=== PATIENT | female | born 1950 | race Caucasian/White ===

== ENCOUNTER → 2022-06-20 | Outpatient (CLI) | payer MEDICARE ==
--- NOTE | 2022-06-20 11:24 | USB ---
Risk Values: Siomara 5 year model risk: 1.2%. NCI Lifetime model risk: 2.9%. Findings: The upper section of the breast of both breasts, the lateral section of the breast of both breasts, the lower section of the breast of both breasts, the medial section of the breast of both breasts and the axilla of both breasts were scanned. No solid or cystic masses are identified. Bilateral chest marquis examined. This includes the axilla bilaterally. Overall Assessment: Negative, BI-RAD 1 Management: Clinical Management of both breasts. A clinical breast exam by your physician is recommended on an annual basis and results should be correlated with mammographic findings. This exam should not preclude additional follow-up of suspicious palpable abnormalities. Results were given to the patient verbally at the time of exam. Electronically signed and approved by: Juan Alford D.O. Radiologis
== END | disposition home or self-care (01) ==
LOC: RADUSWWP 08:53
PROVIDERS: ATTEND Family Medicine
DX: Z90.13 Acquired absence of bilateral breasts and nipples (principal)

== ENCOUNTER → 2022-08-08 | Outpatient (CLI) | payer MEDICARE ==
--- NOTE | 2022-08-08 13:37 | US ---
EXAMINATION TYPE: US pelvis complete transvag DATE OF EXAM: 08/08/2022 COMPARISON: NONE CLINICAL INDICATION:Female, 72 years old with history of N93.9 ABNORMAL UTERINE AND VAGINAL BLEEDING, UNSPE; . Intermittent vaginal bleeding for 1.5 years, right pelvic pain TECHNIQUE: Transvaginal (TV) and Transabdominal (TA) . Transabdominal sonographic images of the pel vis were acquired. Transvaginal sonographic images were medically necessary to better assess the fol lowing anatomy: uterus and ovaries Date of LMP: unknown EXAM MEASUREMENTS: Uterus: 7.9 x 4.4 x 4.5 cm Endometrial Stripe: 2.1 cm Right Ovary: unable to visualize Left Ovary: unable to visualize 1. Uterus: Anteverted heterogeneous 2. Endometrium: thickened, heterogeneous measuring up to 2.1 cm internal vascularity is present. 3. Right Ovary: Obscured by overlying bowel gas 4. Left Ovary: Obscured by overlying bowel gas 5. Bilateral Adnexa: appears wnl 6. Posterior cul-de-sac: wnl IMPRESSION: Abnormally thickened endometrium for a postmenopausal patient measuring up to 2.1 cm with focus of va scularity concerning for endometrial carcinoma until proven otherwise. Further evaluation with direct visualization recommended.
== END | disposition home or self-care (01) ==
LOC: RADUSWWP 12:41
PROVIDERS: ATTEND Family Medicine
DX: N93.9 Abnormal uterine and vaginal bleeding, unspecified (principal); R93.89 Abnormal findings on diagnostic imaging of other specified body structures
CPT/HCPCS: 76830; 76856

== ENCOUNTER → 2023-07-13 | Outpatient (CLI) | payer MEDICARE ==
--- NOTE | 2023-07-13 09:45 | XR ---
EXAMINATION TYPE: XR chest 2V DATE OF EXAM: 07/13/2023 COMPARISON: 06/30/2023 TECHNIQUE: PA and lateral views submitted. HISTORY: Postmenopausal bleeding FINDINGS: The lungs are clear and there is no pneumothorax, pleural effusion, or focal pneumonia. Heart size normal and no overt failure. Osseous structures demonstrate hypertrophic and degenerative changes of the spine. Arthropathy of the shoulders. IMPRESSION: 1. No acute process.
[2023-07-13 09:56] LABS: African American GFR (CKD) >90 (>60 ml/min/1.73 sqM); Blood Urea Nitrogen 8 mg/dL (7-17); Non-African American GFR(CKD) >90 (>60 ml/min/1.73 sqM)
--- NOTE | 2023-07-13 11:48 | CT ---
EXAMINATION TYPE: CT abdomen pelvis w con CT DLP: 1465 mGycm, Automated exposure control for dose reduction was used. DATE OF EXAM: 07/13/2023 11:29 AM COMPARISON: Pelvic ultrasound 08/08/2022 CLINICAL INDICATION:Female, 73 years old with history of N96.0 postmenopausal bleeding; post deyiv ble eding TECHNIQUE: Standard CT of the abdomen and pelvis following the administration of 100 cc of Isovue 3 00 IV contrast material and oral contrast. Coronal and sagittal reformats were performed. FINDINGS: LOWER CHEST: Visualized lung bases are clear. Moderate coronary artery calcifications. Aortic valvula r calcifications. ABDOMEN LIVER: Unremarkable GALLBLADDER AND BILE DUCTS: Cholelithiasis. No biliary ductal dilatation. PANCREAS: Unremarkable. SPLEEN: Unremarkable. ADRENAL GLANDS: Unremarkable. KIDNEYS AND URETERS: No evidence of hydronephrosis. The kidneys enhance symmetrically. Right superior pole 1.8 cm cyst. Bilateral nonobstructive calculi with largest within the left kidney measures up t o 9 mm. Largest within the right kidney measures up to 6 mm. PELVIS BLADDER: Incompletely distended but grossly unremarkable. REPRODUCTIVE: Abnormal thickened heterogenous enhancing appearance of the uterine endometrium measuri ng 6.8 x 4.1 cm. ABDOMEN & PELVIS STOMACH AND BOWEL: Stomach and duodenum are unremarkable. No focal bowel wall thickening or surroundi ng inflammatory changes. Enteric contrast reaches the colon. The appendix is within normal limits. No evidence of bowel obstruction. PERITONEUM: No evidence of pneumoperitoneum or free fluid. VASCULATURE: Mild atherosclerotic calcifications are present throughout the abdominal aorta and its b ranches. No evidence of aortic aneurysm. Few pelvic phleboliths. MUSCULOSKELETAL: No acute osseous abnormalities. Mild disc degeneration changes are present throughou t the thoracolumbar spine. No aggressive osseous lesion. LYMPH NODES: No pathologically enlarged lymph nodes greater than 1 cm short axis. SOFT TISSUE/ABDOMINAL WALL: Unremarkable IMPRESSION: 1. Abnormal thickened heterogenous enhancing appearance of the uterine endometrium measuring 6.8 x 4 .1 cm. This is concerning for endometrial carcinoma until proven otherwise. Direct visualization is r ecommended. 2. No pathologically enlarged lymph nodes identified. 3. Cholelithiasis. 4. Nonobstructive bilateral renal calculi.
== END | disposition home or self-care (01) ==
LOC: RADCTMAIN 09:04
PROVIDERS: ATTEND Obstetrics & Gynecology
DX: K80.20 Calculus of gallbladder without cholecystitis without obstruction (principal); N20.0 Calculus of kidney; N83.8 Other noninflammatory disorders of ovary, fallopian tube and broad ligament; N95.0 Postmenopausal bleeding
CPT/HCPCS: 82565; 84520; 71046; 74177; 36415; Q9967

== ENCOUNTER 2023-09-25 11:59 | Emergency (ER) | payer MEDICARE ==
[2023-09-25] MEDS ORDERED: ONDANSETRON ODT 4 MG TAB PO STA (12:19)
--- NOTE | 2023-09-25 12:21 | ED ---
Female Urogenital HPI - General Source: patient, family, RN notes reviewed <Diamond Carrillo - Last Filed: 09/25/23 12:19> - General Source: patient, family, RN notes reviewed Limitations: no limitations <Zoltan Flaherty - Last Filed: 09/25/23 16:33> - General Stated complaint: Hematuria-CA patient Time Seen by Provider: 09/25/23 12:20 - History of Present Illness Initial comments: Patient is 73-year-old female presented ER with chief complaint of hematuria. Patient states she started to have increased hematuria the past couple days. Patient recently had a hysterectomy due to endometrial cancer and has not started chemo or radiation yet. Patient follows up with Dr. Batista. Patient denies any pain does state she has some nausea. Is also reporting she feels lightheaded and dizzy. (Diamond Carrillo) Patient is a pleasant 73-year-old female presenting to the emergency department with concerns for hematuria. Onset of symptoms was 4 days ago. Patient did have dysuria however that has mostly resolved. Patient is approximately 3 weeks post hysterectomy. Patient had this secondary to concern for uterine cancer and there was a positive lymph node as well. No chest pain or dyspnea. No abdominal pain. No fevers. No vomiting. (Zoltan Flaherty) - Related Data Previous Rx's Medication Instructions Recorded Cephalexin [Keflex] 500 mg PO QID #36 cap 09/25/23 Allergies Allergy/AdvReac Type Severity Reaction Status Date / Time codeine Allergy Nausea & Verified 09/25/23 12:46 Vomiting Review of Systems ROS Other: All systems not noted in ROS Statement are negative. <Diamond Carrillo - Last Filed: 09/25/23 12:19> ROS Other: All systems not noted in ROS Statement are negative. Constitutional: Denies: fever, chills Eyes: Denies: eye pain ENT: Denies: ear pain Respiratory: Denies: cough Cardiovascular: Denies: chest pain Gastrointestinal: Denies: abdominal pain Genitourinary: Reports: as per HPI, hematuria <Zoltan Flaherty - Last Filed: 09/25/23 16:33> ROS Statement: Those systems with pertinent positive or pertinent negative responses have been documented in the HPI. General Exam <Diamond Carrillo - Last Filed: 09/25/23 12:19> Limitations: no limitations General appearance: alert, in no apparent distress Head exam: Present: normocephalic Eye exam: Present: normal appearance Neck exam: Present: normal inspection Respiratory exam: Present: normal lung sounds bilaterally Cardiovascular Exam: Present: regular rate, normal rhythm GI/Abdominal exam: Present: soft. Absent: tenderness Extremities exam: Present: normal inspection Neurological exam: Present: alert Psychiatric exam: Present: normal affect, normal mood Skin exam: Present: normal color <Zoltan Flaherty - Last Filed: 09/25/23 16:33> - General Exam Comments Initial Comments: Visual Physical Exam Vital signs reviewed General: Well-appearing, nontoxic, no acute distress. Head: Normocephalic, atraumatic Eyes: PERRLA, EOMI ENT: Airway patent Chest: Nonlabored breathing Skin: No visual rash, normal skin tone Neuro: Alert and oriented 3 Musculoskeletal: No gross abnormalities (Diamond Carrillo) Course Vital Signs 09/25/23 12:41 Temperature 98.0 F Pulse Rate 75 Respiratory 20 Rate Blood Pressure 105/66 O2 Sat by Pulse 99 Oximetry Medical Decision Making <Diamond Carrillo - Last Filed: 09/25/23 12:19> - Lab Data Result diagrams: 09/25/23 13:03 09/25/23 13:03 <Zoltan Flaherty - Last Filed: 09/25/23 16:33> - Medical Decision Making I performed the quick note portion of the exam. Electronically signed by Diamond Carrillo PA-C (Diamond Carrillo) EKG interpreted by myself shows sinus rhythm with a rate of 80. IN 141. QRS 90. QT 3 mL 7. QTC 4:30. Normal axis. Q waves V1 and V2. No acute ST change. Was pt. sent in by a medical professional or institution ([facility], FOUNDRY METALLURGIST, urgent care, hospital, or retirement...) When possible be specific @ -No Did you speak to anyone other than the patient for history (EMS, parent, family, police, friend...)? What history was obtained from this source @ -Family is present and helps right history including when instructed was. Did you review nursing and triage notes (agree or disagree)? Why? @ -I reviewed and agree with nursing and triage notes Were old charts reviewed (outside hosp., previous admission, EMS record, old EKG, old radiological studies, urgent care reports/EKG's, retirement records)? Report findings @ -No old charts were reviewed Differential Diagnosis (chest pain, altered mental status, abdominal pain women, abdominal pain men, vaginal bleeding, weakness, fever, dyspnea, syncope, headache, dizziness, GI bleed, back pain, seizure, CVA, palpatations, mental health, musculoskeletal)? @ -Differential Abdominal Pain Women: Appendicitis, Cholecystitis, diverticulosis, ischemic bowel, pancreatitis, hepatitis, UTI, gastroenteritis, AAA, incarcerated hernia, bowel obstruction, constipation, inflammatory bowel, hepatitis, peptic ulcer disease, splenic inf arction, perforated viscus, vulvitis, ovarian torsion, PID, kidney stone, placenta abruption, this is not meant to be an all-inclusive list EKG interpreted by me (3pts min.). @ -As above X-rays interpreted by me (1pt min.). @ -None done CT interpreted by me (1pt min.). @ -Computed tomography scan abdomen pelvis does show kidney stones. Also lung nodules. U/S interpreted by me (1pt. min.). @ -None done What testing was considered but not performed or refused? (CT, X-rays, U/S, labs)? Why? @ -None What meds were considered but not given or refused? Why? @ -None Did you discuss the management of the patient with other professionals (professionals i.e. , PA, FOUNDRY METALLURGIST, lab, RT, psych nurse, 7th grade social studies teacher, controller coal or ore, teacher, chief digital media officer, registered nurse hh case manager)? Give summary @ -No Was smoking cessation discussed for >3mins.? @ -No Was critical care preformed (if so, how long)? @ -No Were there social determinants of health that impacted care today? How? (Homelessness, low income, unemployed, alcoholism, drug addiction, transportation, low edu. Level, literacy, decrease access to med. care, prison, rehab)? @ -No Was there de-escalation of care discussed even if they declined (Discuss DNR or withdrawal of care, Hospice)? DNR status @ -No What co-morbidities impacted this encounter? (DM, HTN, Smoking, COPD, CAD, Cancer, CVA, ARF, Chemo, Hep., AIDS, mental health diagnosis, sleep apnea, morbid obesity)? @ -None Was patient admitted / discharged? Hospital course, mention meds given and route, prescriptions, significant lab abnormalities, going to OR and other pertinent info. @ -Patient and family are updated on results and plan. The are aware they do need to follow-up with oncology and discussed lung nodules as seen on CAT scan. Undiagnosed new problem with uncertain prognosis? @ -No Drug Therapy requiring intensive monitoring for toxicity (Heparin, Nitro, Insulin, Cardizem)? @ -No Were any procedures done? @ -No Diagnosis/symptom? @ -Hematuria Acute, or Chronic, or Acute on Chronic? @ -Acute Uncomplicated (without systemic symptoms) or Complicated (systemic symptoms)? @ -default Side effects of treatment? @ -No Exacerbation, Progression, or Severe Exacerbation? @ -No Poses a threat to life or bodily function? How? (Chest pain, [place], [place], pneumonia, PE, COPD, DKA, ARF, appy, cholecystitis, CVA, Diverticulitis, Homicidal, Suicidal, threat to staff... and all critical care pts) @ -No (Zoltan Flaherty) - Lab Data Lab Results 09/25/23 09/25/23 09/25/23 Range/Units 13:03 13:03 13:03 WBC 7.6 (3.8-10.6) k/uL RBC 4.02 (3.80-5.40) m/uL Hgb 12.0 (11.4-16.0) gm/dL Hct 35.6 (34.0-46.0) % MCV 88.6 (80.0-100.0) fL MCH 29.8 (25.0-35.0) pg MCHC 33.7 (31.0-37.0) g/dL RDW 13.2 (11.5-15.5) % Plt Count 427 (150-450) k/uL MPV 7.6 Sodium 134 L (137-145) mmol/L Potassium 5.0 (3.5-5.1) mmol/L Chloride 95 L (98-107) mmol/L Carbon Dioxide 25 (22-30) mmol/L Anion Gap 14 mmol/L BUN 13 (7-17) mg/dL Creatinine 0.64 (0.52-1.04) mg/dL Est GFR (CKD-EPI)AfAm >90 (>60 ml/min/1.73 sqM) Est GFR (CKD-EPI)NonAf 88 (>60 ml/min/1.73 sqM) Glucose 160 H (74-99) mg/dL Calcium 10.0 (8.4-10.2) mg/dL Total Bilirubin 0.7 (0.2-1.3) mg/dL AST 25 (14-36) U/L ALT 16 (4-34) U/L Alkaline Phosphatase 170 H (38-126) U/L Total Protein 7.2 (6.3-8.2) g/dL Albumin 4.2 (3.5-5.0) g/dL Urine Color Dark Red Urine Appearance Turbid H (Clear) Urine RBC >182 H (0-5) /hpf Urine WBC 61 H (0-5) /hpf Ur Squamous Epith Cells 3 (0-4) /hpf Disposition <Diamond Carrillo - Last Filed: 09/25/23 12:19> Is patient prescribed a controlled substance at d/c from ED?: No Time of Disposition: 16:33 <Zoltan Flaherty - Last Filed: 09/25/23 16:33> Clinical Impression: Hematuria Disposition: HOME SELF-CARE Condition: Stable Instructions (If sedation given, give patient instructions): Hematuria (ED) Additional Instructions: Please do follow-up with her care physician and oncologist within the next week. Return for fevers, vomiting, abdominal pain, increased bleeding, worsening symptoms or any other concerns. Prescription has been sent to pharmacy. Prescriptions: Cephalexin [Keflex] 500 mg PO QID #36 cap Referrals: Domingo Anna MD [Primary Care Provider] - 1-2 days Bg Batista [STAFF PHYSICIAN] - 1-2 days
[2023-09-25 13:05] VITALS: PULSE 75; TEMP 98
[2023-09-25 13:21] LABS: HCT 35.6 % (34.0-46.0); MCH 29.8 pg (25.0-35.0); MCHC 33.7 g/dL (31.0-37.0); MCV 88.6 fL (80.0-100.0); Mean Platelet Volume 7.6; Platelet Count 427 k/uL (150-450); RBC 4.02 m/uL (3.80-5.40); RDW 13.2 % (11.5-15.5); WBC 7.6 k/uL (3.8-10.6)
[2023-09-25 13:33] LABS: ALT 16 U/L (4-34); AST 25 U/L (14-36); African American GFR (CKD) >90 (>60 ml/min/1.73 sqM); Albumin 4.2 g/dL (3.5-5.0); Alkaline Phosphatase 170 U/L (38-126); Anion Gap 14 mmol/L; Blood Urea Nitrogen 13 mg/dL (7-17); Carbon Dioxide 25 mmol/L (22-30); Chloride 95 mmol/L (98-107); Glucose 160 mg/dL (74-99); Non-African American GFR(CKD) 88 (>60 ml/min/1.73 sqM); Sodium 134 mmol/L (137-145); Total Bilirubin 0.7 mg/dL (0.2-1.3); Total Protein 7.2 g/dL (6.3-8.2)
[2023-09-25 13:46] LABS: Appearance,Urine Turbid (Clear); RBC,Urine >182 /hpf (0-5); Squamous Epithelial Cell,Urine 3 /hpf (0-4); WBC,Urine 61 /hpf (0-5)
[2023-09-25 13:47] LABS: Color,Urine Dark Red
--- NOTE | 2023-09-25 14:54 | CT ---
EXAMINATION TYPE: CT abdomen pelvis w con DATE OF EXAM: 09/25/2023 COMPARISON: 07/13/2023 HISTORY: hematuria CT DLP: 1080.1 mGycm Automated exposure control for dose reduction was used. TECHNIQUE: Helical acquisition of images was performed from the lung bases through the pelvis. CONTRAST: Performed without Oral Contrast and with IV Contrast, patient injected with 100ml mL of Isovue 300. FINDINGS: There is been interval development of multiple innumerable pulmonary nodules in the lung bases, right much greater than left. The largest nodules or proximally 7 mm. Findings are suspicious for metastat ic disease. CT of the chest is recommended for further evaluation. There is a large gallstone but no gallbladder distention, wall thickening or pericholecystic fluid. T here is no biliary ductal dilatation. There is no focal mass or organomegaly involving the liver, pancreas, spleen or adrenal glands. The p ancreas is atrophic. There are 2 tiny nonobstructing right renal calcifications. The 6 mm calcification seen within the ri ght kidney on the prior study has resolved in the interval. There is a 8mm stable nonobstructing left renal calcification. There are no solid renal masses or hyd ronephrosis. Caliber the abdominal aorta is normal is no retroperitoneal adenopathy or hemorrhage. The bowel loops are normal in caliber and there is no dilatation or obstruction. No inflammatory mathias ges identified in the bowel wall or mesentery. There is no pelvic mass, free fluid, abscess or adenopathy. There are surgical absence of the uterus. No focal osseous lesions are seen. IMPRESSION: 1. Bilateral renal calculi as described above. There is no solid renal mass or hydronephrosis. The 6 mm right renal calculus seen on the prior study is no longer present. 2. Stable large gallstone. 3. Development of multiple innumerable pulmonary nodules in the visualized lung bases, the largest o f which is 7 mm. Findings are suspicious for metastatic disease and further workup is warranted. CT o f the chest is recommended on a nonemergent basis. 4. No focal osseous lesion.
[2023-09-25] MEDS ORDERED: CEPHALEXIN 500MG STARTER PACK 4 CAP BTL PO STA (16:28)
[2023-09-25 17:01] VITALS: BP 146/85; RESP 18
== END 2023-09-25 16:48 | disposition home or self-care (01) ==
LOC: EC 11:59
DX: K80.20 Calculus of gallbladder without cholecystitis without obstruction (principal); N20.0 Calculus of kidney; Z88.5 Allergy status to narcotic agent
CPT/HCPCS: 36415 ×2; 80053; 85027; 81001; 87086; 74177; 99284; Q9967

== ENCOUNTER → 2023-10-14 | Outpatient (CLI) | payer MEDICARE ==
[2023-10-14 11:05] LABS: African American GFR (CKD) >90 (>60 ml/min/1.73 sqM); Blood Urea Nitrogen 15 mg/dL (7-17); Non-African American GFR(CKD) >90 (>60 ml/min/1.73 sqM)
--- NOTE | 2023-10-14 11:48 | CT ---
EXAMINATION TYPE: CT chest w con CT DLP: 326 mGycm, Automated exposure control for dose reduction was used. DATE OF EXAM: 10/14/2023 11:29 AM COMPARISON: CT abdomen and pelvis 09/25/2023, 07/13/2023 CLINICAL INDICATION:Female, 73 years old with history of C54.8 UTERINE CA R91.1 PULMONARY NODULES; P HH, TECHNIQUE: Multiple axial images were obtained through the chest following the administration of 100 cc of Isovue 300. . Coronal and sagittal reformats reviewed. FINDINGS: LUNGS/ PLEURA: No pleural effusion or pneumothorax. No focal sedation. Innumerable pulmonary nodules demonstrated about the lungs. Examples include a right lower lobe 6 mm nodule which is not present o n CT 07/13/2023 (series 4, image 45). Additional examples include right lower lobe 6.7 mm pulmonary n odule (series 4, image 23), left lower lobe 4.7 mm pulmonary nodule (series 4, image 26), left upper lobe 4.6 mm pulmonary nodule (series 4, image 17), and right upper lobe 5.9 mm pulmonary nodule (seri es 4, image 14). AIRWAY: Patent and unremarkable.. HEART: Size within normal limits. Trace anterior pericardial effusion.. MEDIASTINUM: No evidence of adenopathy. VASCULATURE: No aortic aneurysm. MUSCULOSKELETAL: No acute osseous abnormalities. No aggressive osseous lesion. Multilevel degenerativ e changes of the visualized spine. SOFT TISSUES/LYMPH NODES: No axillary adenopathy identified. Bilateral mastectomy. Irregular peripher al enhancing 2.1 x 2.2 cm region within the right breast (series 3, image 31). LOWER NECK: Left thyroid lobe 1.2 cm hypodense nodule. Atrophy of the right thyroid lobe compared to the left.. UPPER ABDOMEN: Cholelithiasis with a dominant gallstone measuring up to 2.1 cm. Right renal cyst reji uring up to 2.2 cm. Nonobstructive left renal calculus measuring up to 1 cm. IMPRESSION: 1. Innumerable pulmonary nodules throughout the lungs most consistent with metastasis in the setting of known uterine cancer. 2. Irregular peripheral enhancing 2.1 x 2.2 cm region within the right breast. Raises possibility of malignancy/metastasis versus postsurgical. Comparison with prior breast imaging is recommended. Furth er workup is recommended with dedicated mammography and ultrasound. 3. Nonobstructive left renal calculus. 4. Cholelithiasis.
== END | disposition home or self-care (01) ==
LOC: RADCTMAIN 09:50
PROVIDERS: ATTEND Internal Medicine Hematology & Oncology
DX: K80.20 Calculus of gallbladder without cholecystitis without obstruction (principal); N20.0 Calculus of kidney; Z85.42 Personal history of malignant neoplasm of other parts of uterus
CPT/HCPCS: 82565; 84520; 71260; 36415; Q9967

== ENCOUNTER → 2023-10-15 | Outpatient (CLI) | payer MEDICARE ==
--- NOTE | 2023-10-15 10:22 | USB ---
Reason for Exam: Additional evaluation requested from prior study. Risk Values: Siomara 5 year model risk: 1.2%. NCI Lifetime model risk: 2.7%. Technique: Method: Whole Breast Handheld. Findings: The whole breast of the right breast and the axilla of the right breast were scanned. Patient status post right mastectomy. All 4 quadrants including the subareolar region and axilla were scanned. At the 9:00 position, 5 cm from the nipple, likely corresponding to the CT findings, there is an elongated heterogeneous hypoechoic area measuring 3.8 x 3.9 x 1.1 cm. This seems to extend to an overlying scar. Unclear if this represents abnormal tissue or underlying scar. Given the appearance on CT, further tissue sampling is recommended. Overall Assessment: Suspicious, BI-RAD 4 Management: Ultrasound Core Biopsy of the right breast. Electronically signed and approved by: Lea Delacruz M.D. Radiologist
== END | disposition home or self-care (01) ==
LOC: RADUSWWP 09:39
PROVIDERS: ATTEND Internal Medicine Hematology & Oncology
DX: N63.10 Unspecified lump in the right breast, unspecified quadrant (principal); Z85.3 Personal history of malignant neoplasm of breast

== ENCOUNTER → 2023-10-23 | Outpatient (CLI) | payer MEDICARE ==
[2023-10-23 10:20] LABS: Prothrombin Time 10.9 sec (10.0-12.5)
[2023-10-23 10:21] LABS: Partial Thromboplastin Time 19.7 sec (22.0-30.0)
[2023-10-23 15:12] LABS: Blood Urea Nitrogen 10.9 mg/dL (9.0-27.0)
== END | disposition home or self-care (01) ==
LOC: LABPAT 09:02
PROVIDERS: ATTEND Thoracic Surgery (Cardiothoracic Vascular Surgery)
DX: Z01.812 Encounter for preprocedural laboratory examination (principal); R91.8 Other nonspecific abnormal finding of lung field; R58 Hemorrhage, not elsewhere classified; Z79.899 Other long term (current) drug therapy
CPT/HCPCS: 36415; 82565; 84520; 85025; 85610; 85730; 86850; 86900; 86901

== ENCOUNTER 2023-10-26 11:18 | Day surgery (SDC) | payer MEDICARE ==
[2023-10-23 14:37] VITALS: BMI 31.8
[~2023-10-26 11:18] MED LIST: LIDOCAINE 1% (10MG/ML) FOR IV START INTRADERMA PRN; fentaNYL (PF) 50 MCG/ML 2 ML AMP IV PRN
[2023-10-26] MEDS: LACTATED RINGERS 1,000 ML IV SCH (12:11)
[2023-10-26 12:22] LABS: Glucose,Whole Blood 166 mg/dL (70-110)
--- NOTE | 2023-10-26 12:43 | P.ANPRN ---
Procedure Note - Anesthesia - Invasive Line Left Arterial Line Time Out Performed: Yes Date of Procedure: 10/26/23 Time of Procedure: 12:40 Location of Patient: PreOp Arterial Line Location: Radial Ultrasound Used: No Needle Guage: 22 G Narrative: Central line placement per sterile protocol utilized.
[2023-10-26] MEDS: fentaNYL (PF) 50 MCG/ML 2 ML AMP IVP ONE (12:45)
[2023-10-26] MEDS: MIDAZOLAM 2 MG/2 ML VIAL IVP ONE (12:45)
[2023-10-26] MEDS: ONDANSETRON 4 MG/2 ML VIAL IVP ONE (12:58)
[2023-10-26] MEDS: DEXAMETHASONE SOD PHOSPHATE 4 MG/ML 1 ML VIAL IVP ONE (13:09)
[2023-10-26] MEDS ORDERED: GLYCOPYRROLATE 0.2 MG/ML 2 ML VIAL ONE (13:48)
[2023-10-26] MEDS ORDERED: SUCCINYLCHOLINE CHLORIDE 200 MG/10 ML VIAL IV ONE (13:48)
[2023-10-26] MEDS ORDERED: fentaNYL (PF) 50 MCG/ML 2 ML AMP ONE (13:48)
[2023-10-26] MEDS ORDERED: PHENYLEPHRINE-0.9% NACL SYG 1,000 MCG/10 ML SYRINGE ONE (13:48)
[2023-10-26] MEDS ORDERED: NEOSTIGMINE 1 MG/ML 10 ML VIAL ONE (13:48)
[2023-10-26] MEDS ORDERED: LIDOCAINE 1% INJ 10MG/ML (20 ML MDV) ONE (13:48)
[2023-10-26] MEDS ORDERED: HYDROmorphone (PF) 1 MG/ML ONE (13:48)
[2023-10-26] MEDS ORDERED: PROPOFOL 10 MG/ML 20 ML VIAL IV ONE (13:48)
[2023-10-26] MEDS ORDERED: ROCURONIUM 10 MG/ML (5 ML VIAL) IV ONE (13:48)
[2023-10-26] MEDS: BUPIVACAINE (PF) 0.5% 30 ML VIAL SQ ONE ×2 (14:23→14:31)
--- NOTE | 2023-10-26 15:02 | P.OP ---
Date of Procedure: 10/26/23 Preoperative Diagnosis: Advanced uterine cancer, multiple bilateral miliary pulmonary masses Postoperative Diagnosis: Same Procedure(s) Performed: Right thoracoscopic biopsy right middle lobe lung Anesthesia: CHIDIA Surgeon: Jose Miguel Cisneros IV fluids (ml): 500 Pathology: other (Biopsy right middle) Condition: stable Disposition: PACU Indications for Procedure: 73-year-old female history of breast cancer in distant past recently underwent radical hysterectomy for stage IIIB uterine cancer in August 2023. She was scheduled to start adjuvant chemotherapy but was found to have innumerable new pulmonary masses which were not present on preoperative abdominal CT scan. This was felt most likely to represent metastatic disease however concern was could possibly represent some type of infection and therefore lung biopsy for diagnosis was requested before initiation of systemic chemotherapy. Patient was seen in the office late last week and surgery was scheduled for today October 26. Operative Findings: Pleural space was free of adhesions or fluid. Lung compliance was normal. The lungs were pink. There were multiple nodules visible both on the surface of the lung and in the fissures. Single biopsy of the middle lobe was obtained which had multiple nodules present within it. Description of Procedure: Patient was brought to the operating room placed supine on the operating table. General anesthesia intubation the patient was intubated with a double-lumen endotracheal tube. Tube position was confirmed with fiberoptic bronchoscopy and the tube was secured. Patient was turned in the left lateral decubitus position and the tube again checked. The right chest was sterilely prepped and draped. Single lung ventilation was initiated. Incision was made in the sixth interspace in the anterior axillary line and thoracoscope introduced into the pleural space. After confirming presence in the pleural space to further incisions were made anterior and posterior to the initial incision. The chest w as explored with findings as noted above. A single wedge resection of the posterior portion of the right middle lobe was performed. Specimen was removed and examined on the back table. Multiple nodules were present. 28-Khmer chest tube was placed through separate stab incision and positioned posteriorly. Lung was reinflated under thoracoscopic visualization. Incisions were closed with layers of Vicryl suture. Improve and I sterile dressings were applied. Chest tube was secured with 0 Ethibond suture and connected to a Pleur-evac. Chest tube dressing was applied. The patient was turned supine and extubated and transferred to recovery in stable condition.
[2023-10-26] MEDS: HYDROmorphone 0.5 MG/0.5 ML SYRINGE IVP ONE ×3 (15:15→15:50)
[2023-10-26] MEDS ORDERED: bisacodyL 10 MG SUPP RECTAL PRN (15:25)
[2023-10-26] MEDS ORDERED: IPRATROPIUM-ALBUTEROL 3 ML NEB IH PRN (15:25)
[2023-10-26] MEDS ORDERED: ONDANSETRON 4 MG/2 ML VIAL IVP PRN (15:25)
--- NOTE | 2023-10-26 15:38 | XR ---
EXAMINATION TYPE: XR chest 1V portable DATE OF EXAM: 10/26/2023 3:24 PM CLINICAL INDICATION:Female, 73 years old with history of post op lung biopsy; COMPARISON: Chest radiographs from TECHNIQUE: XR chest 1V portable Frontal view of the chest. FINDINGS: Lungs/Pleura: There is no evidence of pleural effusion, focal consolidation, or pneumothorax. Pulmonary vascularity: Unremarkable. Heart/mediastinum: Cardiac size is normal. Musculoskeletal: No acute osseous pathology. Other findings: None Lines/Tubes: Right thoracotomy tube is present without evidence of pneumothorax. IMPRESSION: Right thoracotomy tube in place without evidence for pneumothorax.
[2023-10-26 15:41] LABS: Glucose,Whole Blood 140 mg/dL (70-110)
[2023-10-26] MEDS: SODIUM CHLORIDE 0.45% 1,000 ML IV SCH (18:11)
[2023-10-26 20:37] LABS: Glucose,Whole Blood 161 mg/dL (70-110)
[2023-10-26] MEDS: traZODone HCL 100 MG TAB PO SCH (20:49)
[2023-10-26] MEDS: ACETAMINOPHEN IV (For NPO) 1,000 MG in EMPTY BAG 1 BAG IVPB SCH (20:49)
[2023-10-26] MEDS: metFORMIN 500 MG TAB PO SCH (20:49)
[2023-10-26] MEDS: IPRATROPIUM-ALBUTEROL 3 ML NEB IH SCH (21:13)
[2023-10-26] MEDS: FORMOTEROL FUMARATE 20 MCG/2 ML NEBU INHALATION SCH (21:14)
[2023-10-26] MEDS: HEPARIN SODIUM,PORCINE 5,000 UNIT/ML 1 ML VIAL SQ SCH (23:42)
[2023-10-26] MEDS: KETOROLAC 15 MG/ML 1 ML VIAL IVP SCH (23:42)
[2023-10-27 00:19] VITALS: RESP 18
[2023-10-27 05:47] LABS: Glucose,Whole Blood 157 mg/dL (70-110)
[2023-10-27 06:54] LABS: Basophils % (A) 0 %; Eosinophils % (A) 0 %; HCT 32.1 % (34.0-46.0); HGB 10.7 gm/dL (11.4-16.0); Lymphocytes # (A) 0.6 k/uL (1.0-4.8); Lymphocytes % (A) 8 %; MCH 29.6 pg (25.0-35.0); MCHC 33.3 g/dL (31.0-37.0); Mean Platelet Volume 8.3; Monocytes # (A) 0.6 k/uL (0-1.0); Monocytes % (A) 7 %; Neutrophils % (A) 84 %; Platelet Count 285 k/uL (150-450); RBC 3.61 m/uL (3.80-5.40); RDW 13.5 % (11.5-15.5); WBC 8.4 k/uL (3.8-10.6)
[2023-10-27 07:03] LABS: African American GFR (CKD) >90 (>60 ml/min/1.73 sqM); Anion Gap 7 mmol/L; Blood Urea Nitrogen 16 mg/dL (7-17); Calcium 8.7 mg/dL (8.4-10.2); Carbon Dioxide 25 mmol/L (22-30); Chloride 100 mmol/L (98-107); Glucose 144 mg/dL (74-99); Non-African American GFR(CKD) >90 (>60 ml/min/1.73 sqM); Potassium 4.4 mmol/L (3.5-5.1); Sodium 132 mmol/L (137-145)
[2023-10-27] MEDS: ATORVASTATIN 40 MG TAB PO SCH (08:13)
[2023-10-27] MEDS: VORTIOXETINE HYDROBROMIDE 20 MG TABLET PO SCH (08:13)
[2023-10-27] MEDS: ACETAMINOPHEN TAB 500 MG TAB PO PRN (08:13)
--- NOTE | 2023-10-27 09:12 | XR ---
EXAMINATION TYPE: XR chest 1V DATE OF EXAM: 10/27/2023 7:33 AM CLINICAL INDICATION:Female, 73 years old with history of post op lung biopsy; [facility] COMPARISON: Chest radiograph from one day prior. TECHNIQUE: XR chest 1V Frontal view of the chest. FINDINGS: Lungs/Pleura: There is no evidence of pleural effusion, focal consolidation, or pneumothorax. Pulmonary vascularity: Unremarkable. Heart/mediastinum: Cardiac size is normal. Musculoskeletal: No acute osseous pathology. Other findings: None Lines/Tubes: Right thoracotomy tube is present without evidence of pneumothorax. IMPRESSION: Right thoracotomy tube in place without evidence for pneumothorax.
[2023-10-27 11:57] LABS: Glucose,Whole Blood 139 mg/dL (70-110)
[2023-10-27 12:05] VITALS: BP 96/61; PULSE 100; TEMP 97.9
--- NOTE | 2023-10-27 12:41 | P.PN ---
Subjective Progress Note Date: 10/27/23 Principal diagnosis: Advanced uterine cancer, multiple bilateral miliary pulmonary masses. 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 POD #1 right thoracoscopic biopsy right middle lobe lung. The patient was seen and examined in follow-up today October 27, 2023 at her bedside on the third floor cardiac stepdown unit. She is currently sitting up to the bedside chair, is awake, alert, oriented x 3 and is in no acute apparent distress. Denies any complaints of shortness of breath at this time, although is complaining of some surgical type pain to her chest tube insertion site, currently rating her pain 4-5 out of 10 on the pain scale. Oxygen saturations are 98% on room air and she is achieving 1000 mL on her incentive spirometry with encouragement. Right pleural chest tube remains in place to waterseal. No air leak is present. Draining thin serosanguineous drainage with 20 mL output in the last 8 hours and 70 mL output in last 24 hours. Remote telemetry is showing normal sinus rhythm heart rate 86 bpm. She reports she has been up ambulating in her room with assistance from nursing staff and tolerating well. Chest x-ray and laboratory results reviewed. Objective - Vital Signs Vital signs: Vital Signs Temp 97.6 F 10/27/23 04:00 Pulse 68 10/27/23 08:05 Resp 18 10/27/23 04:00 BP 126/74 10/27/23 04:00 Pulse Ox 91 L 10/27/23 07:46 FiO2 Intake & Output 10/26/23 10/27/23 10/27/23 18:59 06:59 18:59 Intake Total 1650 118 Output Total 10 53 5 Balance 1640 -53 113 Weight 86.636 kg 87.3 kg Intake: IV 1650 Oral 118 Output: Chest Tube Drainage 53 5 Chest Tube Right 53 5 Estimated Blood Loss 10 Other: Voiding Method Toilet # Voids 1 - Exam CONSTITUTIONAL: Appears comfortable, cooperative, no acute distress RESPIRATORY: Lungs sounds diminished bilaterally. Respirations symmetrical and nonlabored. Currently on room air with oxygen saturation 98%. Able to achieve 1000 mL on her incentive spirometry. Strong cough. CARDIOVASCULAR: S1, S2 present. Regular rate and rhythm, sinus rhythm on telemetry. Palpable peripheral pulses bilaterally. No edema present. No calf pain or tenderness noted. SCDs present. GASTROINTESTINAL: Abdomen soft, nontender, nondistended. Active bowel sounds present 4 quadrants. Tolerating diet. Positive bowel movement. GENITOURINARY: Continues to void clear, yellow urine INTEGUMENTARY: Skin is warm and dry with evidence of good perfusion. Right chest thoracic incisions well approximated and covered with dry intact dressing. NEUROLOGIC: Cranial nerves II through XII intact. No focal deficits. MUSKULOSKELETAL: Able to move all extremities, strength equal bilaterally, gait normal. PSYCHIATRIC: Alert and oriented to person place and time, appropriate affect, intact judgment and insight. INVASIVE LINES AND TUBES: Right pleural chest tube present and is to waterseal, no air leaks present. Right pleural chest tube with 20 mL serosanguineous drainage overnight, 70 mL in the last 24 hours. - Allied health notes Allied health notes reviewed: nursing - Labs CBC & Chem 7: 10/27/23 06:30 10/27/23 06:30 Labs: Abnormal Lab Results - Last 24 Hours (Table) 10/26/23 10/26/23 10/26/23 Range/Units 12:18 15:30 20:35 RBC (3.80-5.40) m/uL Hgb (11.4-16.0) gm/dL Hct (34.0-46.0) % Lymphocytes # (1.0-4.8) k/uL Sodium (137-145) mmol/L Glucose (74-99) mg/dL POC Glucose (mg/dL) 166 H 140 H 161 H (70-110) mg/dL 10/27/23 10/27/23 10/27/23 Range/Units 05:46 06:30 06:30 RBC 3.61 L (3.80-5.40) m/uL Hgb 10.7 L (11.4-16.0) gm/dL Hct 32.1 L (34.0-46.0) % Lymphocytes # 0.6 L (1.0-4.8) k/uL Sodium 132 L (137-145) mmol/L Glucose 144 H (74-99) mg/dL POC Glucose (mg/dL) 157 H (70-110) mg/dL - Imaging and Cardiology Chest x-ray: report reviewed, image reviewed Assessment and Plan Assessment: Multiple bilateral miliary pulmonary masses, status post right thoracoscopic biopsy right middle lobe lung Advanced uterine cancer, status post hysterectomy in August 2023 History of breast cancer status post bilateral mastectomies 20 years ago Diabetes mellitus type 2 History of hypertension Hyperlipidemia Obesity with a BMI of 32.0 kg/m History of depression Plan: We will remove her right pleural chest tube today. Increase activity as tolerated. Pain control per current as needed orders. Continue to follow pathology results. She will follow-up with Dr. Cisneros as an outpatient for pathology result review. Encourage use of incentive spirometry 10 times every hour while awake. Medical management and other comorbidities per oncology service. Anticipate discharge home within the next 24 hours. More recommendations to follow based on patient's clinical course. Time with Patient: Greater than 30
--- NOTE | 2023-10-27 12:50 | P.DS ---
Providers Expected date of discharge: 10/27/23 Attending physician: Jose Miguel Cisneros Consults: 10/26/23 15:25 Consult Physician Routine Consulting Provider: Bg Batista Consult Reason/Comments: Medical management Do you want consulting provider notified?: Yes Primary care physician: Vic Hernandes Plan - Discharge Summary Discharge Rx Participant: No New Discharge Prescriptions: New Acetaminophen Tab [Tylenol] 1,000 mg PO Q6HR PRN tab PRN Reason: Fever And/ Or Pain Continue Vortioxetine Hydrobromide [Trintellix] 20 mg PO QAM Pioglitazone [Actos] 30 mg PO PC-LUNCH metFORMIN HCL [Glucophage] 1,000 mg PO BID lisinopriL [Zestril] 2.5 mg PO PC-LUNCH traZODone HCL [Desyrel] 100 mg PO HS Atorvastatin [Lipitor] 40 mg PO QAM atenoloL [Tenormin] 25 mg PO PC-LUNCH Discharge Medication List Atorvastatin [Lipitor] 40 mg PO QAM 10/15/23 [History] Pioglitazone [Actos] 30 mg PO PC-LUNCH 10/15/23 [History] Vortioxetine Hydrobromide [Trintellix] 20 mg PO QAM 10/15/23 [History] atenoloL [Tenormin] 25 mg PO PC-LUNCH 10/15/23 [History] lisinopriL [Zestril] 2.5 mg PO PC-LUNCH 10/15/23 [History] metFORMIN HCL [Glucophage] 1,000 mg PO BID 10/15/23 [History] traZODone HCL [Desyrel] 100 mg PO HS 10/15/23 [History] Acetaminophen Tab [Tylenol] 1,000 mg PO Q6HR PRN tab 10/27/23 [Rx] Follow up Appointment(s)/Referral(s): Jose Miguel Cisneros MD [STAFF PHYSICIAN] - 11/05/23 1:15 pm Bg Batista [STAFF PHYSICIAN] - As Needed (Dr Batista's office will call with a follow up appointment ) Ambulatory/Diagnostic Orders: XR chest 2V [RAD.AMB] Location: None Selected Activity/Diet/Wound Care/Special Instructions: DISCHARGE INSTRUCTIONS: 1. No driving for 2 weeks, or until physician gives their ok. 2. No lifting, pushing, or pulling more than 10 pounds for 2 weeks. The physician will advise of any restriction changes. 3. Continue pain control per as needed orders 4. Continue with incentive spirometry and splinting until otherwise directed by the physician. 5. Leave chest tube dressing for 48 hours. After that, remove all dressings and shower daily. 6. Routine incision care. No powders, lotions, ointments on incisions. 7. Please call surgeon/[employer] APPRENTICE for temp greater than 101 F or purulent drainage from incisions. OBTAIN CHEST X-RAY AT THE HOSPITAL PRIOR TO APPOINTMENT WITH DR. CISNEROS Discharge Disposition: HOME SELF-CARE Pending Studies Pending Results: FINAL DIAGNOSIS: Multiple bilateral miliary pulmonary masses, status post right thoracoscopic biopsy right middle lobe lung Advanced uterine cancer, status post hysterectomy in August 2023 History of breast cancer status post bilateral mastectomies 20 years ago Diabetes mellitus type 2 History of hypertension Hyperlipidemia Obesity with a BMI of 32.0 kg/m History of depression PRINCIPAL PROCEDURE: 1. Right thoracoscopic biopsy right middle lobe lung HISTORY OF PRESENT ILLNESS: This is a 73-year-old female patient who follows on an outpatient basis with Dr. Vic Hernandes and with Dr. Batista for her oncology care. The patient has a past medical history significant for breast cancer 20 years ago and underwent a radical hysterectomy for stage IIIb uterine cancer in August 2023. Due to the history of uterine cancer she was scheduled to start adjuvant chemotherapy, but underwent a CT scan of the chest on October 14, 2023 which demonstrated innumerable pulmonary nodules throughout the lungs most consistent with metastasis in the setting of known uterine cancer. Subsequently, due to the findings of the pulmonary nodules she was referred to Dr. Jose Miguel Cisneros from cardiothoracic surgery for further evaluation and treatment recommendations. The patient was seen by Dr. Cisneros in the office, treatment options discussed including a thoracoscopic lung biopsy. Risks and benefits of surgery was discussed with the patient by Dr. Cisneros and knowing and understanding the risks the patient wished to proceed with the surgical option. HOSPITAL COURSE: The patient was brought to the hospital on 10/26/23, taken to the preoperative area, prepared in the usual fashion, and subsequently taken to the operating room where Dr. Cisneros performed a right thoracoscopic biopsy right middle lobe lung. Upon completion of surgery the patient was extubated and taken to the recovery room for hemodynamic monitoring. She was eventually admitted to 3 S. cardiac stepdown unit. She had no airleak in her chest tube and it was placed to waterseal that afternoon of surgery. The following morning there was no airleak present, chest x-ray was stable and her right pleural chest tube was discontinued without incident. She remained on room air with excellent oxygen saturation, was tolerating an oral diet, her pain was controlled, and she was ready to be discharged to home on postoperative day #1. She received written and verbal instruction regarding her medications, activity restrictions, signs and symptoms requiring physician notification, and follow- up appointments.
[2023-10-27] MEDS: atenoloL 25 MG TAB PO SCH (13:06)
[2023-10-27] MEDS: PIOGLITAZONE 30 MG TAB PO SCH (13:06)
--- NOTE | 2023-10-27 14:14 | P.CONS ---
History of Present Illness - Reason for Consult Consult date: 10/27/23 medical management Requesting physician: Darren Low - Chief Complaint Wedge biopsy of the lung - History of Present Illness Ms Hylton is a pleasant female pt of Dr. Batista with multiple medical issues and a complicated PMH. The patient had presented to her PCP with complains of persistent and progressive vaginal bleeding for more than a year. He was referred to [facility] Oncology, Dr. Hernandes, and had Pap smear and D&C on 07/23/23. 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 Patient's pelvic ultrasound in 08/05 had shown abnormally thickened endometrium measuring 2.1 cm, with focus of vascularity concerning for endometrial carcinoma. CT AP 07/13/23 showed abnormally thickened endometrium, measuring 6.8 x 4.1 cm. Chest x-ray was negative. She underwent surgery with MI/BSO, as well as sentinel lymph node dissection on 09/03/23. 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 She was staged as pT3a, N1a, stage IIIc. She was referred to Dr. Batista for adjuvant systemic therapy. She had CT AP 09/25/23 for hematuria- impression bilaterl renal calculi, no hydronephrosis or mass, 6mm calculus in the right previously seen was no longer present (likely passed ston e?). Unfortunately, there was development of multiple innumerable pulm nodules visualized in lung bases. CT chest ordered, able to be done same day 4-6mm plum nodules seen, as well as 2.1x2.2cm enhancing right breast mass. She is admitted for the wedge biopsy of lung. Breast biopsy is on 11/04. Planning for chemo soon after breast biopsy. Pt has no c/o when seen today. She is breathing fine, denies any significant discomfort. She has PMH diabetes, bilateral breast cancer, initially in 1978 on the left, treated with lumpectomy and radiation. Breast cancer on the right side in 2003, had a bilateral mastectomy, and lymph node dissection on the right. Received radiation and chemotherapy for 6 months, no hormonal treatment, indicating that this was likely hormone receptor negative cancer. She has not had any genetic testing done for hereditary cancer mutations. Review of Systems 10 point ROS is neg except as stated in HPI Past Medical History Past Medical History: Cancer, Diabetes Mellitus, Hearing Disorder / Deafness, Hyperlipidemia, Hypertension, Osteoarthritis (OA), Pneumonia Additional Past Medical History / Comment(s): Uterine cancer awaiting chemo, hx right breast cancer with later recurrence 20 yrs ago. Hx pneumonia and bronchitis X4 many years ago. Some trouble hearing. History of Any Multi-Drug Resistant Organisms: None Reported Past Surgical History: Breast Surgery, Hysterectomy Additional Past Surgical History / Comment(s): Partial mastectomy, bilateral mastectomy, deviated septum surgery. Past Anesthesia/Blood Transfusion Reactions: No Reported Reaction Past Psychological History: Depression Additional Psychological History / Comment(s): Trintellix Smoking Status: Never smoker Past Alcohol Use History: None Reported Past Drug Use History: None Reported - Past Family History Mother Family Medical History: No Reported History Medications and Allergies Home Medications Medication Instructions Recorded Confirmed Type Atorvastatin [Lipitor] 40 mg PO QAM 10/15/23 10/26/23 History Pioglitazone [Actos] 30 mg PO PC-LUNCH 10/15/23 10/26/23 History Vortioxetine Hydrobromide 20 mg PO QAM 10/15/23 10/26/23 History [Trintellix] atenoloL [Tenormin] 25 mg PO PC-LUNCH 10/15/23 10/26/23 History lisinopriL [Zestril] 2.5 mg PO PC-LUNCH 10/15/23 10/26/23 History metFORMIN HCL [Glucophage] 1,000 mg PO BID 10/15/23 10/26/23 History traZODone HCL [Desyrel] 100 mg PO HS 10/15/23 10/26/23 History Acetaminophen Tab [Tylenol] 1,000 mg PO Q6HR PRN tab 10/27/23 Rx Allergies Allergy/AdvReac Type Severity Reaction Status Date / Time codeine Allergy Nausea & Verified 10/26/23 12:43 Vomiting Physical Exam Vitals: Vital Signs Temp Pulse Pulse Pulse Resp BP BP 10/27/23 08:05 68 10/27/23 08:00 97.5 F L 99 18 103/69 10/27/23 07:56 68 10/27/23 07:46 65 10/27/23 04:00 97.6 F 84 18 126/74 10/26/23 23:46 98.1 F 103 H 18 148/75 10/26/23 21:40 88 10/26/23 21:26 90 10/26/23 21:25 90 10/26/23 21:16 88 10/26/23 20:22 97.3 F L 87 16 151/74 10/26/23 18:00 79 16 10/26/23 17:30 63 14 10/26/23 17:00 65 14 10/26/23 16:45 63 16 10/26/23 16:30 64 16 10/26/23 16:15 76 12 164/54 10/26/23 16:00 64 12 155/53 10/26/23 15:45 65 16 165/58 10/26/23 15:30 67 16 170/67 10/26/23 15:15 71 16 180/67 10/26/23 15:00 66 16 178/60 10/26/23 14:54 97.9 F 96 15 10/26/23 12:44 97.3 F L 83 16 BP Pulse Ox 10/27/23 08:05 10/27/23 08:00 99 10/27/23 07:56 10/27/23 07:46 91 L 10/27/23 04:00 98 10/26/23 23:46 98 10/26/23 21:40 10/26/23 21:26 10/26/23 21:25 10/26/23 21:16 10/26/23 20:22 99 10/26/23 18:00 145/66 97 10/26/23 17:30 129/58 94 L 10/26/23 17:00 151/65 96 10/26/23 16:45 131/60 96 10/26/23 16:30 150/65 99 10/26/23 16:15 149/68 99 10/26/23 16:00 161/72 100 10/26/23 15:45 174/74 100 10/26/23 15:30 174/76 100 10/26/23 15:15 174/76 100 10/26/23 15:00 183/81 100 10/26/23 14:54 192/86 100 10/26/23 12:44 143/69 100 Intake and Output 10/26/23 10/27/23 10/27/23 22:59 06:59 14:59 Intake Total 118 Output Total 34 19 5 Balance -34 -19 113 Intake: Oral 118 Output: Chest Tube Drainage 34 19 5 Chest Tube Right 34 19 5 Other: Voiding Method Toilet Toilet # Voids 1 Weight 86.636 kg 87.3 kg - Constitutional General appearance: average body habitus, cooperative, no acute distress - EENT Eyes: anicteric sclerae, EOMI ENT: hearing grossly normal, normal oropharynx - Neck Neck: no lymphadenopathy - Respiratory rt chest tube insertion Respiratory: bilateral: CTA - Cardiovascular Rhythm: regular Heart sounds: normal: S1, S2 Abnormal Heart Sounds: no systolic murmur, no diastolic murmur, no rub, no S3 Gallop, no S4 Gallop, no click, no other leg Peripheral Edema: bilateral: Trace - Gastrointestinal General gastrointestinal: no absent bowel sounds, no decreased bowel sounds, no distended, no hepatomegaly, no hyperactive bowel sounds, normal bowel sounds, no organomegaly, no rigid, no scaphoid, soft, no splenomegaly, no tenderness, no umbilical hernia, no ventral hernia - Neurologic Neurologic: CNII-XII intact - Musculoskeletal Musculoskeletal: strength equal bilaterally - Psychiatric Psychiatric: A&O x's 3, appropriate affect, intact judgment & insight right breast mass, 10oclock position Results CBC & Chem 7: 10/27/23 06:30 10/27/23 06:30 Labs: Abnormal Lab Results - Last 24 Hours (Table) 10/26/23 10/26/23 10/26/23 Range/Units 12:18 15:30 20:35 RBC (3.80-5.40) m/uL Hgb (11.4-16.0) gm/dL Hct (34.0-46.0) % Lymphocytes # (1.0-4.8) k/uL Sodium (137-145) mmol/L Glucose (74-99) mg/dL POC Glucose (mg/dL) 166 H 140 H 161 H (70-110) mg/dL 10/27/23 10/27/23 10/27/23 Range/Units 05:46 06:30 06:30 RBC 3.61 L (3.80-5.40) m/uL Hgb 10.7 L (11.4-16.0) gm/dL Hct 32.1 L (34.0-46.0) % Lymphocytes # 0.6 L (1.0-4.8) k/uL Sodium 132 L (137-145) mmol/L Glucose 144 H (74-99) mg/dL POC Glucose (mg/dL) 157 H (70-110) mg/dL Chest x-ray: report reviewed Assessment and Plan (1) Lung nodule, multiple Current Visit: Yes Status: Acute Code(s): R91.8 - OTHER NONSPECIFIC ABNORMAL FINDING OF LUNG FIELD SNOMED Code(s): 576072654 (2) Breast mass in female Current Visit: Yes Status: Acute Code(s): N63.0 - UNSPECIFIED LUMP IN UNSPECIFIED BREAST SNOMED Code(s): 05531924 (3) History of breast cancer Current Visit: Yes Status: Acute Code(s): Z85.3 - PERSONAL HISTORY OF MALIGNANT NEOPLASM OF BREAST SNOMED Code(s): 906889641 (4) Endometrial carcinoma Current Visit: Yes Status: Acute Code(s): C54.1 - MALIGNANT NEOPLASM OF ENDOMETRIUM SNOMED Code(s): 365717834 Plan: Endometrial carcinoma -Recent diagnosis -Pending start of chemo Lung nodules and breast mass -Both of these sites are concerning for either mets or new primaries. Pending completion of biopsies to begin chemo. -S/P wedge resection. Path pending Doctor attests: I performed a history and physical examination of this patient, developed impression and plan of care. Discussed with dictator. I agree with dictators note, documented as a scribe.
== END 2023-10-27 14:30 | disposition home or self-care (01) ==
LOC: OR 11:18 → EDSTATUS 13:15 → 3SCARD 14:36 → OR 10-27 14:30
PROVIDERS: ATTEND Thoracic Surgery (Cardiothoracic Vascular Surgery)
DX: C34.2 Malignant neoplasm of middle lobe, bronchus or lung (principal); E11.9 Type 2 diabetes mellitus without complications; E66.9 Obesity, unspecified; E78.5 Hyperlipidemia, unspecified; F32.A Depression, unspecified; I10 Essential (primary) hypertension; Z68.32 Body mass index [BMI] 32.0-32.9, adult; Z85.3 Personal history of malignant neoplasm of breast; Z79.84 Long term (current) use of oral hypoglycemic drugs; Z85.42 Personal history of malignant neoplasm of other parts of uterus; Z79.899 Other long term (current) drug therapy
CPT/HCPCS: 31622; 94640 ×4; 94760; 80048; 85025; 88307; 71045 ×2; C1729; J2250; J0330; J1644 ×2; J1100; J2710; J0690 ×2; J2405; J2001; J3010; J1170 ×2; J0131 ×2; J1885 ×2; J2704; J2371; J0665; 88341; 88342

== ENCOUNTER → 2023-11-04 | Outpatient (CLI) | payer MEDICARE ==
--- NOTE | 2023-11-04 09:39 | XR ---
EXAMINATION TYPE: XR chest 2V DATE OF EXAM: 11/04/2023 COMPARISON: 10/27/2023 TECHNIQUE: PA and lateral views submitted. HISTORY: Post lung biopsy FINDINGS: There is a area of subsegmental consolidation right upper lobe. Left lung is clear. Hypertrophic dege nerative changes spine. Bilateral shoulder arthropathy. No overt failure. No pleural effusion. No pne umothorax. IMPRESSION: 1. No pneumothorax. 2. Nonspecific nodular or subsegmental area of consolidation right upper lobe laterally.
== END | disposition home or self-care (01) ==
LOC: RADXRMAIN 09:14
PROVIDERS: ATTEND Thoracic Surgery (Cardiothoracic Vascular Surgery)
DX: Z48.813 Encounter for surgical aftercare following surgery on the respiratory system (principal); R91.1 Solitary pulmonary nodule
CPT/HCPCS: 71046

== ENCOUNTER → 2023-11-04 | Day surgery (SDC) | payer MEDICARE ==
--- NOTE | 2023-11-09 08:04 | USB ---
Risk Values: Siomara 5 year model risk: 1.2%. NCI Lifetime model risk: 2.7%. Pathology Description: Location: 9 o'clock. Marker Left Behind. Needle Type: Mammotome Cores: 6 Gauge: 13 The procedure of ultrasound guided core biopsy was explained to the patient. Benefits, alternatives, and risks were discussed. An informed consent was then obtained. Ultrasound was utilized to identify the masslike 3.9 cm area of the 9:00 mastectomy site corresponding to the area identified on patient's CT. The patient was placed in supine positioning for imaging and for the procedure. The overlying skin was prepped and draped in usual sterile fashion. Lidocaine was used as anesthetic into the skin and subcutaneous tissue up to area of concern in the 9:00 right breast. Under ultrasound guidance, a 13-gauge vacuum-assisted mammotome biopsy gun was used to obtain 6 core samples. Following this, a butterfly clip was left in lesion. The patient tolerated the procedure well without any immediate complication. The patient was kept in the radiology department for short stay after the procedure and then discharged home in stable condition. Postprocedure mammogram not performed given patient's mastectomy. Hydromark clip was utilized for easy identification by ultrasound at a later date if needed. Impression: Successful, uncomplicated ultrasound guided core biopsy of masslike area 9:00 right mastectomy site. Incidentally seen on CT. Masslike scar tissue as possible. Full pathology results to follow. Pathology Results: Result: Benign, Scar tissue. RIGHT BREAST, NINE O'CLOCK, ULTRASOUND GUIDED NEEDLE CORE BIOPSY: Hypocellular and sclerotic scar tissue. Negative for malignancy. Overall Assessment: Benign Management: Diagnostic Breast Ultrasound of the right breast in 6 months. Electronically signed and approved by: Lea Delacruz M.D. Radiologist
== END ==
LOC: RADUSWWP 07:32
PROVIDERS: ATTEND Internal Medicine Hematology & Oncology
DX: N63.0 Unspecified lump in unspecified breast (principal); Z85.3 Personal history of malignant neoplasm of breast
CPT/HCPCS: 88305; 19083; A4648

== ENCOUNTER → 2023-12-28 | Outpatient (CLI) | payer MEDICARE ==
--- NOTE | 2023-12-28 11:28 | CT ---
EXAMINATION TYPE: CT brain wo con DATE OF EXAM: 12/28/2023 COMPARISON: None HISTORY: 73-year-old female C79.82, secondary malignant neoplasm genitals, c/o dizziness TECHNIQUE: Examination was done in axial plane without intravenous contrast. Coronal and sagittal r econstructions performed. CT DLP: 1225 mGycm Automated exposure control for dose reduction was used. FINDINGS: There is no evidence of acute intracranial hemorrhage, acute ischemic changes, mass, mass-effect, or extra-axial fluid collection. There is no effacement of cerebral sulci or basal subarachnoid cister ns. There is no hydrocephalus. There is no midline shift. Jay-white matter distinction is preserv ed. Moderate patchy white matter hypodensities in both cerebral hemispheres. Extensive benign hyperostosis frontalis interna. Paranasal sinuses and mastoid air cells are well pneumatized. Orbits and globes are intact. IMPRESSION: 1. Moderate patchy white matter hypodensities probably relating to changes of chronic small vessel is chemic disease. Given the patient's oncologic history, contrast-enhanced MRI if clinically indicated. 2. Otherwise, no acute intracranial abnormality seen.
== END | disposition home or self-care (01) ==
LOC: RADCTMAIN 10:42
PROVIDERS: ATTEND Family Medicine
DX: G93.89 Other specified disorders of brain (principal); C79.82 Secondary malignant neoplasm of genital organs; R42 Dizziness and giddiness
CPT/HCPCS: 70450

== ENCOUNTER 2024-01-07 17:55 | Emergency (ER) | payer MEDICARE ==
[2024-01-07 19:26] VITALS: BP 125/76; PULSE 89; RESP 18; TEMP 98.5
--- NOTE | 2024-01-07 20:24 | ED ---
Fall HPI - General Chief Complaint: Fall Stated Complaint: Fall-dizziness, L leg issue Time Seen by Provider: 01/07/24 18:12 Source: patient, RN notes reviewed, old records reviewed Mode of arrival: ambulatory Limitations: no limitations - History of Present Illness Initial Comments: This is a 73-year-old female to the ER for evaluation today. Patient presents today for evaluation regards to fall fall with injury fall with leg injury and leg pain patient again fell backwards and hit on her but landed on her buttocks. 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 Witnessed: no Place Fall Occurred: home Loss of Consciousness: none Symptoms Prior to Fall: none Location: back, pelvis, buttocks Severity: moderate Severity scale (1-10): 8 Quality: stabbing Context: tripped/slipped Associated Symptoms: denies - Related Data Home Medications Medication Instructions Recorded Confirmed Atorvastatin [Lipitor] 40 mg PO QAM 10/15/23 10/26/23 Pioglitazone [Actos] 30 mg PO PC-LUNCH 10/15/23 10/26/23 Vortioxetine Hydrobromide 20 mg PO QAM 10/15/23 10/26/23 [Trintellix] atenoloL [Tenormin] 25 mg PO PC-LUNCH 10/15/23 10/26/23 lisinopriL [Zestril] 2.5 mg PO PC-LUNCH 10/15/23 10/26/23 metFORMIN HCL [Glucophage] 1,000 mg PO BID 10/15/23 10/26/23 traZODone HCL [Desyrel] 100 mg PO HS 10/15/23 10/26/23 Previous Rx's Medication Instructions Recorded Acetaminophen Tab [Tylenol] 1,000 mg PO Q6HR PRN tab 10/27/23 Allergies Allergy/AdvReac Type Severity Reaction Status Date / Time codeine Allergy Nausea & Verified 01/07/24 18:13 Vomiting Review of Systems ROS Statement: Those systems with pertinent positive or pertinent negative responses have been documented in the HPI. ROS Other: All systems not noted in ROS Statement are negative. Past Medical History Past Medical History: Cancer, Hyperlipidemia, Hypertension, Thyroid Disorder Additional Past Medical History / Comment(s): uterine CA, Breast cancer right mets to lungs History of Any Multi-Drug Resistant Organisms: None Reported Past Surgical History: Breast Surgery, Hysterectomy Additional Past Surgical History / Comment(s): complete hyst 09/03/2023. Bilat mastectomy. Nose surgery Past Anesthesia/Blood Transfusion Reactions: No Reported Reaction Past Psychological History: Depression Smoking Status: Never smoker Past Alcohol Use History: None Reported Past Drug Use History: None Reported - Past Family History Mother Family Medical History: No Reported History General Exam Limitations: no limitations General appearance: alert, in no apparent distress Head exam: Present: atraumatic, normocephalic, normal inspection Eye exam: Present: normal appearance, PERRL, EOMI. Absent: scleral icterus, conjunctival injection, periorbital swelling ENT exam: Present: normal exam, mucous membranes moist Neck exam: Present: normal inspection. Absent: tenderness, meningismus, lymphadenopathy Respiratory exam: Present: normal lung sounds bilaterally. Absent: respiratory distress, wheezes, rales, rhonchi, stridor Cardiovascular Exam: Present: regular rate, normal rhythm, normal heart sounds. Absent: systolic murmur, diastolic murmur, rubs, gallop, clicks GI/Abdominal exam: Present: soft, normal bowel sounds. Absent: distended, tenderness, guarding, rebound, rigid Extremities exam: Present: normal inspection, full ROM, normal capillary refill. Absent: tenderness, pedal edema, joint swelling, calf tenderness Back exam: Present: normal inspection Neurological exam: Present: alert, oriented X3, CN II-XII intact Psychiatric exam: Present: normal affect, normal mood Skin exam: Present: warm, dry, intact, normal color. Absent: rash Course Vital Signs 01/07/24 18:03 Temperature 98.5 F Pulse Rate 89 Respiratory 18 Rate Blood Pressure 125/76 O2 Sat by Pulse 97 Oximetry - Reevaluation(s) Reevaluation #1: 01/07/24 20:22 Medical record is reviewed Reevaluation #2: 01/07/24 20:22 Patient symptoms improved Reevaluation #3: 01/07/24 20:23 Patient informed of results and questions answered Reevaluation #4: Was pt. sent in by a medical professional or institution (, PA, PHYSICAL SCIENCES PROFESSOR, urgent care, hospital, or alf...) When possible be specific @ -no Did you speak to anyone other than the patient for history (EMS, parent, family, police, friend...)? What history was obtained from this source @ -no Did you review nursing and triage notes (agree or disagree)? Why? @ -agree Are old charts reviewed (outside hosp., previous admission, EMS record, old EKG, old radiological studies, urgent care reports/EKG's, alf records)? Report findings @ -yes Differential Diagnosis (chest pain, altered mental status, abdominal pain women, abdominal pain men, vaginal bleeding, weakness, fever, dyspnea, syncope, headache, dizziness, GI bleed, back pain, seizure, CVA, palpatations, mental health, musculoskeletal)? @ -prior EKG interpreted by me (3pts min.). @ -yes X-rays interpreted by me (1pt min.). @ -yes negative for acute disease CT interpreted by me (1pt min.). @ -no U/S interpreted by me (1pt. min.). @ -no What testing was considered but not performed or refused? (CT, X-rays, U/S, labs)? Why? @ -none What meds were considered but not given or refused? Why? @ -none Did you discuss the management of the patient with other professionals (professionals i.e. , PA, PHYSICAL SCIENCES PROFESSOR, lab, RT, psych nurse, director social, occup therapist, teacher, engineering officer, case technician)? Give summary @ -no Was smoking cessation discussed for >3mins.? @ -no Was critical care preformed (if so, how long)? @ -no Were there social determinants of health that impacted care today? How? (Homelessness, low income, unemployed, alcoholism, drug addiction, transportation, low edu. Level, literacy, decrease access to med. care, residential, rehab)? @ -none Was there de-escalation of care discussed even if they declined (Discuss DNR or withdrawal of care, Hospice)? DNR status @ -no What co-morbidities impacted this encounter? (DM, HTN, Smoking, COPD, CAD, Cancer, CVA, ARF, Chemo, Hep., AIDS, mental health diagnosis, sleep apnea, morbid obesity)? @ -none Was patient admitted / discharged? Hospital course, mention meds given and route, prescriptions, significant lab abnormalities, going to OR and other pertinent info. @ - 73 female to ER after a fall fall with leg injury back pain buttocks injury no fracture noted. Patient can be discharged home\ Discharge Undiagnosed new problem with uncertain prognosis? @ -no Drug Therapy requiring intensive monitoring for toxicity (Heparin, Nitro, Insulin, Cardizem)? @ -no Were any procedures done? @ -no Diagnosis/symptom? @ -Fall with back contusion Acute, or Chronic, or Acute on Chronic? @ -Acute Uncomplicated (without systemic symptoms) or Complicated (systemic symptoms)? @ -Complicated Side effects of treatment? @ -no Exacerbation, Progression, or Severe Exacerbation? @ -exacerbation Poses a threat to life or bodily function? How? (Chest pain, [place], [place], pneumonia, PE, COPD, DKA, ARF, appy, cholecystitis, CVA, Diverticulitis, Homicidal, Suicidal, threat to staff... and all critical care pts) @ -yes with extremes of age Medical Decision Making - Medical Decision Making 73 female to ER after a fall fall with leg injury back pain buttocks injury no fracture noted. Patient can be discharged home - Radiology Data Radiology results: report reviewed (X-ray pelvis back leg negative for traumatic injury x-ray tib-fib and pelvis negative for acute traumatic injury), image reviewed Disposition Clinical Impression: Fall, Leg pain, Back pain Disposition: HOME SELF-CARE Condition: Good Instructions (If sedation given, give patient instructions): Fall Prevention for Older Adults (ED), Contusion in Adults (ED) Is patient prescribed a controlled substance at d/c from ED?: No Referrals: Domingo Anna MD [Primary Care Provider] - 1-2 days Time of Disposition: 20:20
--- NOTE | 2024-01-07 21:05 | XR ---
EXAMINATION TYPE: XR lumbar spine 2 or 3V DATE OF EXAM: 01/07/2024 7:22 PM CLINICAL INDICATION:Female, 73 years old with history of fall; [facility] COMPARISON: None TECHNIQUE AND FINDINGS: Pelvis: Single frontal view of the pelvis was obtained demonstrating no acute fracture or dislocation. Modera te air changes in the lower lumbar spine and SI joints. Mild air change of the pubic symphysis. Moder ate bilateral hip arthropathy. There is chronic spurring seen along the iliac wings and to a lesser d egree greater trochanters. No soft tissue anomaly is seen. Lumbar spine: Frontal, lateral views of the lumbar spine and coned down lateral lumbosacral junction view. There ar e 5 lumbar type vertebral bodies. There is moderate multilevel degenerative disk disease with disc sp yo narrowing and anterior more than posterior disc marginal osteophytes. [id number] facet dise ase throughout, greatest in the mid to lower lumbar region. Vertebral body heights appear preserved a nd there is no significant listhesis seen. Very minimal apex right scoliotic curve suggestive. Partia lly seen degenerative changes of the SI joints. Soft tissues are grossly unremarkable for acute proce ss. Small rounded densities in the bilateral upper abdomen are nonspecific but could relate to renal calculi. There is mild to moderate calcification of the abdominal aorta without suggestion of aneurys m. Sacrum/coccyx: Frontal and lateral views of the sacrum/coccyx, 3 views total. Moderate degenerative change of the SI joints. Some limitation by overlying stool contents but no acu te fracture of the sacrum is seen on frontal view. Lateral view shows suggestion of a minimal angulat ion in the region of the coccyx, correlate clinically for possibility of acute nondisplaced coccygeal fracture. Soft tissues are grossly unremarkable. Tibia/fibula: 4 views of the left tibia/fibula (please note one view is included with the same day pelvis x-ray) de monstrate a total knee arthroplasty, appears intact, normally aligned and cemented. No evidence of pe rihardware lucency or fracture. Posterior resurfacing changes of the patella. Moderate superior arce lar pole enthesophyte spurring. A fabella is present. Tibia and fibula appear intact throughout. At t he ankle, there are moderate degenerative changes of the ankle joint with periarticular osteophytes o f the distal fibula/lateral malleolus and medial malleolus. No acute fracture lucency or dislocation is seen. The ankle mortise is preserved. Talar dome appears to be intact, with mild degenerative mathias ges/flattening along the dome. Moderate size dorsal and plantar calcaneal spurs, and moderate degener ative change of the forefoot and midfoot partially seen. There may be mild soft tissue swelling about the ankle. No sizable ankle joint effusion is suggested. No radiopaque foreign body. IMPRESSION: Pelvis, lumbar spine, sacrum/coccyx, left tibia/fibula: * No definite acute fracture or significant malalignment demonstrated. * Correlate clinically for possible nondisplaced slightly angulated coccygeal fracture. * Chronic/degenerative changes as described above.
== END 2024-01-07 20:47 | disposition home or self-care (01) ==
LOC: EC 17:55
DX: S30.0XXA Contusion of lower back and pelvis, initial encounter (principal); M79.605 Pain in left leg; Z88.5 Allergy status to narcotic agent; W01.0XXA Fall on same level from slipping, tripping and stumbling without subsequent striking against object, initial encounter
CPT/HCPCS: 72100; 72170; 72220; 93005; 99284

== ENCOUNTER → 2024-01-19 | Outpatient (CLI) | payer MEDICARE ==
--- NOTE | 2024-01-19 12:17 | MR ---
EXAMINATION TYPE: MR brain wo/w con DATE OF EXAM: 01/19/2024 COMPARISON: CT brain 12/28/2023 HISTORY: Dizziness, episodes of blacking out, kareem hearing loss. TECHNIQUE: Multiplanar, multisequence images of the brain and brainstem is performed without and with IV contras t, utilizing 7.5 mL intravenous Gadavist . FINDINGS: Diffusion weighted images demonstrate no evidence of a recent infarct or other diffusion ab normality. There are numerous areas of abnormal signal scattered throughout the white matter bilaterally which a re nonspecific. Most likely etiology is remote microvascular ischemic change. Tiny areas of abnormal signal involving the sylvia and basal ganglia also likely represent remote ischemic tiny lacunar infarc ts. No midline shift or mass effect. Midline structures demonstrate normal morphology. The craniocervica l junction appears within normal limits. Post contrast images demonstrate no abnormal enhancement. F aint enhancement along the right frontal parietal inner table likely is vascular but is too small to characterize. Follow-up subsequently. The dural venous sinuses appear patent. Mild chronic sinusitis and the globes are intact. Hyperostosis of the calvarium. IMPRESSION: 1. Degenerative and nonspecific white matter changes most typical of remote microvascular ischemia
== END | disposition home or self-care (01) ==
LOC: RADMRIMAIN 09:34
PROVIDERS: ATTEND Internal Medicine Hematology & Oncology
DX: C54.8 Malignant neoplasm of overlapping sites of corpus uteri (principal); E11.9 Type 2 diabetes mellitus without complications; E78.5 Hyperlipidemia, unspecified; I67.82 Cerebral ischemia; Z85.3 Personal history of malignant neoplasm of breast
CPT/HCPCS: 70553; A9585

== ENCOUNTER 2024-01-23 20:07 | Inpatient (IN) | payer MEDICARE ==
--- NOTE | 2024-01-23 20:27 | ED ---
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 Patient and family states that she was at home where she fell around 1700 unintended and crawled due to weakness and inability to get herself up after the fall to her nearby phone. Patient is endorsing a headache since time of fall. Additionally, patient is being worked up outpatient with complaints of dizziness and hearing loss. Patient is currently on IV chemotherapy every 3 weeks and has recently started immunologic therapy. Family is concerned due to patient expressing increasing weakness and signs of confusion. (Caty Orta) - Related Data Home Medications Medication Instructions Recorded Confirmed Atorvastatin [Lipitor] 40 mg PO DAILY 10/15/23 01/24/24 Vortioxetine Hydrobromide 20 mg PO DAILY 10/15/23 01/24/24 [Trintellix] atenoloL [Tenormin] 25 mg PO PC-LUNCH 10/15/23 01/24/24 lisinopriL [Zestril] 2.5 mg PO PC-LUNCH 10/15/23 01/24/24 metFORMIN HCL [Glucophage] 1,000 mg PO BID 10/15/23 01/24/24 traZODone HCL [Desyrel] 100 mg PO HS 10/15/23 01/24/24 Multivit-Min/Iron/Folic/Lutein 1 tab PO DAILY 01/24/24 01/24/24 [Centrum Silver Women Tablet] Ondansetron [Zofran] 4 - 8 mg PO Q4H PRN 01/24/24 01/24/24 glyBURIDE [Diabeta] 5 mg PO AC-BID 01/24/24 01/24/24 Allergies Allergy/AdvReac Type Severity Reaction Status Date / Time codeine Allergy Nausea & Verified 01/07/24 18:13 Vomiting Review of Systems ROS Other: All systems not noted in ROS Statement are negative. <Alex Daniel - Last Filed: 01/24/24 00:15> ROS Other: All systems not noted in ROS Statement are negative. <Caty Orta - Last Filed: 01/24/24 13:28> ROS Statement: Those systems with pertinent positive or pertinent negative responses have been documented in the HPI. Past Medical History Past Medical History: Cancer, Hyperlipidemia, Hypertension, Thyroid Disorder Additional Past Medical History / Comment(s): uterine CA, Breast cancer right mets to lungs History of Any Multi-Drug Resistant Organisms: None Reported Past Surgical History: Breast Surgery, Hysterectomy Additional Past Surgical History / Comment(s): complete hyst 09/03/2023. Bilat mastectomy. Nose surgery Past Anesthesia/Blood Transfusion Reactions: No Reported Reaction Past Psychological History: Depression Smoking Status: Never smoker Past Alcohol Use History: None Reported Past Drug Use History: None Reported - Past Family History Mother Family Medical History: No Reported History <Caty Orta - Last Filed: 01/24/24 13:28> General Exam Limitations: no limitations General appearance: alert, in no apparent distress Head exam: Present: atraumatic, normocephalic, normal inspection Eye exam: Present: normal appearance, PERRL, EOMI. Absent: scleral icterus, conjunctival injection, periorbital swelling ENT exam: Present: normal exam, mucous membranes moist Neck exam: Present: normal inspection. Absent: tenderness, meningismus, lymphadenopathy Respiratory exam: Present: normal lung sounds bilaterally. Absent: respiratory distress, wheezes, rales, rhonchi, stridor Cardiovascular Exam: Present: regular rate, normal rhythm, tachycardia, normal heart sounds. Absent: systolic murmur, diastolic murmur, rubs, gallop, clicks GI/Abdominal exam: Present: soft, normal bowel sounds. Absent: distended, tenderness, guarding, rebound, rigid Extremities exam: Present: normal inspection, full ROM, normal capillary refill. Absent: tenderness, pedal edema, joint swelling, calf tenderness Back exam: Present: normal inspection Neurological exam: Present: alert, oriented X3, CN II-XII intact Expanded Cranial nerves: EOM's Intact: Normal, Tongue Deviation: Normal, Facial Sensation: Normal Cerebellar function: Finger to Nose: Abnormal Right, Normal (delayed finger to nose on right), Heel to Mcintosh: Normal, Romberg: Normal Motor strength exam: RUE: 3 (mild decrease in home care and home health aides teacher sensation of the RUE), LUE: 4, RLE: 4, LLE: 4 Psychiatric exam: Present: normal affect, normal mood Skin exam: Present: warm, dry, intact, normal color. Absent: rash <Caty Orta - Last Filed: 01/24/24 13:28> Course Vital Signs 01/23/24 01/23/24 01/23/24 20:10 20:44 21:43 Temperature 98.1 F Pulse Rate 109 H 93 87 Respiratory 16 18 18 Rate Blood Pressure 144/82 172/108 212/106 O2 Sat by Pulse 99 95 Oximetry 01/23/24 01/23/24 01/23/24 22:11 22:30 23:00 Temperature Pulse Rate 93 77 Respiratory 12 14 14 Rate Blood Pressure 223/115 174/96 O2 Sat by Pulse 100 96 100 Oximetry 01/24/24 01/24/24 01/24/24 04:00 06:00 08:37 Temperature 97.9 F Pulse Rate 84 75 78 Respiratory 16 16 18 Rate Blood Pressure 151/71 152/81 161/74 O2 Sat by Pulse 100 Oximetry 01/24/24 01/24/24 10:02 12:51 Temperature Pulse Rate 81 84 Respiratory 18 18 Rate Blood Pressure 171/79 150/79 O2 Sat by Pulse 100 100 Oximetry Medical Decision Making - Lab Data Result diagrams: 01/23/24 21:21 01/23/24 21:21 <Alex Daniel - Last Filed: 01/24/24 00:15> - Lab Data Result diagrams: 01/23/24 21:21 01/23/24 21:21 <Caty Orta - Last Filed: 01/24/24 13:28> - Medical Decision Making Patient admitted with fall, weakness, neutropenia. Case discussed with Dr. Gipson who will admit. Oncology placed on consult. (Alex Daniel) Was pt. sent in by a medical professional or institution (, PA, [employer]TER, urgent care, hospital, or [facility]...) When possible be specific @ -[No] Did you speak to anyone other than the patient for history (EMS, parent, family, police, friend...)? What history was obtained from this source @ -[No] Did you review nursing and triage notes (agree or disagree)? Why? @ -[I reviewed and agree with nursing and triage notes] Were old charts reviewed (outside hosp., previous admission, EMS record, old EKG, old radiological studies, urgent care reports/EKG's, [facility] records)? Report findings @ -MRI of the brain completed on 01/18 reveals degenerative and nonspecific white matter changes most typical of remote microvascular ischemia. due to episodes of dizziness, episodes of blacking out and bilateral hearing loss. Differential Diagnosis (chest pain, altered mental status, abdominal pain women, abdominal pain men, vaginal bleeding, weakness, fever, dyspnea, syncope, headache, dizziness, GI bleed, back pain, seizure, CVA, palpatations, mental health, musculoskeletal)? @Differential Weakness: Hypoglycemia, shock, sepsis, hyponatremia, anemia, infection, UT, ETOH, adverse medicine reaction, overdose, stroke, this is not meant to be an all-inclusive list. EKG interpreted by me (3pts min.). @ -completed at 2048 reading sinus rhythm, ventricular rate 90, DC interval 165, QTc 408. No acute signs of ischemia. X-rays interpreted by me (1pt min.). @ -[None done] CT interpreted by me (1pt min.). @ -[None done] U/S interpreted by me (1pt. min.). @ -[None done] What testing was considered but not performed or refused? (CT, X-rays, U/S, labs)? Why? @ -[None] What meds were considered but not given or refused? Why? @ -[None] Did you discuss the management of the patient with other professionals (professionals i.e. , PA, [employer], lab, RT, psych nurse, social media analyst, nurses supervisor, teacher, electrical engineering drafting officer, bilingual patient support caseworker)? Give summary @ -[No] Was smoking cessation discussed for >3mins.? @ -[No] Was critical care preformed (if so, how long)? @ -[No] Were there social determinants of health that impacted care today? How? (Homelessness, low income, unemployed, alcoholism, drug addiction, transpo rtation, low edu. Level, literacy, decrease access to med. care, assisted, rehab)? @ -[No] Was there de-escalation of care discussed even if they declined (Discuss DNR or withdrawal of care, Hospice)? DNR status @ -[No] What co-morbidities impacted this encounter? (DM, HTN, Smoking, COPD, CAD, Cancer, CVA, ARF, Chemo, Hep., AIDS, mental health diagnosis, sleep apnea, morbid obesity)? @ -[None] Was patient admitted / discharged? Hospital course, mention meds given and route, prescriptions, significant lab abnormalities, going to OR and other pertinent info. @ -73-year-old female chief complaint of fall and weakness. Plain examination of the patient there is minor motor deficits on the patient's right side including decreased tactile strength and executive cerebellar function. Family at bedside states that patient has been having ongoing right-sided weakness after examination completed a few months ago. broad laboratory workup obtained due to weakness. Patient's laboratory results reveal a decreased white blood cell count of 1.5, anemia of 10.5 and hematocrit 32.2. Electrolyte abnormalities revealed low phosphorus and magnesium of 2.2 and 1.4. Troponin and CK nonelevated. This patient was signed out to my attenting, Dr. Daniel at 2300 for further care. Undiagnosed new problem with uncertain prognosis? @ -[No] Drug Therapy requiring intensive monitoring for toxicity (Heparin, Nitro, Insulin, Cardizem)? @ -[No] Were any procedures done? @ -[No] Diagnosis/symptom? @ -[default] Acute, or Chronic, or Acute on Chronic? @ -[default] Uncomplicated (without systemic symptoms) or Complicated (systemic symptoms)? @ -[default] Side effects of treatment? @ -[No] Exacerbation, Progression, or Severe Exacerbation? @ -[No] Poses a threat to life or bodily function? How? (Chest pain, USA, UT, pneumonia, PE, COPD, DKA, ARF, appy, cholecystitis, CVA, Diverticulitis, Homicidal, Suicidal, threat to staff... and all critical care pts) @ -[No] (Caty Orta) - Lab Data Lab Results 01/23/24 01/23/24 01/23/24 Range/Units 21:21 21:21 21:21 WBC 1.5 L (3.8-10.6) k/uL RBC 3.70 L (3.80-5.40) m/uL Hgb 10.5 L (11.4-16.0) gm/dL Hct 32.2 L (34.0-46.0) % MCV 87.0 (80.0-100.0) fL MCH 28.5 (25.0-35.0) pg MCHC 32.8 (31.0-37.0) g/dL RDW 16.7 H (11.5-15.5) % Plt Count 252 (150-450) k/uL MPV 8.4 Neutrophils % (Manual) 29 % Lymphocytes % (Manual) 62 % Monocytes % (Manual) 8 % Eosinophils % (Manual) 1 % Neutrophils # (Manual) 0.44 L* (1.3-7.7) k/uL Lymphocytes # (Manual) 0.93 L (1.0-4.8) k/uL Monocytes # (Manual) 0.12 (0-1.0) k/uL Eosinophils # (Manual) 0.02 (0-0.7) k/uL Nucleated RBCs 0 (0-0) /100 WBC Manual Slide Review Performed Poikilocytosis (manual Present Anisocytosis Slight PT 10.6 (10.0-12.5) sec INR 1.0 (<1.2) APTT 22.6 (22.0-30.0) sec Sodium 136 L (137-145) mmol/L Potassium 3.9 (3.5-5.1) mmol/L Chloride 103 (98-107) mmol/L Carbon Dioxide 23 (22-30) mmol/L Anion Gap 10 mmol/L BUN 18 H (7-17) mg/dL Creatinine 0.63 (0.52-1.04) mg/dL Est GFR (CKD-EPI)AfAm >90 (>60 ml/min/1.73 sqM) Est GFR (CKD-EPI)NonAf 89 (>60 ml/min/1.73 sqM) Glucose 171 H (74-99) mg/dL Plasma Lactic Acid Ganesh (0.7-2.0) mmol/L Calcium 9.2 (8.4-10.2) mg/dL Phosphorus 2.2 L (2.5-4.5) mg/dL Magnesium 1.4 L (1.6-2.3) mg/dL Total Bilirubin 0.7 (0.2-1.3) mg/dL AST 36 (14-36) U/L ALT 20 (4-34) U/L Alkaline Phosphatase 123 (38-126) U/L Creatine Kinase 45 (30-135) U/L Troponin I (0.000-0.034) ng/mL Total Protein 7.0 (6.3-8.2) g/dL Albumin 3.9 (3.5-5.0) g/dL 01/23/24 01/23/24 Range/Units 21:21 21:21 WBC (3.8-10.6) k/uL RBC (3.80-5.40) m/uL Hgb (11.4-16.0) gm/dL Hct (34.0-46.0) % MCV (80.0-100.0) fL MCH (25.0-35.0) pg MCHC (31.0-37.0) g/dL RDW (11.5-15.5) % Plt Count (150-450) k/uL MPV Neutrophils % (Manual) % Lymphocytes % (Manual) % Monocytes % (Manual) % Eosinophils % (Manual) % Neutrophils # (Manual) (1.3-7.7) k/uL Lymphocytes # (Manual) (1.0-4.8) k/uL Monocytes # (Manual) (0-1.0) k/uL Eosinophils # (Manual) (0-0.7) k/uL Nucleated RBCs (0-0) /100 WBC Manual Slide Review Poikilocytosis (manual Anisocytosis PT (10.0-12.5) sec INR (<1.2) APTT (22.0-30.0) sec Sodium (137-145) mmol/L Potassium (3.5-5.1) mmol/L Chloride (98-107) mmol/L Carbon Dioxide (22-30) mmol/L Anion Gap mmol/L BUN (7-17) mg/dL Creatinine (0.52-1.04) mg/dL Est GFR (CKD-EPI)AfAm (>60 ml/min/1.73 sqM) Est GFR (CKD-EPI)NonAf (>60 ml/min/1.73 sqM) Glucose (74-99) mg/dL Plasma Lactic Acid Ganesh 1.4 (0.7-2.0) mmol/L Calcium (8.4-10.2) mg/dL Phosphorus (2.5-4.5) mg/dL Magnesium (1.6-2.3) mg/dL Total Bilirubin (0.2-1.3) mg/dL AST (14-36) U/L ALT (4-34) U/L Alkaline Phosphatase (38-126) U/L Creatine Kinase (30-135) U/L Troponin I 0.014 (0.000-0.034) ng/mL Total Protein (6.3-8.2) g/dL Albumin (3.5-5.0) g/dL Disposition Is patient prescribed a controlled substance at d/c from ED?: No Time of Disposition: 00:16 <Alex Daniel - Last Filed: 01/24/24 00:15> <Caty Orta - Last Filed: 01/24/24 13:28> Clinical Impression: Fall, Dehydration, Weakness, Neutropenia Disposition: ADMITTED IP TO THIS HOSP Condition: Stable
[2024-01-23] MEDS: MORPHINE SULFATE 2 MG/ML SYRINGE IVP ONE (21:52)
[2024-01-23] MEDS: HYDROmorphone 1 MG/ML 1 ML SYRINGE IVP STA (21:53)
[2024-01-23 22:01] LABS: Anisocytosis Slight; HCT 32.2 % (34.0-46.0); HGB 10.5 gm/dL (11.4-16.0); MCH 28.5 pg (25.0-35.0); MCHC 32.8 g/dL (31.0-37.0); Mean Platelet Volume 8.4; Platelet Count 252 k/uL (150-450); RDW 16.7 % (11.5-15.5); WBC 1.5 k/uL (3.8-10.6)
[2024-01-23 22:03] LABS: Sodium 136 mmol/L (137-145)
[2024-01-23 22:05] LABS: ALT 20 U/L (4-34); AST 36 U/L (14-36); African American GFR (CKD) >90 (>60 ml/min/1.73 sqM); Albumin 3.9 g/dL (3.5-5.0); Alkaline Phosphatase 123 U/L (38-126); Anion Gap 10 mmol/L; Blood Urea Nitrogen 18 mg/dL (7-17); Calcium 9.2 mg/dL (8.4-10.2); Carbon Dioxide 23 mmol/L (22-30); Chloride 103 mmol/L (98-107); Creatine Kinase 45 U/L (30-135); Glucose 171 mg/dL (74-99); Magnesium 1.4 mg/dL (1.6-2.3); Non-African American GFR(CKD) 89 (>60 ml/min/1.73 sqM); Phosphorus 2.2 mg/dL (2.5-4.5); Potassium 3.9 mmol/L (3.5-5.1); Total Bilirubin 0.7 mg/dL (0.2-1.3)
[2024-01-23 22:14] LABS: Partial Thromboplastin Time 22.6 sec (22.0-30.0); Prothrombin Time 10.6 sec (10.0-12.5)
[2024-01-23] MEDS: ONDANSETRON 4 MG/2 ML VIAL IVP STA (22:35)
[2024-01-23] MEDS: NALOXONE 0.4 MG/ML 1 ML VIAL IVP STA (23:12)
[2024-01-23 23:17] LABS: Neutrophils % (M) 29 %
[2024-01-23 23:21] LABS: Eosinophils # (M) 0.02 k/uL (0-0.7); Lymphocytes # (M) 0.93 k/uL (1.0-4.8); Monocytes # (M) 0.12 k/uL (0-1.0); Neutrophils # (M) 0.44 k/uL (1.3-7.7); Nucleated Red Blood Cells 0 /100 WBC (0-0); Total Cells Counted 100
--- NOTE | 2024-01-23 23:33 | CT ---
EXAM: CT Head Without Intravenous Contrast CLINICAL HISTORY: ITS.REASON CT Reason: fall, BOATENG TECHNIQUE: Axial computed tomography images of the head/brain without intravenous contrast. CTDI is 49.2 mGy and DLP is 1138.4 mGy-cm. This CT exam was performed using one or more of the following dose reduction techniques: automated exposure control, adjustment of the mA and/or kV according to patient size, and/or use of iterative reconstruction technique. COMPARISON: Brain MRI January 19, 2024. FINDINGS: No acute intracranial hemorrhage. No midline shift or mass effect. The territorial finch-white matter differentiation is maintained throughout. Age-related cerebral volume loss. Periventricular and subcortical white matter hypoattenuation, consistent with chronic microangiopathy. The visualized orbits appear grossly unremarkable. Hyperostosis frontalis. The visualized paranasal sinuses and mastoid air cells are grossly clear. IMPRESSION: No acute intracranial hemorrhage, midline shift, or mass effect.
[2024-01-23 23:57] LABS: Poikilocytosis (M) Present
[2024-01-24] MEDS ORDERED: NALOXONE 0.4 MG/ML 1 ML VIAL IV PRN (00:14)
[2024-01-24] MEDS ORDERED: ACETAMINOPHEN TAB 325 MG TAB PO PRN (00:14)
[2024-01-24] MEDS: MAGNESIUM SULFATE-D5W PMX 1 GM in DEXTROSE/WATER 1 100ML.BAG IVPB ONE (00:32)
[2024-01-24] MEDS: SODIUM CHLORIDE 0.9% 1,000 ML IV SCH (00:32)
--- NOTE | 2024-01-24 00:50 | XR ---
EXAMINATION TYPE: XR chest 2V DATE OF EXAM: 01/23/2024 9:36 PM CLINICAL INDICATION:Female, 73 years old with history of Weakness; [facility] COMPARISON: 11/04/2023 TECHNIQUE: XR chest 2V. Frontal and lateral views of the chest.. FINDINGS: Lines/Tubes/Devices: EKG leads overlie the chest. No indwelling lines are seen. Heart/mediastinum: Stable cardiomediastinal silhouette. Mildly tortuous aorta. Heart size upper paula l. Similar mildly prominent appearance of the olinda, likely vascular shadows. Pulmonary vascularity: Not increased, Lungs/Pleura: There is no evidence of pleural effusion, focal consolidation, or pneumothorax. Grossly stable appearance of a small area of amorphous consolidation in the right midlung zone latera lly. Musculoskeletal: No acute osseous abnormality demonstrated in the limits of the exam. Degenerative c hanges of the shoulder joints and spine. Other findings: None. IMPRESSION: 1. No acute cardiopulmonary abnormality. 2. Similar small focal density on the right, could be further evaluated with outpatient CT chest.
[2024-01-24] MEDS ORDERED: DEXTROSE 50% SYRINGE 50 ML IVP PRN ×2 (01:01)
--- NOTE | 2024-01-24 01:12 | P.HPIM ---
History of Present Illness H&P Date: 01/24/24 Chief Complaint: Fall 73-year-old female with metastatic uterine cancer to the lungs, diabetes mellitus, hypertension Patient coming in after sustaining a fall at home she reports that it was sudden she was around the house when suddenly fell down on her bottom denies any head injury denies any passing out denies any nausea vomiting however she could not get up she started crawling to a phone and called for help. Patient denies any frequent falling however she has been reporting some exertional dyspnea with very mild exertion and feeling tachycardic. Denies any associated chest pain dizziness or lightheadedness. Family was concerned due to the fall and increased forgetfulness and confusion over the past couple days. Patient denies any urinary symptoms denies any fevers chills denies any coughing denies any sore throat denies any nausea vomiting denies any changes in bowel or urinary habits denies any GI bleeding Initial workup in the ED showed neutropenia, urine analysis still pending. Otherwise overall workup is unremarkable CT of the brain showed no acute intracranial pathology Patient denies any tobacco smoking illicit drugs or heavy alcohol Patient also has history of breast cancer status postsurgical removal, followed by diagnosis of uterine cancer after abnormal vaginal bleeding. Currently she is undergoing chemotherapy fourth or fifth cycle every 3 weeks. Last session was January 12 review of systems Pertinent positives as noted in HPI. All other systems were reviewed and are negative on exam Constitutional: No acute distress, conversant Eyes: Anicteric sclerae, moist conjunctiva, Pupils equal round reactive to light ENMT: NC/AT Oropharynx clear, no erythema, or exudates Neck: Supple, no masses, or JVD No carotid bruits No thyromegaly Lungs: Clear to auscultation Clear to percussion Normal respiratory effort, no accessory muscle use Cardiovascular: Heart regular in rate and rhythm, No murmurs, gallops, or rubs No peripheral edema Abdominal: Soft Nontender, no guarding, rebound or rigidity Abdomen moving with respiration Normoactive bowel sounds Extremities: No digital cyanosis No clubbing Pedal pulses intact and symmetrical Radial pulses intact and symmetrical No calf tenderness Psychiatric: Alert and oriented to person, place and time Appropriate affect fair judgement Neuro Muscles Strength 4 out of 5 in right lower extremity and left upper extremity. 2 out of 5 in the right arm 3 out of 5 in the right forearm. Left lower extremity 3 out of 5 Sensation to light touch grossly present throughout Cranial nerves II-XII grossly intact Past Medical History Past Medical History: Cancer, Hyperlipidemia, Hypertension, Thyroid Disorder Additional Past Medical History / Comment(s): uterine CA, Breast cancer right mets to lungs History of Any Multi-Drug Resistant Organisms: None Reported Past Surgical History: Breast Surgery, Hysterectomy Additional Past Surgical History / Comment(s): complete hyst 09/03/2023. Bilat mastectomy. Nose surgery Past Anesthesia/Blood Transfusion Reactions: No Reported Reaction Past Psychological History: Depression Smoking Status: Never smoker Past Alcohol Use History: None Reported Past Drug Use History: None Reported - Past Family History Mother Family Medical History: No Reported History Medications and Allergies Home Medications Medication Instructions Recorded Confirmed Type Atorvastatin [Lipitor] 40 mg PO QAM 10/15/23 10/26/23 History Pioglitazone [Actos] 30 mg PO PC-LUNCH 10/15/23 10/26/23 History Vortioxetine Hydrobromide 20 mg PO QAM 10/15/23 10/26/23 History [Trintellix] atenoloL [Tenormin] 25 mg PO PC-LUNCH 10/15/23 10/26/23 History lisinopriL [Zestril] 2.5 mg PO PC-LUNCH 10/15/23 10/26/23 History metFORMIN HCL [Glucophage] 1,000 mg PO BID 10/15/23 10/26/23 History traZODone HCL [Desyrel] 100 mg PO HS 10/15/23 10/26/23 History Acetaminophen Tab [Tylenol] 1,000 mg PO Q6HR PRN tab 10/27/23 11/04/23 Rx Allergies Allergy/AdvReac Type Severity Reaction Status Date / Time codeine Allergy Nausea & Verified 01/07/24 18:13 Vomiting Physical Exam Vitals: Vital Signs Temp Pulse Resp BP Pulse Ox 01/23/24 23:00 77 14 174/96 100 01/23/24 22:30 93 14 223/115 96 01/23/24 22:11 12 100 01/23/24 21:43 87 18 212/106 95 01/23/24 20:44 93 18 172/108 01/23/24 20:10 98.1 F 109 H 16 144/82 99 Intake and Output 01/23/24 01/23/24 01/24/24 14:59 22:59 06:59 Other: Weight 80.286 kg Results CBC & Chem 7: 01/23/24 21:21 01/23/24 21:21 Labs: Abnormal Lab Results - Last 24 Hours (Table) 01/23/24 01/23/24 Range/Units 21:21 21:21 WBC 1.5 L (3.8-10.6) k/uL RBC 3.70 L (3.80-5.40) m/uL Hgb 10.5 L (11.4-16.0) gm/dL Hct 32.2 L (34.0-46.0) % RDW 16.7 H (11.5-15.5) % Neutrophils # (Manual) 0.44 L* (1.3-7.7) k/uL Lymphocytes # (Manual) 0.93 L (1.0-4.8) k/uL Sodium 136 L (137-145) mmol/L BUN 18 H (7-17) mg/dL Glucose 171 H (74-99) mg/dL Phosphorus 2.2 L (2.5-4.5) mg/dL Magnesium 1.4 L (1.6-2.3) mg/dL Assessment and Plan Assessment: 73-year-old female with metastatic uterine cancer to the lungs on chemotherapy she received for 5 cycles so far last session was January 12 she receives session every 3 weeks. Coming in today due to increased confusion and a fall at home I discussed case with ED doctor and accepted the admission for neutropenia to rule out any underlying infectious process with anticipated length of stay less than 2 midnights Severe neutropenia rule out underlying infectious process White count 1.5 neutrophils 0.4 Follow-up blood cultures Follow-up urine analysis Chest x-ray no acute cardiopulmonary process Patient empirically started on cefepime 2 g IV piggyback every 8 hours in the ED continue with that Follow-up cultures Tylenol 1 g every 6 hours as needed for fever Gentle IV fluid hydration normal saline 75 cc/h Fall at home Fall precautions PT/OT evaluation CT of the brain no acute intracranial pathology Hypertension uncontrolled Resume home blood pressure medications lisinopril and atenolol Clonidine 0.2 mg 3 times a day as needed for elevated systolic blood pressure more than 180 Diabetes mellitus Hold oral hypoglycemic agents Insulin sliding scale Hypomagnesemia Replace IV piggyback and follow-up level in the morning Magnesium initial 1.4 Full code DVT prophylaxis Lovenox 40 mg subcu daily GI prophylaxis Protonix 40 mg p.o. daily
[2024-01-24] MEDS: CEFEPIME 2 GM in SODIUM CHLORIDE 0.9% 100 ML IVPB SCH (01:27)
[2024-01-24 02:32] LABS: Glucose,Whole Blood 188 mg/dL (70-110)
[2024-01-24] MEDS: ENOXAPARIN 40 MG/0.4 ML SYRINGE SQ SCH (08:47)
[2024-01-24] MEDS: POTAS-SOD-PHOS 278-164-250 MG 1 EACH PACKET PO SCH (08:47)
[2024-01-24] MEDS: ATORVASTATIN 40 MG TAB PO SCH (08:47)
[2024-01-24] MEDS: INSULIN ASPART (NovoLOG) 100 UNIT/ML VIAL SQ SCH (08:54)
[2024-01-24 08:55] LABS: Glucose,Whole Blood 144 mg/dL (70-110)
[2024-01-24] MEDS: MAGNESIUM SULFATE-D5W PMX 1 GM in DEXTROSE/WATER 1 100ML.BAG IVPB SCH (11:38)
[2024-01-24 12:54] LABS: Glucose,Whole Blood 136 mg/dL (70-110)
[2024-01-24] MEDS: atenoloL 25 MG TAB PO SCH (12:56)
--- NOTE | 2024-01-24 14:40 | P.PN ---
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 She presented to the emergency department overnight on 01/23/2024 secondary to generalized weakness and fall at home. Upon arrival to our facility, patient underwent evaluation in the emergency department. Vital signs upon arrival show blood pressure 144/82, heart rate 109, respiratory rate 16, temp 90.1 F, and SpO2 of 99% on room air. Labs completed and reviewed. CBC showing bicytopenia and neutropenia with WBC count of 1.5, hemoglobin of 10.5, and neutrophils of 0.44. Coags normal findings. BMP showing prerenal azotemia with BUN of 18. Lactic acid 1.4. Magnesium was low at 1.4. Liver profile unremarkable. Troponin negative at 0.014. Chest x-ray completed negative for acute cardiopulmonary process reporting a similar small focal density in the right when compared to previous x-ray completed 11/04/2023. CT head without contrast negative for acute intracranial process. EKG showing normal sinus rhythm at 90 bpm with no significant T wave or ST abnormalities showing no signs of acute ischemia. Physical exam: Vital signs reviewed and stable. General: Nontoxic, no distress and appears stated age. Derm: Skin warm and dry, normal coloration for ethnicity. Head: Atraumatic, normocephalic and symmetric. Eyes: EOMs intact, no lid lag, and anicteric sclera Mouth: no lip lesions, mucus membranes moist Cardiovascular: regular rate and rhythm with normal S1S2, no murmur, positive posterior tibial pulses bilaterally, and cap refill < 2 seconds. Lungs: Respirations even, regular, and unlabored on room air. Lungs CTA bilaterally, no rhonchi, no rales, no wheezing, and no accessory muscle usage. Abdominal: soft, nontender to palpation, no guarding, no appreciable organomegaly Ext: ROM intact. No gross muscle atrophy, no edema, no contractures Neuro: Speech clear, face symmetrical and CN II-XII grossly intact with no noted focal neuro deficits Psych: Alert and oriented to person, place, time, and situation. Appropriate and pleasant affect. Assessment and Plan of Care: Severe neutropenia Bicytopenia, likely chemotherapy-induced Metastatic uterine cancer undergoing chemotherapy Generalized weakness and falls at home -Neutropenic precautions in place -Urinalysis to be obtained. -Follow-up on blood cultures and urine culture results. -Consult placed to oncology -Patient was empirically started on cefepime 2 g every 8 hours secondary to severe neutropenia and pending further results. 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 Anxiety with depression Continue daily medication regimen with Trintellix 20 mg daily and trazodone 100 mg nightly. Hypertension Continue daily medication regimen with atenolol 25 mg daily and lisinopril 2.5 mg daily. Hyperlipidemia Continue daily medication regimen with atorvastatin 40 mg daily. Data and imaging reviewed: Vital signs reviewed. Blood pressure 161/74, heart rate 78, respiratory rate 18, temp 97.9 F, and SpO2 of 100%. .Morning labs reviewed. Magnesium 1.5 orders placed for magnesium sulfate 2 g IVPB. CODE STATUS: Full code DVT prophylaxis: Lovenox Anticipated discharge date: Pending clinical course Anticipated discharge place: Home, possibly with home and palliative care. Patient was seen independently by Nurse Pracitioner. This document was prepared using [employer] dictation software. Please allow for errors in sand operator, while rare they do occur. I reviewed the documentation as provided by the JUAN FRANCISCO above, who is the original a uthor of this note. I agree with the documented assessment and plan, with the following changes: none Objective - Vital Signs Vital signs: Vital Signs Temp 97.9 F 01/24/24 08:37 Pulse 78 01/24/24 08:37 Resp 18 01/24/24 08:37 BP 161/74 01/24/24 08:37 Pulse Ox 100 01/24/24 08:37 FiO2 Intake & Output 01/23/24 01/24/24 01/24/24 18:59 06:59 18:59 Weight 80.286 kg - Labs CBC & Chem 7: 01/26/24 07:38 01/26/24 07:38 Labs: Abnormal Lab Results - Last 24 Hours (Table) 01/23/24 01/23/24 01/24/24 Range/Units 21:21 21:21 02:30 WBC 1.5 L (3.8-10.6) k/uL RBC 3.70 L (3.80-5.40) m/uL Hgb 10.5 L (11.4-16.0) gm/dL Hct 32.2 L (34.0-46.0) % RDW 16.7 H (11.5-15.5) % Neutrophils # (Manual) 0.44 L* (1.3-7.7) k/uL Lymphocytes # (Manual) 0.93 L (1.0-4.8) k/uL Sodium 136 L (137-145) mmol/L BUN 18 H (7-17) mg/dL Glucose 171 H (74-99) mg/dL POC Glucose (mg/dL) 188 H (70-110) mg/dL Phosphorus 2.2 L (2.5-4.5) mg/dL Magnesium 1.4 L (1.6-2.3) mg/dL 01/24/24 Range/Units 06:37 WBC (3.8-10.6) k/uL RBC (3.80-5.40) m/uL Hgb (11.4-16.0) gm/dL Hct (34.0-46.0) % RDW (11.5-15.5) % Neutrophils # (Manual) (1.3-7.7) k/uL Lymphocytes # (Manual) (1.0-4.8) k/uL Sodium (137-145) mmol/L BUN (7-17) mg/dL Glucose (74-99) mg/dL POC Glucose (mg/dL) (70-110) mg/dL Phosphorus (2.5-4.5) mg/dL Magnesium 1.5 L (1.6-2.3) mg/dL
[2024-01-24] MEDS: VORTIOXETINE HYDROBROMIDE 20 MG TABLET PO SCH (15:37)
[2024-01-24 17:29] LABS: Glucose,Whole Blood 166 mg/dL (70-110)
[2024-01-24 18:55] LABS: T4, Free (Free Thyroxine) 1.91 ng/dL (0.78-2.19)
[2024-01-24 20:38] LABS: Glucose,Whole Blood 120 mg/dL (70-110)
[2024-01-24] MEDS: traZODone HCL 100 MG TAB PO SCH (20:43)
--- NOTE | 2024-01-24 20:48 | P.CONS ---
History of Present Illness - Reason for Consult Consult date: 01/24/24 enodmetrial cancer, neutropenia Requesting physician: Alex Daniel - Chief Complaint weakness, fall - History of Present Illness Ms Hylton is a pleasant white female, with multiple medical issues and a complicated past medical history. The patient had presented to her PCP with complains of intermittent right bleeding for more than a year. She had sought attention, as symptoms were persistent and had become more prominent. He was referred to [facility], Dr. Hernandes, and had a Pap smear and D&C on 07/23/23. 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 Patient's pelvic ultrasound in 08/05 had shown abnormally thickened endometrium measuring 2.1 cm, with focus of vascularity concerning for endometrial carcinoma. CT abdomen and pelvis on 07/13/23 again showed abnormally thickened endometrium, measuring 6.8 x 4.1 cm. Chest x-ray was negative. The patient underwent surgery with MI/BSO, as well as sentinel lymph node dissection on 09/03/23. 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 She was staged as T T3a, N1 a, stage IIIc. She was thus referred for adjuvant systemic therapy. Has history of bilateral breast cancer, initially in 1978 on the left, treated with lumpectomy and radiation. She does not recall any systemic therapy. She then had another breast cancer on the right side in 2003, and had a bilateral mastectomy, and lymph node dissection on the right. She states that she received radiation and chemotherapy for 6 months but no hormonal treatment, indicating that this was likely hormone receptor negative cancer. She has not had any genetic testing done for hereditary cancer mutations. The patient was supposed to start adjuvant chemotherapy with carboplatin and Taxol, and had chemotherapy teaching for the same. This prior to that, she had an ER visit with chest x-ray showed multiple small lung nodules. She therefore had a CT chest on 10/14/23, which confirmed multiple bilateral lung nodules concerning for metastasis. There was also a mass noted in the right breast area. The patient's chemotherapy was therefore held, and she proceeded to wedge biopsy for the lung mass, as well as ultrasound-guided biopsy for the breast lesion. The latter was negative for malignancy, with the findings felt to represent scar ti ssue. The lung biopsy confirmed poorly differentiated non-small cell carcinoma, with IHC not definitive for a specific primary site. 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 She started on chemotherapy with carboplatin and Taxol, with palliative intent, on 11/11/23. Jemperli was added with cycle 3. She completed cycle 4 on 01/13/24. Patient presented to the emergency room for generalized weakness and fall. Patient reports she stood up and upon standing became dizzy and fell. She denies loss of consciousness and head injury. On admission CT head revealed no acute intracranial hemorrhage, midline shift or mass effect. Chest x-ray showed no acute cardiopulmonary processes. Similar small focal density on the right. Patient has had ongoing dizziness for approximately 1 year but states symptoms have been worsening. She also reports increasing shortness of breath on exertion, palpitations and a mild infrequent cough. Patient states she feels like her symptoms coincided with the start of immunotherapy. However, HPI somewhat limited as patient is a poor historian in regards to symptoms and onset. Of note, pt had similar complaints at follow up last month. MRI brain was subsequently obtained on 01/19/24, showing degenerative nonspecific white matter changes most typical of remote microvascular ischemia. No evidence of midline shift or mass effect and no evidence of a recent infarct or other diffusion abnormality. We recommended f/u with her PCP for further workup with possible echo and carotid doppler. She reports she has not had f/u with her PCP since last clinic appt. She is also reporting ongoing right upper extremity weakness and describes it as a heaviness. She is unsure how long this has been going on for but thinks maybe for a couple months. Family at bedside states patient has also been showing increased confusion and mumbled speech over the last approx 3 weeks. CBC reviewed, WBC 1.5, ANC 440, hemoglobin 10.5, platelets 252,000. Creatinine 0.63, GFR greater than 90. Calcium 9.2, potassium 3.9, sodium 136, magnesium 1.4. Bilirubins and LFTs WNL. Troponin negative. Empiric antibiotics started. Patient is afebrile. UA and blood cultures pending. Review of Systems 10 point ROS is negative except as stated in the HPI Past Medical History Past Medical History: Cancer, Hyperlipidemia, Hypertension, Thyroid Disorder Additional Past Medical History / Comment(s): uterine CA, Breast cancer right mets to lungs History of Any Multi-Drug Resistant Organisms: None Reported Past Surgical History: Breast Surgery, Hysterectomy Additional Past Surgical History / Comment(s): complete hyst 09/03/2023. Bilat mastectomy. Nose surgery Past Anesthesia/Blood Transfusion Reactions: No Reported Reaction Past Psychological History: Depression Smoking Status: Never smoker Past Alcohol Use History: None Reported Past Drug Use History: None Reported - Past Family History Mother Family Medical History: No Reported History Medications and Allergies Home Medications Medication Instructions Recorded Confirmed Type Atorvastatin [Lipitor] 40 mg PO DAILY 10/15/23 01/24/24 History Vortioxetine Hydrobromide 20 mg PO DAILY 10/15/23 01/24/24 History [Trintellix] atenoloL [Tenormin] 25 mg PO PC-LUNCH 10/15/23 01/24/24 History lisinopriL [Zestril] 2.5 mg PO PC-LUNCH 10/15/23 01/24/24 History metFORMIN HCL [Glucophage] 1,000 mg PO BID 10/15/23 01/24/24 History traZODone HCL [Desyrel] 100 mg PO HS 10/15/23 01/24/24 History Multivit-Min/Iron/Folic/Lutein 1 tab PO DAILY 01/24/24 01/24/24 History [Centrum Silver Women Tablet] Ondansetron [Zofran] 4 - 8 mg PO Q4H PRN 01/24/24 01/24/24 History glyBURIDE [Diabeta] 5 mg PO AC-BID 01/24/24 01/24/24 History Allergies Allergy/AdvReac Type Severity Reaction Status Date / Time codeine Allergy Nausea & Verified 01/07/24 18:13 Vomiting Physical Exam Vitals: Vital Signs Temp Pulse Resp BP Pulse Ox 01/24/24 10:02 81 18 171/79 100 01/24/24 08:37 97.9 F 78 18 161/74 100 01/24/24 06:00 75 16 152/81 01/24/24 04:00 84 16 151/71 01/23/24 23:00 77 14 174/96 100 01/23/24 22:30 93 14 223/115 96 01/23/24 22:11 12 100 01/23/24 21:43 87 18 212/106 95 01/23/24 20:44 93 18 172/108 01/23/24 20:10 98.1 F 109 H 16 144/82 99 Intake and Output 01/23/24 01/24/24 01/24/24 22:59 06:59 14:59 Other: Weight 80.286 kg - Constitutional General appearance: average body habitus, no acute distress - EENT Eyes: anicteric sclerae, EOMI ENT: hearing grossly normal - Respiratory Respiratory: bilateral: CTA - Cardiovascular Rhythm: regular Heart sounds: normal: S1, S2 - Gastrointestinal General gastrointestinal: soft, no tenderness - Integumentary Integumentary: no cyanotic, no jaundiced - Neurologic RUE weakness, strength 2/5. Intermittent dysarthria noted during conversation - Musculoskeletal RUE weakness - Psychiatric Psychiatric: A&O x's 3 Results CBC & Chem 7: 01/23/24 21:21 01/23/24 21:21 Labs: Abnormal Lab Results - Last 24 Hours (Table) 01/23/24 01/23/24 01/24/24 Range/Units 21:21 21:21 02:30 WBC 1.5 L (3.8-10.6) k/uL RBC 3.70 L (3.80-5.40) m/uL Hgb 10.5 L (11.4-16.0) gm/dL Hct 32.2 L (34.0-46.0) % RDW 16.7 H (11.5-15.5) % Neutrophils # (Manual) 0.44 L* (1.3-7.7) k/uL Lymphocytes # (Manual) 0.93 L (1.0-4.8) k/uL Sodium 136 L (137-145) mmol/L BUN 18 H (7-17) mg/dL Glucose 171 H (74-99) mg/dL POC Glucose (mg/dL) 188 H (70-110) mg/dL Phosphorus 2.2 L (2.5-4.5) mg/dL Magnesium 1.4 L (1.6-2.3) mg/dL 01/24/24 01/24/24 Range/Units 06:37 08:54 WBC (3.8-10.6) k/uL RBC (3.80-5.40) m/uL Hgb (11.4-16.0) gm/dL Hct (34.0-46.0) % RDW (11.5-15.5) % Neutrophils # (Manual) (1.3-7.7) k/uL Lymphocytes # (Manual) (1.0-4.8) k/uL Sodium (137-145) mmol/L BUN (7-17) mg/dL Glucose (74-99) mg/dL POC Glucose (mg/dL) 144 H (70-110) mg/dL Phosphorus (2.5-4.5) mg/dL Magnesium 1.5 L (1.6-2.3) mg/dL Chest x-ray: report reviewed CT scan - chest: report reviewed MRI - head: report reviewed Assessment and Plan (1) Dizziness Current Visit: Yes Status: Acute Priority: High Code(s): R42 - DIZZINESS AND GIDDINESS SNOMED Code(s): 378886967 (2) Fall Current Visit: Yes Status: Acute Priority: Medium Code(s): W19.XXXA - UNSPECIFIED FALL, INITIAL ENCOUNTER SNOMED Code(s): 6522656 (3) Neutropenia Current Visit: Yes Status: Acute Priority: Medium Code(s): D70.9 - NEUTROPENIA, UNSPECIFIED SNOMED Code(s): 475344654 (4) Endometrial carcinoma Current Visit: No Status: Acute Priority: Medium Code(s): C54.1 - MALIGNANT NEOPLASM OF ENDOMETRIUM SNOMED Code(s): 718908010 Plan: Generalized weakness, dizziness, SOB: Presented c/o generalized weakness and fall. Patient reports she stood up and upon standing became dizzy and fell. She denies loss of consciousness and head injury. Patient has had ongoing dizziness for approximately 1 year but states symptoms have been worsening. She also reports increasing shortness of breath on exertion, palpitations and a mild infrequent cough. Family at bedside states patient has also been showing increased confusion and mumbled speech over the last approx 3 weeks. Patient states she feels like her symptoms coincided with the start of immunotherapy. However, HPI somewhat limited as patient is a poor historian in regards to symptoms and onset. Of note, pt had similar complaints at follow up last month. MRI brain was subsequently obtained on 01/19/24, showing degenerative nonspecific white matter changes most typical of remote microvascular ischemia. No evidence of midline shift or mass effect and no evidence of a recent infarct or other diffusion abnormality. At last visit we recommended f/u with her PCP for further workup with possible echo and carotid doppler to r/o cardiac etiologies, but states she has not had f/u with her PCP yet -On admission CT head revealed no acute intracranial hemorrhage, midline shift or mass effect. Chest x-ray showed no acute cardiopulmonary processes. -WBC 1.5, ANC 440, hemoglobin 10.5, platelets 252,000. Creatinine 0.63, GFR > 90. Calcium 9.2, potassium 3.9, sodium 136, magnesium 1.4. Bilirubins and LFTs WNL. Troponin negative -Empiric antibiotics started. Patient afebrile. UA and blood cultures pending -Due to complaints of worsening SOB and palpitations, and mild cough will obtain CTA chest to r/o PE vs IO induced pneumonitis -IM has ordered echocardiogram. May benefit from cardiology consult and carotid dopplers. Defer management to admitting team -Thyroid studies and cortisol drawn in clinic on 12/22/23 were normal. Will repeat thyroid panel RUE weakness, confusion, dysarthria: Reporting ongoing right upper extremity weakness and describes it as a heaviness. RUE deficits noted on exam. She is unsure how long this has been going on for but thinks maybe for a couple months. Family at bedside states patient has also been showing increased confusion and mumbled speech over the last approx 3 weeks -MRI brain with contrast obtained on 01/19/24 showed no acute processes. CT brain w/o on admission showed no acute intracranial processes -Immunotherapy induced encephalitis is very rare, but due to reported and noted symptoms, would benefit from neurology evaluation. Neuro consult placed Metastatic endometrial cancer: -Full oncological history in HPI -Started on chemotherapy with carboplatin and Taxol, with palliative intent, on 11/11/23. Jemperli was added with cycle 3. She completed cycle 4 on 01/13/24 -Overall has been tolerating treatment relatively well -Will schedule hospital f/u upon discharge
--- NOTE | 2024-01-25 05:39 | CT ---
EXAMINATION TYPE: CT angio chest DATE OF EXAM: 01/25/2024 COMPARISON: Prior chest CT October 14, 2023 HISTORY: SOB, hx endometrial cancer. R/o PE vs pneumonitis CT DLP: 312 mGycm. Automated Exposure Control for Dose Reduction was Utilized. CONTRAST: CTA scan of the thorax is performed with IV Contrast, patient injected with 100 mL of Isovue 370, pul monary embolism protocol. MIP Images are created on CT scanner and reviewed. FINDINGS: Exam slightly suboptimal due to some respiratory motion artifact compromise. LUNGS: Interval improvement in scattered small bilateral pulmonary nodules which are less well apprec iated on current study suggesting positive treatment response. Focal consolidation/atelectasis in the periphery of the right middle lobe near axial image 79. Left lung is clear. No pleural effusion or p neumothorax seen bilaterally. MEDIASTINUM: There is satisfactory enhancement of the pulmonary artery and its branches, there is no CT evidence for pulmonary embolism. Some enhancement of the aorta without aneurysm or dissection. Th ere are no new greater than 1 cm hilar or mediastinal lymph nodes. No cardiomegaly. Stable small to tiny pericardial effusion is seen anterior inferior aspect. Coronary artery calcification is redemon strated. OTHER: There is intraluminal 1.9 cm rim calcified gallstone again seen. There is 1.8 cm simple appear ing thin-walled cyst in the right kidney axial image 153. Multilevel spurring in the thoracic spine r edemonstrated. Right breast remains surgically absent. There is new clip at site of prior irregular m ass axial image 73 now noted. Stable 8 mm nonobstructing left renal calculus on axial image 140. IMPRESSION: 1. No CT evidence for acute pulmonary embolism. 2. Small focal consolidation/atelectasis peripheral right middle lobe otherwise lungs are clear. 3. Complete positive treatment response. No measurable pulmonary nodules on current study.
[2024-01-25 07:23] LABS: Glucose,Whole Blood 142 mg/dL (70-110)
[2024-01-25] MEDS: MULTIVITAMINS, THERA 1 EACH TAB PO SCH (08:50)
[2024-01-25 09:39] LABS: Appearance,Urine Clear (Clear); Bilirubin,Urine Negative (Negative); Blood,Urine Negative (Negative); Color,Urine Colorless; Glucose,Urine (UA) Negative (Negative); Ketones,Urine Trace (Negative); Leukocyte Esterase,Urine Negative (Negative); Nitrite,Urine Negative (Negative); PH, Urine 5.5 (5.0-8.0); Protein,Urine Negative (Negative); Specific Gravity,Urine 1.027 (1.001-1.035); Urobilinogen,Urine <2.0 mg/dL (<2.0)
[2024-01-25 11:56] LABS: Glucose,Whole Blood 167 mg/dL (70-110)
[2024-01-25 11:58] LABS: HCT 27.8 % (37.2-46.3); HGB 9.1 g/dL (12.0-15.0); MCH 28.7 pg (27.0-32.0); MCHC 32.7 g/dL (32.0-37.0); MCV 87.7 FL (80.0-97.0); Mean Platelet Volume 10.8 FL (9.5-12.2); NRBC Per 100 WBC 0 X 10*3/uL (0.00-0.01); Platelet Count 260 X 10*3/uL (140-440); RBC 3.17 X 10*6/uL (4.10-5.20); RDW 17.2 % (11.5-14.5); WBC 1.36 X 10*3/uL (4.50-10.00)
[2024-01-25 12:10] LABS: ALT 16 U/L (8-44); AST 20 U/L (13-35); Albumin 3.6 g/dL (3.8-4.9); Albumin/Globulin Ratio 1.71 Ratio (1.60-3.17); Alkaline Phosphatase 104 U/L (41-126); Blood Urea Nitrogen 12.6 mg/dL (9.0-27.0); Calcium 8.6 mg/dL (8.7-10.3); Carbon Dioxide 24.9 mmol/L (21.6-31.8); Chloride 105 mmol/L (96-109); Globulin 2.1 g/dL (1.6-3.3); Glucose 129 mg/dL (70-110); Magnesium 1.7 mg/dL (1.5-2.4); Potassium 3.9 mmol/L (3.5-5.5); Sodium 141 mmol/L (135-145); Total Bilirubin 0.3 mg/dL (0.3-1.2); Total Protein 5.7 g/dL (6.2-8.2)
[2024-01-25 17:15] VITALS: BMI 29.4
[2024-01-25 17:28] LABS: Glucose,Whole Blood 118 mg/dL (70-110)
--- NOTE | 2024-01-25 17:55 | P.PN ---
Subjective Progress Note Date: 01/25/24 Hospital course: Patient is a 73-year-old female with a past medical history of hypertension, hyperlipidemia, hypothyroidism, previous CVAs with residual weakness and proximal right upper extremity and left lower extremity, anemia of chronic disease, type II [id number] diabetes mellitus, breast cancer status post bilateral mastectomy, uterine cancer with metastasis to lungs currently undergoing chemotherapy with last session January 12. She presented to the emergency department overnight on 01/23/2024 secondary to generalized weakness and fall at home. Upon arrival to our facility, patient underwent evaluation in the emergency department. Vital signs upon arrival show blood pressure 144/82, heart rate 109, respiratory rate 16, temp 90.1 F, and SpO2 of 99% on room air. Labs completed and reviewed. CBC showing bicytopenia and neutropenia with WBC count of 1.5, hemoglobin of 10.5, and neutrophils of 0.44. Coags normal findings. BMP showing prerenal azotemia with BUN of 18. Lactic acid 1.4. Magnesium was low at 1.4. Liver profile unremarkable. Troponin negative at 0.014. Chest x-ray completed negative for acute cardiopulmonary process reporting a similar small focal density in the right when compared to previous x-ray completed 11/04/2023. CT head without contrast negative for acute intracranial process. EKG showing normal sinus rhythm at 90 bpm with no significant T wave or ST abnormalities showing no signs of acute ischemia. Patient was admitted under our services with consultation to hematology/oncology. Patient was empirically started on IV antibiotics with cefepime 2 g every 8 hours. Preliminary blood cultures resulting positive for gram negative bacilli, no need for change in antibiotics at this time pending critical access hospital culture and sensitivity report. Infectious disease consulted. Physical exam: Patient seen and fully evaluated at bedside this morning. Patient continues to report generalized weakness otherwise denies having any complaints at this time. Vital signs reviewed and stable. General: Nontoxic, no distress and appears stated age. Derm: Skin warm and dry, normal coloration for ethnicity. Head: Atraumatic, normocephalic and symmetric. Eyes: EOMs intact, no lid lag, and anicteric sclera Mouth: no lip lesions, mucus membranes moist Cardiovascular: regular rate and rhythm with normal S1S2, no murmur, positive posterior tibial pulses bilaterally, and cap refill < 2 seconds. Lungs: Respirations even, regular, and unlabored on room air. Lungs CTA bilaterally, no rhonchi, no rales, no wheezing, and no accessory muscle usage. Abdominal: soft, nontender to palpation, no guarding, no appreciable organomegaly Ext: ROM intact. No gross muscle atrophy, no edema, no contractures Neuro: Speech clear, face symmetrical and CN II-XII grossly intact with no noted focal neuro deficits Psych: Alert and oriented to person, place, time, and situation. Appropriate and pleasant affect. Assessment and Plan of Care: Severe neutropenia Bacteremia Bicytopenia, likely chemotherapy-induced Metastatic uterine cancer undergoing chemotherapy Generalized weakness and falls at home -Neutropenic precautions in place -Preliminary blood cultures resulting positive for gram-negative bacilli. -Consult placed to infectious disease secondary to patient's severe neutropenia and findings of gram-negative bacteremia -Urinalysis negative for infection. -Follow-up on final culture and sensitivity report of blood cultures. -Oncology following, reviewed documentation in chart. -Patient was empirically started on cefepime 2 g every 8 hours secondary to severe neutropenia and pending further results. 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 Anxiety with depression Continue daily medication regimen with Trintellix 20 mg daily and trazodone 100 mg nightly. Hypertension Continue daily medication regimen with atenolol 25 mg daily and lisinopril 2.5 mg daily. Hyperlipidemia Continue daily medication regimen with atorvastatin 40 mg daily. Data and imaging reviewed: Vital signs reviewed. Blood pressure 155/78, heart rate 89, respiratory rate 17, temp 98.3 F, and SpO2 of 98% on room air. Morning labs reviewed. Preliminary blood cultures positive for gram-negative bacilli. CBC showing critical WBC count of 1.36 and hemoglobin of 9.1. BMP unremarkable. Blood glucose 129. Hemoglobin A1c was 7%. Magnesium slightly low at 1.7. Liver profile normal findings. Urinalysis negative for infection. CODE STATUS: Full code DVT prophylaxis: Lovenox Anticipated discharge date: Pending clinical course Anticipated discharge place: Home, possibly with home and palliative care. Patient was seen independently by Nurse Pracitioner. This document was prepared using Ref[employer] It dictation software. Please allow for errors in product transfer pumper, while rare they do occur. Ranulfo Mka NP rendered care for this patient independently, reviewed the findings and plan as documented in the note above. I did not physically speak with or examine the patient on this date. Objective - Vital Signs Vital signs: Vital Signs Temp 98.3 F 01/25/24 07:21 Pulse 89 01/25/24 07:21 Resp 17 01/25/24 07:21 BP 155/78 01/25/24 07:21 Pulse Ox 98 01/25/24 07:21 FiO2 Intake & Output 01/24/24 01/25/24 01/25/24 18:59 06:59 18:59 Output Total 0 Balance 0 Weight 80.286 kg Output: Post Void Residual 0 Other: Voiding Method Toilet Toilet # Voids 1 3 - Labs CBC & Chem 7: 01/25/24 06:57 01/25/24 06:57 Labs: Abnormal Lab Results - Last 24 Hours (Table) 01/24/24 01/24/24 01/24/24 Range/Units 08:54 12:53 17:27 POC Glucose (mg/dL) 144 H 136 H 166 H (70-110) mg/dL 01/24/24 01/25/24 Range/Units 20:36 07:21 POC Glucose (mg/dL) 120 H 142 H (70-110) mg/dL Microbiology - Last 24 Hours (Table) 01/24/24 00:30 Blood Culture Gram Stain - Preliminary Blood Blood Culture - Preliminary
[2024-01-25 20:43] LABS: Glucose,Whole Blood 149 mg/dL (70-110)
--- NOTE | 2024-01-25 21:47 | P.CONS ---
History of Present Illness - Reason for Consult Consult date: 01/25/24 Neutropenic with a positive blood culture Requesting physician: Ranulfo Mak - Chief Complaint Weakness and fall at home x few days - History of Present Illness Patient is a 73-year-old female with a past medical history significant for hypertension hyperlipidemia metastatic uterine cancer with mets to the lungs patient was brought to the hospital 2 days ago for evaluation of weakness and apparently the patient did have a fall at home patient called due to weakness and able to get herself up no history of any injury to the head or headache patient on presentation to the hospital was afebrile and no fever have been recorded subsequently patient was tachycardic on admission subsequent resolved not hypotensive mildly hypoxic currently on 2 L nasal cannula oxygen or nonspecifically but denies having any headache or URI symptoms no denies any difficulty swallowing no chest pain shortness of breath or cough no abdominal pain patient did mention she did have some diarrhea before the patient was brought to the hospital that has subsequently resolved and no urinary symptoms on presentation the hospital patient white count 1.5 neutrophil count was 0.44 patient did have a creatinine 0.6 liver enzymes are normal urine has been negative patient did have a chest x-ray no acute cardiopulmonary abnormality small focal density on the right patient did have a CT angiogram of the chest no PE small focal consolidation peripheral right mid lobe and positive treatment response as far as mets to the lung with concern patient blood cultures came back positive with gram-negative bacilli that has prompted this infectious disease consultation Review of Systems Positive point and negatives has been mentioned in the HPI, complete review of systems was performed and all other systems are negative Past Medical History Past Medical History: Cancer, Hyperlipidemia, Hypertension, Thyroid Disorder Additional Past Medical History / Comment(s): uterine CA, Breast cancer right mets to lungs History of Any Multi-Drug Resistant Organisms: None Reported Past Surgical History: Breast Surgery, Hysterectomy Additional Past Surgical History / Comment(s): complete hyst 09/03/2023. Bilat mastectomy. Nose surgery Past Anesthesia/Blood Transfusion Reactions: No Reported Reaction Past Psychological History: Depression Smoking Status: Never smoker Past Alcohol Use History: None Reported Past Drug Use History: None Reported - Past Family History Mother Family Medical History: No Reported History Medications and Allergies Home Medications Medication Instructions Recorded Confirmed Type Atorvastatin [Lipitor] 40 mg PO DAILY 10/15/23 01/24/24 History Vortioxetine Hydrobromide 20 mg PO DAILY 10/15/23 01/24/24 History [Trintellix] atenoloL [Tenormin] 25 mg PO PC-LUNCH 10/15/23 01/24/24 History lisinopriL [Zestril] 2.5 mg PO PC-LUNCH 10/15/23 01/24/24 History metFORMIN HCL [Glucophage] 1,000 mg PO BID 10/15/23 01/24/24 History traZODone HCL [Desyrel] 100 mg PO HS 10/15/23 01/24/24 History Multivit-Min/Iron/Folic/Lutein 1 tab PO DAILY 01/24/24 01/24/24 History [Centrum Silver Women Tablet] Ondansetron [Zofran] 4 - 8 mg PO Q4H PRN 01/24/24 01/24/24 History glyBURIDE [Diabeta] 5 mg PO AC-BID 01/24/24 01/24/24 History Acetaminophen Tab [Tylenol] 1,000 mg PO Q8HR PRN tab 02/02/24 Rx Colchicine [Colcrys] 0.6 mg PO BID each 02/02/24 Rx Cyanocobalamin [Vitamin B-12] 1,000 mcg PO DAILY tab 02/02/24 Rx Indomethacin [Indocin] 25 mg PO BID #14 capsule 02/02/24 Rx Magnesium Oxide [Mag-Ox] 400 mg PO DAILY tab 02/02/24 Rx Pyridoxine [Vitamin B-6] 50 mg PO DAILY tab 02/02/24 Rx Allergies Allergy/AdvReac Type Severity Reaction Status Date / Time codeine Allergy Nausea & Verified 01/07/24 18:13 Vomiting Physical Exam Vitals: Vital Signs Temp Pulse Pulse Resp BP BP Pulse Ox 01/25/24 07:21 98.3 F 89 17 155/78 98 01/25/24 01:28 98.3 F 75 16 115/67 98 01/24/24 20:00 98.0 F 83 18 126/66 97 01/24/24 14:00 98.3 F 79 17 165/75 100 01/24/24 12:51 84 18 150/79 100 Intake and Output 01/24/24 01/25/24 01/25/24 22:59 06:59 14:59 Other: Voiding Method Toilet # Voids 1 3 1 Weight 80.286 kg GENERAL DESCRIPTION: Elderly female lying in bed, no distress. No tachypnea or accessory muscle of respiration use. HEENT: Shows Pallor , no scleral icterus. Oral mucous membrane is dry. No pharyngeal erythema or thrush NECK: Trachea central, no thyromegaly. LUNGS: Unlabored breathing. Clear to auscultation anteriorly. No wheeze or supervisor [employer] c[employer]. HEART: S1, S2, regular rate and rhythm. No loud murmur ABDOMEN: Soft, no tenderness , guarding or rigidity, no organomegaly EXTREMITIES: No edema of feet. SKIN: No rash, no masses palpable. NEUROLOGICAL: The patient is awake, alert,mood and affect normal. Results CBC & Chem 7: 02/02/24 07:07 02/02/24 07:07 Labs: Abnormal Lab Results - Last 24 Hours (Table) 01/24/24 01/24/24 01/24/24 Range/Units 12:53 17:27 20:36 POC Glucose (mg/dL) 136 H 166 H 120 H (70-110) mg/dL Urine Ketones (Negative) 01/25/24 01/25/24 Range/Units 07:21 09:13 POC Glucose (mg/dL) 142 H (70-110) mg/dL Urine Ketones Trace H (Negative) Microbiology - Last 24 Hours (Table) 01/24/24 00:30 Blood Culture Gram Stain - Preliminary Blood Blood Culture - Preliminary Assessment and Plan (1) Bacteremia Status: Acute Priority: High Code(s): R78.81 - BACTEREMIA SNOMED Code(s): 0279081 (2) Bicytopenia Status: Acute Priority: High Code(s): D75.89 - OTHER SPECIFIED DISEASES OF BLOOD AND BLOOD-FORMING ORGANS SNOMED Code(s): 80792711 Plan: 1patient with gram-negative bacteremia in this patient who did have a history of metastatic uterine cancer currently on chemotherapy brought into the hospital for weakness fall and some confusion patient did have a CT angiogram of the chest concerning for possible consolidation right middle lobe patient abdominal soft on clinical examination urine has been negative evidence of any joint swelling or cellulitis and the patient do not have any Mediport or PICC line for the likely source of this bacteremia being the pneumonia 2-try to obtain a sputum for Gram stain culture check inflammatory markers 3-blood culture repeated document clearance of bacteremia 4-cefepime 2 g every 8 hours waiting for the culture to finalize We will follow on clinical condition and cultures to further adjust medication if needed Thank you for this consultation we will follow the patient along with you Dictation was produced using [employer] dictation software. please excuse any grammatical, word or spelling errors. Time with Patient: Greater than 30
--- NOTE | 2024-01-25 22:38 | P.PN ---
Subjective Progress Note Date: 01/25/24 Principal diagnosis: weakness, neutropenia, endometrial carcinoma on treatment In f/u today pt denies any new c/o, doesn't feel worse but not much better. She cont to have difficulty expressing herself, she knows what she wants to say but she repeats phrases. She has no facial expression deficits, she is not having any trouble swallowing. Objective - Vital Signs Vital signs: Vital Signs Temp 98.2 F 01/25/24 12:00 Pulse 80 01/25/24 12:00 Resp 17 01/25/24 12:00 BP 168/82 01/25/24 12:00 Pulse Ox 99 01/25/24 12:00 FiO2 Intake & Output 01/24/24 01/25/24 01/25/24 18:59 06:59 18:59 Output Total 0 Balance 0 Weight 80.286 kg Output: Post Void Residual 0 Other: Voiding Method Toilet Toilet # Voids 1 3 1 - Constitutional General appearance: Present: average body habitus, cooperative, no acute distress - EENT Eyes: Present: anicteric sclerae ENT: Present: hearing grossly normal - Respiratory Details: Respirations even and unlabored at rest - Cardiovascular Details: Skin is warm and dry to the touch but she is pale - Peripheral edema leg Peripheral Edema: bilateral: Trace (Patient has a left lateral lower calf hematoma) - Gastrointestinal General gastrointestinal: Present: soft - Integumentary Integumentary: Present: pale - Neurologic Neurologic Comment(s): Bilateral lower extremity strength is weak, right greater than left but not severely. Upper extremity strength significantly weaker on the right, patient is not able to raise her arm against gravity. Proprioception is not intact in the right hand or in the toes of both feet - Musculoskeletal Musculoskeletal: Present: right sided weakness - Psychiatric Psychiatric: Present: A&O x's 3, appropriate affect - Labs CBC & Chem 7: 01/25/24 06:57 01/25/24 06:57 Labs: Abnormal Lab Results - Last 24 Hours (Table) 01/24/24 01/24/24 01/25/24 Range/Units 17:27 20:36 06:57 WBC (4.50-10.00) X 10*3/uL RBC (4.10-5.20) X 10*6/uL Hgb (12.0-15.0) g/dL Hct (37.2-46.3) % RDW (11.5-14.5) % BUN/Creatinine Ratio (12.00-20.00) Ratio Glucose (70-110) mg/dL POC Glucose (mg/dL) 166 H 120 H (70-110) mg/dL Hemoglobin A1c 7.0 H (<=6.0) % Calcium (8.7-10.3) mg/dL Total Protein (6.2-8.2) g/dL Albumin (3.8-4.9) g/dL Urine Ketones (Negative) 01/25/24 01/25/24 01/25/24 Range/Units 06:57 06:57 07:21 WBC 1.36 A* (4.50-10.00) X 10*3/uL RBC 3.17 L (4.10-5.20) X 10*6/uL Hgb 9.1 L (12.0-15.0) g/dL Hct 27.8 L (37.2-46.3) % RDW 17.2 H (11.5-14.5) % BUN/Creatinine Ratio 21.00 H (12.00-20.00) Ratio Glucose 129 H (70-110) mg/dL POC Glucose (mg/dL) 142 H (70-110) mg/dL Hemoglobin A1c (<=6.0) % Calcium 8.6 L (8.7-10.3) mg/dL Total Protein 5.7 L (6.2-8.2) g/dL Albumin 3.6 L (3.8-4.9) g/dL Urine Ketones (Negative) 01/25/24 01/25/24 Range/Units 09:13 11:55 WBC (4.50-10.00) X 10*3/uL RBC (4.10-5.20) X 10*6/uL Hgb (12.0-15.0) g/dL Hct (37.2-46.3) % RDW (11.5-14.5) % BUN/Creatinine Ratio (12.00-20.00) Ratio Glucose (70-110) mg/dL POC Glucose (mg/dL) 167 H (70-110) mg/dL Hemoglobin A1c (<=6.0) % Calcium (8.7-10.3) mg/dL Total Protein (6.2-8.2) g/dL Albumin (3.8-4.9) g/dL Urine Ketones Trace H (Negative) Microbiology - Last 24 Hours (Table) 01/24/24 00:15 Blood Culture - Preliminary Blood 01/24/24 00:30 Blood Culture Gram Stain - Preliminary Blood Blood Culture - Preliminary - Imaging and Cardiology CT scan - chest: report reviewed Assessment and Plan (1) Neurological deficit present Current Visit: Yes Status: Acute Priority: High Code(s): R29.818 - OTHER SYMPTOMS AND SIGNS INVOLVING THE NERVOUS SYSTEM SNOMED Code(s): 326610853 (2) Bicytopenia Current Visit: Yes Status: Acute Code(s): D75.89 - OTHER SPECIFIED DISEASES OF BLOOD AND BLOOD-FORMING ORGANS SNOMED Code(s): 56548791 (3) Endometrial carcinoma Current Visit: Yes Status: Chronic Priority: Medium Code(s): C54.1 - MALIGNANT NEOPLASM OF ENDOMETRIUM SNOMED Code(s): 690968873 Plan: Neurological deficit -Dizziness, weakness and fall on admission-persistent, recently progressive symptoms. Associated with some increased confusion, and jumbled speech. Proprioception is not intact when examined on patient today -Possibly coinciding with initiation of immunotherapy? MRI 01/19/[address] of the brain on admission no acute findings. -Concerns for possible immunotherapy induced encephalitis. Neurology has been consulted. Pending their assessment and recommendations Chemotherapy-induced bicytopenia -Hemoglobin 9.1. No reports of any bleeding. Continue to monitor. Transfuse for hemoglobin less than 7 or if patient is symptomatic -Leukopenia/neutropenia. Continue to monitor. No G-CSF at this time. Endometrial carcinoma -Metastatic disease in lungs. -Patient recently started on carboplatin and Taxol with palliative intent. Joshua [place] was added to cycle 3. She completed 4 cycles 01/13/2024. -Patient has overall done fairly well with treatment thus far -CTA of the chest was ordered for worsening shortness of breath and palpitations with a cough. No PE, pneumonitis or other acute pulmonary process reported. It was however noted that metastatic disease seen on prior CT dated 01/03/2024 was significantly improved! These results were reviewed with the patient. -IM has ordered echocardiogram. May benefit from cardiology consult and carotid dopplers. Defer management to admitting team -Thyroid studies and cortisol drawn in clinic on 12/22/23 were normal. Repeat thyroid panel was normal, cortisol pending
[2024-01-26] MEDS: cloNIDine HCL 0.2 MG TAB PO PRN (02:31)
[2024-01-26 07:07] LABS: Glucose,Whole Blood 129 mg/dL (70-110)
[2024-01-26 09:19] LABS: ALT 14 U/L (4-34); AST 25 U/L (14-36); African American GFR (CKD) >90 (>60 ml/min/1.73 sqM); Albumin/Globulin Ratio 1.2; Alkaline Phosphatase 93 U/L (38-126); Anion Gap 5 mmol/L; Blood Urea Nitrogen 10 mg/dL (7-17); Calcium 8.3 mg/dL (8.4-10.2); Carbon Dioxide 24 mmol/L (22-30); Chloride 109 mmol/L (98-107); Globulin 2.6 g/dL; Glucose 116 mg/dL (74-99); Magnesium 1.3 mg/dL (1.6-2.3); Non-African American GFR(CKD) >90 (>60 ml/min/1.73 sqM); Potassium 3.4 mmol/L (3.5-5.1); Sodium 138 mmol/L (137-145); Total Bilirubin 0.7 mg/dL (0.2-1.3); Total Protein 5.6 g/dL (6.3-8.2)
[2024-01-26 09:37] LABS: HCT 29.6 % (34.0-46.0); HGB 9.3 gm/dL (11.4-16.0); MCH 28.7 pg (25.0-35.0); MCHC 31.5 g/dL (31.0-37.0); MCV 91.4 fL (80.0-100.0); RBC 3.24 m/uL (3.80-5.40)
[2024-01-26 09:38] LABS: Anisocytosis Slight; Hypochromasia Slight; Mean Platelet Volume 8.7; Platelet Count 275 k/uL (150-450); RDW 17.4 % (11.5-15.5)
[2024-01-26 09:42] LABS: WBC 1.3 k/uL (3.8-10.6)
--- NOTE | 2024-01-26 11:16 | CA ---
Transthoracic Echo Report Name: Pushpa Hylton Age: 73 Gender: F : 1950 Exam Date: 01/25/2024 12:05 Exam Location: [facility] Ht (in): 65 Wt (lb): 177 Ordering Physician: Kerrie Gipson MD Attending/Referring Phys: [id number], Brandan Cut Out Machine Operator Olive Foote RDCS Procedure CPT: Indications: exertional dyspnea Cardiac Hx: Technical Quality: Technically difficult study Contrast 1: Definity Total Dose (mL): 3 Contrast 2: Total Dose (mL): MEASUREMENTS (Male / Female) Normal Values 2D ECHO LV Diastolic Diameter PLAX 4.7 cm 4.2 - 5.9 / 3.9 - 5.3 cm LV Systolic Diameter PLAX 2.7 cm IVS Diastolic Thickness 1.3 cm 0.6 - 1.0 / 0.6 - 0.9 cm LVPW Diastolic Thickness 1.1 cm 0.6 - 1.0 / 0.6 - 0.9 cm LV Relative Wall Thickness 0.5 LA Volume 53.4 cm??? 18 - 58 / 22 - 52 cm??? LA Volume Index 27.5 cm???/m??? 16 - 28 cm???/m??? M-MODE Aortic Root Diameter MM 2.8 cm LA Systolic Diameter MM 3.7 cm LA Ao Ratio MM 1.3 AV Cusp Separation MM 0.9 cm DOPPLER AV Peak Velocity 126.5 cm/s AV Peak Gradient 6.4 mmHg AV Mean Velocity 83.9 cm/s AV Mean Gradient 3.3 mmHg AV Velocity Time Integral 25.5 cm LVOT Peak Velocity 79.6 cm/s LVOT Peak Gradient 2.5 mmHg LVOT Velocity Time Integral 20.6 cm MV Area PHT 3.0 cm??? Mitral E Point Velocity 68.2 cm/s Mitral A Point Velocity 107.5 cm/s Mitral E to A Ratio 0.6 MV Deceleration Time 256.8 ms MV E' Velocity 4.3 cm/s Mitral E to MV E' Ratio 15.9 TR Peak Velocity 157.3 cm/s TR Peak Gradient 9.9 mmHg Right Ventricular Systolic Press 14.9 mmHg FINDINGS Left Ventricle Mildly increased left ventricular wall thickness. Left ventricular cavity size normal. Normal left ventricular systolic function with no obvious regional wall motion abnormalities. Left ventricular ejection fraction is estimated at 55-60 %. Grade 1 diastolic dysfunction. Right Ventricle Normal right ventricular size and function. Right ventricular systolic pressure within normal limits. Right Atrium Right atrium not well visualized. Left Atrium Mildly increased left atrial volume. Mitral Valve Structurally normal mitral valve. Mitral valve thickened. Mild mitral annular calcification. Mild mitral regurgitation. Aortic Valve No aortic valve stenosis or regurgitation.aortic valve not well visualized. Tricuspid Valve Structurally normal tricuspid valve. Mild tricuspid regurgitation. Pulmonic Valve Structurally normal pulmonic valve.pulmonic valve not well visualized. Pericardium No pericardial effusion. Aorta Normal size aortic root and proximal ascending aorta. CONCLUSIONS Technically difficult study. Definity ECHO contrast used for improved visualization of the endocardial borders (inadequate visualization of two or more contiguous segments). Normal ventricle size and systolic function Limited Doppler study with mild mitral and tricuspid regurgitation Previewed by: Dr. Jean Claude Miller MD (Electronically Signed) Final Date: 26 Jan 2024 11:16
[2024-01-26 11:58] LABS: Glucose,Whole Blood 165 mg/dL (70-110)
[2024-01-26] MEDS: AMPICILLIN-SULBACTAM 3 GM in SODIUM CHLORIDE 0.9% 100 ML IVPB SCH (12:06)
[2024-01-26] MEDS: IOPAMIDOL CONTRAST (ORAL USE) VIAL PO PRN (12:06)
[2024-01-26 14:07] LABS: Neutrophils % (M) 15 %
[2024-01-26 14:11] LABS: Band Neutrophils % 1 %; Lymphocytes # (M) 0.72 k/uL (1.0-4.8); Monocytes # (M) 0.27 k/uL (0-1.0)
[2024-01-26 14:13] LABS: Nucleated Red Blood Cells 0 /100 WBC (0-0); Total Cells Counted 100
--- NOTE | 2024-01-26 14:14 | CT ---
EXAMINATION TYPE: CT abdomen pelvis w con DATE OF EXAM: 01/26/2024 COMPARISON: 09/25/2023 HISTORY: C-DIFF CT DLP: 1325 mGycm CONTRAST: CT scan of the abdomen and pelvis is performed with Oral Contrast and with IV Contrast, patient injec mohini with 100 mL of Isovue 300. FINDINGS: LUNG BASES-: No visible nodule. No infiltrate. LIVER/GB: Uncomplicated cholelithiasis. No space occupying hepatic lesion. Biliary tree is of normal caliber. PANCREAS: No inflammation. No distinct mass. SPLEEN: No splenic enlargement. No lesion seen. ADRENALS: No nodule. No thickening. KIDNEYS/BLADDER: 11 mm nonobstructing calculus upper pole left kidney. No additional calculi seen. Si mple cyst upper pole right kidney measuring 2.3 cm. The dome of the urinary bladder extends to the L4 -5 level and appears 17.4 cm craniocaudal dimension. BOWEL: Nonvisualization of the appendix. Normal bowel caliber. No inflammation. GENITAL ORGANS: No gross abnormality. LYMPH NODES: No greater than 1cm abdominal or pelvic lymph nodes are appreciated. AORTA: No significant abnormality. OSSEOUS STRUCTURES: No significant abnormality is seen. OTHER: No significant additional abnormality is seen. IMPRESSION: 1. Neurogenic bladder versus bladder obstruction. 2. Uncomplicated cholelithiasis. 3. Nonobstructing left renal calculus.
--- NOTE | 2024-01-26 14:22 | P.CNNES ---
History of Present Illness Consult date: 01/26/24 Requesting physician: Mick Hylton Reason for Consult: dysarthia, confusion, RUE weakness History of Present Illness: Patient is a 73-year-old left handed female came to the hospital 01/23/2024 at 8:07 PM for weakness Patient was diagnosed with endometrial carcinoma on 09/03/2023. Patient has been receiving chemotherapy and has been feeling very weak with no energy. Patient has longstanding history of right arm weakness going on for almost 1 year. It started out with some dull pain in the right elbow forearm region, and then developed weakness of the right arm and hand region. She also has numbness of the middle 3 fingers of the right hand. Patient states that her right arm is losing strength and seems weak. Patient denies any neck pain, any low back pain or thoracic pain. Patient does have a walker, but does not use it all the time. Vital signs on arrival blood pressure 140/82, pulse rate 109, temperature 98.1. Patient has been afebrile. Blood test shows WBC 1.5 hemoglobin 10.5, normal platelets 252. PT PTT normal. Sodium 136 potassium 3.9, normal renal functi ons, normal hepatic panel, troponin, CK. TSH and free T4 are normal. UA is negative. Her most recent CBC with WBC count 1.3. EKG shows sinus rhythm. CT head showed no acute intracranial hemorrhage midline shift or mass effect. I personally reviewed CT head agree with the findings. Chest x-ray showed no acute cardiopulmonary abnormality. Similar small focal density on the right, could be further evaluated with outpatient CT chest. CT of the chest showed no CT evidence for acute pulmonary embolism. Small focal consolidation/atelectasis peripheral right middle lobe otherwise lungs are clear. Complete positive treatment response. No measurable pulmonary nodules on current study. 2D echo revealed technically difficult study. Normal ventricular size and systolic function. EF is 55 to 60%. Mildly increased left atrial volume. Patient had an MRI of the brain with and without contrast performed recently on 01/19/2024, which revealed degenerative and nonspecific white matter changes, most typical of remote microvascular ischemia. She lives alone, has no children. She has some siblings around. Patient is a never smoker, does not drink. She has history of diabetes for 42 years. Review of Systems Constitutional: Reports weight loss, Denies chills, Denies fever Eyes: denies blurred vision, denies diplopia, denies pain, denies loss of vision Ears, nose, mouth and throat: Denies headache, Denies sore throat Cardiovascular: Denies chest pain, Denies shortness of breath Respiratory: Denies cough Gastrointestinal: Denies abdominal pain, Denies diarrhea, Denies nausea, Denies vomiting Neurological: Reports as per HPI Psychiatric: Reports depression, Denies anxiety Endocrine: Reports fatigue, Reports weight change Past Medical History Past Medical History: Cancer, Hyperlipidemia, Hypertension, Thyroid Disorder Additional Past Medical History / Comment(s): uterine CA, Breast cancer right mets to lungs History of Any Multi-Drug Resistant Organisms: None Reported Past Surgical History: Breast Surgery, Hysterectomy Additional Past Surgical History / Comment(s): complete hyst 09/03/2023. Bilat mastectomy. Nose surgery Past Anesthesia/Blood Transfusion Reactions: No Reported Reaction Past Psychological History: Depression Smoking Status: Never smoker Past Alcohol Use History: None Reported Past Drug Use History: None Reported - Past Family History Mother Family Medical History: No Reported History Medications and Allergies Home Medications Medication Instructions Recorded Confirmed Type Atorvastatin [Lipitor] 40 mg PO DAILY 10/15/23 01/24/24 History Vortioxetine Hydrobromide 20 mg PO DAILY 10/15/23 01/24/24 History [Trintellix] atenoloL [Tenormin] 25 mg PO PC-LUNCH 10/15/23 01/24/24 History lisinopriL [Zestril] 2.5 mg PO PC-LUNCH 10/15/23 01/24/24 History metFORMIN HCL [Glucophage] 1,000 mg PO BID 10/15/23 01/24/24 History traZODone HCL [Desyrel] 100 mg PO HS 10/15/23 01/24/24 History Multivit-Min/Iron/Folic/Lutein 1 tab PO DAILY 01/24/24 01/24/24 History [Centrum Silver Women Tablet] Ondansetron [Zofran] 4 - 8 mg PO Q4H PRN 01/24/24 01/24/24 History glyBURIDE [Diabeta] 5 mg PO AC-BID 01/24/24 01/24/24 History Allergies Allergy/AdvReac Type Severity Reaction Status Date / Time codeine Allergy Nausea & Verified 01/07/24 18:13 Vomiting Physical Examination - Vital Signs Vital Signs: Vital Signs Temp Pulse Resp BP Pulse Ox 01/26/24 07:07 97.8 F 68 16 154/72 99 01/26/24 04:13 75 105/67 01/26/24 02:00 97.4 F L 77 18 184/78 97 01/25/24 20:00 16 01/25/24 19:21 98.9 F 78 16 166/76 97 01/25/24 12:00 98.2 F 80 17 168/82 99 Intake and Output 01/25/24 01/26/24 01/26/24 22:59 06:59 14:59 Other: Voiding Method Toilet # Voids 2 Weight 80.286 kg Patient is an elderly female, very pleasant, in no acute distress. Patient is alert awake oriented to time place and person. Patient knows it is January and the year is 2023 and that she is in [place] imported on [employer] and name of the current president Mr. Andrew. Speech and language functions are normal. Patient can name and repeat very well. No aphasia or dysarthria. Sometimes patient has jumbled up speech. Attention, concentration and fund of knowledge is adequate. Patient appears slightly confused, delirious, as she talks sometimes out of context. On cranial nerve examination, pupils are equal, round and reacting to light, visual [place] are full on confrontation, with no neglect on double simultaneous stimulation. Extraocular muscles are intact with no nystagmus. Face is symmetric, tongue protrudes to the midline. Palatal elevation and sensation normal, hearing and shoulder shrug normal, facial sensation normal. On muscle strength testing, the strength is (right/left) deltoid 2/3+, biceps 4/5, triceps 3/5, home school coordinator 2+3-/3+4-, hip flexion 4+/4-, ankle dorsiflexion 5/5, toe extension 4/4. Deep tendon reflexes are absent in the arms and legs. Plantars are flat. Sensory to touch is equal with no neglect on double simultaneous stimulation. Cerebellar function showed ataxia for [id number] testing bilaterally, right more than left. No dysdiadochokinesia. No ataxia for [id number] testing on either side. Tone and bulk of muscles normal. Gait deferred.. On general examination, there is no carotid bruit or murmur, S1-S2 audible. Chest is clear on consultation. Abdomen is soft nontender. No organomegaly, bowel sounds present. Peripheral pulses are present. No peripheral edema. Results - Laboratory Findings CBC and BMP: 01/26/24 07:38 01/26/24 07:38 Abnormal Lab Findings: Abnormal Labs 01/23/24 01/23/24 01/24/24 21:21 21:21 02:30 WBC 1.5 L RBC 3.70 L Hgb 10.5 L Hct 32.2 L RDW 16.7 H Neutrophils # (Manual) 0.44 L* Lymphocytes # (Manual) 0.93 L Sodium 136 L Potassium Chloride BUN 18 H Creatinine BUN/Creatinine Ratio Glucose 171 H POC Glucose (mg/dL) 188 H Hemoglobin A1c Calcium Phosphorus 2.2 L Magnesium 1.4 L Total Protein Albumin Urine Ketones 01/24/24 01/24/24 01/24/24 06:37 08:54 12:53 WBC RBC Hgb Hct RDW Neutrophils # (Manual) Lymphocytes # (Manual) Sodium Potassium Chloride BUN Creatinine BUN/Creatinine Ratio Glucose POC Glucose (mg/dL) 144 H 136 H Hemoglobin A1c Calcium Phosphorus Magnesium 1.5 L Total Protein Albumin Urine Ketones 01/24/24 01/24/24 01/25/24 17:27 20:36 06:57 WBC RBC Hgb Hct RDW Neutrophils # (Manual) Lymphocytes # (Manual) Sodium Potassium Chloride BUN Creatinine BUN/Creatinine Ratio Glucose POC Glucose (mg/dL) 166 H 120 H Hemoglobin A1c 7.0 H Calcium Phosphorus Magnesium Total Protein Albumin Urine Ketones 01/25/24 01/25/24 01/25/24 06:57 06:57 07:21 WBC 1.36 A* RBC 3.17 L Hgb 9.1 L Hct 27.8 L RDW 17.2 H Neutrophils # (Manual) Lymphocytes # (Manual) Sodium Potassium Chloride BUN Creatinine BUN/Creatinine Ratio 21.00 H Glucose 129 H POC Glucose (mg/dL) 142 H Hemoglobin A1c Calcium 8.6 L Phosphorus Magnesium Total Protein 5.7 L Albumin 3.6 L Urine Ketones 01/25/24 01/25/24 01/25/24 09:13 11:55 17:27 WBC RBC Hgb Hct RDW Neutrophils # (Manual) Lymphocytes # (Manual) Sodium Potassium Chloride BUN Creatinine BUN/Creatinine Ratio Glucose POC Glucose (mg/dL) 167 H 118 H Hemoglobin A1c Calcium Phosphorus Magnesium Total Protein Albumin Urine Ketones Trace H 01/25/24 01/26/24 01/26/24 20:40 07:05 07:38 WBC 1.3 L* RBC 3.24 L Hgb 9.3 L Hct 29.6 L RDW 17.4 H Neutrophils # (Manual) Lymphocytes # (Manual) Sodium Potassium Chloride BUN Creatinine BUN/Creatinine Ratio Glucose POC Glucose (mg/dL) 149 H 129 H Hemoglobin A1c Calcium Phosphorus Magnesium Total Protein Albumin Urine Ketones 01/26/24 07:38 WBC RBC Hgb Hct RDW Neutrophils # (Manual) Lymphocytes # (Manual) Sodium Potassium 3.4 L Chloride 109 H BUN Creatinine 0.43 L BUN/Creatinine Ratio Glucose 116 H POC Glucose (mg/dL) Hemoglobin A1c Calcium 8.3 L Phosphorus Magnesium 1.3 L Total Protein 5.6 L Albumin 3.0 L Urine Ketones Assessment and Plan Assessment: * Right upper extremity weakness, involving proximal as well as distal muscles, of 1 year duration, likely brachial plexopathy. Patient also has generalized weakness, likely from polyneuropathy. Overall weakness progressing likely due to ongoing chemotherapy. Paraneoplastic syndrome manifesting with sensorimotor polyneuropathy also a possibility. * Altered mental status, likely due to metabolic encephalopathy. * Neutropenia, likely due to chemotherapy * Anemia * Positive blood cultures * Endometrial carcinoma, undergoing chemotherapy * Hypertension * Hyperlipidemia Plan: * Patient's right upper extremity weakness is chronic, almost for 1 year. Distribution of weakness suggest brachial plexopathy, which could be related to diabetes. This is slightly getting worse, likely due to ongoing chemotherapy. Patient also has some degree of polyneuropathy. * Check B12, folate, MMA, B6. * CK is normal 45, TSH 1.060. Hemoglobin A1c 7.0, and diabetes is fairly well- controlled * Recommend EMG nerve conduction of upper and lower extremity outpatient to evaluate for plexopathy, rule out radiculopathy or peripheral neuropathy. * PT OT, evaluate gait. * May consider MRI of the cervical spine if not done in the past. * Thank you for the consult.
--- NOTE | 2024-01-26 15:06 | P.PN ---
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 She presented to the emergency department overnight on 01/23/2024 secondary to generalized weakness and fall at home. Upon arrival to our facility, patient underwent evaluation in the emergency department. Vital signs upon arrival show blood pressure 144/82, heart rate 109, respiratory rate 16, temp 90.1 F, and SpO2 of 99% on room air. Labs completed and reviewed. CBC showing bicytopenia and neutropenia with WBC count of 1.5, hemoglobin of 10.5, and neutrophils of 0.44. Coags normal f indings. BMP showing prerenal azotemia with BUN of 18. Lactic acid 1.4. Magnesium was low at 1.4. Liver profile unremarkable. Troponin negative at 0.014. Chest x-ray completed negative for acute cardiopulmonary process reporting a similar small focal density in the right when compared to previous x-ray completed 11/04/2023. CT head without contrast negative for acute intracranial process. EKG showing normal sinus rhythm at 90 bpm with no significant T wave or ST abnormalities showing no signs of acute ischemia. Patient was admitted under our services with consultation to hematology/onc ology. Patient was empirically started on IV antibiotics with cefepime 2 g every 8 hours. Preliminary blood cultures resulting positive in 1 of 2 sets for gram negative bacilli, no need for change in antibiotics at this time pending final culture and sensitivity report. Infectious disease consulted. Blood cultures showing positive for Clostridium Paraputrificum. Infectious disease following and discussed plan of care with infectious disease physician and IV antibiotics changed from cefepime to Unasyn and order placed for CT abdomen and pelvis. Physical exam: Patient seen and fully evaluated at bedside this morning. She continues to have generalized weakness otherwise denies having any complaints at this time. Denies having headache, lightheadedness, dizziness, chest pain, palpitations, shortness of breath, cough or congestion, abdominal pain or discomfort, nausea, vomiting, or experiencing any changes and or difficulties with her urinary or bowel function. Vital signs reviewed and stable. General: Nontoxic, no distress and appears stated age. Derm: Skin warm and dry, pallor present. Head: Atraumatic, normocephalic and symmetric. Eyes: EOMs intact, no lid lag, and anicteric sclera Mouth: no lip lesions, mucus membranes moist Cardiovascular: regular rate and rhythm with normal S1S2, no murmur, positive posterior tibial pulses bilaterally, and cap refill < 2 seconds. Lungs: Respirations even, regular, and unlabored on room air. Lungs CTA bilaterally, no rhonchi, no rales, no wheezing, and no accessory muscle usage. Abdominal: soft, nontender to palpation, no guarding, no appreciable organomegaly Ext: ROM intact. No gross muscle atrophy, no edema, no contractures Neuro: Speech clear, face symmetrical and CN II-XII grossly intact with no noted focal neuro deficits Psych: Alert and oriented to person, place, time, and situation. Appropriate and pleasant affect. Assessment and Plan of Care: Severe neutropenia Clostridium Paraputrificum Bacteremia Bicytopenia, likely chemotherapy-induced Metastatic uterine cancer undergoing chemotherapy Generalized weakness and falls at home, secondary to bacteremic infection and infectious disease -Neutropenic precautions in place -Blood cultures showing positive for Clostridium Paraputrificum. -Infectious disease following and discussed plan of care with infectious disease physician and IV antibiotics changed from cefepime to Unasyn and order placed for CT abdomen and pelvis. -Consult placed to infectious disease secondary to patient's severe neutropenia and findings of gram-negative bacteremia -Urinalysis negative for infection. -Follow-up on final culture and sensitivity report of blood cultures. -Oncology following, reviewed documentation in chart. -Patient was empirically started on cefepime 2 g every 8 hours secondary to severe neutropenia and pending further results. -PT/OT evaluated, recommending rehab. Type 2 insulin-dependent diabetes mellitus with hyperglycemia Hold glyburide and metformin and place patient on glycemic protocol with NovoLog sliding scale. Anxiety with depression Continue daily medication regimen with Trintellix 20 mg daily and trazodone 100 mg nightly. Hypertension Continue daily medication regimen with atenolol 25 mg daily and lisinopril 2.5 mg daily. Hyperlipidemia Continue daily medication regimen with atorvastatin 40 mg daily. History of CVAs with right upper extremity and left lower extremity deficits -Safe and supportive care. Fall precautions, PT/OT following, and patient to be provided with assistance as needed. Data and imaging reviewed: Vital signs reviewed. Blood pressure 154/72, heart rate 68, respiratory rate 16, temp 97.8 F, and SpO2 of 99% on room air. Morning labs reviewed. CBC showing worsening leukopenia WBC count of 1.3 and neutropenia with neutrophils of 0.20. CBC also showing stable normocytic anemia with hemoglobin of 9.3 BMP showing hypokalemia with potassium of 3.4, hyperchloremia with chloride of 109 otherwise normal findings. Magnesium low at 1.3. Blood cultures showing positive for Clostridium Paraputrificum. CODE STATUS: Full code DVT prophylaxis: Lovenox Anticipated discharge date: Pending clinical course Anticipated discharge place: Home, possibly with home and palliative care. Patient was seen independently by Nurse Pracitioner. This document was prepared using [employer] dictation software. Please allow for errors in sourcing internship, while rare they do occur. Ranulfo Mak NP rendered care for this patient independently, reviewed the findings and plan as documented in the note above. I did not physically speak with or examine the patient on this date. Ranulfo Mak NP rendered care for this patient independently, reviewed the findings and plan as documented in the note above. I did not physically speak with or examine the patient on this date. Objective - Vital Signs Vital signs: Vital Signs Temp 97.8 F 01/26/24 07:07 Pulse 68 01/26/24 07:07 Resp 16 01/26/24 07:07 BP 154/72 01/26/24 07:07 Pulse Ox 99 01/26/24 07:07 FiO2 Intake & Output 01/25/24 01/26/24 01/26/24 18:59 06:59 18:59 Weight 80.286 kg Other: Voiding Method Toilet # Voids 1 2 - Labs CBC & Chem 7: 01/26/24 07:38 01/26/24 07:38 Labs: Abnormal Lab Results - Last 24 Hours (Table) 01/25/24 01/25/24 01/25/24 Range/Units 06:57 06:57 06:57 WBC 1.36 A* (4.50-10.00) X 10*3/uL RBC 3.17 L (4.10-5.20) X 10*6/uL Hgb 9.1 L (12.0-15.0) g/dL Hct 27.8 L (37.2-46.3) % RDW 17.2 H (11.5-14.5) % BUN/Creatinine Ratio 21.00 H (12.00-20.00) Ratio Glucose 129 H (70-110) mg/dL POC Glucose (mg/dL) (70-110) mg/dL Hemoglobin A1c 7.0 H (<=6.0) % Calcium 8.6 L (8.7-10.3) mg/dL Total Protein 5.7 L (6.2-8.2) g/dL Albumin 3.6 L (3.8-4.9) g/dL Urine Ketones (Negative) 01/25/24 01/25/24 01/25/24 Range/Units 09:13 11:55 17:27 WBC (4.50-10.00) X 10*3/uL RBC (4.10-5.20) X 10*6/uL Hgb (12.0-15.0) g/dL Hct (37.2-46.3) % RDW (11.5-14.5) % BUN/Creatinine Ratio (12.00-20.00) Ratio Glucose (70-110) mg/dL POC Glucose (mg/dL) 167 H 118 H (70-110) mg/dL Hemoglobin A1c (<=6.0) % Calcium (8.7-10.3) mg/dL Total Protein (6.2-8.2) g/dL Albumin (3.8-4.9) g/dL Urine Ketones Trace H (Negative) 01/25/24 01/26/24 Range/Units 20:40 07:05 WBC (4.50-10.00) X 10*3/uL RBC (4.10-5.20) X 10*6/uL Hgb (12.0-15.0) g/dL Hct (37.2-46.3) % RDW (11.5-14.5) % BUN/Creatinine Ratio (12.00-20.00) Ratio Glucose (70-110) mg/dL POC Glucose (mg/dL) 149 H 129 H (70-110) mg/dL Hemoglobin A1c (<=6.0) % Calcium (8.7-10.3) mg/dL Total Protein (6.2-8.2) g/dL Albumin (3.8-4.9) g/dL Urine Ketones (Negative) Microbiology - Last 24 Hours (Table) 01/24/24 00:15 Blood Culture - Preliminary Blood
[2024-01-26] MEDS: MAGNESIUM SULFATE-D5W PMX 1 GM in DEXTROSE/WATER 1 100ML.BAG IVPB SCH (15:35)
[2024-01-26] MEDS: POTASSIUM CHLORIDE ER 20 MEQ TAB.ER PO STA (15:35)
[2024-01-26 16:58] LABS: Glucose,Whole Blood 139 mg/dL (70-110)
--- NOTE | 2024-01-26 17:02 | P.PN ---
Subjective Progress Note Date: 01/26/24 Principal diagnosis: Reason for follow-up is bacteremia Patient is a 73-year-old female with a past medical history significant for hypertension hyperlipidemia metastatic uterine cancer with mets to the lungs patient was brought to the hospital for evaluation of weakness and apparently the patient did have a fall at home, patient blood culture initially reported as gram-negative bacilli however has been switched to Clostridium paraputrificum morning of 01/26/2024. However today's evaluation that is 01/26/2024,the patient denies any fever or any chills, patient is breathing comfortably on room air, the patient denies chest pain shortness of breath and no significant cough, patient denies abdominal pain, no nausea vomiting or diarrhea. Patient white count is 1.3, creatinine 0.43 Objective - Vital Signs Vital signs: Vital Signs Temp 97.8 F 01/26/24 07:07 Pulse 72 01/26/24 08:00 Resp 16 01/26/24 08:00 BP 154/72 01/26/24 07:07 Pulse Ox 99 01/26/24 07:07 FiO2 Intake & Output 01/25/24 01/26/24 01/26/24 18:59 06:59 18:59 Weight 80.286 kg Other: Voiding Method Toilet # Voids 1 2 - Exam GENERAL DESCRIPTION: An elderly female lying in bed in no distress RESPIRATORY SYSTEM: Unlabored breathing , decreased breath sounds at bases HEART: S1 S2 regular rate and rhythm , ABDOMEN: Soft , no tenderness EXTREMITIES: No edema feet - Labs CBC & Chem 7: 01/26/24 07:38 01/26/24 07:38 Labs: Abnormal Lab Results - Last 24 Hours (Table) 01/25/24 01/25/24 01/25/24 Range/Units 06:57 06:57 06:57 WBC 1.36 A* (4.50-10.00) X 10*3/uL RBC 3.17 L (4.10-5.20) X 10*6/uL Hgb 9.1 L (12.0-15.0) g/dL Hct 27.8 L (37.2-46.3) % RDW 17.2 H (11.5-14.5) % Potassium (3.5-5.1) mmol/L Chloride (98-107) mmol/L Creatinine (0.52-1.04) mg/dL BUN/Creatinine Ratio 21.00 H (12.00-20.00) Ratio Glucose 129 H (70-110) mg/dL POC Glucose (mg/dL) (70-110) mg/dL Hemoglobin A1c 7.0 H (<=6.0) % Calcium 8.6 L (8.7-10.3) mg/dL Magnesium (1.6-2.3) mg/dL Total Protein 5.7 L (6.2-8.2) g/dL Albumin 3.6 L (3.8-4.9) g/dL 01/25/24 01/25/24 01/25/24 Range/Units 11:55 17:27 20:40 WBC (4.50-10.00) X 10*3/uL RBC (4.10-5.20) X 10*6/uL Hgb (12.0-15.0) g/dL Hct (37.2-46.3) % RDW (11.5-14.5) % Potassium (3.5-5.1) mmol/L Chloride (98-107) mmol/L Creatinine (0.52-1.04) mg/dL BUN/Creatinine Ratio (12.00-20.00) Ratio Glucose (70-110) mg/dL POC Glucose (mg/dL) 167 H 118 H 149 H (70-110) mg/dL Hemoglobin A1c (<=6.0) % Calcium (8.7-10.3) mg/dL Magnesium (1.6-2.3) mg/dL Total Protein (6.2-8.2) g/dL Albumin (3.8-4.9) g/dL 01/26/24 01/26/24 01/26/24 Range/Units 07:05 07:38 07:38 WBC 1.3 L* (4.50-10.00) X 10*3/uL RBC 3.24 L (4.10-5.20) X 10*6/uL Hgb 9.3 L (12.0-15.0) g/dL Hct 29.6 L (37.2-46.3) % RDW 17.4 H (11.5-14.5) % Potassium 3.4 L (3.5-5.1) mmol/L Chloride 109 H (98-107) mmol/L Creatinine 0.43 L (0.52-1.04) mg/dL BUN/Creatinine Ratio (12.00-20.00) Ratio Glucose 116 H (70-110) mg/dL POC Glucose (mg/dL) 129 H (70-110) mg/dL Hemoglobin A1c (<=6.0) % Calcium 8.3 L (8.7-10.3) mg/dL Magnesium 1.3 L (1.6-2.3) mg/dL Total Protein 5.6 L (6.2-8.2) g/dL Albumin 3.0 L (3.8-4.9) g/dL Microbiology - Last 24 Hours (Table) 01/24/24 00:15 Blood Culture - Preliminary Blood 01/24/24 00:30 Blood Culture Gram Stain - Final Blood Blood Culture - Preliminary Assessment and Plan (1) Bacteremia Current Visit: Yes Status: Acute Code(s): R78.81 - BACTEREMIA SNOMED Code(s): 8943090 Plan: 1patient with gram-negative bacteremia in this patient who did have a history of metastatic uterine cancer currently on chemotherapy brought into the hospital for weakness fall and some confusion patient did have a CT angiogram of the chest concerning for possible consolidation right middle lobe, blood culture now has been switched over to Clostridium which is usually upper GI origin, I will go ahead open CT of abdominal pelvis and surgery by therapy to Unasyn discussed with the admitting team Dictation was produced using [employer] dictation software. please excuse any grammatical, word or spelling errors. Time with Patient: Less than 30
[2024-01-26 20:32] LABS: Glucose,Whole Blood 182 mg/dL (70-110)
[2024-01-27 07:17] LABS: Glucose,Whole Blood 132 mg/dL (70-110)
[2024-01-27 11:06] LABS: ALT 13 U/L (8-44); AST 22 U/L (13-35); Albumin 3.4 g/dL (3.8-4.9); Albumin/Globulin Ratio 1.55 Ratio (1.60-3.17); Alkaline Phosphatase 100 U/L (41-126); Blood Urea Nitrogen 9.6 mg/dL (9.0-27.0); Calcium 8.2 mg/dL (8.7-10.3); Carbon Dioxide 23.2 mmol/L (21.6-31.8); Chloride 106 mmol/L (96-109); Globulin 2.2 g/dL (1.6-3.3); Glucose 146 mg/dL (70-110); Magnesium 1.5 mg/dL (1.5-2.4); Potassium 3.6 mmol/L (3.5-5.5); Sodium 142 mmol/L (135-145); Total Bilirubin 0.5 mg/dL (0.3-1.2); Total Protein 5.6 g/dL (6.2-8.2)
[2024-01-27 11:12] LABS: Basophils # (A) 0.01 X 10*3/uL (0.00-0.10); Basophils % (A) 0.8 %; Eosinophils # (A) 0.07 X 10*3/uL (0.04-0.35); Eosinophils % (A) 5.7 %; HCT 27.2 % (37.2-46.3); HGB 8.8 g/dL (12.0-15.0); Immature Grans, Automated 0 %; Lymphocytes # (A) 0.56 X 10*3/uL (0.90-5.00); Lymphocytes % (A) 45.9 %; MCH 28.7 pg (27.0-32.0); MCHC 32.4 g/dL (32.0-37.0); MCV 88.6 FL (80.0-97.0); Mean Platelet Volume 10.5 FL (9.5-12.2); Monocytes # (A) 0.41 X 10*3/uL (0.20-1.00); Monocytes % (A) 33.6 %; NRBC Per 100 WBC 0 X 10*3/uL (0.00-0.01); Neutrophils # (A) 0.17 X 10*3/uL (1.80-7.70); Platelet Count 298 X 10*3/uL (140-440); RBC 3.07 X 10*6/uL (4.10-5.20); RDW 17.6 % (11.5-14.5); WBC 1.22 X 10*3/uL (4.50-10.00)
[2024-01-27 11:13] LABS: Elliptocytes 2+
[2024-01-27 12:01] LABS: Glucose,Whole Blood 223 mg/dL (70-110)
--- NOTE | 2024-01-27 15:07 | P.PN ---
Subjective Progress Note Date: 01/27/24 Hospital course: Patient is a 73-year-old female with a past medical history of hypertension, hyperlipidemia, hypothyroidism, previous CVAs with residual weakness and proximal right upper extremity and left lower extremity, anemia of chronic disease, type II [id number] diabetes mellitus, breast cancer status post bilateral mastectomy, uterine cancer with metastasis to lungs currently undergoing chemotherapy with last session January 12. She presented to the emergency department overnight on 01/23/2024 secondary to generalized weakness and fall at home. Upon arrival to our facility, patient underwent evaluation in the emergency department. Vital signs upon arrival show blood pressure 144/82, heart rate 109, respiratory rate 16, temp 90.1 F, and SpO2 of 99% on room air. Labs completed and reviewed. CBC showing bicytopenia and neutropenia with WBC count of 1.5, hemoglobin of 10.5, and neutrophils of 0.44. Coags normal f indings. BMP showing prerenal azotemia with BUN of 18. Lactic acid 1.4. Magnesium was low at 1.4. Liver profile unremarkable. Troponin negative at 0.014. Chest x-ray completed negative for acute cardiopulmonary process reporting a similar small focal density in the right when compared to previous x-ray completed 11/04/2023. CT head without contrast negative for acute intracranial process. EKG showing normal sinus rhythm at 90 bpm with no significant T wave or ST abnormalities showing no signs of acute ischemia. Patient was admitted under our services with consultation to hematology/onc ology. Patient was empirically started on IV antibiotics with cefepime 2 g every 8 hours. Preliminary blood cultures resulting positive in 1 of 2 sets for gram negative bacilli, no need for change in antibiotics at this time pending final culture and sensitivity report. Infectious disease consulted. Blood cultures showing positive for Clostridium Paraputrificum. Infectious disease following and discussed plan of care with infectious disease physician and IV antibiotics changed from cefepime to Unasyn and order placed for CT abdomen and pelvis. CT abdomen and pelvis with IV contrast revealing neurogenic bladder versus bladder obstruction and uncomplicated cholelithiasis with nonobstructing left renal calculi. Physical exam: Patient seen and fully evaluated at bedside this morning. Patient reports overall she feels slightly better, but continues to have moderate weakness. Denies having any headache, lightheadedness, dizziness, chest pain, p alpitations, shortness of breath, or any other complaints at this time. Vital signs reviewed and stable. General: Nontoxic, no distress and appears stated age. Derm: Skin warm and dry, pallor present. Head: Atraumatic, normocephalic and symmetric. Eyes: EOMs intact, no lid lag, and anicteric sclera Mouth: no lip lesions, mucus membranes moist Cardiovascular: regular rate and rhythm with normal S1S2, no murmur, positive posterior tibial pulses bilaterally, and cap refill < 2 seconds. Lungs: Respirations even, regular, and unlabored on room air. Lungs CTA bilaterally, no rhonchi, no rales, no wheezing, and no accessory muscle usage. Abdominal: soft, nontender to palpation, no guarding, no appreciable organomegaly Ext: ROM intact. No gross muscle atrophy, no edema, no contractures Neuro: Speech clear, face symmetrical and CN II-XII grossly intact with no noted focal neuro deficits Psych: Alert and oriented to person, place, time, and situation. Appropriate and pleasant affect. Assessment and Plan of Care: Severe neutropenia Clostridium Paraputrificum Bacteremia Bicytopenia, likely chemotherapy-induced Metastatic uterine cancer undergoing chemotherapy Generalized weakness and falls at home, secondary to bacteremic infection and infectious disease -Neutropenic precautions in place -Continue IV antibiotics with Unasyn 3 g every 6 hours. -Blood cultures showing positive for Clostridium Paraputrificum. -Infectious disease following and discussed plan of care with infectious disease physician and IV antibiotics changed from cefepime to Unasyn 3 g every 6 hours[address] -CT abdomen and pelvis with IV contrast revealing neurogenic bladder versus bladder obstruction and uncomplicated cholelithiasis with nonobstructing left renal calculi. -Urinalysis negative for infection. 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 Type 2 insulin-dependent diabetes mellitus with hyperglycemia Hold glyburide and metformin and place patient on glycemic protocol with NovoLog sliding scale. Anxiety with depression Continue daily medication regimen with Trintellix 20 mg daily and trazodone 100 mg nightly. Hypertension Continue daily medication regimen with atenolol 25 mg daily and lisinopril 2.5 mg daily. Hyperlipidemia Continue daily medication regimen with atorvastatin 40 mg daily. History of CVAs with right upper extremity and left lower extremity deficits -Safe and supportive care. Fall precautions, PT/OT following, and patient to be provided with assistance as needed. Data and imaging reviewed: Vital signs reviewed. Blood pressure 153/72, heart rate 78, respiratory rate 17, temp 98.4 F, and SpO2 100% on room air. Morning labs reviewed. CBC showing WBC count of 1.22, hemoglobin 8.8, and neutrophils of 0.17 with 2+ elliptocytes. BMP showing elevated anion gap of 12.80 otherwise normal findings. Blood glucose 146. Magnesium still low at 1.5 and is being replaced. Blood cultures showing positive for Clostridium Paraputrificum. CT abdomen and pelvis with IV contrast revealing neurogenic bladder versus bladder obstruction and uncomplicated cholelithiasis with nonobstructing left renal calculi. CODE STATUS: Full code DVT prophylaxis: Lovenox Anticipated discharge date: Pending clinical course Anticipated discharge place: Longterm [facility] Patient was seen independently by Nurse Pracitioner. This document was prepared using [employer] dictation software. Please allow for errors in advertising project manager, while rare they do occur. Ranulfo Mak NP rendered care for this patient independently, reviewed the findings and plan as documented in the note above. I did not physically speak with or examine the patient on this date. Objective - Vital Signs Vital signs: Vital Signs Temp 98.4 F 01/27/24 07:11 Pulse 78 01/27/24 07:11 Resp 17 01/27/24 07:11 BP 153/72 01/27/24 07:11 Pulse Ox 100 01/27/24 07:11 FiO2 Intake & Output 01/26/24 01/27/24 01/27/24 18:59 06:59 18:59 Output Total 200 Balance -200 Output: Urine 200 Other: Voiding Method Toilet # Voids 2 1 - Labs CBC & Chem 7: 01/27/24 06:45 01/27/24 06:45 Labs: Abnormal Lab Results - Last 24 Hours (Table) 01/26/24 01/26/24 01/26/24 Range/Units 07:38 07:38 11:57 WBC 1.3 L* (3.8-10.6) k/uL RBC 3.24 L (3.80-5.40) m/uL Hgb 9.3 L (11.4-16.0) gm/dL Hct 29.6 L (34.0-46.0) % RDW 17.4 H (11.5-15.5) % Neutrophils # (Manual) 0.20 L* (1.3-7.7) k/uL Lymphocytes # (Manual) 0.72 L (1.0-4.8) k/uL Potassium 3.4 L (3.5-5.1) mmol/L Chloride 109 H (98-107) mmol/L Creatinine 0.43 L (0.52-1.04) mg/dL Glucose 116 H (74-99) mg/dL POC Glucose (mg/dL) 165 H (70-110) mg/dL Calcium 8.3 L (8.4-10.2) mg/dL Magnesium 1.3 L (1.6-2.3) mg/dL Total Protein 5.6 L (6.3-8.2) g/dL Albumin 3.0 L (3.5-5.0) g/dL 01/26/24 01/26/24 01/27/24 Range/Units 16:57 20:31 07:15 WBC (3.8-10.6) k/uL RBC (3.80-5.40) m/uL Hgb (11.4-16.0) gm/dL Hct (34.0-46.0) % RDW (11.5-15.5) % Neutrophils # (Manual) (1.3-7.7) k/uL Lymphocytes # (Manual) (1.0-4.8) k/uL Potassium (3.5-5.1) mmol/L Chloride (98-107) mmol/L Creatinine (0.52-1.04) mg/dL Glucose (74-99) mg/dL POC Glucose (mg/dL) 139 H 182 H 132 H (70-110) mg/dL Calcium (8.4-10.2) mg/dL Magnesium (1.6-2.3) mg/dL Total Protein (6.3-8.2) g/dL Albumin (3.5-5.0) g/dL Microbiology - Last 24 Hours (Table) 01/25/24 09:24 Blood Culture - Preliminary Blood 01/24/24 00:15 Blood Culture Gram Stain - Preliminary Blood Blood Culture - Preliminary 01/24/24 00:30 Blood Culture Gram Stain - Final Blood Blood Culture - Preliminary
[2024-01-27] MEDS: MAGNESIUM SULFATE-D5W PMX 1 GM in DEXTROSE/WATER 1 100ML.BAG IVPB SCH (15:42)
[2024-01-27 17:17] LABS: Glucose,Whole Blood 192 mg/dL (70-110)
[2024-01-27] MEDS: FILGRASTIM-SNDZ 480 MCG/0.8 ML SYRINGE SQ SCH (18:20)
--- NOTE | 2024-01-27 19:18 | P.PN ---
Subjective Progress Note Date: 01/27/24 Principal diagnosis: weakness, neutropenia, endometrial carcinoma on treatment In f/u today pt sitting up at the bedside, reports feeling good. She carries on normal conversation, she can now lift her right arm to shoulder level without much difficulty. She can recall events leading up to her hospitalization, most of the events of her hospital stay to now and she knows that she was not making sense when she spoke previously. Denies fever, cough, N,V, pain Objective - Vital Signs Vital signs: Vital Signs Temp 98.4 F 01/27/24 07:11 Pulse 78 01/27/24 07:11 Resp 17 01/27/24 07:11 BP 153/72 01/27/24 07:11 Pulse Ox 100 01/27/24 07:11 FiO2 Intake & Output 01/26/24 01/27/24 01/27/24 18:59 06:59 18:59 Output Total 200 Balance -200 Output: Urine 200 Other: Voiding Method Toilet # Voids 2 1 - Constitutional General appearance: Present: cooperative, no acute distress, obese - EENT Eyes: Present: anicteric sclerae, EOMI ENT: Present: hearing grossly normal - Respiratory Details: resp even and unlabored - Cardiovascular Details: skin warm and dry - Peripheral edema leg Peripheral Edema: bilateral: Trace - Integumentary Integumentary: Present: pale - Neurologic Neurologic: Present: CNII-XII intact (grossly) - Musculoskeletal Musculoskeletal Comment(s): RUE pt unable to raise arm above shoulder level-yesterday she had to move the right arm with her left arm - Psychiatric Psychiatric: Present: A&O x's 3, appropriate affect, intact judgment & insight - Labs CBC & Chem 7: 01/27/24 06:45 01/27/24 06:45 Labs: Abnormal Lab Results - Last 24 Hours (Table) 01/26/24 01/26/24 01/26/24 Range/Units 07:38 11:57 16:57 WBC 1.3 L* (3.8-10.6) k/uL RBC 3.24 L (3.80-5.40) m/uL Hgb 9.3 L (11.4-16.0) gm/dL Hct 29.6 L (34.0-46.0) % RDW 17.4 H (11.5-15.5) % Neutrophils # (Manual) 0.20 L* (1.3-7.7) k/uL Lymphocytes # (Manual) 0.72 L (1.0-4.8) k/uL POC Glucose (mg/dL) 165 H 139 H (70-110) mg/dL 01/26/24 01/27/24 Range/Units 20:31 07:15 WBC (3.8-10.6) k/uL RBC (3.80-5.40) m/uL Hgb (11.4-16.0) gm/dL Hct (34.0-46.0) % RDW (11.5-15.5) % Neutrophils # (Manual) (1.3-7.7) k/uL Lymphocytes # (Manual) (1.0-4.8) k/uL POC Glucose (mg/dL) 182 H 132 H (70-110) mg/dL Microbiology - Last 24 Hours (Table) 01/25/24 09:24 Blood Culture - Preliminary Blood 01/24/24 00:15 Blood Culture Gram Stain - Preliminary Blood Blood Culture - Preliminary 01/24/24 00:30 Blood Culture Gram Stain - Final Blood Blood Culture - Preliminary - Imaging and Cardiology CT scan - abdomen: report reviewed CT scan - pelvis: report reviewed Assessment and Plan (1) Neurological deficit present Current Visit: Yes Status: Acute Priority: High Code(s): R29.818 - OTHER SYMPTOMS AND SIGNS INVOLVING THE NERVOUS SYSTEM SNOMED Code(s): 428695905 (2) Bicytopenia Current Visit: Yes Status: Acute Code(s): D75.89 - OTHER SPECIFIED DISEASES OF BLOOD AND BLOOD-FORMING ORGANS SNOMED Code(s): 07008193 (3) Endometrial carcinoma Current Visit: Yes Status: Chronic Priority: Medium Code(s): C54.1 - MALIGNANT NEOPLASM OF ENDOMETRIUM SNOMED Code(s): 608630891 Plan: Neurological deficit -Dizziness, weakness and fall on admission-persistent, recently progressive symptoms. Associated with some increased confusion, and jumbled speech. Resolved almost completely today. -MRI 01/19/[address] of the brain on admission no acute findings. -Neurology did see pt, appreciate evaluatiomn -Likely 2/2 infection Positive blood cultures -ID following, abx ordered Chemotherapy-induced bicytopenia -Hemoglobin 8.8, stable. No reports of any bleeding. Continue to monitor. Transfuse for hemoglobin less than 7 or if patient is symptomatic -Leukopenia/neutropenia. ANC 170, BC +. GCSF started Endometrial carcinoma -Metastatic disease in lungs. -Patient recently started on carboplatin and Taxol with palliative intent. Jemperli was added to cycle 3. She completed 4 cycles 01/13/2024. -Patient has overall done fairly well with treatment thus far -CTA of the chest was ordered for worsening shortness of breath and palpitations with a cough. No PE, pneumonitis or other acute pulmonary process reported. It was however noted that metastatic disease seen on prior CT dated 01/03/2024 was significantly improved! These results were reviewed with the patient. -IM has ordered echocardiogram. Reported LVEF 55 to 60%, grade 1 diastolic dysfunction. -Thyroid studies and cortisol drawn in clinic on 12/22/23 were normal. Repeat thyroid panel was normal, cortisol normal attests: I have seen and examined pt, performed H&P, developed impression and plan of care. Discussed with dictator. Agree with documentation, dictated as a scribe.
[2024-01-27 19:55] LABS: Glucose,Whole Blood 215 mg/dL (70-110)
[2024-01-28 07:57] LABS: Glucose,Whole Blood 149 mg/dL (70-110)
--- NOTE | 2024-01-28 08:55 | P.PN ---
Subjective Progress Note Date: 01/27/24 Patient was seen for a follow-up. Patient states that she feels "little better". She denies any headache. Her mentation is very clear. Objective - Vital Signs Vital signs: Vital Signs Temp 98.4 F 01/27/24 20:00 Pulse 84 01/27/24 20:00 Resp 16 01/27/24 20:00 BP 184/95 01/27/24 20:00 Pulse Ox 99 01/27/24 20:00 FiO2 Intake & Output 01/27/24 01/27/24 01/28/24 06:59 18:59 06:59 Other: Voiding Method Toilet Toilet # Voids 1 3 # Bowel Movements 1 - Exam Patient's mental status, speech and language functions are normal. Patient knows it is January 2024 and that she is in [facility] imported on [place] and name of the current president. Patient apparently had broken blood vessel over the left rabago from the fall. Cranial nerves are normal. On muscle strength testing (right/left Deltoid 3+/+, biceps 4+/5, triceps 4-5, educational technologist 3+/5, hip flexion 5/4, ankle dorsiflexion 5/5. - Labs CBC & Chem 7: 01/27/24 06:45 01/27/24 06:45 Labs: Abnormal Lab Results - Last 24 Hours (Table) 01/27/24 01/27/24 01/27/24 Range/Units 06:45 06:45 07:15 WBC 1.22 A* (4.50-10.00) X 10*3/uL RBC 3.07 L (4.10-5.20) X 10*6/uL Hgb 8.8 L (12.0-15.0) g/dL Hct 27.2 L (37.2-46.3) % RDW 17.6 H (11.5-14.5) % Neutrophils # 0.17 A* (1.80-7.70) X 10*3/uL Lymphocytes # 0.56 L (0.90-5.00) X 10*3/uL Elliptocytes 2+ A Anion Gap 12.80 H (4.00-12.00) mmol/L Glucose 146 H (70-110) mg/dL POC Glucose (mg/dL) 132 H (70-110) mg/dL Calcium 8.2 L (8.7-10.3) mg/dL Total Protein 5.6 L (6.2-8.2) g/dL Albumin 3.4 L (3.8-4.9) g/dL Albumin/Globulin Ratio 1.55 L (1.60-3.17) Ratio 01/27/24 01/27/24 01/27/24 Range/Units 12:00 17:15 19:54 WBC (4.50-10.00) X 10*3/uL RBC (4.10-5.20) X 10*6/uL Hgb (12.0-15.0) g/dL Hct (37.2-46.3) % RDW (11.5-14.5) % Neutrophils # (1.80-7.70) X 10*3/uL Lymphocytes # (0.90-5.00) X 10*3/uL Elliptocytes Anion Gap (4.00-12.00) mmol/L Glucose (70-110) mg/dL POC Glucose (mg/dL) 223 H 192 H 215 H (70-110) mg/dL Calcium (8.7-10.3) mg/dL Total Protein (6.2-8.2) g/dL Albumin (3.8-4.9) g/dL Albumin/Globulin Ratio (1.60-3.17) Ratio Microbiology - Last 24 Hours (Table) 01/25/24 09:24 Blood Culture - Preliminary Blood 01/24/24 00:15 Blood Culture Gram Stain - Final Blood Blood Culture - Final Corynebacterium species Assessment and Plan Assessment: * Right upper extremity weakness, involving proximal as well as distal muscles, of 1 year duration, likely brachial plexopathy. Patient also has generalized weakness, likely from polyneuropathy. Overall weakness progressing likely due to ongoing chemotherapy. Paraneoplastic syndrome manifesting with sensorimotor polyneuropathy also a possibility. * Altered mental status, likely due to metabolic encephalopathy, improved. * Neutropenia, likely due to chemotherapy * Anemia * Positive blood cultures with gram-positive bacilli, with Corynebacterium species, ID following, on Unasyn. * Metastatic endometrial carcinoma, undergoing chemotherapy * Hypertension * Hyperlipidemia Plan: * Patient's right upper extremity weakness is chronic, almost for 1 year. Distribution of weakness suggest brachial plexopathy, which could be related to diabetes. This is slightly getting worse, likely due to ongoing chemotherapy. Patient also has some degree of polyneuropathy. * Check MRI of the cervical spine with and without contrast rule out any metastasis or stenosis. * B12 301, folate 28.7, MMA, B6 pending start B12 replacement. * CK is normal 45, TSH 1.060. Hemoglobin A1c 7.0, and diabetes is fairly well- controlled * Recommend EMG nerve conduction of upper and lower extremity outpatient to evaluate for plexopathy, rule out radiculopathy or peripheral neuropathy. * CT abdomen pelvis revealing neurogenic bladder versus bladder obstruction. Uncomplicated cholelithiasis. Nonobstructing left renal calculus. * PT OT, evaluate gait.
[2024-01-28] MEDS: CYANOCOBALAMIN 500 MCG TAB PO SCH (09:57)
[2024-01-28 11:11] LABS: Basophils # (A) 0.03 X 10*3/uL (0.00-0.10); Basophils % (A) 0.8 %; Eosinophils # (A) 0.05 X 10*3/uL (0.04-0.35); Eosinophils % (A) 1.4 %; HCT 27.1 % (37.2-46.3); HGB 8.6 g/dL (12.0-15.0); Immature Grans, Automated 0 %; Lymphocytes # (A) 0.56 X 10*3/uL (0.90-5.00); Lymphocytes % (A) 15.3 %; MCHC 31.7 g/dL (32.0-37.0); MCV 91.2 FL (80.0-97.0); Mean Platelet Volume 10.2 FL (9.5-12.2); Monocytes # (A) 0.86 X 10*3/uL (0.20-1.00); Monocytes % (A) 23.6 %; NRBC Per 100 WBC 0 X 10*3/uL (0.00-0.01); Neutrophils # (A) 2.15 X 10*3/uL (1.80-7.70); Neutrophils % (A) 58.9 %; Platelet Count 292 X 10*3/uL (140-440); RBC 2.97 X 10*6/uL (4.10-5.20); RDW 17.6 % (11.5-14.5); WBC 3.65 X 10*3/uL (4.50-10.00)
--- NOTE | 2024-01-28 11:16 | MR ---
EXAMINATION TYPE: MR cervical spine wo/w con DATE OF EXAM: 01/28/2024 11:06 AM CLINICAL INDICATION:Female, 73 years old with history of Bilateral arm weakness, R>>L, Bilateral arm weakness, R>>L. COMPARISON: None. TECHNIQUE: Multi planar, multi sequence imaging was performed utilizing: T1-weighted, T2-weighted, an d turbo inversion recovery imaging of the cervical spine. IV Contrast: 8 cc Gadavist (none if empty) FINDINGS: Alignment: The cervical vertebral bodies have preserved heights. Alignment is within normal limits gi ángel patient positioning. Bones: Multilevel disc space narrowing and osteophyte formation with facet and uncovertebral joint ar thropathy. No abnormal postcontrast enhancement. Cord: The spinal cord is unremarkable with regards to their signal intensity and morphology. No abnor mal postcontrast enhancement. Discs: Intervertebral disc signal is maintained. C2-C3: No significant disc pathology. The spinal canal is patent. No neural foraminal stenosis. C3-C4: A disc osteophyte complex is present which minimally narrows the ventral subarachnoid space. Bilateral facet and uncovertebral joint arthropathy are present with mild right neural foraminal isaiah nosis. The left neural foramen is patent. C4-C5: A disc osteophyte complex is present which minimally narrows the ventral subarachnoid space. No neural foraminal stenosis. C5-C6: A disc osteophyte complex is present which minimally narrows the ventral subarachnoid space. No neural foraminal stenosis. C6-C7: Disc osteophyte complex that impresses upon the spinal cord centrally. Spinal cord signal is m aintained. No neural foraminal stenosis. C7-T1: A disc osteophyte complex is present which minimally narrows the ventral subarachnoid space. No neural foraminal stenosis. Other: None. IMPRESSION: 1. Motion limited exam, C 67 dissatisfied complex which impresses and in upon the anterior spinal cor d and displaces it. No evidence for significant spinal canal stenosis. No abnormal postcontrast enhan cement. 2. Mild disc degeneration with associated osteoarthritic changes.
[2024-01-28 11:40] LABS: ALT 12 U/L (8-44); AST 25 U/L (13-35); Alkaline Phosphatase 96 U/L (41-126); Blood Urea Nitrogen 4.9 mg/dL (9.0-27.0); Carbon Dioxide 20.8 mmol/L (21.6-31.8); Chloride 108 mmol/L (96-109); Glucose 142 mg/dL (70-110); Magnesium 1.3 mg/dL (1.5-2.4); Potassium 3.1 mmol/L (3.5-5.5); Sodium 142 mmol/L (135-145); Total Bilirubin 0.4 mg/dL (0.3-1.2)
[2024-01-28 12:35] LABS: Glucose,Whole Blood 196 mg/dL (70-110)
--- NOTE | 2024-01-28 13:03 | P.PN ---
Subjective Progress Note Date: 01/27/24 Principal diagnosis: Reason for follow-up is bacteremia Patient is a 73-year-old female with a past medical history significant for hypertension hyperlipidemia metastatic uterine cancer with mets to the lungs patient was brought to the hospital for evaluation of weakness and apparently the patient did have a fall at home, patient blood culture initially reported as gram-negative bacilli however has been switched to Clostridium paraputrificum morning of 01/26/2024. However today's evaluation that is 01/27/2024,the patient remains to be afebrile, patient is on room air not requiring supplemental oxygen and denies any shortness of breath no chest pain or cough.Patient denies having any nausea or vomiting, no abdominal pain and no diarrhea has been reported. Patient white count is 1.22 creatinine 0.[address] have a [address] abdominal pelvis completed neurogenic bladder versus obstruction uncompleted cholelithiasis and nonobstructing left renal calculus no mention of any colitis or abscess blood culture has not been switched to corynebacterium from a previous report of Clostridium Objective - Vital Signs Vital signs: Vital Signs Temp 98.0 F 01/27/24 12:01 Pulse 97 01/27/24 12:01 Resp 18 01/27/24 12:01 BP 164/74 01/27/24 12:01 Pulse Ox 98 01/27/24 12:01 FiO2 Intake & Output 01/26/24 01/27/24 01/27/24 18:59 06:59 18:59 Output Total 200 Balance -200 Output: Urine 200 Other: Voiding Method Toilet Toilet # Voids 2 1 1 # Bowel Movements 1 - Exam GENERAL DESCRIPTION: An elderly female lying in bed in no distress RESPIRATORY SYSTEM: Unlabored breathing , decreased breath sounds at bases HEART: S1 S2 regular rate and rhythm , ABDOMEN: Soft , no tenderness EXTREMITIES: No edema feet - Labs CBC & Chem 7: 01/28/24 07:44 01/28/24 07:44 Labs: Abnormal Lab Results - Last 24 Hours (Table) 01/26/24 01/27/24 01/27/24 Range/Units 20:31 06:45 06:45 WBC 1.22 A* (4.50-10.00) X 10*3/uL RBC 3.07 L (4.10-5.20) X 10*6/uL Hgb 8.8 L (12.0-15.0) g/dL Hct 27.2 L (37.2-46.3) % RDW 17.6 H (11.5-14.5) % Neutrophils # 0.17 A* (1.80-7.70) X 10*3/uL Lymphocytes # 0.56 L (0.90-5.00) X 10*3/uL Elliptocytes 2+ A Anion Gap 12.80 H (4.00-12.00) mmol/L Glucose 146 H (70-110) mg/dL POC Glucose (mg/dL) 182 H (70-110) mg/dL Calcium 8.2 L (8.7-10.3) mg/dL Total Protein 5.6 L (6.2-8.2) g/dL Albumin 3.4 L (3.8-4.9) g/dL Albumin/Globulin Ratio 1.55 L (1.60-3.17) Ratio 01/27/24 01/27/24 Range/Units 07:15 12:00 WBC (4.50-10.00) X 10*3/uL RBC (4.10-5.20) X 10*6/uL Hgb (12.0-15.0) g/dL Hct (37.2-46.3) % RDW (11.5-14.5) % Neutrophils # (1.80-7.70) X 10*3/uL Lymphocytes # (0.90-5.00) X 10*3/uL Elliptocytes Anion Gap (4.00-12.00) mmol/L Glucose (70-110) mg/dL POC Glucose (mg/dL) 132 H 223 H (70-110) mg/dL Calcium (8.7-10.3) mg/dL Total Protein (6.2-8.2) g/dL Albumin (3.8-4.9) g/dL Albumin/Globulin Ratio (1.60-3.17) Ratio Microbiology - Last 24 Hours (Table) 01/25/24 09:24 Blood Culture - Preliminary Blood 01/24/24 00:15 Blood Culture Gram Stain - Final Blood Blood Culture - Final Corynebacterium species Assessment and Plan (1) Bacteremia Current Visit: Yes Status: Acute Code(s): R78.81 - BACTEREMIA SNOMED Code(s): 5846423 Plan: 1patient with gram-negative bacteremia in this patient who did have a history of metastatic uterine cancer currently on chemotherapy brought into the hospital for weakness fall and some confusion patient did have a CT angiogram of the chest concerning for possible consolidation right middle lobe, blood culture was switched over to Clostridium and now has been finalized and as corynebacterium more likely skin contamination patient did have CT abdominal pelvis completed neurogenic bladder versus obstruction uncompleted cholelithiasis and nonobstructing left renal calculus no mention of any colitis or abscess on Unasyn Dictation was produced using [employer] dictation software. please excuse any grammatical, word or spelling errors. Time with Patient: Less than 30
--- NOTE | 2024-01-28 13:04 | P.PN ---
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 However today's evaluation that is 01/28/2024, the patient continues to be afebrile, the patient is on room air and breathing comfortably, the Pt denies having any chest pain or cough, the patient denies having any abdominal pain no vomiting or any diarrhea has been reported by the nursing staff. Patient mention feeling better no new symptoms. Patient white count is up to 3.65 creatinine 0.5 Objective - Vital Signs Vital signs: Vital Signs Temp 98.1 F 01/28/24 07:56 Pulse 68 01/28/24 07:56 Resp 16 01/28/24 07:56 BP 123/60 01/28/24 07:56 Pulse Ox 96 01/28/24 07:56 FiO2 Intake & Output 01/27/24 01/28/24 01/28/24 18:59 06:59 18:59 Intake Total 590 Balance 590 Intake: Oral 590 Other: Voiding Method Toilet Toilet # Voids 3 2 # Bowel Movements 1 - Exam GENERAL DESCRIPTION: An elderly female lying in bed in no distress RESPIRATORY SYSTEM: Unlabored breathing , decreased breath sounds at bases HEART: S1 S2 regular rate and rhythm , ABDOMEN: Soft , no tenderness EXTREMITIES: No edema feet - Labs CBC & Chem 7: 01/28/24 07:44 01/28/24 07:44 Labs: Abnormal Lab Results - Last 24 Hours (Table) 01/27/24 01/27/24 01/28/24 Range/Units 17:15 19:54 07:44 WBC 3.65 L (4.50-10.00) X 10*3/uL RBC 2.97 L (4.10-5.20) X 10*6/uL Hgb 8.6 L (12.0-15.0) g/dL Hct 27.1 L (37.2-46.3) % MCHC 31.7 L (32.0-37.0) g/dL RDW 17.6 H (11.5-14.5) % Lymphocytes # 0.56 L (0.90-5.00) X 10*3/uL Potassium (3.5-5.5) mmol/L Carbon Dioxide (21.6-31.8) mmol/L Anion Gap (4.00-12.00) mmol/L BUN (9.0-27.0) mg/dL Creatinine (0.6-1.5) mg/dL BUN/Creatinine Ratio (12.00-20.00) Ratio Glucose (70-110) mg/dL POC Glucose (mg/dL) 192 H 215 H (70-110) mg/dL Calcium (8.7-10.3) mg/dL Magnesium (1.5-2.4) mg/dL Total Protein (6.2-8.2) g/dL Albumin (3.8-4.9) g/dL Albumin/Globulin Ratio (1.60-3.17) Ratio 01/28/24 01/28/24 01/28/24 Range/Units 07:44 07:55 12:34 WBC (4.50-10.00) X 10*3/uL RBC (4.10-5.20) X 10*6/uL Hgb (12.0-15.0) g/dL Hct (37.2-46.3) % MCHC (32.0-37.0) g/dL RDW (11.5-14.5) % Lymphocytes # (0.90-5.00) X 10*3/uL Potassium 3.1 L (3.5-5.5) mmol/L Carbon Dioxide 20.8 L (21.6-31.8) mmol/L Anion Gap 13.20 H (4.00-12.00) mmol/L BUN 4.9 L (9.0-27.0) mg/dL Creatinine 0.5 L (0.6-1.5) mg/dL BUN/Creatinine Ratio 9.80 L (12.00-20.00) Ratio Glucose 142 H (70-110) mg/dL POC Glucose (mg/dL) 149 H 196 H (70-110) mg/dL Calcium 8.0 L (8.7-10.3) mg/dL Magnesium 1.3 L (1.5-2.4) mg/dL Total Protein 5.0 L (6.2-8.2) g/dL Albumin 3.0 L (3.8-4.9) g/dL Albumin/Globulin Ratio 1.50 L (1.60-3.17) Ratio Microbiology - Last 24 Hours (Table) 01/25/24 09:24 Blood Culture - Preliminary Blood 01/24/24 00:15 Blood Culture Gram Stain - Final Blood Blood Culture - Final Corynebacterium species Assessment and Plan (1) Bacteremia Current Visit: Yes Status: Acute Code(s): R78.81 - BACTEREMIA SNOMED Code(s): 0978061 Plan: 1patient with gram-negative bacteremia in this patient who did have a history of metastatic uterine cancer currently on chemotherapy brought into the hospital for weakness fall and some confusion patient did have a CT angiogram of the chest concerning for possible consolidation right middle lobe, blood culture was switched over to Clostridium and now has been finalized and as corynebacterium more likely skin contamination patient did have CT abdominal pelvis completed neurogenic bladder versus obstruction uncompleted cholelithiasis and nonobstructing left renal calculus no mention of any colitis or abscess 2-blood cultures more likely representing contamination Unasyn can be safely discontinued Dictation was produced using [employer] dictation software. please excuse any grammatical, word or spelling errors. Time with Patient: Less than 30
[2024-01-28] MEDS: POTASSIUM CHLORIDE ER 20 MEQ TAB.ER PO STA (14:07)
[2024-01-28] MEDS: MAGNESIUM OXIDE 400 MG TAB PO SCH (14:08)
[2024-01-28] MEDS: MAGNESIUM SULFATE-D5W PMX 1 GM in DEXTROSE/WATER 1 100ML.BAG IVPB SCH (14:32)
[2024-01-28 17:12] LABS: Glucose,Whole Blood 190 mg/dL (70-110)
--- NOTE | 2024-01-28 17:14 | P.PN ---
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 She presented to the emergency department overnight on 01/23/2024 secondary to generalized weakness and fall at home. Upon arrival to our facility, patient underwent evaluation in the emergency department. Vital signs upon arrival show blood pressure 144/82, heart rate 109, respiratory rate 16, temp 90.1 F, and SpO2 of 99% on room air. Labs completed and reviewed. CBC showing bicytopenia and neutropenia with WBC count of 1.5, hemoglobin of 10.5, and neutrophils of 0.44. Coags normal f indings. BMP showing prerenal azotemia with BUN of 18. Lactic acid 1.4. Magnesium was low at 1.4. Liver profile unremarkable. Troponin negative at 0.014. Chest x-ray completed negative for acute cardiopulmonary process reporting a similar small focal density in the right when compared to previous x-ray completed 11/04/2023. CT head without contrast negative for acute intracranial process. EKG showing normal sinus rhythm at 90 bpm with no significant T wave or ST abnormalities showing no signs of acute ischemia. Patient was admitted under our services with consultation to hematology/onc ology. Patient was empirically started on IV antibiotics with cefepime 2 g every 8 hours. Preliminary blood cultures resulting positive in 1 of 2 sets for gram negative bacilli, no need for change in antibiotics at this time pending final culture and sensitivity report. Infectious disease consulted. Blood cultures showing positive for Clostridium Paraputrificum. Infectious disease following and discussed plan of care with infectious disease physician and IV antibiotics changed from cefepime to Unasyn and order placed for CT abdomen and pelvis. CT abdomen and pelvis with IV contrast revealing neurogenic bladder versus bladder obstruction and uncomplicated cholelithiasis with nonobstructing left renal calculi. Physical exam: Patient seen and fully evaluated at bedside this morning. Patient reports overall she feels good this morning. Reports 1 episode of diarrhea, but denies any other complaints including headache, lightheadedness, dizziness, chest pain, palpitations, shortness of breath, or vomiting. Vital signs reviewed and stable. General: Nontoxic, no distress and appears stated age. Derm: Skin warm and dry, pallor present. Head: Atraumatic, normocephalic and symmetric. Eyes: EOMs intact, no lid lag, and anicteric sclera Mouth: no lip lesions, mucus membranes moist Cardiovascular: regular rate and rhythm with normal S1S2, no murmur, positive posterior tibial pulses bilaterally, and cap refill < 2 seconds. Lungs: Respirations even, regular, and unlabored on room air. Lungs CTA bilaterally, no rhonchi, no rales, no wheezing, and no accessory muscle usage. Abdominal: soft, nontender to palpation, no guarding, no appreciable organomegaly Ext: ROM intact. No gross muscle atrophy, no edema, no contractures Neuro: Speech clear, face symmetrical and CN II-XII grossly intact with no noted focal neuro deficits Psych: Alert and oriented to person, place, time, and situation. Appropriate and pleasant affect. Assessment and Plan of Care: Severe neutropenia Clostridium Paraputrificum Bacteremia, corrected to Corynebacterium and likely contaminant Bicytopenia, likely chemotherapy-induced Metastatic uterine cancer undergoing chemotherapy Generalized weakness and falls at home, secondary to bacteremic infection and infectious disease -Neutropenic precautions in place -Continue IV antibiotics with Unasyn 3 g every 6 hours. -Blood cultures showing positive for Clostridium Paraputrificum. -Infectious disease following and placed patient on IV antibiotics with Unasyn 3 g every 6 hours. -CT abdomen and pelvis with IV contrast revealing neurogenic bladder versus bladder obstruction and uncomplicated cholelithiasis with nonobstructing left renal calculi. -Urinalysis negative for infection. -Oncology following, discussed plan of care with oncology RECRUITER MANAGER -Continue Neupogen 480 mcg subcu daily -PT/OT evaluated, recommending rehab. Type 2 insulin-dependent diabetes mellitus with hyperglycemia Hold glyburide and metformin and place patient on glycemic protocol with NovoLog sliding scale. Anxiety with depression Continue daily medication regimen with Trintellix 20 mg daily and trazodone 100 mg nightly. Hypertension Continue daily medication regimen with atenolol 25 mg daily and lisinopril 2.5 mg daily. Hyperlipidemia Continue daily medication regimen with atorvastatin 40 mg daily. History of CVAs with right upper extremity and left lower extremity deficits -Safe and supportive care. Fall precautions, PT/OT following, and patient to be provided with assistance as needed. Data and imaging reviewed: Vital signs reviewed. Blood pressure 123/60, heart rate 68, respiratory rate 16, temp 98.1 F, and SpO2 of 96% on room air. Morning labs reviewed. CBC showing improvement of WBC count to 3.65 with neutr ophils of 2.15 and stable hemoglobin of 8.6. BMP showing hypokalemia with potassium of 3.1. Magnesium 1.3. CT abdomen and pelvis with IV contrast revealing neurogenic bladder versus bladder obstruction and uncomplicated cholelithiasis with nonobstructing left renal calculi. CODE STATUS: Full code DVT prophylaxis: Lovenox Anticipated discharge date: Pending clinical course Anticipated discharge place: [facility] Patient was seen independently by Nurse Pracitioner. This document was prepared using [employer] dictation software. Please allow for errors in paramedical aide, while rare they do occur. Ranulfo Mak RECRUITER MANAGER rendered care for this patient independently, reviewed the findings and plan as documented in the note above. I did not physically speak with or examine the patient on this date. Objective - Vital Signs Vital signs: Vital Signs Temp 98.1 F 01/28/24 02:00 Pulse 94 01/28/24 02:00 Resp 16 01/28/24 02:00 BP 183/84 01/28/24 02:00 Pulse Ox 95 01/28/24 02:00 FiO2 Intake & Output 01/27/24 01/28/24 01/28/24 18:59 06:59 18:59 Intake Total 590 Balance 590 Intake: Oral 590 Other: Voiding Method Toilet # Voids 3 2 # Bowel Movements 1 - Labs CBC & Chem 7: 01/28/24 07:44 01/28/24 07:44 Labs: Abnormal Lab Results - Last 24 Hours (Table) 01/27/24 01/27/24 01/27/24 Range/Units 06:45 06:45 12:00 WBC 1.22 A* (4.50-10.00) X 10*3/uL RBC 3.07 L (4.10-5.20) X 10*6/uL Hgb 8.8 L (12.0-15.0) g/dL Hct 27.2 L (37.2-46.3) % RDW 17.6 H (11.5-14.5) % Neutrophils # 0.17 A* (1.80-7.70) X 10*3/uL Lymphocytes # 0.56 L (0.90-5.00) X 10*3/uL Elliptocytes 2+ A Anion Gap 12.80 H (4.00-12.00) mmol/L Glucose 146 H (70-110) mg/dL POC Glucose (mg/dL) 223 H (70-110) mg/dL Calcium 8.2 L (8.7-10.3) mg/dL Total Protein 5.6 L (6.2-8.2) g/dL Albumin 3.4 L (3.8-4.9) g/dL Albumin/Globulin Ratio 1.55 L (1.60-3.17) Ratio 01/27/24 01/27/24 01/28/24 Range/Units 17:15 19:54 07:55 WBC (4.50-10.00) X 10*3/uL RBC (4.10-5.20) X 10*6/uL Hgb (12.0-15.0) g/dL Hct (37.2-46.3) % RDW (11.5-14.5) % Neutrophils # (1.80-7.70) X 10*3/uL Lymphocytes # (0.90-5.00) X 10*3/uL Elliptocytes Anion Gap (4.00-12.00) mmol/L Glucose (70-110) mg/dL POC Glucose (mg/dL) 192 H 215 H 149 H (70-110) mg/dL Calcium (8.7-10.3) mg/dL Total Protein (6.2-8.2) g/dL Albumin (3.8-4.9) g/dL Albumin/Globulin Ratio (1.60-3.17) Ratio Microbiology - Last 24 Hours (Table) 01/25/24 09:24 Blood Culture - Preliminary Blood 01/24/24 00:15 Blood Culture Gram Stain - Final Blood Blood Culture - Final Corynebacterium species
[2024-01-28 20:05] LABS: Glucose,Whole Blood 170 mg/dL (70-110)
--- NOTE | 2024-01-28 22:06 | P.PN ---
Subjective Progress Note Date: 01/28/24 Principal diagnosis: weakness, neutropenia, endometrial carcinoma on treatment In f/u today pt cont to do well, no further difficulty speaking, she is tolerating oral intake, her RUE is stable, she just had MRI of c-spine to evaluate inability to raise arm above shoulder. Denies Fever, nausea or pain. Objective - Vital Signs Vital signs: Vital Signs Temp 98.1 F 01/28/24 07:56 Pulse 68 01/28/24 07:56 Resp 16 01/28/24 07:56 BP 123/60 01/28/24 07:56 Pulse Ox 96 01/28/24 07:56 FiO2 Intake & Output 01/27/24 01/28/24 01/28/24 18:59 06:59 18:59 Intake Total 590 Balance 590 Intake: Oral 590 Other: Voiding Method Toilet # Voids 3 2 # Bowel Movements 1 - Constitutional General appearance: Present: average body habitus, cooperative, no acute distress - EENT Eyes: Present: anicteric sclerae, EOMI ENT: Present: hearing grossly normal - Respiratory Respiratory: bilateral: CTA - Cardiovascular Rhythm: regular Heart sounds: normal: S1, S2 Abnormal Heart Sounds: Absent: systolic murmur, diastolic murmur, rub, S3 Gallop, S4 Gallop, click, other - Peripheral edema leg Peripheral Edema: bilateral: None - Gastrointestinal General gastrointestinal: Present: soft - Integumentary Integumentary: Present: pale - Neurologic Neurologic: Present: CNII-XII intact (grossly) - Musculoskeletal Musculoskeletal: Present: generalized weakness - Psychiatric Psychiatric: Present: A&O x's 3, appropriate affect, intact judgment & insight - Labs CBC & Chem 7: 01/28/24 07:44 01/28/24 07:44 Labs: Abnormal Lab Results - Last 24 Hours (Table) 01/27/24 01/27/24 01/27/24 Range/Units 12:00 17:15 19:54 WBC (4.50-10.00) X 10*3/uL RBC (4.10-5.20) X 10*6/uL Hgb (12.0-15.0) g/dL Hct (37.2-46.3) % MCHC (32.0-37.0) g/dL RDW (11.5-14.5) % Lymphocytes # (0.90-5.00) X 10*3/uL Potassium (3.5-5.5) mmol/L Carbon Dioxide (21.6-31.8) mmol/L Anion Gap (4.00-12.00) mmol/L BUN (9.0-27.0) mg/dL Creatinine (0.6-1.5) mg/dL BUN/Creatinine Ratio (12.00-20.00) Ratio Glucose (70-110) mg/dL POC Glucose (mg/dL) 223 H 192 H 215 H (70-110) mg/dL Calcium (8.7-10.3) mg/dL Magnesium (1.5-2.4) mg/dL Total Protein (6.2-8.2) g/dL Albumin (3.8-4.9) g/dL Albumin/Globulin Ratio (1.60-3.17) Ratio 01/28/24 01/28/24 01/28/24 Range/Units 07:44 07:44 07:55 WBC 3.65 L (4.50-10.00) X 10*3/uL RBC 2.97 L (4.10-5.20) X 10*6/uL Hgb 8.6 L (12.0-15.0) g/dL Hct 27.1 L (37.2-46.3) % MCHC 31.7 L (32.0-37.0) g/dL RDW 17.6 H (11.5-14.5) % Lymphocytes # 0.56 L (0.90-5.00) X 10*3/uL Potassium 3.1 L (3.5-5.5) mmol/L Carbon Dioxide 20.8 L (21.6-31.8) mmol/L Anion Gap 13.20 H (4.00-12.00) mmol/L BUN 4.9 L (9.0-27.0) mg/dL Creatinine 0.5 L (0.6-1.5) mg/dL BUN/Creatinine Ratio 9.80 L (12.00-20.00) Ratio Glucose 142 H (70-110) mg/dL POC Glucose (mg/dL) 149 H (70-110) mg/dL Calcium 8.0 L (8.7-10.3) mg/dL Magnesium 1.3 L (1.5-2.4) mg/dL Total Protein 5.0 L (6.2-8.2) g/dL Albumin 3.0 L (3.8-4.9) g/dL Albumin/Globulin Ratio 1.50 L (1.60-3.17) Ratio Microbiology - Last 24 Hours (Table) 01/25/24 09:24 Blood Culture - Preliminary Blood 01/24/24 00:15 Blood Culture Gram Stain - Final Blood Blood Culture - Final Corynebacterium species Assessment and Plan (1) Neurological deficit present Current Visit: Yes Status: Resolved Priority: High Code(s): R29.818 - OTHER SYMPTOMS AND SIGNS INVOLVING THE NERVOUS SYSTEM SNOMED Code(s): 804426101 (2) Bicytopenia Current Visit: Yes Status: Acute Code(s): D75.89 - OTHER SPECIFIED DISEASES OF BLOOD AND BLOOD-FORMING ORGANS SNOMED Code(s): 48981095 (3) Endometrial carcinoma Current Visit: Yes Status: Chronic Priority: Medium Code(s): C54.1 - MALIGNANT NEOPLASM OF ENDOMETRIUM SNOMED Code(s): 357246779 Plan: Neurological deficit -Dizziness, weakness and fall on admission-persistent, recently progressive symptoms. Associated with some increased confusion, and jumbled speech. Resolved today. Only residual is RUE unable to raise above shouler. Having MRI C spine today -MRI brain 01/19/[address] of the brain on admission no acute findings. -Neurology did see pt, appreciate evaluation -Likely 2/2 infection as pt improved with abx. Positive blood cultures -ID following, abx ordered Chemotherapy-induced bicytopenia -Hemoglobin 8.6, stable. No reports of any bleeding. Continue to monitor. Transfuse for hemoglobin less than 7 or if patient is symptomatic -Leukopenia/neutropenia. ANC 2150, BC +. GCSF discontinued after today dose Endometrial carcinoma -Metastatic disease in lungs. -Patient recently started on carboplatin and Taxol with palliative intent. Jemperli was added to cycle 3. She completed 4 cycles 01/13/2024. -Patient has overall done fairly well with treatment thus far -CTA of the chest was ordered for worsening shortness of breath and palpitations with a cough. No PE, pneumonitis or other acute pulmonary process reported. It was however noted that metastatic disease seen on prior CT dated 01/03/2024 was significantly improved! These results were reviewed with the patient. -IM has ordered echocardiogram. Reported LVEF 55 to 60%, grade 1 diastolic dysfunction. -Thyroid studies and cortisol drawn in clinic on 12/22/23 were normal. Repeat thyroid panel was normal, cortisol normal Contacted pt sister and brother in law and summarized hospital course. Symptoms pt presented with felt to be 2/2 infection and not immunotherapy, as symptoms improved with abx, blood cultures are positive. Pt was at higher risk for infection and more susceptible to infection because of chemo. Plan is for rehab so pt can maintain her independence. A slight delay in treatment is acceptable. She had 4 of 6 planned cycles of chemo, with plans to cont on maintenance immunotherapy. Pt adn family need to meet with primary Oncologist to see if ok to stop chemo after 4 cycles and cont on IO or reduce dose and cont chemo for 2 more cycles. Will get that appt for them. All pt and her families questions were answered to their satisfaction. attests: I have seen and examined pt, performed H&P, developed impression and plan of care. Discussed with dictator. Agree with documentation, dictated as a scribe. Time with Patient: Greater than 30
[2024-01-29 05:48] LABS: Anisocytosis Slight; Basophils % (A) 0 %; Eosinophils # (A) 0.1 k/uL (0-0.7); Eosinophils % (A) 1 %; HCT 27.4 % (34.0-46.0); HGB 8.7 gm/dL (11.4-16.0); Hypochromasia Slight; Lymphocytes # (A) 0.8 k/uL (1.0-4.8); Lymphocytes % (A) 7 %; MCH 28.3 pg (25.0-35.0); MCHC 31.6 g/dL (31.0-37.0); MCV 89.6 fL (80.0-100.0); Mean Platelet Volume 7.9; Monocytes # (A) 0.7 k/uL (0-1.0); Monocytes % (A) 6 %; Neutrophils # (A) 10.1 k/uL (1.3-7.7); Neutrophils % (A) 85 %; Platelet Count 338 k/uL (150-450); RBC 3.06 m/uL (3.80-5.40); RDW 17.7 % (11.5-15.5)
[2024-01-29 08:01] LABS: Glucose,Whole Blood 135 mg/dL (70-110)
[2024-01-29] MEDS: ACETAMINOPHEN TAB 500 MG TAB PO PRN (08:20)
--- NOTE | 2024-01-29 11:11 | P.PN ---
Subjective Progress Note Date: 01/28/24 Patient was seen for a follow-up. Patient states that she feels "little better". She denies any headache. Her mentation is very clear. Patient continues to be weak. Objective - Vital Signs Vital signs: Vital Signs Temp 98.4 F 01/28/24 12:31 Pulse 72 01/28/24 12:31 Resp 16 01/28/24 12:31 BP 165/77 01/28/24 12:31 Pulse Ox 98 01/28/24 12:31 FiO2 Intake & Output 01/27/24 01/28/24 01/28/24 18:59 06:59 18:59 Intake Total 590 Balance 590 Weight 80.286 kg Intake: Oral 590 Other: Voiding Method Toilet Toilet # Voids 3 2 1 # Bowel Movements 1 - Exam Patient's mental status, speech and language functions are normal. Patient knows it is January 2024 and that she is in [facility] imported on [place] and name of the current president. Patient apparently had broken blood vessel over the left rabago from the fall. Cranial nerves are normal. On muscle strength testing (right/left) deltoid 3/4, biceps 4+/5, triceps 4-/5, hip flexion 4/4, ankle dorsiflexion 5/5. Patient is completely areflexic. Patient has ataxia for [id number]-[id number] as well as for [id number] testing. - Labs CBC & Chem 7: 01/29/24 05:27 01/28/24 07:44 Labs: Abnormal Lab Results - Last 24 Hours (Table) 01/27/24 01/28/24 01/28/24 Range/Units 19:54 07:44 07:44 WBC 3.65 L (4.50-10.00) X 10*3/uL RBC 2.97 L (4.10-5.20) X 10*6/uL Hgb 8.6 L (12.0-15.0) g/dL Hct 27.1 L (37.2-46.3) % MCHC 31.7 L (32.0-37.0) g/dL RDW 17.6 H (11.5-14.5) % Lymphocytes # 0.56 L (0.90-5.00) X 10*3/uL Potassium 3.1 L (3.5-5.5) mmol/L Carbon Dioxide 20.8 L (21.6-31.8) mmol/L Anion Gap 13.20 H (4.00-12.00) mmol/L BUN 4.9 L (9.0-27.0) mg/dL Creatinine 0.5 L (0.6-1.5) mg/dL BUN/Creatinine Ratio 9.80 L (12.00-20.00) Ratio Glucose 142 H (70-110) mg/dL POC Glucose (mg/dL) 215 H (70-110) mg/dL Calcium 8.0 L (8.7-10.3) mg/dL Magnesium 1.3 L (1.5-2.4) mg/dL Total Protein 5.0 L (6.2-8.2) g/dL Albumin 3.0 L (3.8-4.9) g/dL Albumin/Globulin Ratio 1.50 L (1.60-3.17) Ratio 01/28/24 01/28/24 01/28/24 Range/Units 07:55 12:34 17:11 WBC (4.50-10.00) X 10*3/uL RBC (4.10-5.20) X 10*6/uL Hgb (12.0-15.0) g/dL Hct (37.2-46.3) % MCHC (32.0-37.0) g/dL RDW (11.5-14.5) % Lymphocytes # (0.90-5.00) X 10*3/uL Potassium (3.5-5.5) mmol/L Carbon Dioxide (21.6-31.8) mmol/L Anion Gap (4.00-12.00) mmol/L BUN (9.0-27.0) mg/dL Creatinine (0.6-1.5) mg/dL BUN/Creatinine Ratio (12.00-20.00) Ratio Glucose (70-110) mg/dL POC Glucose (mg/dL) 149 H 196 H 190 H (70-110) mg/dL Calcium (8.7-10.3) mg/dL Magnesium (1.5-2.4) mg/dL Total Protein (6.2-8.2) g/dL Albumin (3.8-4.9) g/dL Albumin/Globulin Ratio (1.60-3.17) Ratio Microbiology - Last 24 Hours (Table) 01/25/24 09:24 Blood Culture - Preliminary Blood Assessment and Plan Assessment: * Right upper extremity weakness, involving proximal as well as distal muscles, of 1 year duration, likely brachial plexopathy. Patient also has generalized weakness, likely from polyneuropathy. Overall weakness progressing likely due to ongoing chemotherapy. Paraneoplastic syndrome manifesting with sensorimot or polyneuropathy also a possibility. * Polyneuropathy, unclear cause. Perhaps related to chemotherapy. Patient has received carboplatin and Taxol, which perhaps may be contributing to polyneuropathy. Rule out inflammatory cause. * Altered mental status, likely due to metabolic encephalopathy, improved. * Neutropenia, likely due to chemotherapy * Anemia * Positive blood cultures with gram-positive bacilli, with Corynebacterium species, ID following, on Unasyn. * Metastatic endometrial carcinoma, undergoing chemotherapy * Vitamin B6 deficiency * B12 level borderline * Hypertension * Hyperlipidemia Plan: * Patient's right upper extremity weakness is chronic, almost for 1 year. Distribution of weakness suggest brachial plexopathy, which could be related to diabetes. This is slightly getting worse, likely due to ongoing chemotherapy. Patient also has some degree of polyneuropathy. * MRI of the cervical spine with and without contrast revealed motion limited exam. Disc osteophyte complex that impresses upon the spinal cord centrally. Spinal cord signal is maintained. No neural foraminal stenosis. No abnormal postcontrast enhancement. Mild disc degeneration with associated osteoarthritic change. I personally reviewed MRI, agree with the findings. No significant spinal stenosis. * B12 301, folate 28.7, MMA, B6 5, MMA 0.16.. Patient on B12 replacement. We will also start B6 replacement. * CK is normal 45, TSH 1.060. Hemoglobin A1c 7.0, and diabetes is fairly well- controlled * Patient's polyneuropathy is of unclear cause. Perhaps related to use of chemotherapy including Taxol and carboplatin. Inflammatory polyneuropathy also in the differential. Discussed with patient about lumbar puncture to evaluate for CSF proteins, but she completely declined. * Recommend EMG and nerve conduction of upper and lower extremity as outpatient, to evaluate for plexopathy, evaluate for axonal versus demyelinating polyneuropathy. 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 * CT abdomen pelvis revealing neurogenic bladder versus bladder obstruction. Uncomplicated cholelithiasis. Nonobstructing left renal calculus. * PT OT, evaluate gait. * Neurologically clear, recommend follow-up with neurologist.
[2024-01-29 12:15] LABS: Glucose,Whole Blood 188 mg/dL (70-110)
[2024-01-29] MEDS: PYRIDOXINE 50 MG TAB PO SCH (12:24)
--- NOTE | 2024-01-29 16:00 | P.PN ---
Subjective Progress Note Date: 01/29/24 At f/u today patient reporting feeling improved. Speech now normal. Still having RUE weakness, but it has slightly improved. Plan for rehab upon discharge Objective - Vital Signs Vital signs: Vital Signs Temp 98.1 F 01/29/24 12:15 Pulse 89 01/29/24 12:15 Resp 17 01/29/24 12:15 BP 103/64 01/29/24 12:15 Pulse Ox 97 01/29/24 12:15 FiO2 Intake & Output 01/28/24 01/29/24 01/29/24 18:59 06:59 18:59 Intake Total 590 Balance 590 Weight 80.286 kg Intake: Oral 590 Other: Voiding Method Toilet Toilet Toilet # Voids 1 1 1 - Constitutional General appearance: Present: no acute distress - EENT Eyes: Present: anicteric sclerae, EOMI ENT: Present: hearing grossly normal - Respiratory Details: breathing is even and unlabored - Cardiovascular Details: skin warm and dry - Gastrointestinal General gastrointestinal: Present: soft. Absent: tenderness - Integumentary Integumentary: Absent: cyanotic - Neurologic Neurologic Comment(s): RUE weakness - Musculoskeletal Musculoskeletal Comment(s): RUE weakness - Psychiatric Psychiatric: Present: A&O x's 3 - Labs CBC & Chem 7: 01/29/24 05:27 01/28/24 07:44 Labs: Abnormal Lab Results - Last 24 Hours (Table) 01/28/24 01/28/24 01/29/24 Range/Units 17:11 20:03 05:27 WBC 12.0 H (3.8-10.6) k/uL RBC 3.06 L (3.80-5.40) m/uL Hgb 8.7 L (11.4-16.0) gm/dL Hct 27.4 L (34.0-46.0) % RDW 17.7 H (11.5-15.5) % Neutrophils # 10.1 H (1.3-7.7) k/uL Lymphocytes # 0.8 L (1.0-4.8) k/uL POC Glucose (mg/dL) 190 H 170 H (70-110) mg/dL 01/29/24 01/29/24 Range/Units 08:00 12:14 WBC (3.8-10.6) k/uL RBC (3.80-5.40) m/uL Hgb (11.4-16.0) gm/dL Hct (34.0-46.0) % RDW (11.5-15.5) % Neutrophils # (1.3-7.7) k/uL Lymphocytes # (1.0-4.8) k/uL POC Glucose (mg/dL) 135 H 188 H (70-110) mg/dL Microbiology - Last 24 Hours (Table) 01/27/24 14:49 Blood Culture - Preliminary Blood 01/25/24 09:24 Blood Culture - Preliminary Blood Assessment and Plan (1) Dizziness Current Visit: Yes Status: Acute Priority: High Code(s): R42 - DIZZINESS AND GIDDINESS SNOMED Code(s): 618548524 (2) Fall Current Visit: Yes Status: Acute Priority: Medium Code(s): W19.XXXA - UNSPECIFIED FALL, INITIAL ENCOUNTER SNOMED Code(s): 7290643 (3) Neutropenia Current Visit: Yes Status: Acute Priority: Medium Code(s): D70.9 - NEUTROPENIA, UNSPECIFIED SNOMED Code(s): 952615335 (4) Endometrial carcinoma Current Visit: Yes Status: Chronic Priority: Medium Code(s): C54.1 - MALIGNANT NEOPLASM OF ENDOMETRIUM SNOMED Code(s): 458856173 (5) Bacteremia Current Visit: Yes Status: Acute Priority: High Code(s): R78.81 - B ACTEREMIA SNOMED Code(s): 2563124 (6) Bicytopenia Current Visit: Yes Status: Acute Priority: High Code(s): D75.89 - OTHER SPECIFIED DISEASES OF BLOOD AND BLOOD-FORMING ORGANS SNOMED Code(s): 42335191 Plan: Neurological deficit -Dizziness, weakness and fall on admission-persistent, recently progressive symptoms. Associated with some increased confusion, and jumbled speech. Resol brie today. Only residual is RUE unable to raise above shoulder. -MRI brain 01/19/[address] of the brain on admission no acute findings. -Neurology did see pt, appreciate evaluation -MRI C-spine obtained. C6-C7 disc osteophyte complex that impresses upon the anterior spinal cord, and displaces it. No evidence for significant spinal canal stenosis. No abnormal postcontrast enhancement. Mild disc degeneration with associated osteoarthritic changes. -Still unsure of etiology. Neuro recommending lumbar puncture, but pt has declined. Recommend outpt EMG and neuro f/u Positive blood cultures -ID following, abx ordered -Repeat blood cultures negative thus far Chemotherapy-induced bicytopenia -Hemoglobin 8.7, stable. No reports of any bleeding. Continue to monitor. Transfuse for hemoglobin less than 7 or if patient is symptomatic -Leukopenia/neutropenia. ANC 2150, BC +. S/p 2 doses GCSF. Today, WBC 12.0, ANC 10.1 Endometrial carcinoma -Metastatic disease in lungs. -Patient recently started on carboplatin and Taxol with palliative intent. Jemperli was added to cycle 3. She completed 4 cycles 01/13/2024. -Patient has overall done fairly well with treatment thus far -CTA of the chest was ordered for worsening shortness of breath and palpitations with a cough. No PE, pneumonitis or other acute pulmonary process reported. It was however noted that metastatic disease seen on prior CT dated 01/03/2024 was significantly improved! These results were reviewed with the patient. -IM has ordered echocardiogram. Reported LVEF 55 to 60%, grade 1 diastolic dysfunction. -Thyroid studies and cortisol drawn in clinic on 12/22/23 were normal. Repeat thyroid panel was normal, cortisol normal Contacted pt sister and brother in law and summarized hospital course. Symptoms pt presented with felt to be 2/2 infection and not immunotherapy, as symptoms im proved with abx, blood cultures are positive. Pt was at higher risk for infection and more susceptible to infection because of chemo. Plan is for rehab so pt can maintain her independence. A slight delay in treatment is acceptable. She had 4 of 6 planned cycles of chemo, with plans to cont on maintenance immunotherapy. Pt and family need to meet with primary Oncologist to see if ok to stop chemo after 4 cycles and cont on IO or reduce dose and cont chemo for 2 more cycles. Will schedule clinic f/u once discharged from rehab. All pt and her families questions were answered to their satisfaction.
--- NOTE | 2024-01-29 16:37 | P.PN ---
Subjective Progress Note Date: 01/29/24 Principal diagnosis: Reason for follow-up is bacteremia Patient is a 73-year-old female with a past medical history significant for hypertension hyperlipidemia metastatic uterine cancer with mets to the lungs patient was brought to the hospital for evaluation of weakness and apparently the patient did have a fall at home, patient blood culture initially reported as gram-negative bacilli however has been switched to Clostridium paraputrificum morning of 01/26/2024. However today's evaluation that is 01/29/2024, Patient is afebrile patient is currently on room air and denies having any shortness of breath, the patient denies any chest pain or cough, the patient denies any nausea vomiting did not have any abdominal pain and no diarrhea, feeling better no new symptoms Patient white count is 12.0 blood culture negative Objective - Vital Signs Vital signs: Vital Signs Temp 98.3 F 01/29/24 07:57 Pulse 82 01/29/24 07:57 Resp 17 01/29/24 07:57 BP 175/71 01/29/24 07:57 Pulse Ox 99 01/29/24 07:57 FiO2 Intake & Output 01/28/24 01/29/24 01/29/24 18:59 06:59 18:59 Intake Total 590 Balance 590 Weight 80.286 kg Intake: Oral 590 Other: Voiding Method Toilet Toilet # Voids 1 1 - Exam GENERAL DESCRIPTION: An elderly female lying in bed in no distress RESPIRATORY SYSTEM: Unlabored breathing , decreased breath sounds at bases HEART: S1 S2 regular rate and rhythm , ABDOMEN: Soft , no tenderness EXTREMITIES: No edema feet - Labs CBC & Chem 7: 01/29/24 05:27 01/28/24 07:44 Labs: Abnormal Lab Results - Last 24 Hours (Table) 01/28/24 01/28/24 01/28/24 Range/Units 07:44 12:34 17:11 WBC (3.8-10.6) k/uL RBC (3.80-5.40) m/uL Hgb (11.4-16.0) gm/dL Hct (34.0-46.0) % RDW (11.5-15.5) % Neutrophils # (1.3-7.7) k/uL Lymphocytes # (1.0-4.8) k/uL Potassium 3.1 L (3.5-5.5) mmol/L Carbon Dioxide 20.8 L (21.6-31.8) mmol/L Anion Gap 13.20 H (4.00-12.00) mmol/L BUN 4.9 L (9.0-27.0) mg/dL Creatinine 0.5 L (0.6-1.5) mg/dL BUN/Creatinine Ratio 9.80 L (12.00-20.00) Ratio Glucose 142 H (70-110) mg/dL POC Glucose (mg/dL) 196 H 190 H (70-110) mg/dL Calcium 8.0 L (8.7-10.3) mg/dL Magnesium 1.3 L (1.5-2.4) mg/dL Total Protein 5.0 L (6.2-8.2) g/dL Albumin 3.0 L (3.8-4.9) g/dL Albumin/Globulin Ratio 1.50 L (1.60-3.17) Ratio 01/28/24 01/29/24 01/29/24 Range/Units 20:03 05:27 08:00 WBC 12.0 H (3.8-10.6) k/uL RBC 3.06 L (3.80-5.40) m/uL Hgb 8.7 L (11.4-16.0) gm/dL Hct 27.4 L (34.0-46.0) % RDW 17.7 H (11.5-15.5) % Neutrophils # 10.1 H (1.3-7.7) k/uL Lymphocytes # 0.8 L (1.0-4.8) k/uL Potassium (3.5-5.5) mmol/L Carbon Dioxide (21.6-31.8) mmol/L Anion Gap (4.00-12.00) mmol/L BUN (9.0-27.0) mg/dL Creatinine (0.6-1.5) mg/dL BUN/Creatinine Ratio (12.00-20.00) Ratio Glucose (70-110) mg/dL POC Glucose (mg/dL) 170 H 135 H (70-110) mg/dL Calcium (8.7-10.3) mg/dL Magnesium (1.5-2.4) mg/dL Total Protein (6.2-8.2) g/dL Albumin (3.8-4.9) g/dL Albumin/Globulin Ratio (1.60-3.17) Ratio Microbiology - Last 24 Hours (Table) 01/27/24 14:49 Blood Culture - Preliminary Blood 01/25/24 09:24 Blood Culture - Preliminary Blood Assessment and Plan (1) Bacteremia Current Visit: Yes Status: Acute Priority: High Code(s): R78.81 - BACTEREMIA SNOMED Code(s): 9580133 Plan: 1patient with gram-negative bacteremia in this patient who did have a history of metastatic uterine cancer currently on chemotherapy brought into the hospital for weakness fall and some confusion patient did have a CT angiogram of the ches t concerning for possible consolidation right middle lobe, blood culture was switched over to Clostridium and now has been finalized and as corynebacterium more likely skin contamination patient did have CT abdominal pelvis completed neurogenic bladder versus obstruction uncompleted cholelithiasis and nonobstructing left renal calculus no mention of any colitis or abscess 2-blood cultures more likely representing contamination, repeat blood cultures have been negative patient is on Unasyn which can be safely discontinued Dictation was produced using [employer] dictation software. please excuse any grammatical, word or spelling errors. Time with Patient: Less than 30
--- NOTE | 2024-01-29 16:47 | P.PN ---
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 She presented to the emergency department overnight on 01/23/2024 secondary to generalized weakness and fall at home. Upon arrival to our facility, patient underwent evaluation in the emergency department. Vital signs upon arrival show blood pressure 144/82, heart rate 109, respiratory rate 16, temp 90.1 F, and SpO2 of 99% on room air. Labs completed and reviewed. CBC showing bicytopenia and neutropenia with WBC count of 1.5, hemoglobin of 10.5, and neutrophils of 0.44. Coags normal f indings. BMP showing prerenal azotemia with BUN of 18. Lactic acid 1.4. Magnesium was low at 1.4. Liver profile unremarkable. Troponin negative at 0.014. Chest x-ray completed negative for acute cardiopulmonary process reporting a similar small focal density in the right when compared to previous x-ray completed 11/04/2023. CT head without contrast negative for acute intracranial process. EKG showing normal sinus rhythm at 90 bpm with no significant T wave or ST abnormalities showing no signs of acute ischemia. Patient was admitted under our services with consultation to hematology/onc ology. Patient was empirically started on IV antibiotics with cefepime 2 g every 8 hours. Preliminary blood cultures resulting positive in 1 of 2 sets for gram negative bacilli, no need for change in antibiotics at this time pending final culture and sensitivity report. Infectious disease consulted. Blood cultures showing positive for Clostridium Paraputrificum. Infectious disease following and discussed plan of care with infectious disease physician and IV antibiotics changed from cefepime to Unasyn and order placed for CT abdomen and pelvis. CT abdomen and pelvis with IV contrast revealing neurogenic bladder versus bladder obstruction and uncomplicated cholelithiasis with nonobstructing left renal calculi. As stated above, blood cultures initially reporting positive for Clostridium Paraputrificum and have been corrected to Corynebacterium believed to be contaminant. Physical exam: Patient seen and fully evaluated at bedside this morning. Patient reports overall she feels good this morning. Denies any further episodes of diarrhea or any other complaints including headache, lightheadedness, dizziness, chest pain, palpitations, shortness of breath, or vomiting. Patient does report having acute on chronic pain in her right hand. Vital signs reviewed and stable. General: Nontoxic, no distress and appears stated age. Derm: Skin warm and dry, pallor present. Head: Atraumatic, normocephalic and symmetric. Eyes: EOMs intact, no lid lag, and anicteric sclera Mouth: no lip lesions, mucus membranes moist Cardiovascular: regular rate and rhythm with normal S1S2, no murmur, positive posterior tibial pulses bilaterally, and cap refill < 2 seconds. Lungs: Respirations even, regular, and unlabored on room air. Lungs CTA bila terally, no rhonchi, no rales, no wheezing, and no accessory muscle usage. Abdominal: soft, nontender to palpation, no guarding, no appreciable organomegaly Ext: ROM intact. No gross muscle atrophy, no edema, no contractures Neuro: Speech clear, face symmetrical and CN II-XII grossly intact with no noted focal neuro deficits Psych: Alert and oriented to person, place, time, and situation. Appropriate and pleasant affect. Assessment and Plan of Care: Severe neutropenia resolved after administration of Neupogen Clostridium Paraputrificum Bacteremia, corrected to Corynebacterium and likely contaminant Bicytopenia, likely chemotherapy-induced Metastatic uterine cancer undergoing chemotherapy Generalized weakness and falls at home, secondary to bacteremic infection and infectious disease -Neutropenic precautions in place -Continue IV antibiotics with Unasyn 3 g every 6 hours, managed by infectious disease. -Blood cultures initially reporting positive for Clostridium Paraputrificum and have been corrected to Corynebacterium believed to be contaminant. -Infectious disease following, reviewed documentation in chart. -CT abdomen and pelvis with IV contrast revealing neurogenic bladder versus bladder obstruction and uncomplicated cholelithiasis with nonobstructing left renal calculi. -Urinalysis negative for infection. -Oncology following, discussed plan of care with oncology FLOAT TENDER -Patient received Neupogen 480 mcg subcu daily for 2 days -PT/OT evaluated, recommending rehab. Type 2 insulin-dependent diabetes mellitus with hyperglycemia Hold glyburide and metformin and place patient on glycemic protocol with NovoLog sliding scale. Anxiety with depression Continue daily medication regimen with Trintellix 20 mg daily and trazodone 100 mg nightly. Hypertension Continue daily medication regimen with atenolol 25 mg daily and lisinopril 2.5 mg daily. Hyperlipidemia Continue daily medication regimen with atorvastatin 40 mg daily. History of CVAs with right upper extremity and left lower extremity deficits -Safe and supportive care. Fall precautions, PT/OT following, and patient to be provided with assistance as needed. Data and imaging reviewed: Vital signs reviewed. Blood pressure 123/60, heart rate 68, respiratory rate 16, temp 98.1 F, and SpO2 of 96% on room air. Morning labs reviewed. CBC showing leukocytosis with WBC count of 12.0 after 2 doses of Neupogen, hemoglobin stable at 8.7. Neutrophils 10.1. CODE STATUS: Full code DVT prophylaxis: Lovenox Anticipated discharge date: Pending clinical course Anticipated discharge place: [facility] facility for [facility] Patient was seen independently by Nurse Pracitioner. This document was prepared using [employer] dictation software. Please allow for errors in biofuels production manager, while rare they do occur. Objective - Vital Signs Vital signs: Vital Signs Temp 98.1 F 01/29/24 02:00 Pulse 82 01/29/24 02:00 Resp 16 01/29/24 02:00 BP 137/74 01/29/24 02:00 Pulse Ox 98 01/29/24 02:00 FiO2 Intake & Output 01/28/24 01/29/24 01/29/24 18:59 06:59 18:59 Intake Total 590 Balance 590 Weight 80.286 kg Intake: Oral 590 Other: Voiding Method Toilet Toilet # Voids 1 1 - Labs CBC & Chem 7: 01/29/24 05:27 01/28/24 07:44 Labs: Abnormal Lab Results - Last 24 Hours (Table) 01/28/24 01/28/24 01/28/24 Range/Units 07:44 07:44 12:34 WBC 3.65 L (4.50-10.00) X 10*3/uL RBC 2.97 L (4.10-5.20) X 10*6/uL Hgb 8.6 L (12.0-15.0) g/dL Hct 27.1 L (37.2-46.3) % MCHC 31.7 L (32.0-37.0) g/dL RDW 17.6 H (11.5-14.5) % Neutrophils # (1.3-7.7) k/uL Lymphocytes # 0.56 L (0.90-5.00) X 10*3/uL Potassium 3.1 L (3.5-5.5) mmol/L Carbon Dioxide 20.8 L (21.6-31.8) mmol/L Anion Gap 13.20 H (4.00-12.00) mmol/L BUN 4.9 L (9.0-27.0) mg/dL Creatinine 0.5 L (0.6-1.5) mg/dL BUN/Creatinine Ratio 9.80 L (12.00-20.00) Ratio Glucose 142 H (70-110) mg/dL POC Glucose (mg/dL) 196 H (70-110) mg/dL Calcium 8.0 L (8.7-10.3) mg/dL Magnesium 1.3 L (1.5-2.4) mg/dL Total Protein 5.0 L (6.2-8.2) g/dL Albumin 3.0 L (3.8-4.9) g/dL Albumin/Globulin Ratio 1.50 L (1.60-3.17) Ratio 01/28/24 01/28/24 01/29/24 Range/Units 17:11 20:03 05:27 WBC 12.0 H (4.50-10.00) X 10*3/uL RBC 3.06 L (4.10-5.20) X 10*6/uL Hgb 8.7 L (12.0-15.0) g/dL Hct 27.4 L (37.2-46.3) % MCHC (32.0-37.0) g/dL RDW 17.7 H (11.5-14.5) % Neutrophils # 10.1 H (1.3-7.7) k/uL Lymphocytes # 0.8 L (0.90-5.00) X 10*3/uL Potassium (3.5-5.5) mmol/L Carbon Dioxide (21.6-31.8) mmol/L Anion Gap (4.00-12.00) mmol/L BUN (9.0-27.0) mg/dL Creatinine (0.6-1.5) mg/dL BUN/Creatinine Ratio (12.00-20.00) Ratio Glucose (70-110) mg/dL POC Glucose (mg/dL) 190 H 170 H (70-110) mg/dL Calcium (8.7-10.3) mg/dL Magnesium (1.5-2.4) mg/dL Total Protein (6.2-8.2) g/dL Albumin (3.8-4.9) g/dL Albumin/Globulin Ratio (1.60-3.17) Ratio 01/29/24 Range/Units 08:00 WBC (4.50-10.00) X 10*3/uL RBC (4.10-5.20) X 10*6/uL Hgb (12.0-15.0) g/dL Hct (37.2-46.3) % MCHC (32.0-37.0) g/dL RDW (11.5-14.5) % Neutrophils # (1.3-7.7) k/uL Lymphocytes # (0.90-5.00) X 10*3/uL Potassium (3.5-5.5) mmol/L Carbon Dioxide (21.6-31.8) mmol/L Anion Gap (4.00-12.00) mmol/L BUN (9.0-27.0) mg/dL Creatinine (0.6-1.5) mg/dL BUN/Creatinine Ratio (12.00-20.00) Ratio Glucose (70-110) mg/dL POC Glucose (mg/dL) 135 H (70-110) mg/dL Calcium (8.7-10.3) mg/dL Magnesium (1.5-2.4) mg/dL Total Protein (6.2-8.2) g/dL Albumin (3.8-4.9) g/dL Albumin/Globulin Ratio (1.60-3.17) Ratio Microbiology - Last 24 Hours (Table) 01/27/24 14:49 Blood Culture - Preliminary Blood 01/25/24 09:24 Blood Culture - Preliminary Blood
[2024-01-29 17:10] LABS: Glucose,Whole Blood 163 mg/dL (70-110)
[2024-01-29] MEDS: KETOROLAC 15 MG/ML 1 ML VIAL IVP STA (17:35)
[2024-01-29 20:39] LABS: Glucose,Whole Blood 205 mg/dL (70-110)
[2024-01-30 08:14] LABS: Glucose,Whole Blood 138 mg/dL (70-110)
[2024-01-30] MEDS: HYDROcodone/APAP 5-325MG 1 EACH TAB PO PRN (09:32)
[2024-01-30 09:42] LABS: HCT 28.3 % (37.2-46.3); HGB 8.9 g/dL (12.0-15.0); MCH 28.4 pg (27.0-32.0); MCHC 31.4 g/dL (32.0-37.0); MCV 90.4 FL (80.0-97.0); Mean Platelet Volume 10.7 FL (9.5-12.2); NRBC Per 100 WBC 0.02 X 10*3/uL (0.00-0.01); Platelet Count 366 X 10*3/uL (140-440); RBC 3.13 X 10*6/uL (4.10-5.20); RDW 18.5 % (11.5-14.5); WBC 18.85 X 10*3/uL (4.50-10.00)
[2024-01-30 10:00] LABS: Magnesium 1.4 mg/dL (1.5-2.4)
[2024-01-30 10:17] LABS: ALT 15 U/L (8-44); AST 27 U/L (13-35); Albumin 3.1 g/dL (3.8-4.9); Albumin/Globulin Ratio 1.41 Ratio (1.60-3.17); Alkaline Phosphatase 130 U/L (41-126); BUN/Creat Ratio 11.17 Ratio (12.00-20.00); Blood Urea Nitrogen 6.7 mg/dL (9.0-27.0); Calcium 8.8 mg/dL (8.7-10.3); Carbon Dioxide 24.6 mmol/L (21.6-31.8); Chloride 107 mmol/L (96-109); Globulin 2.2 g/dL (1.6-3.3); Glucose 114 mg/dL (70-110); Potassium 4.2 mmol/L (3.5-5.5); Sodium 142 mmol/L (135-145); Total Bilirubin 0.3 mg/dL (0.3-1.2); Total Protein 5.3 g/dL (6.2-8.2)
[2024-01-30 12:39] LABS: Glucose,Whole Blood 219 mg/dL (70-110)
--- NOTE | 2024-01-30 14:31 | P.PN ---
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 She presented to the emergency department overnight on 01/23/2024 secondary to generalized weakness and fall at home. Upon arrival to our facility, patient underwent evaluation in the emergency department. Vital signs upon arrival show blood pressure 144/82, heart rate 109, respiratory rate 16, temp 90.1 F, and SpO2 of 99% on room air. Labs c ompleted and reviewed. CBC showing bicytopenia and neutropenia with WBC count of 1.5, hemoglobin of 10.5, and neutrophils of 0.44. Coags normal findings. BMP showing prerenal azotemia with BUN of 18. Lactic acid 1.4. Magnesium was low at 1.4. Liver profile unremarkable. Troponin negative at 0.014. Chest x- ray completed negative for acute cardiopulmonary process reporting a similar small focal density in the right when compared to previous x-ray completed 11/04/2023. CT head without contrast negative for acute intracranial process. EKG showing normal sinus rhythm at 90 bpm with no significant T wave or ST abnormalities showing no signs of acute ischemia. Patient was admitted under o ur services with consultation to hematology/oncology. Patient was empirically started on IV antibiotics with cefepime 2 g every 8 hours. Preliminary blood cultures resulting positive in 1 of 2 sets for gram negative bacilli, no need for change in antibiotics at this time pending final culture and sensitivity report. Infectious disease consulted. Blood cultures showing positive for Clostridium Paraputrificum. Infectious disease following and discussed plan of care with infectious disease physician and IV antibiotics changed from cefepime to Unasyn and order placed for CT abdomen and pelvis. CT abdomen and pelvis with IV contrast revealing neurogenic bladder versus bladder obstruction and un complicated cholelithiasis with nonobstructing left renal calculi. As stated above, blood cultures initially reporting positive for Clostridium Paraputrificum and have been corrected to Corynebacterium believed to be contaminant. Subjective: Patient seen and examined at bedside. No acute events overnight. Complaining of swelling in her right index finger as well as left leg Pertinent positives and negatives as discussed above, a complete review of systems was performed and all other systems are negative. Vitals Signs Reviewed. General: Nontoxic, no distress, appears at stated age Derm: Warm, dry, left anterior lower leg fluctuant lesion Head: Atraumatic, normocephalic, symmetric Eyes: EOMI, no lid lag, anicteric sclera Mouth: No lip lesion, mucus membranes moist Cardiovascular: S1S2 reg, no murmur Lungs: CTA bilateral, no rhonchi, no rales, no accessory muscle use Abdominal: Soft, nontender to palpation, no guarding, no appreciable organomegaly Ext: No gross muscle atrophy, no edema, no contractures, right index PIP edema Neuro: CN II-XI grossly intact, no focal neuro deficits Psych: Alert, oriented, appropriate affect Data Reviewed Today: Pertinent Labs: WBC 18.85, hemoglobin 8.9, platelet 366, creatinine 0.6, magnesium 1.4, glucose range between 1 14-2 19 Imaging: Right hand and left lower extremity x-ray pending, will be reviewed when available Assessment and Plan: Severe neutropenia resolved after administration of Neupogen Clostridium Paraputrificum Bacteremia, corrected to Corynebacterium and likely contaminant Bicytopenia, likely chemotherapy-induced, improving Metastatic uterine cancer undergoing chemotherapy Generalized weakness and falls at home -Neutropenic precautions in Place -Antibiotics discontinued -ID following -Oncology following -Patient received Neupogen 480 mcg subcu daily for 2 days -PT/OT evaluated, recommending rehab. 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 Hypertension - Continue daily medication regimen with atenolol 25 mg daily and lisinopril 2.5 mg daily. Hyperlipidemia - Continue daily medication regimen with atorvastatin 40 mg daily. History of CVAs with right upper extremity and left lower extremity deficits -Safe and supportive care. Fall precautions, PT/OT following, and patient to be provided with assistance as needed. -Patient was seen by neurology, was recommended to get an LP which patient refused, needs outpatient follow-up and EMG and nerve conduction studies -Also started on B6 supplement per neurology DVT ppx: Lovenox Code status: Full code Anticipated discharge place: Pending clinical course Anticipated discharge time: Pending clinical course Objective - Vital Signs Vital signs: Vital Signs Temp 98.5 F 01/30/24 13:27 Pulse 88 01/30/24 13:27 Resp 16 01/30/24 13:27 BP 160/75 01/30/24 13:27 Pulse Ox 95 01/30/24 13:27 FiO2 Intake & Output 01/29/24 01/30/24 01/30/24 18:59 06:59 18:59 Intake Total 590 Balance 590 Intake: Oral 590 Other: Voiding Method Toilet Toilet Toilet # Voids 1 2 1 # Bowel Movements 1 - Labs CBC & Chem 7: 01/30/24 06:16 01/30/24 06:16 Labs: Abnormal Lab Results - Last 24 Hours (Table) 01/29/24 01/29/24 01/30/24 Range/Units 17:09 20:37 06:16 WBC 18.85 H (4.50-10.00) X 10*3/uL RBC 3.13 L (4.10-5.20) X 10*6/uL Hgb 8.9 L (12.0-15.0) g/dL Hct 28.3 L (37.2-46.3) % MCHC 31.4 L (32.0-37.0) g/dL RDW 18.5 H (11.5-14.5) % NRBC/100 WBC Diff 0.02 H (0.00-0.01) X 10*3/uL BUN (9.0-27.0) mg/dL BUN/Creatinine Ratio (12.00-20.00) Ratio Glucose (70-110) mg/dL POC Glucose (mg/dL) 163 H 205 H (70-110) mg/dL Magnesium (1.5-2.4) mg/dL Alkaline Phosphatase (41-126) U/L Total Protein (6.2-8.2) g/dL Albumin (3.8-4.9) g/dL Albumin/Globulin Ratio (1.60-3.17) Ratio 01/30/24 01/30/24 01/30/24 Range/Units 06:16 08:13 12:37 WBC (4.50-10.00) X 10*3/uL RBC (4.10-5.20) X 10*6/uL Hgb (12.0-15.0) g/dL Hct (37.2-46.3) % MCHC (32.0-37.0) g/dL RDW (11.5-14.5) % NRBC/100 WBC Diff (0.00-0.01) X 10*3/uL BUN 6.7 L (9.0-27.0) mg/dL BUN/Creatinine Ratio 11.17 L (12.00-20.00) Ratio Glucose 114 H (70-110) mg/dL POC Glucose (mg/dL) 138 H 219 H (70-110) mg/dL Magnesium 1.4 L (1.5-2.4) mg/dL Alkaline Phosphatase 130 H (41-126) U/L Total Protein 5.3 L (6.2-8.2) g/dL Albumin 3.1 L (3.8-4.9) g/dL Albumin/Globulin Ratio 1.41 L (1.60-3.17) Ratio Microbiology - Last 24 Hours (Table) 01/27/24 14:49 Blood Culture - Preliminary Blood
--- NOTE | 2024-01-30 15:41 | XR ---
EXAMINATION TYPE: XR hand complete RT DATE OF EXAM: 01/30/2024 3:23 PM CLINICAL INDICATION:Female, 73 years old with history of swelling; [facility] COMPARISON: None TECHNIQUE: XR hand complete RT Frontal, lateral and oblique views were obtained. FINDINGS: Normal alignment of the visualized joints. No acute osseous pathology is identified. No e vidence of soft tissue swelling. Multifocal degeneration changes with joint space narrowing and osteo phyte formation. IMPRESSION: 1. No acute osseous pathology. 2. Multifocal osteoarthrosis.
--- NOTE | 2024-01-30 15:42 | XR ---
EXAMINATION TYPE: XR tibia fibula LT DATE OF EXAM: 01/30/2024 3:23 PM CLINICAL INDICATION:Female, 73 years old with history of swelling; [facility] COMPARISON: None TECHNIQUE: XR tibia fibula LT; tibia/fibula was examined in AP and lateral projections. FINDINGS: No evidence of any acute osseous pathology, joint dislocation, or soft tissue swelling is n oted. Total left knee arthroplasty changes. Hardware is intact. Focal bulging of the anterior rabago wi th soft tissue edema. Calcaneal Achilles enthesophyte and plantar spurring. No evidence for osseous e rosion. IMPRESSION: 1. No evidence of acute fracture. 2. Focal soft tissue edema of the anterior leg without radiopaque foreign body or mass. 3. Total knee arthroplasty changes with hardware intact.
[2024-01-30] MEDS: MAGNESIUM SULFATE-D5W PMX 1 GM in DEXTROSE/WATER 1 100ML.BAG IVPB SCH (16:44)
[2024-01-30 17:40] LABS: Glucose,Whole Blood 144 mg/dL (70-110)
[2024-01-30 20:52] LABS: Glucose,Whole Blood 214 mg/dL (70-110)
[2024-01-31 04:27] LABS: Anisocytosis Slight; Basophils # (A) 0.1 k/uL (0-0.2); Basophils % (A) 1 %; Eosinophils # (A) 0.1 k/uL (0-0.7); Eosinophils % (A) 1 %; HCT 28.7 % (34.0-46.0); HGB 8.9 gm/dL (11.4-16.0); Hypochromasia Slight; Lymphocytes # (A) 1.4 k/uL (1.0-4.8); Lymphocytes % (A) 16 %; MCHC 30.9 g/dL (31.0-37.0); MCV 90.6 fL (80.0-100.0); Monocytes # (A) 0.6 k/uL (0-1.0); Monocytes % (A) 7 %; Neutrophils # (A) 6.6 k/uL (1.3-7.7); Neutrophils % (A) 73 %; Platelet Count 337 k/uL (150-450); RBC 3.17 m/uL (3.80-5.40); RDW 17.7 % (11.5-15.5); WBC 9.1 k/uL (3.8-10.6)
[2024-01-31 04:32] LABS: African American GFR (CKD) >90 (>60 ml/min/1.73 sqM); Anion Gap 4 mmol/L; Blood Urea Nitrogen 7 mg/dL (7-17); Calcium 8.4 mg/dL (8.4-10.2); Carbon Dioxide 24 mmol/L (22-30); Chloride 109 mmol/L (98-107); Glucose 117 mg/dL (74-99); Magnesium 1.5 mg/dL (1.6-2.3); Non-African American GFR(CKD) >90 (>60 ml/min/1.73 sqM); Potassium 3.2 mmol/L (3.5-5.1); Sodium 137 mmol/L (137-145)
[2024-01-31 07:02] LABS: Glucose,Whole Blood 141 mg/dL (70-110)
[2024-01-31 12:45] LABS: Glucose,Whole Blood 227 mg/dL (70-110)
--- NOTE | 2024-01-31 13:35 | P.PN ---
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 She presented to the emergency department overnight on 01/23/2024 secondary to generalized weakness and fall at home. Upon arrival to our facility, patient underwent evaluation in the emergency department. Vital signs upon arrival show blood pressure 144/82, heart rate 109, respiratory rate 16, temp 90.1 F, and SpO2 of 99% on room air. Labs c ompleted and reviewed. CBC showing bicytopenia and neutropenia with WBC count of 1.5, hemoglobin of 10.5, and neutrophils of 0.44. Coags normal findings. BMP showing prerenal azotemia with BUN of 18. Lactic acid 1.4. Magnesium was low at 1.4. Liver profile unremarkable. Troponin negative at 0.014. Chest x- ray completed negative for acute cardiopulmonary process reporting a similar small focal density in the right when compared to previous x-ray completed 11/04/2023. CT head without contrast negative for acute intracranial process. EKG showing normal sinus rhythm at 90 bpm with no significant T wave or ST abnormalities showing no signs of acute ischemia. Patient was admitted under o ur services with consultation to hematology/oncology. Patient was empirically started on IV antibiotics with cefepime 2 g every 8 hours. Preliminary blood cultures resulting positive in 1 of 2 sets for gram negative bacilli, no need for change in antibiotics at this time pending final culture and sensitivity report. Infectious disease consulted. Blood cultures showing positive for Clostridium Paraputrificum. Infectious disease following and discussed plan of care with infectious disease physician and IV antibiotics changed from cefepime to Unasyn and order placed for CT abdomen and pelvis. CT abdomen and pelvis with IV contrast revealing neurogenic bladder versus bladder obstruction and un complicated cholelithiasis with nonobstructing left renal calculi. As stated above, blood cultures initially reporting positive for Clostridium Paraputrificum and have been corrected to Corynebacterium believed to be contaminant. Pending discharge to rehab Subjective: Patient seen and examined at bedside. No acute events overnight. No new complaints. Pertinent positives and negatives as discussed above, a complete review of systems was performed and all other systems are negative. Vitals Signs Reviewed. General: Nontoxic, no distress, appears at stated age Derm: Warm, dry, left anterior lower leg fluctuant lesion, not erythematous or tender Head: Atraumatic, normocephalic, symmetric Eyes: EOMI, no lid lag, anicteric sclera Mouth: No lip lesion, mucus membranes moist Cardiovascular: S1S2 reg, no murmur Lungs: CTA bilateral, no rhonchi, no rales, no accessory muscle use Abdominal: Soft, nontender to palpation, no guarding, no appreciable organomegaly Ext: No gross muscle atrophy, no edema, no contractures, right index PIP edema Neuro: CN II-XI grossly intact, no focal neuro deficits Psych: Alert, oriented, appropriate affect Data Reviewed Today: Pertinent Labs: WBC WBC 9.1, hemoglobin 8.9, platelet 337, potassium 3.2, magnesium 1.5, creatinine 0.47, blood sugars range between 1 17-2 14 Imaging: Hand x-ray showed no acute osseous pathology, multifocal osteoarthrosis, lower extremity x-ray showed focal soft tissue edema on the anterior leg without any foreign body or mass. Assessment and Plan: Severe neutropenia resolved after administration of Neupogen Clostridium Paraputrificum Bacteremia, corrected to Corynebacterium and likely contaminant Bicytopenia, likely chemotherapy-induced, improving Metastatic uterine cancer undergoing chemotherapy Generalized weakness and falls at home -Neutropenic precautions in Place -Antibiotics discontinued -ID following -Oncology following -Patient received Neupogen 480 mcg subcu daily for 2 days -PT/OT evaluated, recommending rehab. Right PIP swelling, likely secondary to osteoarthritis -Continue Tylenol as needed, can consider NSAIDs Left lower extremity swelling, secondary to trauma -Per patient, it is actually decreasing. 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 Hypertension - Continue daily medication regimen with atenolol 25 mg daily and lisinopril 2.5 mg daily. Hyperlipidemia - Continue daily medication regimen with atorvastatin 40 mg daily. History of CVAs with right upper extremity and left lower extremity deficits -Safe and supportive care. Fall precautions, PT/OT following, and patient to be provided with assistance as needed. -Patient was seen by neurology, was recommended to get an LP which patient refused, needs outpatient follow-up and EMG and nerve conduction studies -Also started on B6 supplement per neurology DVT ppx: Lovenox Code status: Full code Anticipated discharge place: Pending clinical course Anticipated discharge time: Pending clinical course Objective - Vital Signs Vital signs: Vital Signs Temp 97.6 F 01/31/24 12:42 Pulse 76 01/31/24 12:42 Resp 17 01/31/24 12:42 BP 149/82 01/31/24 12:42 Pulse Ox 98 01/31/24 12:42 FiO2 Intake & Output 01/30/24 01/31/24 01/31/24 18:59 06:59 18:59 Intake Total 480 650 Balance 480 650 Intake: Oral 480 650 Other: Voiding Method Toilet Toilet Toilet # Voids 1 2 2 # Bowel Movements 1 - Labs CBC & Chem 7: 01/31/24 03:31 01/31/24 03:31 Labs: Abnormal Lab Results - Last 24 Hours (Table) 01/30/24 01/30/24 01/31/24 Range/Units 17:34 20:51 03:31 RBC 3.17 L (3.80-5.40) m/uL Hgb 8.9 L (11.4-16.0) gm/dL Hct 28.7 L (34.0-46.0) % MCHC 30.9 L (31.0-37.0) g/dL RDW 17.7 H (11.5-15.5) % Potassium (3.5-5.1) mmol/L Chloride (98-107) mmol/L Creatinine (0.52-1.04) mg/dL Glucose (74-99) mg/dL POC Glucose (mg/dL) 144 H 214 H (70-110) mg/dL Magnesium (1.6-2.3) mg/dL 01/31/24 01/31/24 01/31/24 Range/Units 03:31 07:01 12:43 RBC (3.80-5.40) m/uL Hgb (11.4-16.0) gm/dL Hct (34.0-46.0) % MCHC (31.0-37.0) g/dL RDW (11.5-15.5) % Potassium 3.2 L (3.5-5.1) mmol/L Chloride 109 H (98-107) mmol/L Creatinine 0.47 L (0.52-1.04) mg/dL Glucose 117 H (74-99) mg/dL POC Glucose (mg/dL) 141 H 227 H (70-110) mg/dL Magnesium 1.5 L (1.6-2.3) mg/dL Microbiology - Last 24 Hours (Table) 01/27/24 14:49 Blood Culture - Preliminary Blood 01/25/24 09:24 Blood Culture - Final Blood
[2024-01-31] MEDS: MAGNESIUM SULFATE-D5W PMX 1 GM in DEXTROSE/WATER 1 100ML.BAG IVPB SCH (13:49)
[2024-01-31] MEDS: POTASSIUM CHLORIDE ER 20 MEQ TAB.ER PO STA (13:49)
--- NOTE | 2024-01-31 17:13 | P.PN ---
Subjective Progress Note Date: 01/30/24 Principal diagnosis: Reason for follow-up is bacteremia Patient is a 73-year-old female with a past medical history significant for hypertension hyperlipidemia metastatic uterine cancer with mets to the lungs patient was brought to the hospital for evaluation of weakness and apparently the patient did have a fall at home, patient blood culture initially reported as gram-negative bacilli however has been switched to Clostridium paraputrificum morning of 01/26/2024. However today's evaluation that is 01/30/2024, patient has been afebrile, patient is breathing comfortably and is currently on room air, patient denies having any significant cough no chest pain shortness of breath, patient denies nausea vomiting or diarrhea and no abdominal pain, feeling better. Patient white count is 18.85, creatinine 0.6 Objective - Vital Signs Vital signs: Vital Signs Temp 98.5 F 01/30/24 13:27 Pulse 88 01/30/24 13:27 Resp 16 01/30/24 13:27 BP 160/75 01/30/24 13:27 Pulse Ox 95 01/30/24 13:27 FiO2 Intake & Output 01/29/24 01/30/24 01/30/24 18:59 06:59 18:59 Intake Total 590 Balance 590 Intake: Oral 590 Other: Voiding Method Toilet Toilet Toilet # Voids 1 2 1 # Bowel Movements 1 - Exam GENERAL DESCRIPTION: An elderly female lying in bed in no distress RESPIRATORY SYSTEM: Unlabored breathing , decreased breath sounds at bases HEART: S1 S2 regular rate and rhythm , ABDOMEN: Soft , no tenderness EXTREMITIES: No edema feet - Labs CBC & Chem 7: 01/31/24 03:31 01/31/24 03:31 Labs: Abnormal Lab Results - Last 24 Hours (Table) 01/29/24 01/29/24 01/30/24 Range/Units 17:09 20:37 06:16 WBC 18.85 H (4.50-10.00) X 10*3/uL RBC 3.13 L (4.10-5.20) X 10*6/uL Hgb 8.9 L (12.0-15.0) g/dL Hct 28.3 L (37.2-46.3) % MCHC 31.4 L (32.0-37.0) g/dL RDW 18.5 H (11.5-14.5) % NRBC/100 WBC Diff 0.02 H (0.00-0.01) X 10*3/uL BUN (9.0-27.0) mg/dL BUN/Creatinine Ratio (12.00-20.00) Ratio Glucose (70-110) mg/dL POC Glucose (mg/dL) 163 H 205 H (70-110) mg/dL Magnesium (1.5-2.4) mg/dL Alkaline Phosphatase (41-126) U/L Total Protein (6.2-8.2) g/dL Albumin (3.8-4.9) g/dL Albumin/Globulin Ratio (1.60-3.17) Ratio 01/30/24 01/30/24 01/30/24 Range/Units 06:16 08:13 12:37 WBC (4.50-10.00) X 10*3/uL RBC (4.10-5.20) X 10*6/uL Hgb (12.0-15.0) g/dL Hct (37.2-46.3) % MCHC (32.0-37.0) g/dL RDW (11.5-14.5) % NRBC/100 WBC Diff (0.00-0.01) X 10*3/uL BUN 6.7 L (9.0-27.0) mg/dL BUN/Creatinine Ratio 11.17 L (12.00-20.00) Ratio Glucose 114 H (70-110) mg/dL POC Glucose (mg/dL) 138 H 219 H (70-110) mg/dL Magnesium 1.4 L (1.5-2.4) mg/dL Alkaline Phosphatase 130 H (41-126) U/L Total Protein 5.3 L (6.2-8.2) g/dL Albumin 3.1 L (3.8-4.9) g/dL Albumin/Globulin Ratio 1.41 L (1.60-3.17) Ratio Microbiology - Last 24 Hours (Table) 01/27/24 14:49 Blood Culture - Preliminary Blood Assessment and Plan (1) Bacteremia Current Visit: Yes Status: Acute Priority: High Code(s): R78.81 - BACTEREMIA SNOMED Code(s): 3522543 (2) Leukocytosis Current Visit: Yes Status: Acute Code(s): D72.829 - ELEVATED WHITE BLOOD CELL COUNT, UNSPECIFIED SNOMED Code(s): 358496879 Plan: 1patient with gram-negative bacteremia in this patient who did have a history of metastatic uterine cancer currently on chemotherapy brought into the hospital for weakness fall and some confusion patient did have a CT angiogram of the chest concerning for possible consolidation right middle lobe, blood culture was switched over to Clostridium and now has been finalized and as corynebacterium more likely skin contamination patient did have CT abdominal pelvis completed neurogenic bladder versus obstruction uncompleted cholelithiasis and nonobstructing left renal calculus no mention of any colitis or abscess 2-blood cultures more likely representing contamination, repeat blood cultures have been negative, Unasyn discontinued 3-leukocytosis more likely drug-related and will be monitored closely Dictation was produced using Sequence dictation software. please excuse any grammatical, word or spelling errors.
--- NOTE | 2024-01-31 17:14 | P.PN ---
Subjective Progress Note Date: 01/31/24 Principal diagnosis: Reason for follow-up is bacteremia Patient is a 73-year-old female with a past medical history significant for hypertension hyperlipidemia metastatic uterine cancer with mets to the lungs patient was brought to the hospital for evaluation of weakness and apparently the patient did have a fall at home, patient blood culture initially reported as gram-negative bacilli however has been switched to Clostridium paraputrificum morning of 01/26/2024. However today's evaluation that is 01/31/2024,the patient denies any fever or any chills, patient is breathing comfortably on room air, the patient denies chest pain shortness of breath and no significant cough, patient denies abdominal pain, no nausea vomiting or diarrhea. Patient has been complaining of swelling mostly to the right index finger no significant pain or discomfort, no open wound. Patient white count normal at 9.1 creatinine 0.47, repeat blood culture has been negative Objective - Vital Signs Vital signs: Vital Signs Temp 97.6 F 01/31/24 12:42 Pulse 76 01/31/24 12:42 Resp 17 01/31/24 12:42 BP 149/82 01/31/24 12:42 Pulse Ox 98 01/31/24 12:42 FiO2 Intake & Output 01/30/24 01/31/24 01/31/24 18:59 06:59 18:59 Intake Total 480 650 Balance 480 650 Intake: Oral 480 650 Other: Voiding Method Toilet Toilet Toilet # Voids 1 2 2 # Bowel Movements 1 - Exam GENERAL DESCRIPTION: An elderly female lying in bed in no distress RESPIRATORY SYSTEM: Unlabored breathing , decreased breath sounds at bases HEART: S1 S2 regular rate and rhythm , ABDOMEN: Soft , no tenderness EXTREMITIES: No edema feet - Labs CBC & Chem 7: 01/31/24 03:31 01/31/24 03:31 Labs: Abnormal Lab Results - Last 24 Hours (Table) 01/30/24 01/30/24 01/31/24 Range/Units 17:34 20:51 03:31 RBC 3.17 L (3.80-5.40) m/uL Hgb 8.9 L (11.4-16.0) gm/dL Hct 28.7 L (34.0-46.0) % MCHC 30.9 L (31.0-37.0) g/dL RDW 17.7 H (11.5-15.5) % Potassium (3.5-5.1) mmol/L Chloride (98-107) mmol/L Creatinine (0.52-1.04) mg/dL Glucose (74-99) mg/dL POC Glucose (mg/dL) 144 H 214 H (70-110) mg/dL Magnesium (1.6-2.3) mg/dL 01/31/24 01/31/24 01/31/24 Range/Units 03:31 07:01 12:43 RBC (3.80-5.40) m/uL Hgb (11.4-16.0) gm/dL Hct (34.0-46.0) % MCHC (31.0-37.0) g/dL RDW (11.5-15.5) % Potassium 3.2 L (3.5-5.1) mmol/L Chloride 109 H (98-107) mmol/L Creatinine 0.47 L (0.52-1.04) mg/dL Glucose 117 H (74-99) mg/dL POC Glucose (mg/dL) 141 H 227 H (70-110) mg/dL Magnesium 1.5 L (1.6-2.3) mg/dL Microbiology - Last 24 Hours (Table) 01/27/24 14:49 Blood Culture - Preliminary Blood 01/25/24 09:24 Blood Culture - Final Blood Assessment and Plan (1) Bacteremia Current Visit: Yes Status: Acute Priority: High Code(s): R78.81 - BACTEREMIA SNOMED Code(s): 0279287 (2) Leukocytosis Current Visit: Yes Status: Acute Code(s): D72.829 - ELEVATED WHITE BLOOD CELL COUNT, UNSPECIFIED SNOMED Code(s): 773005233 Plan: 1patient with gram-negative bacteremia in this patient who did have a history of metastatic uterine cancer currently on chemotherapy brought into the hospital for weakness fall and some confusion patient did have a CT angiogram of the chest concerning for possible consolidation right middle lobe, blood culture was switched over to Clostridium and now has been finalized and as corynebacterium more likely skin contamination patient did have CT abdominal pelvis completed neurogenic bladder versus obstruction uncompleted cholelithiasis and nonobstructing left renal calculus no mention of any colitis or abscess 2-blood cultures more likely representing contamination, repeat blood cultures have been negative, Unasyn discontinued 3-patient did have resolution of the white count and will be monitored closely 4-swelling and pain to the index finger question of gout may benefit from colchicine check uric acid level Dictation was produced using Layer[employer]oomation software. please excuse any grammatical, word or spelling errors. Time with Patient: Less than 30
[2024-01-31 17:23] LABS: Glucose,Whole Blood 198 mg/dL (70-110)
[2024-01-31 20:10] LABS: Glucose,Whole Blood 119 mg/dL (70-110)
[2024-01-31] MEDS: COLCHICINE 0.6 MG EACH PO SCH (20:41)
[2024-02-01 07:04] LABS: Glucose,Whole Blood 146 mg/dL (70-110)
[2024-02-01 09:18] LABS: Anisocytosis Slight; Basophils % (A) 1 %; Eosinophils # (A) 0.1 k/uL (0-0.7); Eosinophils % (A) 2 %; HCT 31.7 % (34.0-46.0); Hypochromasia Slight; Lymphocytes # (A) 0.8 k/uL (1.0-4.8); Lymphocytes % (A) 18 %; MCH 28.5 pg (25.0-35.0); MCHC 31.4 g/dL (31.0-37.0); MCV 90.7 fL (80.0-100.0); Mean Platelet Volume 8.4; Monocytes # (A) 0.6 k/uL (0-1.0); Monocytes % (A) 14 %; Neutrophils # (A) 2.9 k/uL (1.3-7.7); Neutrophils % (A) 64 %; Platelet Count 351 k/uL (150-450); RDW 17.8 % (11.5-15.5); WBC 4.5 k/uL (3.8-10.6)
[2024-02-01 11:55] LABS: African American GFR (CKD) >90 (>60 ml/min/1.73 sqM); Anion Gap 7 mmol/L; Blood Urea Nitrogen 7 mg/dL (7-17); Calcium 8.8 mg/dL (8.4-10.2); Carbon Dioxide 23 mmol/L (22-30); Chloride 107 mmol/L (98-107); Glucose 155 mg/dL (74-99); Magnesium 1.3 mg/dL (1.6-2.3); Non-African American GFR(CKD) >90 (>60 ml/min/1.73 sqM); Potassium 3.8 mmol/L (3.5-5.1); Sodium 137 mmol/L (137-145); Uric Acid 5.4 mg/dL (3.7-7.4)
[2024-02-01 12:39] LABS: Glucose,Whole Blood 197 mg/dL (70-110)
--- NOTE | 2024-02-01 14:49 | P.PN ---
Subjective Progress Note Date: 02/01/24 Principal diagnosis: Weakness, neutropenia, endometrial carcinoma, on treatment In f/u today pt is stable, she is wanting to get moving. Her only persistent c/o is the decrease ROM and weakness in her rt arm, she was placed on gout medicine because of swelling and numbness in the metatarsal joint of the index finger of the rt hand-she reports that is better today. No fevers, nausea, she is tolerating oral intake she will have a small amt of stool in her brief once in a while. Objective - Vital Signs Vital signs: Vital Signs Temp 97.9 F 02/01/24 12:30 Pulse 104 H 02/01/24 12:30 Resp 17 02/01/24 12:30 BP 163/90 02/01/24 12:30 Pulse Ox 98 02/01/24 12:30 FiO2 Intake & Output 01/31/24 02/01/24 02/01/24 18:59 06:59 18:59 Intake Total 0 Balance 0 Intake: Oral 0 Other: Voiding Method Toilet Toilet # Voids 1 3 1 # Bowel Movements 1 - Constitutional General appearance: Present: average body habitus, cooperative, no acute distress - EENT Eyes: Present: anicteric sclerae, EOMI ENT: Present: hearing grossly normal - Respiratory Details: resp even and unlabored at rest - Cardiovascular Details: skin warm and dry - Peripheral edema leg Peripheral Edema: bilateral: Trace - Integumentary Integumentary: Present: pale - Neurologic Neurologic: Present: CNII-XII intact (grossly) - Musculoskeletal Musculoskeletal Comment(s): RUE weakness, cannot raise arm above shoulder due to weakness and pain, pain at the top of the scapula - Psychiatric Psychiatric: Present: A&O x's 3, appropriate affect, intact judgment & insight - Labs CBC & Chem 7: 02/01/24 08:06 02/01/24 08:06 Labs: Abnormal Lab Results - Last 24 Hours (Table) 01/31/24 01/31/24 02/01/24 Range/Units 17:22 20:08 07:03 RBC (3.80-5.40) m/uL Hgb (11.4-16.0) gm/dL Hct (34.0-46.0) % RDW (11.5-15.5) % Lymphocytes # (1.0-4.8) k/uL Creatinine (0.52-1.04) mg/dL Glucose (74-99) mg/dL POC Glucose (mg/dL) 198 H 119 H 146 H (70-110) mg/dL Magnesium (1.6-2.3) mg/dL 02/01/24 02/01/24 02/01/24 Range/Units 08:06 08:06 12:33 RBC 3.50 L (3.80-5.40) m/uL Hgb 10.0 L (11.4-16.0) gm/dL Hct 31.7 L (34.0-46.0) % RDW 17.8 H (11.5-15.5) % Lymphocytes # 0.8 L (1.0-4.8) k/uL Creatinine 0.48 L (0.52-1.04) mg/dL Glucose 155 H (74-99) mg/dL POC Glucose (mg/dL) 197 H (70-110) mg/dL Magnesium 1.3 L (1.6-2.3) mg/dL Assessment and Plan (1) Neurological deficit present Current Visit: Yes Status: Resolved Priority: High Code(s): R29.818 - OTHER SYMPTOMS AND SIGNS INVOLVING THE NERVOUS SYSTEM SNOMED Code(s): 483144964 (2) Bicytopenia Current Visit: Yes Status: Acute Priority: High Code(s): D75.89 - OTHER SPECIFIED DISEASES OF BLOOD AND BLOOD-FORMING ORGANS SNOMED Code(s): 92012289 (3) Endometrial carcinoma Current Visit: Yes Status: Chronic Priority: Medium Code(s): C54.1 - MALIGNANT NEOPLASM OF ENDOMETRIUM SNOMED Code(s): 218551209 Plan: Neurological deficit -Dizziness, weakness and fall on admission-persistent, recently progressive symptoms. Associated with some increased confusion, and jumbled speech. Resolved, only residual is RUE unable to raise above shouler. C spine MRI did not show any pathology for the same. D/W Attending-possibly MRI shoulder outpt -MRI brain 01/19/[address] of the brain on admission no acute findings. -Neurology did see pt, appreciate evaluation -Likely 2/2 infection as pt improved with abx. Positive blood cultures -ID following, abx discontinued Chemotherapy-induced bicytopenia -Hemoglobin 10, Leukopenia resolved. Pt did get 2 doses of GCSF Endometrial carcinoma -Metastatic disease in lungs. -Patient recently started on carboplatin and Taxol with palliative intent. Jemperli was added to cycle 3. She completed 4 cycles 01/13/2024. -Patient has overall done fairly well with treatment thus far -CTA of the chest was ordered for worsening shortness of breath and palpitations with a cough. No PE, pneumonitis or other acute pulmonary process reported. It was however noted that metastatic disease seen on prior CT dated 01/03/2024 was significantly improved! These results were previously reviewed with the patient. Her family was contacted last week and imaging and hospital course were summarized. -No treatment for malignancy until pt completes rehab -F/U with Primary Onc after DC from rehab to assess and see if pt improved enough to proceed with any further treatment ECHO reported LVEF 55 to 60%, grade 1 diastolic dysfunction. -Thyroid panel and cortisol normal
--- NOTE | 2024-02-01 15:49 | P.PN ---
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 She presented to the emergency department overnight on 01/23/2024 secondary to generalized weakness and fall at home. Upon arrival to our facility, patient underwent evaluation in the emergency department. Vital signs upon arrival show blood pressure 144/82, heart rate 109, respiratory rate 16, temp 90.1 F, and SpO2 of 99% on room air. Labs c ompleted and reviewed. CBC showing bicytopenia and neutropenia with WBC count of 1.5, hemoglobin of 10.5, and neutrophils of 0.44. Coags normal findings. BMP showing prerenal azotemia with BUN of 18. Lactic acid 1.4. Magnesium was low at 1.4. Liver profile unremarkable. Troponin negative at 0.014. Chest x- ray completed negative for acute cardiopulmonary process reporting a similar small focal density in the right when compared to previous x-ray completed 11/04/2023. CT head without contrast negative for acute intracranial process. EKG showing normal sinus rhythm at 90 bpm with no significant T wave or ST abnormalities showing no signs of acute ischemia. Patient was admitted under o ur services with consultation to hematology/oncology. Patient was empirically started on IV antibiotics with cefepime 2 g every 8 hours. Preliminary blood cultures resulting positive in 1 of 2 sets for gram negative bacilli, no need for change in antibiotics at this time pending final culture and sensitivity report. Infectious disease consulted. Blood cultures showing positive for Clostridium Paraputrificum. Infectious disease following and discussed plan of care with infectious disease physician and IV antibiotics changed from cefepime to Unasyn and order placed for CT abdomen and pelvis. CT abdomen and pelvis with IV contrast revealing neurogenic bladder versus bladder obstruction and un complicated cholelithiasis with nonobstructing left renal calculi. As stated above, blood cultures initially reporting positive for Clostridium Paraputrificum and have been corrected to Corynebacterium believed to be contaminant. Pending discharge to rehab. Subjective: Patient seen and examined at bedside. No acute events overnight. No new complaints. Pertinent positives and negatives as discussed above, a complete review of systems was performed and all other systems are negative. Vitals Signs Reviewed. General: Nontoxic, no distress, appears at stated age Derm: Warm, dry, left anterior lower leg fluctuant lesion, not erythematous or tender Head: Atraumatic, normocephalic, symmetric Eyes: EOMI, no lid lag, anicteric sclera Mouth: No lip lesion, mucus membranes moist Cardiovascular: S1S2 reg, no murmur Lungs: CTA bilateral, no rhonchi, no rales, no accessory muscle use Abdominal: Soft, nontender to palpation, no guarding, no appreciable organomegaly Ext: No gross muscle atrophy, no edema, no contractures, right index PIP edema Neuro: CN II-XI grossly intact, no focal neuro deficits Psych: Alert, oriented, appropriate affect Data Reviewed Today: Pertinent Labs: WBC 4.5, hemoglobin 10, platelets 351, creatinine 0.48, magnesium 1.3, glucose range between 1 46-1 97 Imaging: Hand x-ray showed no acute osseous pathology, multifocal osteoarthrosis, lower extremity x-ray showed focal soft tissue edema on the anterior leg without any foreign body or mass. Assessment and Plan: Severe neutropenia resolved after administration of Neupogen Clostridium Paraputrificum Bacteremia, corrected to Corynebacterium and likely contaminant Bicytopenia, likely chemotherapy-induced, improving Metastatic uterine cancer undergoing chemotherapy Generalized weakness and falls at home -Neutropenic precautions in Place -Antibiotics discontinued -ID following -Oncology following -Patient received Neupogen 480 mcg subcu daily for 2 days -PT/OT evaluated, recommending rehab. Right PIP swelling, likely secondary to osteoarthritis -Continue Tylenol as needed, can consider NSAIDs Left lower extremity swelling, secondary to trauma -Per patient, it is actually decreasing. 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 Hypertension - Continue daily medication regimen with atenolol 25 mg daily and lisinopril 2.5 mg daily. Hyperlipidemia - Continue daily medication regimen with atorvastatin 40 mg daily. History of CVAs with right upper extremity and left lower extremity deficits -Safe and supportive care. Fall precautions, PT/OT following, and patient to be provided with assistance as needed. -Patient was seen by neurology, was recommended to get an LP which patient refus ed, needs outpatient follow-up and EMG and nerve conduction studies -Also started on B6 supplement per neurology -Discussed management with oncology, possibly right upper extremity weakness secondary to rotator cuff injury from crawling on the floor after recent fall. May benefit from outpatient orthopedic surgery follow-up. DVT ppx: Lovenox Code status: Full code Anticipated discharge place: Pending clinical course Anticipated discharge time: Pending clinical course Objective - Vital Signs Vital signs: Vital Signs Temp 97.9 F 02/01/24 12:30 Pulse 104 H 02/01/24 12:30 Resp 17 02/01/24 12:30 BP 163/90 02/01/24 12:30 Pulse Ox 98 02/01/24 12:30 FiO2 Intake & Output 01/31/24 02/01/24 02/01/24 18:59 06:59 18:59 Intake Total 0 Balance 0 Weight 80.286 kg Intake: Oral 0 Other: Voiding Method Toilet Toilet # Voids 1 3 1 # Bowel Movements 1 - Labs CBC & Chem 7: 02/01/24 08:06 02/01/24 08:06 Labs: Abnormal Lab Results - Last 24 Hours (Table) 01/31/24 01/31/24 02/01/24 Range/Units 17:22 20:08 07:03 RBC (3.80-5.40) m/uL Hgb (11.4-16.0) gm/dL Hct (34.0-46.0) % RDW (11.5-15.5) % Lymphocytes # (1.0-4.8) k/uL Creatinine (0.52-1.04) mg/dL Glucose (74-99) mg/dL POC Glucose (mg/dL) 198 H 119 H 146 H (70-110) mg/dL Magnesium (1.6-2.3) mg/dL 02/01/24 02/01/24 02/01/24 Range/Units 08:06 08:06 12:33 RBC 3.50 L (3.80-5.40) m/uL Hgb 10.0 L (11.4-16.0) gm/dL Hct 31.7 L (34.0-46.0) % RDW 17.8 H (11.5-15.5) % Lymphocytes # 0.8 L (1.0-4.8) k/uL Creatinine 0.48 L (0.52-1.04) mg/dL Glucose 155 H (74-99) mg/dL POC Glucose (mg/dL) 197 H (70-110) mg/dL Magnesium 1.3 L (1.6-2.3) mg/dL
[2024-02-01] MEDS: MAGNESIUM SULFATE-D5W PMX 1 GM in DEXTROSE/WATER 1 100ML.BAG IVPB SCH (15:59)
--- NOTE | 2024-02-01 17:10 | XR ---
EXAMINATION TYPE: XR shoulder complete RT DATE OF EXAM: 02/01/2024 COMPARISON: NONE HISTORY: Pain TECHNIQUE: Shoulder examined in 3 projections. FINDINGS: The humeral head articulates with the glenoid. The acromio-clavicular junction has degenerative hypertrophic changes. Downward sloping acromion. No acute fractures or dislocations are evident. A follow up study can be performed 7-10 days from acute trauma for continued pain. MRI can be perfor med if soft tissue evaluation would be of benefit. IMPRESSION: 1. No acute osseous shoulder abnormality. Hypertrophic changes at the acromioclavicular joint be dege nerative in nature.
[2024-02-01 17:18] LABS: Glucose,Whole Blood 172 mg/dL (70-110)
[2024-02-01 20:21] LABS: Glucose,Whole Blood 224 mg/dL (70-110)
[2024-02-02 07:24] LABS: Glucose,Whole Blood 174 mg/dL (70-110)
[2024-02-02 08:40] LABS: Anisocytosis Slight; Basophils # (A) 0.1 k/uL (0-0.2); Basophils % (A) 1 %; Eosinophils # (A) 0.1 k/uL (0-0.7); Eosinophils % (A) 1 %; HCT 31.7 % (34.0-46.0); HGB 9.8 gm/dL (11.4-16.0); Hypochromasia Slight; Lymphocytes # (A) 0.9 k/uL (1.0-4.8); Lymphocytes % (A) 20 %; MCH 27.7 pg (25.0-35.0); MCHC 30.8 g/dL (31.0-37.0); MCV 89.8 fL (80.0-100.0); Mean Platelet Volume 8.4; Monocytes # (A) 0.5 k/uL (0-1.0); Monocytes % (A) 11 %; Neutrophils # (A) 2.8 k/uL (1.3-7.7); Neutrophils % (A) 64 %; Platelet Count 369 k/uL (150-450); RBC 3.53 m/uL (3.80-5.40); RDW 17.8 % (11.5-15.5); WBC 4.3 k/uL (3.8-10.6)
[2024-02-02 08:46] VITALS: RESP 20
[2024-02-02 08:59] LABS: African American GFR (CKD) >90 (>60 ml/min/1.73 sqM); Anion Gap 7 mmol/L; Blood Urea Nitrogen 5 mg/dL (7-17); Calcium 8.7 mg/dL (8.4-10.2); Carbon Dioxide 28 mmol/L (22-30); Chloride 105 mmol/L (98-107); Glucose 157 mg/dL (74-99); Magnesium 1.6 mg/dL (1.6-2.3); Non-African American GFR(CKD) >90 (>60 ml/min/1.73 sqM); Potassium 3.6 mmol/L (3.5-5.1); Sodium 140 mmol/L (137-145)
[2024-02-02] MEDS: IBUPROFEN 600 MG TAB PO PRN (09:41)
--- NOTE | 2024-02-02 10:54 | P.DS ---
Providers Date of admission: 01/24/24 00:14 Expected date of discharge: 02/02/24 Attending physician: Kerrie Gipson MD Consults: 01/24/24 00:14 Consult Physician Routine Consulting Provider: Bg Batista Consult Reason/Comments: weakness, neutropenia Do you want consulting provider notified?: Yes 01/24/24 17:37 Consult Physician Routine Consulting Provider: Candelario Warren Consult Reason/Comments: dysarthia, confusion, RUE weakness Do you want consulting provider notified?: Yes 01/25/24 08:35 Consult Physician Routine Consulting Provider: Fern Pollard Consult Reason/Comments: Neutropenic with positive blood culture Do you want consulting provider notified?: Yes Primary care physician: Domingo Mcclain [facility] Hospital Course: Discharge Diagnosis: Severe neutropenia resolved after administration of Neupogen Bacteremia, contaminant Bicytopenia, likely chemotherapy-induced Metastatic uterine cancer undergoing chemotherapy Generalized weakness and falls at home Suspected right rotator cuff injury History of CVA with right upper extremity and left lower extremity deficits Suspected polyneuropathy Acute gout flareup Hypomagnesemia Hypokalemia Type 2 diabetes with hyperglycemia Anxiety with depression Hypertension Dyslipidemia Hospital Course: Patient is a 73-year-old female with a past medical history of hypertension, hyperlipidemia, hypothyroidism, 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 She presented to the emergency department overnight on 01/23/2024 secondary to generalized weakness and fall at home. Upon arrival to our facility, patient underwent evaluation in the emergency department. Vital signs upon arrival show blood pressure 144/82, heart rate 109, respiratory rate 16, temp 90.1 F, and SpO2 of 99% on room air. Labs completed and reviewed. CBC showing bicytopenia and neutropenia with WBC count of 1.5, hemoglobin of 10.5, and neutrophils of 0.44. Coags normal findings. BMP showing prerenal azotemia with BUN of 18. Lactic acid 1.4. Magnesium was low at 1.4. Liver profile unremarkable. Troponin negative at 0.014. Chest x-ray completed negative for acute cardiopulmonary process reporting a similar small focal density in the right when compared to previous x-ray completed 11/04/2023. CT head without contrast negative for acute intracranial process. EKG showing normal sinus rhythm at 90 bpm with no significant T wave or ST abnormalities showing no signs of acute ischemia. Patient was admitted under our services with consultation to he matology/oncology. Patient was empirically started on IV antibiotics with cefepime 2 g every 8 hours. Preliminary blood cultures resulting positive in 1 of 2 sets for gram negative bacilli, no need for change in antibiotics at this time pending final culture and sensitivity report. Infectious disease consulted. Blood cultures showing positive for Clostridium Paraputrificum. Infectious disease following and discussed plan of care with infectious disease physician and IV antibiotics changed from cefepime to Unasyn and order placed for CT abdomen and pelvis. CT abdomen and pelvis with IV contrast revealing neurogenic bladder versus bladder obstruction and uncomplicated cholelithiasis with nonobstructing left renal calculi. As stated above, blood cultures initially reporting positive for Clostridium Paraputrificum and have been corrected to Corynebacterium believed to be contaminant. Patient did have lower extremity weakness and right upper extremity weakness. Neurology evaluated patient. Cervical MRI was completed, which showed motion limited exam, no evidence of significant spinal canal stenosis. LP was recommended by neurology however patient declined. She she will need to follow-up with neurology for outpatient EMG and nerve conduction studies especially for her right upper extremity. There is also possibility of rotator cuff injury of right shoulder, outpatient follow-up with orthopedic surgery recommended. For gout flareup patient started on colchicine and indomethacin. Patient seen and examined at bedside. Vital signs reviewed and stable. General: Nontoxic, no distress, appears at stated age Derm: Warm, dry, left anterior lower leg fluctuant lesion, not erythematous or tender Head: Atraumatic, normocephalic, symmetric Eyes: EOMI, no lid lag, anicteric sclera Mouth: No lip lesion, mucus membranes moist Cardiovascular: S1S2 reg, no murmur Lungs: CTA bilateral, no rhonchi, no rales, no accessory muscle use Abdominal: Soft, nontender to palpation, no guarding, no appreciable organomegaly Ext: No gross muscle atrophy, no edema, no contractures, right index PIP edema, and left first digit PIP edema Neuro: CN II-XI grossly intact, no focal neuro deficits Psych: Alert, oriented, appropriate affect A total of 33 minutes of time were spent preparing this complex discharge summary. Patient was discharged on 02/02/2024 at 927. Patient Condition at Discharge: Stable Plan - Discharge Summary Discharge Rx Participant: Yes New Discharge Prescriptions: New Magnesium Oxide [Mag-Ox] 400 mg PO DAILY tab Cyanocobalamin [Vitamin B-12] 1,000 mcg PO DAILY tab Pyridoxine [Vitamin B-6] 50 mg PO DAILY tab Indomethacin [Indocin] 25 mg PO BID #14 capsule Colchicine [Colcrys] 0.6 mg PO BID each Acetaminophen Tab [Tylenol] 1,000 mg PO Q8HR PRN tab PRN Reason: Fever And/ Or Pain Continue Vortioxetine Hydrobromide [Trintellix] 20 mg PO DAILY metFORMIN HCL [Glucophage] 1,000 mg PO BID lisinopriL [Zestril] 2.5 mg PO PC-LUNCH traZODone HCL [Desyrel] 100 mg PO HS Atorvastatin [Lipitor] 40 mg PO DAILY atenoloL [Tenormin] 25 mg PO PC-LUNCH glyBURIDE [Diabeta] 5 mg PO AC-BID Ondansetron [Zofran] 4 - 8 mg PO Q4H PRN PRN Reason: Nausea And Vomiting Multivit-Min/Iron/Folic/Lutein [Centrum Silver Women Tablet] 1 tab PO DAILY Discharge Medication List Atorvastatin [Lipitor] 40 mg PO DAILY 10/15/23 [History] Vortioxetine Hydrobromide [Trintellix] 20 mg PO DAILY 10/15/23 [History] atenoloL [Tenormin] 25 mg PO PC-LUNCH 10/15/23 [History] lisinopriL [Zestril] 2.5 mg PO PC-LUNCH 10/15/23 [History] metFORMIN HCL [Glucophage] 1,000 mg PO BID 10/15/23 [History] traZODone HCL [Desyrel] 100 mg PO HS 10/15/23 [History] Multivit-Min/Iron/Folic/Lutein [Centrum Silver Women Tablet] 1 tab PO DAILY 01/24/24 [History] Ondansetron [Zofran] 4 - 8 mg PO Q4H PRN 01/24/24 [History] glyBURIDE [Diabeta] 5 mg PO AC-BID 01/24/24 [History] Acetaminophen Tab [Tylenol] 1,000 mg PO Q8HR PRN tab 02/02/24 [Rx] Colchicine [Colcrys] 0.6 mg PO BID each 02/02/24 [Rx] Cyanocobalamin [Vitamin B-12] 1,000 mcg PO DAILY tab 02/02/24 [Rx] Indomethacin [Indocin] 25 mg PO BID #14 capsule 02/02/24 [Rx] Magnesium Oxide [Mag-Ox] 400 mg PO DAILY tab 02/02/24 [Rx] Pyridoxine [Vitamin B-6] 50 mg PO DAILY tab 02/02/24 [Rx] Follow up Appointment(s)/Referral(s): Bg Batista [STAFF PHYSICIAN] - 02/12/24 11:30 am Meghna Suarez MD [REFERRING] - 1 Week Domingo Anna MD [Primary Care Provider] - 1-2 days Nilay Maldonado MD [Medical Doctor] - 1 Week Patient Instructions/Handouts: Rotator Cuff Injury (DC), Gout (GEN), Peripheral Neuropathy (GEN), Fall Prevention (DC) Activity/Diet/Wound Care/Special Instructions: Please see orthopedic, neurology, PCP and oncology. [facility] [address] [address] Discharge Disposition: TRANSFER TO SNF/ECF
[2024-02-02 12:10] LABS: Glucose,Whole Blood 236 mg/dL (70-110)
[2024-02-02 13:30] VITALS: BP 186/85; PULSE 82; TEMP 98
--- NOTE | 2024-02-02 15:23 | P.PN ---
Subjective Progress Note Date: 02/01/24 Principal diagnosis: Reason for follow-up is bacteremia Patient is a 73-year-old female with a past medical history significant for hypertension hyperlipidemia metastatic uterine cancer with mets to the lungs patient was brought to the hospital for evaluation of weakness and apparently the patient did have a fall at home, patient blood culture initially reported as gram-negative bacilli however has been switched to Clostridium paraputrificum morning of 01/26/2024. However today's evaluation that is 02/01/2024,the patient remains to be afebrile, patient is on room air not requiring supplemental oxygen and denies any shortness of breath no chest pain or cough.Patient denies having any nausea or vomiting, no abdominal pain and no diarrhea has been reported, the patient swelling to the right index finger has decreased Patient did have white count of 4.5, creatinine 0.48 uric acid is 5.4 Objective - Vital Signs Vital signs: Vital Signs Temp 97.9 F 02/01/24 12:30 Pulse 104 H 02/01/24 12:30 Resp 17 02/01/24 12:30 BP 163/90 02/01/24 12:30 Pulse Ox 98 02/01/24 12:30 FiO2 Intake & Output 01/31/24 02/01/24 02/01/24 18:59 06:59 18:59 Intake Total 0 Balance 0 Intake: Oral 0 Other: Voiding Method Toilet Toilet # Voids 1 3 1 # Bowel Movements 1 - Exam GENERAL DESCRIPTION: An elderly female lying in bed in no distress RESPIRATORY SYSTEM: Unlabored breathing , decreased breath sounds at bases HEART: S1 S2 regular rate and rhythm , ABDOMEN: Soft , no tenderness EXTREMITIES: No edema feet - Labs CBC & Chem 7: 02/02/24 07:07 02/02/24 07:07 Labs: Abnormal Lab Results - Last 24 Hours (Table) 01/31/24 01/31/24 02/01/24 Range/Units 17:22 20:08 07:03 RBC (3.80-5.40) m/uL Hgb (11.4-16.0) gm/dL Hct (34.0-46.0) % RDW (11.5-15.5) % Lymphocytes # (1.0-4.8) k/uL Creatinine (0.52-1.04) mg/dL Glucose (74-99) mg/dL POC Glucose (mg/dL) 198 H 119 H 146 H (70-110) mg/dL Magnesium (1.6-2.3) mg/dL 02/01/24 02/01/24 02/01/24 Range/Units 08:06 08:06 12:33 RBC 3.50 L (3.80-5.40) m/uL Hgb 10.0 L (11.4-16.0) gm/dL Hct 31.7 L (34.0-46.0) % RDW 17.8 H (11.5-15.5) % Lymphocytes # 0.8 L (1.0-4.8) k/uL Creatinine 0.48 L (0.52-1.04) mg/dL Glucose 155 H (74-99) mg/dL POC Glucose (mg/dL) 197 H (70-110) mg/dL Magnesium 1.3 L (1.6-2.3) mg/dL Assessment and Plan (1) Bacteremia Status: Acute Priority: High Code(s): R78.81 - BACTEREMIA SNOMED Code(s): 0754669 (2) Leukocytosis Status: Acute Code(s): D72.829 - ELEVATED WHITE BLOOD CELL COUNT, UNSPECIFIED SNOMED Code(s): 535235860 Plan: 1patient with gram-negative bacteremia in this patient who did have a history of metastatic uterine cancer currently on chemotherapy brought into the hospital for weakness fall and some confusion patient did have a CT angiogram of the chest concerning for possible consolidation right middle lobe, blood culture was switched over to Clostridium and now has been finalized and as corynebacterium more likely skin contamination patient did have CT abdominal pelvis completed neurogenic bladder versus obstruction uncompleted cholelithiasis and nonobstructing left renal calculus no mention of any colitis or abscess 2-blood cultures more likely representing contamination, repeat blood cultures have been negative, Unasyn discontinued 3-patient did have resolution of the leukocytosis culture has been negative 4-swelling and pain to the index finger question of gout uric acid level normal, patient started on indomethacin Dictation was produced using [employer] dictation software. please excuse any grammatical, word or spelling errors. Time with Patient: Less than 30
--- NOTE | 2024-02-02 15:24 | P.PN ---
Subjective Progress Note Date: 02/02/24 Principal diagnosis: Reason for follow-up is bacteremia Patient is a 73-year-old female with a past medical history significant for hypertension hyperlipidemia metastatic uterine cancer with mets to the lungs patient was brought to the hospital for evaluation of weakness and apparently the patient did have a fall at home, patient blood culture initially reported as gram-negative bacilli however has been switched to Clostridium paraputrificum morning of 01/26/2024. However today's evaluation that is 02/02/2024, the patient continues to be afebrile, the patient is on room air and breathing comfortably, the Pt denies having any chest pain or cough, the patient denies having any abdominal pain no vomiting or any diarrhea has been reported by the nursing staff, patient redness and swelling to the right index finger did improve however not developing similar symptoms to the left index finger area. Patient white count is 4.3 creatinine 0.45 Objective - Vital Signs Vital signs: Vital Signs Temp 98.0 F 02/02/24 12:51 Pulse 82 02/02/24 12:51 Resp 20 02/02/24 12:51 BP 186/85 02/02/24 12:51 Pulse Ox 100 02/02/24 12:51 FiO2 Intake & Output 02/01/24 02/02/24 02/02/24 18:59 06:59 18:59 Intake Total 340 Balance 340 Weight 80.286 kg Intake: Intake, IV Titration 100 Amount Magnesium Sulfate-D5w Pmx 100 1 gm In Dextrose/Water 1 100ml.bag @ 100 mls/hr IVPB Q1H MARÍA Rx#: [id number] Oral 240 Other: Voiding Method Toilet Toilet # Voids 1 2 1 - Exam GENERAL DESCRIPTION: An elderly female lying in bed in no distress RESPIRATORY SYSTEM: Unlabored breathing , decreased breath sounds at bases HEART: S1 S2 regular rate and rhythm , ABDOMEN: Soft , no tenderness EXTREMITIES: No edema feet - Labs CBC & Chem 7: 02/02/24 07:07 02/02/24 07:07 Labs: Abnormal Lab Results - Last 24 Hours (Table) 02/01/24 02/01/24 02/02/24 Range/Units 17:16 20:19 07:07 RBC 3.53 L (3.80-5.40) m/uL Hgb 9.8 L (11.4-16.0) gm/dL Hct 31.7 L (34.0-46.0) % MCHC 30.8 L (31.0-37.0) g/dL RDW 17.8 H (11.5-15.5) % Lymphocytes # 0.9 L (1.0-4.8) k/uL BUN (7-17) mg/dL Creatinine (0.52-1.04) mg/dL Glucose (74-99) mg/dL POC Glucose (mg/dL) 172 H 224 H (70-110) mg/dL 02/02/24 02/02/24 02/02/24 Range/Units 07:07 07:22 12:08 RBC (3.80-5.40) m/uL Hgb (11.4-16.0) gm/dL Hct (34.0-46.0) % MCHC (31.0-37.0) g/dL RDW (11.5-15.5) % Lymphocytes # (1.0-4.8) k/uL BUN 5 L (7-17) mg/dL Creatinine 0.45 L (0.52-1.04) mg/dL Glucose 157 H (74-99) mg/dL POC Glucose (mg/dL) 174 H 236 H (70-110) mg/dL Microbiology - Last 24 Hours (Table) 01/27/24 14:49 Blood Culture - Final Blood Assessment and Plan (1) Bacteremia Status: Acute Priority: High Code(s): R78.81 - BACTEREMIA SNOMED Code(s): 7398089 (2) Leukocytosis Status: Acute Code(s): D72.829 - ELEVATED WHITE BLOOD CELL COUNT, UNSPECIFIED SNOMED Code(s): 660835166 Plan: 1patient with gram-negative bacteremia in this patient who did have a history of metastatic uterine cancer currently on chemotherapy brought into the hospital for weakness fall and some confusion patient did have a CT angiogram of the chest concerning for possible consolidation right middle lobe, blood culture was switched over to Clostridium and now has been finalized and as corynebacterium more likely skin contamination patient did have CT abdominal pelvis completed neurogenic bladder versus obstruction uncompleted cholelithiasis and nonobstructing left renal calculus no mention of any colitis or abscess 2-blood cultures more likely representing contamination, repeat blood cultures have been negative, Unasyn discontinued 3-patient did have resolution of the leukocytosis and repeat blood culture has been negative there is no need for antibiotic on discharge 4-swelling and pain to the index finger question of gout uric acid level normal, patient to continue with indomethacin per admitting team Dictation was produced using [employer] dictation software. please excuse any grammatical, word or spelling errors. Time with Patient: Less than 30
--- NOTE | 2024-02-02 21:24 | P.PN ---
Subjective Progress Note Date: 02/02/24 Principal diagnosis: Weakness, neutropenia, endometrial carcinoma, on treatment In f/u today pt is stable, she is wanting to get moving. The joint pain in her right hand has now moved to her left hand. She has no other complaints and is anxious to go to rehab. Objective - Vital Signs Vital signs: Vital Signs Temp 97.9 F 02/02/24 07:24 Pulse 91 02/02/24 08:20 Resp 20 02/02/24 08:20 BP 159/91 02/02/24 07:24 Pulse Ox 100 02/02/24 07:24 FiO2 Intake & Output 02/01/24 02/02/24 02/02/24 18:59 06:59 18:59 Intake Total 340 Balance 340 Weight 80.286 kg Intake: Intake, IV Titration 100 Amount Magnesium Sulfate-D5w Pmx 100 1 gm In Dextrose/Water 1 100ml.bag @ 100 mls/hr IVPB Q1H MARÍA Rx#: [id number] Oral 240 Other: Voiding Method Toilet Toilet # Voids 1 2 - Constitutional General appearance: Present: average body habitus, cooperative, no acute distress - EENT Eyes: Present: anicteric sclerae, EOMI ENT: Present: hearing grossly normal - Respiratory Details: resp even and unlabored at rest - Peripheral edema leg Peripheral Edema: bilateral: 2+ - Gastrointestinal General gastrointestinal: Present: soft - Integumentary Integumentary: Present: pale - Neurologic Neurologic: Present: CNII-XII intact - Musculoskeletal Musculoskeletal Comment(s): RUE weakness, decreased ROM - Psychiatric Psychiatric: Present: A&O x's 3, appropriate affect, intact judgment & insight - Labs CBC & Chem 7: 02/02/24 07:07 02/02/24 07:07 Labs: Abnormal Lab Results - Last 24 Hours (Table) 02/01/24 02/01/24 02/01/24 Range/Units 08:06 12:33 17:16 RBC (3.80-5.40) m/uL Hgb (11.4-16.0) gm/dL Hct (34.0-46.0) % MCHC (31.0-37.0) g/dL RDW (11.5-15.5) % Lymphocytes # (1.0-4.8) k/uL BUN (7-17) mg/dL Creatinine 0.48 L (0.52-1.04) mg/dL Glucose 155 H (74-99) mg/dL POC Glucose (mg/dL) 197 H 172 H (70-110) mg/dL Magnesium 1.3 L (1.6-2.3) mg/dL 02/01/24 02/02/24 02/02/24 Range/Units 20:19 07:07 07:07 RBC 3.53 L (3.80-5.40) m/uL Hgb 9.8 L (11.4-16.0) gm/dL Hct 31.7 L (34.0-46.0) % MCHC 30.8 L (31.0-37.0) g/dL RDW 17.8 H (11.5-15.5) % Lymphocytes # 0.9 L (1.0-4.8) k/uL BUN 5 L (7-17) mg/dL Creatinine 0.45 L (0.52-1.04) mg/dL Glucose 157 H (74-99) mg/dL POC Glucose (mg/dL) 224 H (70-110) mg/dL Magnesium (1.6-2.3) mg/dL 02/02/24 Range/Units 07:22 RBC (3.80-5.40) m/uL Hgb (11.4-16.0) gm/dL Hct (34.0-46.0) % MCHC (31.0-37.0) g/dL RDW (11.5-15.5) % Lymphocytes # (1.0-4.8) k/uL BUN (7-17) mg/dL Creatinine (0.52-1.04) mg/dL Glucose (74-99) mg/dL POC Glucose (mg/dL) 174 H (70-110) mg/dL Magnesium (1.6-2.3) mg/dL Microbiology - Last 24 Hours (Table) 01/27/24 14:49 Blood Culture - Final Blood - Imaging and Cardiology shoulder xray report reviewed Assessment and Plan (1) Neurological deficit present Status: Resolved Priority: High Code(s): R29.818 - OTHER SYMPTOMS AND SIGNS INVOLVING THE NERVOUS SYSTEM SNOMED Code(s): 589191377 (2) Bicytopenia Status: Acute Priority: High Code(s): D75.89 - OTHER SPECIFIED DISEASES OF BLOOD AND BLOOD-FORMING ORGANS SNOMED Code(s): 99765066 (3) Endometrial carcinoma Status: Chronic Priority: Medium Code(s): C54.1 - MALIGNANT NEOPLASM OF ENDOMETRIUM SNOMED Code(s): 095217400 Plan: Neurological deficit-resolved -On admit, dizziness, weakness and fall, associated with some increased confusion, and jumbled speech. Resolved, only residual is RUE unable to raise above shoulder. C spine MRI did not show any pathology for the same. D/W Attending-today, plans for referral to orthopedics -MRI brain 01/19/[address] of the brain on admission no acute findings. -Neurology did see pt, appreciate evaluation -Likely 2/2 infection as pt improved with abx. Positive blood cultures -ID following, abx discontinued Chemotherapy-induced bicytopenia -Hemoglobin 9.8, Leukopenia resolved. Pt did get 2 doses of GCSF Endometrial carcinoma -Metastatic disease in lungs. -Patient recently started on carboplatin and Taxol with palliative intent. Jemperli was added to cycle 3. She completed 4 cycles 01/13/2024. -Patient has overall done fairly well with treatment thus far -CTA of the chest was ordered for worsening shortness of breath and palpitations with a cough. No PE, pneumonitis or other acute pulmonary process reported. It was however noted that metastatic disease seen on prior CT dated 01/03/2024 was significantly improved! These results were previously reviewed with the patient. Her family was contacted last week and imaging and hospital course were summarized. -No treatment for malignancy until pt completes rehab -F/U with Primary Onc after DC from rehab to assess and see if pt improved enough to proceed with any further treatment
== END 2024-02-02 13:58 | DRG 808 ==
LOC: EC 20:07 → 5NMEDONC 01-24 00:14
PROVIDERS: ADMIT Internal Medicine; ATTEND Internal Medicine
DX: D70.1 Agranulocytosis secondary to cancer chemotherapy (principal); G93.41 Metabolic encephalopathy; C78.01 Secondary malignant neoplasm of right lung; C78.02 Secondary malignant neoplasm of left lung; R78.81 Bacteremia; G13.0 Paraneoplastic neuromyopathy and neuropathy; C54.1 Malignant neoplasm of endometrium; E11.65 Type 2 diabetes mellitus with hyperglycemia; D63.8 Anemia in other chronic diseases classified elsewhere; G54.0 Brachial plexus disorders; E03.9 Hypothyroidism, unspecified; I10 Essential (primary) hypertension; D64.81 Anemia due to antineoplastic chemotherapy; F32.A Depression, unspecified; T45.1X5A Adverse effect of antineoplastic and immunosuppressive drugs, initial encounter; E78.5 Hyperlipidemia, unspecified; H91.93 Unspecified hearing loss, bilateral; S43.421A Sprain of right rotator cuff capsule, initial encounter; M10.9 Gout, unspecified; E87.6 Hypokalemia; D75.89 Other specified diseases of blood and blood-forming organs; M15.8 Other polyosteoarthritis; F41.9 Anxiety disorder, unspecified; Z79.84 Long term (current) use of oral hypoglycemic drugs; R29.818 Other symptoms and signs involving the nervous system; E53.1 Pyridoxine deficiency; E83.42 Hypomagnesemia; W19.XXXA Unspecified fall, initial encounter; Y92.009 Unspecified place in unspecified non-institutional (private) residence as the place of occurrence of the external cause; Z91.81 History of falling; R09.02 Hypoxemia; R47.1 Dysarthria and anarthria; Z79.899 Other long term (current) drug therapy; Z85.3 Personal history of malignant neoplasm of breast; Z90.13 Acquired absence of bilateral breasts and nipples; Z90.710 Acquired absence of both cervix and uterus; Z92.3 Personal history of irradiation; Z88.5 Allergy status to narcotic agent
CPT/HCPCS: 36415; 51798; 70450; 71046; 71275; 72156; 74177; 80048; 80053; 81003; 82533; 82550; 82607; 82746; 83036; 83605; 83735; 83921; 84100; 84207; 84439; 84443; 84481; 84484; 84550; 85025; 85027; 85610; 85730; 87040; 93005; 93306; 96365; 96366; 96367; 96368; 96372; 96375; 99285

== ENCOUNTER 2024-02-23 12:15 | Inpatient (IN) | payer MEDICARE ==
--- NOTE | 2024-02-23 12:47 | ED ---
General Adult HPI - General Chief complaint: Neuro Symptoms/Deficit Stated complaint: Lightheaded, weakness-cancer PT Time Seen by Provider: 02/23/24 12:20 Source: patient, family, RN notes reviewed, old records reviewed Mode of arrival: wheelchair Limitations: no limitations - History of Present Illness Initial comments: This is a 73-year-old female who presents to the emergency department with a past medical history significant for terminal metastatic uterine cancer and has a history of dizziness over the last 2 months. Patient was at a doctor's office today to get her left arm looked at and she became very dizzy when she was going to the room and almost passed out. Patient stated everything started to have black spots I would legs became weak and she thought she was going to pass out. Patient states currently she has no symptoms. Patient denies headache patient denies any numbness or weakness currently. Patient has any recent fever chills or cough or patient has any chest pain patient denies any difficulty breathing shortness of breath or patient is any abdominal pain patient denies any nausea vomiting diarrhea however she states she has not been eating well lately. - Related Data Home Medications Medication Instructions Recorded Confirmed Atorvastatin [Lipitor] 40 mg PO DAILY 10/15/23 02/23/24 Vortioxetine Hydrobromide 20 mg PO DAILY 10/15/23 02/23/24 [Trintellix] atenoloL [Tenormin] 25 mg PO DAILY 10/15/23 02/23/24 lisinopriL [Zestril] 2.5 mg PO DAILY 10/15/23 02/23/24 metFORMIN HCL [Glucophage] 1,000 mg PO BID 10/15/23 02/23/24 traZODone HCL [Desyrel] 100 mg PO HS 10/15/23 02/23/24 Multivit-Min/Iron/Folic/Lutein 1 tab PO DAILY 01/24/24 02/23/24 [Centrum Silver Women Tablet] Ondansetron [Zofran] 4 - 8 mg PO Q4H PRN 01/24/24 02/23/24 glyBURIDE [Diabeta] 5 mg PO AC-BID 01/24/24 02/23/24 Ibuprofen [Motrin Ib] 600 mg PO Q8H PRN 02/23/24 02/23/24 Meclizine [Antivert] 12.5 mg PO TID 02/23/24 02/23/24 Previous Rx's Medication Instructions Recorded Acetaminophen Tab [Tylenol] 1,000 mg PO Q8HR PRN tab 02/02/24 Colchicine [Colcrys] 0.6 mg PO BID each 02/02/24 Cyanocobalamin [Vitamin B-12] 1,000 mcg PO DAILY tab 02/02/24 Pyridoxine [Vitamin B-6] 50 mg PO DAILY tab 02/02/24 Allergies Allergy/AdvReac Type Severity Reaction Status Date / Time codeine AdvReac Nausea & Verified 02/23/24 14:42 Vomiting Review of Systems ROS Statement: Those systems with pertinent positive or pertinent negative responses have been documented in the HPI. ROS Other: All systems not noted in ROS Statement are negative. Past Medical History Past Medical History: Cancer, Hyperlipidemia, Hypertension, Thyroid Disorder Additional Past Medical History / Comment(s): uterine CA, Breast cancer right mets to lungs History of Any Multi-Drug Resistant Organisms: None Reported Past Surgical History: Breast Surgery, Hysterectomy Additional Past Surgical History / Comment(s): complete hyst 09/03/2023. Bilat mastectomy. Nose surgery Past Anesthesia/Blood Transfusion Reactions: No Reported Reaction Past Psychological History: Depression Smoking Status: Never smoker Past Alcohol Use History: None Reported Past Drug Use History: None Reported - Past Family History Mother Family Medical History: No Reported History General Exam - General Exam Comments Initial Comments: GENERAL: Patient is well-developed and well-nourished. Patient is nontoxic and well- hydrated and is in no acute distress. ENT: Neck is soft and supple. No significant lymphadenopathy is noted. Oropharynx is clear. Moist mucous membranes. Neck has full range of motion without eliciting any pain. EYES: The sclera were anicteric and conjunctiva were pink and moist. Extraocular movements were intact and pupils were equal round and reactive to light. Eyelids were unremarkable. PULMONARY: Unlabored respirations. Good breath sounds bilaterally. No audible rales rhonchi or wheezing was noted. CARDIOVASCULAR: There is a regular rate and rhythm without any murmurs gallops or rubs. ABDOMEN: Soft and nontender with normal bowel sounds. SKIN: Skin is clear with no lesions or rashes and otherwise unremarkable. NEUROLOGIC: Patient is alert and oriented x3. Cranial nerves II through XII are grossly intact. Motor and sensory are also intact. Normal speech, volume and content. Symmetrical smile. MUSCULOSKELETAL: Normal extremities with adequate strength and full range of motion. No lower extremity swelling or edema. No calf tenderness. LYMPHATICS: No significant lymphadenopathy is noted PSYCHIATRIC: Normal psychiatric evaluation. Limitations: no limitations Course Vital Signs 02/23/24 12:20 Temperature 97.6 F Pulse Rate 85 Respiratory 18 Rate Blood Pressure 104/59 O2 Sat by Pulse 98 Oximetry Medical Decision Making - Medical Decision Making EKG is interpreted by myself but EKG shows a sinus rhythm at 82 bpm parable 158 QRS is 89 QT interval 386 QTc is 424. Patient's EKG shows no ST segment ovation or depression. Was pt. sent in by a medical professional or institution (, PA, INVENTORY CONTROL CLERK, urgent care, hospital, or [facility]...) When possible be specific @ -Acute Did you speak to anyone other than the patient for history (EMS, parent, family, police, friend...)? What history was obtained from this source @ -Patient's filled and some of the past medical history that the patient herself forgot particularly relative to the cancer Did you review nursing and triage notes (agree or disagree)? Why? @ -I reviewed and agree with nursing and triage notes Were old charts reviewed (outside hosp., previous admission, EMS record, old EKG, old radiological studies, urgent care reports/EKG's, [facility] records)? Report findings @ -I compared today's electrolytes with previous electrolytes and her magnesium was low again. Differential Diagnosis (chest pain, altered mental status, abdominal pain women, abdominal pain men, vaginal bleeding, weakness, fever, dyspnea, syncope, headache, dizziness, GI bleed, back pain, seizure, CVA, palpatations, mental health, musculoskeletal)? @ -Differential Syncope: Valvular disease, hypertrophic cardiomyopathy, pulmonary embolism, tamponade, tachycardia, bradycardia, MD, hypovolemia, hemorrhage, dissection, anemia, intr acranial hemorrhage, seizure, hypoglycemia, carbon monoxide poisoning, this is not meant to be an all-inclusive list. EKG interpreted by me (3pts min.). @ -As above X-rays interpreted by me (1pt min.). @ -Chest x-ray shows no acute abnormality CT interpreted by me (1pt min.). @ -None done U/S interpreted by me (1pt. min.). @ -None done What testing was considered but not performed or refused? (CT, X-rays, U/S, labs)? Why? @ -None What meds were considered but not given or refused? Why? @ -None Did you discuss the management of the patient with other professionals (professionals i.e. , PA, INVENTORY CONTROL CLERK, lab, RT, psych nurse, social service technician, oracle manager, teacher, plain clothes police officer, case sealer)? Give summary @ -I spoke with sound physicians and they agreed to admit the patient to the patient recommending orders Was smoking cessation discussed for >3mins.? @ -No Was critical care preformed (if so, how long)? @ -No Were there social determinants of health that impacted care today? How? (Homelessness, low income, unemployed, alcoholism, drug addiction, transportation, low edu. Level, literacy, decrease access to med. care, detention, rehab)? @ -No Was there de-escalation of care discussed even if they declined (Discuss DNR or withdrawal of care, Hospice)? DNR status @ -No What co-morbidities impacted this encounter? (DM, HTN, Smoking, COPD, CAD, Cancer, CVA, ARF, Chemo, Hep., AIDS, mental health diagnosis, sleep apnea, morbid obesity)? @ -None Was patient admitted / discharged? Hospital course, mention meds given and route, prescriptions, significant lab abnormalities, going to OR and other pertinent info. @ -Patient received a liter of IV fluids as well as magnesium p.o. and magnesium IV. Undiagnosed new problem with uncertain prognosis? @ -No Drug Therapy requiring intensive monitoring for toxicity (Heparin, Nitro, Insulin, Cardizem)? @ -No Were any procedures done? @ -No Diagnosis/symptom? @ -Near syncope Acute, or Chronic, or Acute on Chronic? @ -Acute Uncomplicated (without systemic symptoms) or Complicated (systemic symptoms)? @ -Complicated Side effects of treatment? @ -No Exacerbation, Progression, or Severe Exacerbation? @ -No Poses a threat to life or bodily function? How? (Chest pain, USA, MD, pneumonia, PE, COPD, DKA, ARF, appy, cholecystitis, CVA, Diverticulitis, Homicidal, Suicidal, threat to staff... and all critical care pts) @ -Yes this can lead to a syncopal episode and injury. Diagnosis/symptom? @ -Hypomagnesemia Acute, or Chronic, or Acute on Chronic? @ -Acute Uncomplicated (without systemic symptoms) or Complicated (systemic symptoms)? @ -Complicated Side effects of treatment? @ -None Exacerbation, Progression, or Severe Exacerbation] @ -No Poses a threat to life or bodily function? @ -No - Lab Data Result diagrams: 02/23/24 14:06 02/23/24 14:06 Lab Results 02/23/24 02/23/24 02/23/24 Range/Units 14:06 14:06 14:06 WBC 3.7 L (3.8-10.6) k/uL RBC 4.22 (3.80-5.40) m/uL Hgb 12.4 (11.4-16.0) gm/dL Hct 39.0 (34.0-46.0) % MCV 92.5 (80.0-100.0) fL MCH 29.4 (25.0-35.0) pg MCHC 31.8 (31.0-37.0) g/dL RDW 17.2 H (11.5-15.5) % Plt Count 294 (150-450) k/uL MPV 8.0 Neutrophils % 57 % Lymphocytes % 27 % Monocytes % 10 % Eosinophils % 2 % Basophils % 1 % Neutrophils # 2.1 (1.3-7.7) k/uL Lymphocytes # 1.0 (1.0-4.8) k/uL Monocytes # 0.4 (0-1.0) k/uL Eosinophils # 0.1 (0-0.7) k/uL Basophils # 0.0 (0-0.2) k/uL Anisocytosis Slight PT 11.6 (10.0-12.5) sec INR 1.1 (<1.2) APTT 22.2 (22.0-30.0) sec Sodium 136 L (137-145) mmol/L Potassium 3.9 (3.5-5.1) mmol/L Chloride 97 L (98-107) mmol/L Carbon Dioxide 32 H (22-30) mmol/L Anion Gap 7 mmol/L BUN 12 (7-17) mg/dL Creatinine 0.81 (0.52-1.04) mg/dL Est GFR (CKD-EPI)AfAm 83 (>60 ml/min/1.73 sqM) Est GFR (CKD-EPI)NonAf 72 (>60 ml/min/1.73 sqM) Glucose 139 H (74-99) mg/dL Plasma Lactic Acid Ganesh (0.7-2.0) mmol/L Calcium 10.0 (8.4-10.2) mg/dL Magnesium 1.1 L (1.6-2.3) mg/dL Total Bilirubin 1.1 (0.2-1.3) mg/dL AST 50 H (14-36) U/L ALT 54 H (4-34) U/L Alkaline Phosphatase 135 H (38-126) U/L Total Protein 7.2 (6.3-8.2) g/dL Albumin 4.5 (3.5-5.0) g/dL 02/23/24 Range/Units 14:06 WBC (3.8-10.6) k/uL RBC (3.80-5.40) m/uL Hgb (11.4-16.0) gm/dL Hct (34.0-46.0) % MCV (80.0-100.0) fL MCH (25.0-35.0) pg MCHC (31.0-37.0) g/dL RDW (11.5-15.5) % Plt Count (150-450) k/uL MPV Neutrophils % % Lymphocytes % % Monocytes % % Eosinophils % % Basophils % % Neutrophils # (1.3-7.7) k/uL Lymphocytes # (1.0-4.8) k/uL Monocytes # (0-1.0) k/uL Eosinophils # (0-0.7) k/uL Basophils # (0-0.2) k/uL Anisocytosis PT (10.0-12.5) sec INR (<1.2) APTT (22.0-30.0) sec Sodium (137-145) mmol/L Potassium (3.5-5.1) mmol/L Chloride (98-107) mmol/L Carbon Dioxide (22-30) mmol/L Anion Gap mmol/L BUN (7-17) mg/dL Creatinine (0.52-1.04) mg/dL Est GFR (CKD-EPI)AfAm (>60 ml/min/1.73 sqM) Est GFR (CKD-EPI)NonAf (>60 ml/min/1.73 sqM) Glucose (74-99) mg/dL Plasma Lactic Acid Ganesh 1.4 (0.7-2.0) mmol/L Calcium (8.4-10.2) mg/dL Magnesium (1.6-2.3) mg/dL Total Bilirubin (0.2-1.3) mg/dL AST (14-36) U/L ALT (4-34) U/L Alkaline Phosphatase (38-126) U/L Total Protein (6.3-8.2) g/dL Albumin (3.5-5.0) g/dL Disposition Clinical Impression: Near syncope, Hypomagnesemia Disposition: ADMITTED IP TO THIS HOSP Referrals: Domingo Anna MD [Primary Care Provider] - 1-2 days Time of Disposition: 15:46
[2024-02-23] MEDS: SODIUM CHLORIDE 0.9% 500 ML 500 ML IV SCH (14:35)
[2024-02-23 14:46] LABS: Anisocytosis Slight; Basophils % (A) 1 %; Eosinophils # (A) 0.1 k/uL (0-0.7); Eosinophils % (A) 2 %; HGB 12.4 gm/dL (11.4-16.0); Lymphocytes % (A) 27 %; MCH 29.4 pg (25.0-35.0); MCHC 31.8 g/dL (31.0-37.0); MCV 92.5 fL (80.0-100.0); Monocytes # (A) 0.4 k/uL (0-1.0); Monocytes % (A) 10 %; Neutrophils # (A) 2.1 k/uL (1.3-7.7); Neutrophils % (A) 57 %; Platelet Count 294 k/uL (150-450); RBC 4.22 m/uL (3.80-5.40); RDW 17.2 % (11.5-15.5); WBC 3.7 k/uL (3.8-10.6)
--- NOTE | 2024-02-23 14:46 | XR ---
EXAMINATION TYPE: XR chest 2V DATE OF EXAM: 02/23/2024 COMPARISON: 01/23/2024 HISTORY: Shortness of breath TECHNIQUE: Frontal and lateral views of the chest are obtained. FINDINGS: Scattered senescent parenchymal changes noted. No evidence for infiltrate. No evidence for atelectasis. Heart size is stable. Mediastinal structures are stable and grossly unremarkable. No evidence for hilar prominence. Degenerative changes dorsal spine. IMPRESSION: 1. No evidence for acute pulmonary disease.
[2024-02-23 14:56] LABS: ALT 54 U/L (4-34); AST 50 U/L (14-36); African American GFR (CKD) 83 (>60 ml/min/1.73 sqM); Albumin 4.5 g/dL (3.5-5.0); Alkaline Phosphatase 135 U/L (38-126); Anion Gap 7 mmol/L; Blood Urea Nitrogen 12 mg/dL (7-17); Carbon Dioxide 32 mmol/L (22-30); Chloride 97 mmol/L (98-107); Glucose 139 mg/dL (74-99); Magnesium 1.1 mg/dL (1.6-2.3); Non-African American GFR(CKD) 72 (>60 ml/min/1.73 sqM); Potassium 3.9 mmol/L (3.5-5.1); Sodium 136 mmol/L (137-145); Total Bilirubin 1.1 mg/dL (0.2-1.3); Total Protein 7.2 g/dL (6.3-8.2)
[2024-02-23 15:06] LABS: INR 1.1 (<1.2)
[2024-02-23 15:07] LABS: Partial Thromboplastin Time 22.2 sec (22.0-30.0); Prothrombin Time 11.6 sec (10.0-12.5)
[2024-02-23] MEDS ORDERED: DEXTROSE 50% SYRINGE 50 ML IVP PRN ×2 (16:01)
[2024-02-23] MEDS: MAGNESIUM SULFATE-D5W PMX 1 GM in DEXTROSE/WATER 1 100ML.BAG IVPB SCH ×2 (16:03→20:08)
[2024-02-23] MEDS: MAGNESIUM OXIDE 400 MG TAB PO STA (16:03)
[2024-02-23] MEDS: SODIUM CHLORIDE 0.9% 1,000 ML IV ONE (16:17)
[2024-02-23] MEDS: MECLIZINE 12.5 MG TAB PO SCH (16:18)
--- NOTE | 2024-02-23 16:39 | P.HPIM ---
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 Batista but reports she stopped chemo secondary to her inability to tolerate side effects and states her last session being 01/13/24. Patient recently underwent hospitalization from 01/23/2024 through 02/02/2024 secondary to generalized weakness and fall at home. Patient was discharged to halfway facility [facility] for rehab and reports she was discharged from nursing facility yesterday and was following up with her rn orthopedic, Dr. Maldonado secondary to concerns of right rotator cuff injury and worsened weakness of right hand/arm. Patient reports at follow-up appointment she became very dizzy/lightheaded patient reports and felt as though she was going to pass out so family brought her to the emergency department for evaluation. Patient reports during episode of dizziness her vision became hazy and she was seeing black spots/floaters. She denies having any headache, changes in hearing or tinnitus, difficulties with or changes in her speech, chest pain/palpitations, shortness of breath, cough or congestion, abdominal pain, nausea, vomiting, or experiencing any urinary complaints including frequency, urgency, or hematuria. Patient does report she has been having approximately 1-2 episodes of diarrhea daily describing as loose stools. She denies having any noted fevers, chills, or diaphoresis. She presented to the emergency department with a chief complaint of dizziness and near syncopal episode. Upon arrival to our facility, patient underwent evaluation in the emergency department. Vital signs upon arrival show blood pressure 104/59, heart rate 85, respiratory rate 18, temp 97.6 F, and SpO2 of 98% on room air. EKG completed showing normal sinus rhythm at 82 bpm with no significant T wave or ST abnormalities showing no signs of acute ischemia upon personal review and interpretation. Chest x-ray completed negative for acute cardiopulmonary process. Labs completed and reviewed. CBC showing leukopenia with WBC count of 3.7. Coagulation profile normal findings. BMP showing metabolic alkalosis with chloride of 97, bicarb of 32, and anion gap of 7. Blood glucose was 139. Magnesium low at 1.1. Liver profile showing transaminitis with AST of 50, ALT of 54, and alkaline phosphatase of 135. Review of systems: Pertinent positives and negatives as discussed in HPI, a complete review of syst ems was performed and all other systems are negative. Physical exam: Vital signs reviewed and stable. General: Nontoxic, no distress and appears stated age. Derm: Skin warm and dry, normal coloration for ethnicity. Head: Atraumatic, normocephalic and symmetric. Eyes: EOMs intact, no lid lag, and anicteric sclera Mouth: no lip lesions, mucus membranes moist Cardiovascular: regular rate and rhythm with normal S1S2, systolic murmur, positive posterior tibial pulses bilaterally, and cap refill < 2 seconds. Lungs: Respirations even, regular, and unlabored on room air. Lungs CTA bilaterally, no rhonchi, no rales, no wheezing, and no accessory muscle usage. Abdominal: soft, nontender to palpation, no guarding, no appreciable organomegaly Ext: ROM intact. No gross muscle atrophy, no edema, no contractures Neuro: Speech clear, face symmetrical and CN II-XII grossly intact with no noted focal neuro deficits Psych: Alert and oriented to person, place, time, and situation. Appropriate and pleasant affect. Assessment and Plan of Care: Near syncope reports of dizziness and visual changes Hypomagnesemia, likely secondary to poor oral intake Metabolic alkalosis Neutropenia Metastatic uterine cancer undergoing chemotherapy -Admit to observation unit with telemetry. -Continuous telemetry monitoring. -Fall precautions and consult to PT/OT for evaluation. -Continue gentle IV fluid hydration with 0.9% normal saline. Type 2 insulin-dependent diabetes mellitus with hyperglycemia -Hold glyburide and metformin and place patient on glycemic protocol with NovoLog sliding scale. Anxiety with depression -Continue daily medication regimen with Trintellix 20 mg daily and trazodone 100 mg nightly. Hypertension -Continue daily medication regimen with atenolol 25 mg daily and lisinopril 2.5 mg daily. Hyperlipidemia -Continue daily medication regimen with atorvastatin 40 mg daily. History of CVAs with right upper extremity and left lower extremity deficits -Safe and supportive care. Fall precautions, PT/OT following, and patient to be provided with assistance as needed. Data and imaging reviewed: -As stated above in HPI The patient is admitted with an anticipated less than 2 midnight stay for evaluation of near syncope. CODE STATUS: Full code DVT prophylaxis: Lovenox Anticipated discharge date: Pending clinical course likely within the next 24 to [address]: Home versus halfway facility Patient was seen independently by Nurse Practitioner. This document was prepared using [employer] dictation software. Please allow for errors in eradicator while rare they do occur. I reviewed the documentation as provided by the JUAN FRANCISCO above, who is the original author of this note. I agree with the documented assessment and plan, with the following changes: none Past Medical History Past Medical History: Cancer, Hyperlipidemia, Hypertension, Thyroid Disorder Additional Past Medical History / Comment(s): uterine CA, Breast cancer right mets to lungs History of Any Multi-Drug Resistant Organisms: None Reported Past Surgical History: Breast Surgery, Hysterectomy Additional Past Surgical History / Comment(s): complete hyst 09/03/2023. Bilat mastectomy. Nose surgery Past Anesthesia/Blood Transfusion Reactions: No Reported Reaction Past Psychological History: Depression Smoking Status: Never smoker Past Alcohol Use History: None Reported Past Drug Use History: None Reported - Past Family History Mother Family Medical History: No Reported History Medications and Allergies Home Medications Medication Instructions Recorded Confirmed Type Atorvastatin [Lipitor] 40 mg PO DAILY 10/15/23 02/23/24 History Vortioxetine Hydrobromide 20 mg PO DAILY 10/15/23 02/23/24 History [Trintellix] atenoloL [Tenormin] 25 mg PO DAILY 10/15/23 02/23/24 History lisinopriL [Zestril] 2.5 mg PO DAILY 10/15/23 02/23/24 History metFORMIN HCL [Glucophage] 1,000 mg PO BID 10/15/23 02/23/24 History traZODone HCL [Desyrel] 100 mg PO HS 10/15/23 02/23/24 History Multivit-Min/Iron/Folic/Lutein 1 tab PO DAILY 01/24/24 02/23/24 History [Centrum Silver Women Tablet] Ondansetron [Zofran] 4 - 8 mg PO Q4H PRN 01/24/24 02/23/24 History glyBURIDE [Diabeta] 5 mg PO AC-BID 01/24/24 02/23/24 History Acetaminophen Tab [Tylenol] 1,000 mg PO Q8HR PRN tab 02/02/24 02/23/24 Rx Colchicine [Colcrys] 0.6 mg PO BID each 02/02/24 02/23/24 Rx Cyanocobalamin [Vitamin B-12] 1,000 mcg PO DAILY tab 02/02/24 02/23/24 Rx Pyridoxine [Vitamin B-6] 50 mg PO DAILY tab 02/02/24 02/23/24 Rx Ibuprofen [Motrin Ib] 600 mg PO Q8H PRN 02/23/24 02/23/24 History Meclizine [Antivert] 12.5 mg PO TID 02/23/24 02/23/24 History Allergies Allergy/AdvReac Type Severity Reaction Status Date / Time codeine AdvReac Nausea & Verified 02/23/24 14:42 Vomiting Physical Exam Osteopathic Statement: *. No significant issues noted on an osteopathic structural exam other than those noted in the History and Physical/Consult. Vitals: Vital Signs Temp Pulse Resp BP Pulse Ox 02/23/24 12:20 97.6 F 85 18 104/59 98 Intake and Output 02/23/24 02/23/24 02/23/24 06:59 14:59 22:59 Other: Weight 73.482 kg Results CBC & Chem 7: 02/24/24 08:17 02/24/24 08:17 Labs: Abnormal Lab Results - Last 24 Hours (Table) 02/23/24 02/23/24 Range/Units 14:06 14:06 WBC 3.7 L (3.8-10.6) k/uL RDW 17.2 H (11.5-15.5) % Sodium 136 L (137-145) mmol/L Chloride 97 L (98-107) mmol/L Carbon Dioxide 32 H (22-30) mmol/L Glucose 139 H (74-99) mg/dL Magnesium 1.1 L (1.6-2.3) mg/dL AST 50 H (14-36) U/L ALT 54 H (4-34) U/L Alkaline Phosphatase 135 H (38-126) U/L
--- NOTE | 2024-02-23 17:20 | CT ---
EXAMINATION TYPE: CT brain wo con DATE OF EXAM: 02/23/2024 HISTORY: Pt c/o generalized weakness, in lower extremities, vision changes including haziness and eulogio ck spots, and dizziness, started 1130. CT DLP: 1168.4 mGycm. Automated Exposure Control for Dose Reduction was Utilized. TECHNIQUE: CT scan of the head is performed without contrast. COMPARISON: Prior CT January 23, 2024. FINDINGS: There is no acute intracranial hemorrhage or midline shift identified. There is mild diff use ventricular and sulcal prominence redemonstrated. There is mild to moderate low-attenuation in t he periventricular white matter redemonstrated. Hyperostosis frontalis again seen. The globes are int act and the visualized sinuses are clear. IMPRESSION: No acute intracranial hemorrhage or midline shift. There is mild diffuse age-related ce rebral atrophy and mild to moderate probable chronic small vessel ischemic change redemonstrated. No significant change from most recent prior CT.
[2024-02-23 17:44] LABS: Glucose,Whole Blood 120 mg/dL (70-110)
[2024-02-23] MEDS: INSULIN ASPART (NovoLOG) 100 UNIT/ML VIAL SQ SCH (18:02)
[2024-02-23 20:13] LABS: Glucose,Whole Blood 146 mg/dL (70-110)
[2024-02-23] MEDS: traZODone HCL 100 MG TAB PO SCH (20:35)
[2024-02-23] MEDS: COLCHICINE 0.6 MG EACH PO SCH (21:22)
[2024-02-24 06:16] LABS: Glucose,Whole Blood 121 mg/dL (70-110)
[2024-02-24 08:39] LABS: Anisocytosis Slight; HCT 37.7 % (34.0-46.0); HGB 12.2 gm/dL (11.4-16.0); MCH 29.9 pg (25.0-35.0); MCHC 32.4 g/dL (31.0-37.0); MCV 92.3 fL (80.0-100.0); Mean Platelet Volume 8.2; Platelet Count 252 k/uL (150-450); RBC 4.08 m/uL (3.80-5.40); RDW 17.3 % (11.5-15.5); WBC 3.1 k/uL (3.8-10.6)
[2024-02-24 08:59] LABS: ALT 44 U/L (4-34); AST 44 U/L (14-36); African American GFR (CKD) >90 (>60 ml/min/1.73 sqM); Albumin 3.9 g/dL (3.5-5.0); Alkaline Phosphatase 124 U/L (38-126); Anion Gap 5 mmol/L; Blood Urea Nitrogen 10 mg/dL (7-17); Calcium 9.2 mg/dL (8.4-10.2); Carbon Dioxide 31 mmol/L (22-30); Chloride 102 mmol/L (98-107); Glucose 127 mg/dL (74-99); Magnesium 1.7 mg/dL (1.6-2.3); Non-African American GFR(CKD) 87 (>60 ml/min/1.73 sqM); Potassium 3.3 mmol/L (3.5-5.1); Sodium 138 mmol/L (137-145); Total Bilirubin 0.8 mg/dL (0.2-1.3); Total Protein 6.6 g/dL (6.3-8.2)
[2024-02-24] MEDS: ENOXAPARIN 40 MG/0.4 ML SYRINGE SQ SCH (09:08)
[2024-02-24] MEDS: PYRIDOXINE 50 MG TAB PO SCH (09:09)
[2024-02-24] MEDS: ATORVASTATIN 40 MG TAB PO SCH (09:09)
[2024-02-24] MEDS: CYANOCOBALAMIN 500 MCG TAB PO SCH (09:09)
[2024-02-24] MEDS: atenoloL 25 MG TAB PO SCH (09:09)
[2024-02-24] MEDS: MULTIVITAMINS, THERA 1 EACH TAB PO SCH (09:10)
[2024-02-24] MEDS: VORTIOXETINE HYDROBROMIDE 20 MG TABLET PO SCH (09:10)
--- NOTE | 2024-02-24 10:54 | P.PN ---
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 Batista but reports she stopped chemo secondary to her inability to tolerate side effects and states her last session being 01/13/24. She presented to the emergency department on 02/23/2024 with a chief complaint of dizziness and near syncopal episode accompanied by blurred vision with black floaters in bilateral eyes. Patient recently underwent hospitalization from 01/23/2024 through 02/02/2024 secondary to generalized weakness and fall at home. Patient was discharged to snf facility [facility] for rehab and reports she was discharged from nursing facility 02/22/2024 and was following up with her legal service specialist, Dr. Maldonado secondary to concerns of right rotator cuff injury and worsened weakness of right hand/arm. Patient reports at follow-up appointment she became very dizzy/lightheaded patient reports and felt as though she was going to pass out so family brought her to the emergency department for evaluation. Upon arrival to our facility, patient underwent evaluation in the emergency department. Vital signs upon arrival show blood pressure 104/59, heart rate 85, respiratory rate 18, temp 97.6 F, and SpO2 of 98% on room air. EKG completed showing normal sinus rhythm at 82 bpm with no significant T wave or ST abnormalities showing no signs of acute ischemia upon personal review and interpretation. Chest x-ray completed negative for acute cardiopulmonary process. Labs completed and reviewed. CBC showing leukopenia with WBC count of 3.7. Coagulation profile normal findings. BMP showing metabolic alkalosis with chloride of 97, bicarb of 32, and anion gap of 7. Blood glucose was 139. Magnesium low at 1.1. Liver profile showing transaminitis with AST of 50, ALT of 54, and alkaline phosphatase of 135. Physical exam: Patient seen and fully evaluated at bedside this morning. Patient tearful expressing hopelessness over current situation and feelings of becoming dependent on others and inability to care for herself independently. Patient expressed difficulties with transportation, and inability to get to the grocery store for groceries or required household items, inability to get to and from appointments, and overall difficulties in completing activities of daily living independently secondary to her worsening right upper extremity weakness and recent dizziness she has been experiencing. Vital signs reviewed and stable. General: Nontoxic, no distress and appears stated age. Derm: Skin warm and dry, normal coloration for ethnicity. Head: Atraumatic, normocephalic and symmetric. Eyes: EOMs intact, no lid lag, and anicteric sclera Mouth: no lip lesions, mucus membranes moist Cardiovascular: regular rate and rhythm with normal S1S2, systolic murmur, positive posterior tibial pulses bilaterally, and cap refill < 2 seconds. Lungs: Respirations even, regular, and unlabored on room air. Lungs CTA bilaterally, no rhonchi, no rales, no wheezing, and no accessory muscle usage. Abdominal: soft, nontender to palpation, no guarding, no appreciable organomegaly Ext: ROM intact. No gross muscle atrophy, no edema, no contractures Neuro: Speech clear, face symmetrical and CN II-XII grossly intact with no noted focal neuro deficits Psych: Alert and oriented to person, place, time, and situation. Appropriate and pleasant affect. Assessment and Plan of Care: Near syncope reports of dizziness and visual changes Hypomagnesemia, likely secondary to poor oral intake Hypokalemia Metabolic alkalosis Neutropenia Metastatic uterine cancer undergoing chemotherapy -Continuous telemetry monitoring. -Fall precautions and consult to PT/OT for evaluation. -Continue gentle IV fluid hydration with 0.9% normal saline. -CT brain was completed negative for acute intracranial hemorrhage or midline shift showing mild diffuse age-related cerebral atrophy and mild to moderate probable chronic small vessel ischemic changes redemonstrated with no significant changes reported from most recent CT completed 01/23/2024. -Continue neurochecks every 4 hours -Orthostatic vitals -Consult to neurology -Consult to hematology/oncology. Discussed plan of care with oncologist and oncology [employer]. Type 2 insulin-dependent diabetes mellitus with hyperglycemia -Hold glyburide and metformin and place patient on glycemic protocol with NovoLog sliding scale. Anxiety with depression -Continue daily medication regimen with Trintellix 20 mg daily and trazodone 100 mg nightly. Hypertension -Continue daily medication regimen with atenolol 25 mg daily and lisinopril 2.5 mg daily. Hyperlipidemia -Continue daily medication regimen with atorvastatin 40 mg daily. History of CVAs with right upper extremity and left lower extremity deficits -Safe and supportive care. Fall precautions, PT/OT following, and patient to be provided with assistance as needed. Data and imaging reviewed: -CT brain was completed negative for acute intracranial hemorrhage or midline shift showing mild diffuse age-related cerebral atrophy and mild to moderate probable chronic small vessel ischemic changes redemonstrated with no significant changes reported from most recent CT completed 01/23/2024. -Vital signs reviewed. Blood pressure 131/63, heart rate 69, respiratory rate 16, temp 97.5 F, and SpO2 of 98% on room air. -Labs completed and reviewed. CBC showing continued leukopenia with WBC count of 3.1 otherwise normal findings. BMP showing hypokalemia with potassium of 3.3 , hypercarbia with bicarb of 31, and blood glucose of 127. Magnesium 1.7. Liver profile showing elevated AST of 44 and ALT of 44 otherwise normal findings. CODE STATUS: Full code DVT prophylaxis: Lovenox Anticipated discharge date: Pending clinical course likely within the next 24 to [address]: Home versus snf facility Patient was seen independently by Nurse Practitioner. This document was prepared using [employer] dictation software. Please allow for errors in ultrasound manager while rare they do occur. I reviewed the documentation as provided by the JUAN FRANCISCO above, who is the original author of this note. I agree with the documented assessment and plan, with the following changes: none Objective - Vital Signs Vital signs: Vital Signs Temp 97.5 F L 02/24/24 03:14 Pulse 69 02/24/24 03:14 Resp 16 02/24/24 03:14 BP 131/63 02/24/24 03:14 Pulse Ox 98 02/24/24 03:14 FiO2 Intake & Output 02/23/24 02/24/24 02/24/24 18:59 06:59 18:59 Output Total 0 Balance 0 Weight 76.2 kg Output: Urine 0 Other: Voiding Method Diaper Toilet # Voids 1 # Bowel Movements 1 - Labs CBC & Chem 7: 02/24/24 08:17 02/24/24 08:17 Labs: Abnormal Lab Results - Last 24 Hours (Table) 02/23/24 02/23/24 02/23/24 Range/Units 14:06 14:06 17:43 WBC 3.7 L (3.8-10.6) k/uL RDW 17.2 H (11.5-15.5) % Sodium 136 L (137-145) mmol/L Chloride 97 L (98-107) mmol/L Carbon Dioxide 32 H (22-30) mmol/L Glucose 139 H (74-99) mg/dL POC Glucose (mg/dL) 120 H (70-110) mg/dL Magnesium 1.1 L (1.6-2.3) mg/dL AST 50 H (14-36) U/L ALT 54 H (4-34) U/L Alkaline Phosphatase 135 H (38-126) U/L 02/23/24 02/24/24 Range/Units 20:12 06:15 WBC (3.8-10.6) k/uL RDW (11.5-15.5) % Sodium (137-145) mmol/L Chloride (98-107) mmol/L Carbon Dioxide (22-30) mmol/L Glucose (74-99) mg/dL POC Glucose (mg/dL) 146 H 121 H (70-110) mg/dL Magnesium (1.6-2.3) mg/dL AST (14-36) U/L ALT (4-34) U/L Alkaline Phosphatase (38-126) U/L
[2024-02-24 12:05] LABS: Glucose,Whole Blood 165 mg/dL (70-110)
[2024-02-24] MEDS: POTASSIUM CHLORIDE ER 20 MEQ TAB.ER PO STA (12:08)
[2024-02-24] MEDS: ALPRAZolam 0.5 MG TAB PO STA (12:08)
[2024-02-24] MEDS: MAGNESIUM SULFATE-D5W PMX 1 GM in DEXTROSE/WATER 1 100ML.BAG IVPB SCH (12:09)
[2024-02-24 16:17] LABS: Glucose,Whole Blood 182 mg/dL (70-110)
--- NOTE | 2024-02-24 17:49 | P.CONS ---
History of Present Illness - Reason for Consult Consult date: 02/24/24 metastatic uterine carcinoma Requesting physician: Ranulfo Mak - Chief Complaint dizziness - History of Present Illness Ms. Hylton is a female patient of Dr. Theo Chamberlain, on treatment for metastatic endometrial adenocarcinoma. She presented to PCP with complaints of inter mittent vaginal bleeding x 1 year. Symptoms became more persistent. She was ultimately referred to [facility] oncologist Dr. Hernandes. Pap smear and D&C 07/23/2023. Pathology reporting serous carcinoma from the endometrium as well as endocervix. Pelvic ultrasound 08/05 had shown abnormally thickened endometrium measuring 2.1 cm with a focus of vascularity concerning for endometrial carcinoma. CT AP 07/13/2023 again showed abnormal thickened endometrium measuring 6.8 x 4.1 cm. Chest x-ray was negative. Patient had MI/BSO with sentinel lymph node dissection 09/03/2023. 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 Stage T3a, N1a M0. She was referred for adjuvant therapy. She was supposed to start adjuvant Carbo/Taxol. She ended being seen in the ER before treatment could commence. CXR done showed multiple small lung nodules. CT chest 10/14/2023 confirmed bilateral lung nodules concerning for metastasis. A mass was noted in the right breast area as well. Chemotherapy was held to further workup these findings. Wedge biopsy of the lung mass was done, unfortunately confirmed poorly differentiated non-small cell carcinoma, IHC not definitive for specific primary but, the report said it could be compatible with a serious endometrial cancer. Ultrasound-guided biopsy of the breast lesion was negative for malignancy, felt to represent scar tissue. Patient was started on chemotherapy, now palliative intent versus adjuvant, 11/11/2023. Jemperli was added with cycle 3. She completed cycle 4 on 01/13/24. She was admitted shortly after cycle 4 for weakness and neutropenia. She had neurological symptoms including dizziness, fall prior to admit, confusion and jumbled speech. CT of the brain was negative for any acute findings. Neurology assessed the patient with no unusual findings. Patient's symptoms ultimately dissipated. Her only residual symptom was right upper extremity weakness. She did have a CTA of the chest during that admit for c/o shortness of breath, palpitations and a cough. No PE, immunotherapy induced pneumonitis or acute pulmonary process was reported. It was noted that metastatic disease seen on CT of the chest 01/03/2024 was significantly improved. She was inpatient 01/22 through 02/01. She was sent to rehab on discharge. She was discharged from rehab just last week. She states that she was still having significant difficulty using her right upper extremity. She was seen yesterday by Orthopedic hand surgeon, had some x- rays. While she was there she began feeling very dizzy so, she was sent to ER for evaluation. When seen patient reports difficulty managing ADLs because she does live alone. She reports she feels like a burden to her Sister, who is the only family that she has. Patient is tearful at times. She states that since she has been home she probably has not been eating or drinking very well as it is challenging for her to make meals, go to the grocery store, she cannot drive. She denied fevers, nausea or vomiting, chest pain, acute changes in bowel or bladder habits. Swelling in the legs might be a little bit worse. Pt has not been seen in ofc since her last admit. She has not received any treatment for malignancy. Remote History of bilateral breast cancer. Initially diagnosed in 1978 on the left, treated with lumpectomy and radiation. Right-sided breast cancer 2003. At that time she had bilateral mastectomy, lymph node dissection on the right, treated with radiation and chemotherapy for 6 months, no hormonal treatment. No recurrence to date. Review of Systems 10 point ROS is neg except as stated in HPI Past Medical History Past Medical History: Cancer, Hyperlipidemia, Hypertension, Thyroid Disorder Additional Past Medical History / Comment(s): uterine CA, Breast cancer right mets to lungs History of Any Multi-Drug Resistant Organisms: None Reported Past Surgical History: Breast Surgery, Hysterectomy Additional Past Surgical History / Comment(s): complete hyst 09/03/2023. Bilat mastectomy. Nose surgery Past Anesthesia/Blood Transfusion Reactions: No Reported Reaction Past Psychological History: Depression Additional Psychological History / Comment(s): Trintellix Smoking Status: Never smoker Past Alcohol Use History: None Reported Past Drug Use History: None Reported - Past Family History Mother Family Medical History: No Reported History Medications and Allergies Home Medications Medication Instructions Recorded Confirmed Type Atorvastatin [Lipitor] 40 mg PO DAILY 10/15/23 02/23/24 History Vortioxetine Hydrobromide 20 mg PO DAILY 10/15/23 02/23/24 History [Trintellix] atenoloL [Tenormin] 25 mg PO DAILY 10/15/23 02/23/24 History lisinopriL [Zestril] 2.5 mg PO DAILY 10/15/23 02/23/24 History metFORMIN HCL [Glucophage] 1,000 mg PO BID 10/15/23 02/23/24 History traZODone HCL [Desyrel] 100 mg PO HS 10/15/23 02/23/24 History Multivit-Min/Iron/Folic/Lutein 1 tab PO DAILY 01/24/24 02/23/24 History [Centrum Silver Women Tablet] Ondansetron [Zofran] 4 - 8 mg PO Q4H PRN 01/24/24 02/23/24 History glyBURIDE [Diabeta] 5 mg PO AC-BID 01/24/24 02/23/24 History Acetaminophen Tab [Tylenol] 1,000 mg PO Q8HR PRN tab 02/02/24 02/23/24 Rx Colchicine [Colcrys] 0.6 mg PO BID each 02/02/24 02/23/24 Rx Cyanocobalamin [Vitamin B-12] 1,000 mcg PO DAILY tab 02/02/24 02/23/24 Rx Pyridoxine [Vitamin B-6] 50 mg PO DAILY tab 02/02/24 02/23/24 Rx Ibuprofen [Motrin Ib] 600 mg PO Q8H PRN 02/23/24 02/23/24 History Meclizine [Antivert] 12.5 mg PO TID 02/23/24 02/23/24 History Allergies Allergy/AdvReac Type Severity Reaction Status Date / Time codeine AdvReac Nausea & Verified 02/23/24 14:42 Vomiting Physical Exam Vitals: Vital Signs Temp Pulse Pulse Resp BP BP Pulse Ox 02/24/24 03:14 97.5 F L 69 16 131/63 98 02/23/24 23:20 97.8 F 74 16 143/72 97 02/23/24 19:31 97.5 F L 83 16 140/68 100 02/23/24 17:40 98.2 F 77 16 186/97 99 02/23/24 17:11 186/88 02/23/24 16:54 195/80 02/23/24 16:27 77 20 100 02/23/24 12:20 97.6 F 85 18 104/59 98 Intake and Output 02/23/24 02/24/24 02/24/24 22:59 06:59 14:59 Output Total 0 Balance 0 Output: Urine 0 Other: Voiding Method Toilet Toilet # Voids 1 # Bowel Movements 1 Weight 76.2 kg - Constitutional General appearance: average body habitus, cooperative, no acute distress - EENT Eyes: anicteric sclerae, EOMI ENT: hearing grossly normal - Respiratory Respiratory: bilateral: CTA - Cardiovascular Rhythm: regular Heart sounds: normal: S1, S2 Abnormal Heart Sounds: no systolic murmur, no diastolic murmur, no rub, no S3 Gallop, no S4 Gallop, no click, no other leg Peripheral Edema: bilateral: 1+ - Gastrointestinal General gastrointestinal: soft - Integumentary Integumentary: pale - Neurologic Neurologic: CNII-XII intact - Musculoskeletal RUE weakness - Psychiatric tearful, reports feeling alone, doesn't want to be a burden to family Psychiatric: A&O x's 3, intact judgment & insight Results CBC & Chem 7: 02/24/24 08:17 02/24/24 08:17 Labs: Abnormal Lab Results - Last 24 Hours (Table) 02/23/24 02/23/24 02/23/24 Range/Units 14:06 14:06 17:43 WBC 3.7 L (3.8-10.6) k/uL RDW 17.2 H (11.5-15.5) % Sodium 136 L (137-145) mmol/L Chloride 97 L (98-107) mmol/L Carbon Dioxide 32 H (22-30) mmol/L Glucose 139 H (74-99) mg/dL POC Glucose (mg/dL) 120 H (70-110) mg/dL Magnesium 1.1 L (1.6-2.3) mg/dL AST 50 H (14-36) U/L ALT 54 H (4-34) U/L Alkaline Phosphatase 135 H (38-126) U/L 02/23/24 02/24/24 Range/Units 20:12 06:15 WBC (3.8-10.6) k/uL RDW (11.5-15.5) % Sodium (137-145) mmol/L Chloride (98-107) mmol/L Carbon Dioxide (22-30) mmol/L Glucose (74-99) mg/dL POC Glucose (mg/dL) 146 H 121 H (70-110) mg/dL Magnesium (1.6-2.3) mg/dL AST (14-36) U/L ALT (4-34) U/L Alkaline Phosphatase (38-126) U/L Chest x-ray: report reviewed CT Scan - head: report reviewed Assessment and Plan (1) Lack of social support Current Visit: Yes Status: Acute Priority: High Code(s): Z65.8 - OTH PROBLEMS RELATED TO PSYCHOSOCIAL CIRCUMSTANCES SNOMED Code(s): 4905693975 (2) Hypomagnesemia Current Visit: Yes Status: Acute Priority: High Code(s): E83.42 - HYPOMAGNESEMIA SNOMED Code(s): 617811847 (3) Near syncope Current Visit: Yes Status: Acute Priority: High Code(s): R55 - SYNCOPE AND COLLAPSE SNOMED Code(s): 036502346 (4) Endometrial carcinoma Current Visit: No Status: Chronic Priority: Medium Code(s): C54.1 - MALIGNANT NEOPLASM OF ENDOMETRIUM SNOMED Code(s): 490415998 Plan: Hypomagnesia -Suspect related to recent poor oral intake -Supplement protocol ordered Near syncope -Likely related to poor oral intake, dehydration -CT head did not show any acute findings -Orthostatic BPs done-positive. Defer to IM Endometrial carcinoma -She had 4 cycles of chemo and 2 doses of immunotherapy with dostarlimab-gxly -No treatment since 01/12. She has not yet been seen in office as she was discharged from rehab late last week -Will get new f/u appt scheduled for her Lack of Social Support -Pt expressed significant distress about being a burden to her family, inability to care for self because of poor functionality of the RUE and scared of living alone -Case was discussed with Physical Therapist, IM BEAM WORKER, Case Management and Nursing -Support in the outpt setting is being investigated and pt will be referred/signed up for what ever services she qualifies for -PT is going eval and treat pt to see how much functionality she can get out of the RUE. Assistive device recommendations Will see how pt does and if she is able to manage independently with support services that are available to her Doctor attests: I performed a history and physical examination of this patient, developed impression and plan of care. Discussed with dictator. I agree with dictators note, documented as a scribe. Time with Patient: Greater than 30
[2024-02-24 20:06] LABS: Glucose,Whole Blood 152 mg/dL (70-110)
[2024-02-25 06:21] LABS: Glucose,Whole Blood 140 mg/dL (70-110)
--- NOTE | 2024-02-25 09:29 | P.CNNES ---
History of Present Illness Consult date: 02/24/24 Requesting physician: Ranulfo Mak Reason for Consult: near syncope w/ visual changes History of Present Illness: Patient is a 73-year-old female with history of diabetes, peripheral neuropathy, metastatic endometrial cancer, came to the hospital yesterday at 12:15 PM for dizziness, unsteady on the feet. Patient states that this has been going on for 5 years, but has gotten progressively worse over a year. Initially could occur off and on, and was not constant. However not it has gotten much worse. She f eels dizzy, not steady on the feet. She tries to keep from falling. When she looks at the picture, it looks distorted and has to hang onto something. She feels like "sewing", and feels like going down. Patient states that once she did pass out/blend out for a minute. No history of seizure. She feels there are no power in the legs. Her legs and body gets shaky and feels will faint. She denies any symptoms when she is laying in the bed, does not bother her when she rolls over in the bed. When she is sitting, she is mostly fine, very slightly she may feel woozy. The symptoms mainly happen when she stands up and walk. It gets overpowering, feels rushing woozy feeling. Vital signs on arrival blood pressure 104/59, pulse 85 temperature 97.6. EKG showed sinus rhythm. Chest x-ray revealed no evidence for acute pulmonary disease. CT head showed no acute intracranial hemorrhage or midline shift. There is mild diffuse age-related cerebral atrophy and mild to moderate probable chronic small vessel ischemic change redemonstrated. No significant change from most recent prior CT. I personally reviewed CT head, agree with the findings. There is evidence of hyperostosis frontalis. Patient has been seen by myself on 01/28/2024 for generalized weakness and right upper extremity weakness. It was felt to be related to previous history of brachial plexopathy and possible neuropathy related to chemotherapy. MRI of the cervical spine did not reveal any acute process. Patient was found to have some B12 and B6 deficiency. Patient has history of diabetes since age 8 also has diabetic neuropathy. She also was diagnosed with metastatic endometrial cancer. She received 4 cycles of chemotherapy, but it made her sick, therefore the chemotherapy has been stopped. She has been using walker for last 1-2 months. She has never smoked, does not drink alcohol. Review of Systems As mentioned above. She has dizziness, generalized weakness, gait imbalance, anxiety depression, neuropathy, and all other review of systems unremarkable. Past Medical History Past Medical History: Cancer, Hyperlipidemia, Hypertension, Thyroid Disorder Additional Past Medical History / Comment(s): uterine CA, Breast cancer right mets to lungs History of Any Multi-Drug Resistant Organisms: None Reported Past Surgical History: Breast Surgery, Hysterectomy Additional Past Surgical History / Comment(s): complete hyst 09/03/2023. Bilat mastectomy. Nose surgery Past Anesthesia/Blood Transfusion Reactions: No Reported Reaction Past Psychological History: Depression Smoking Status: Never smoker Past Alcohol Use History: None Reported Past Drug Use History: None Reported - Past Family History Mother Family Medical History: No Reported History Medications and Allergies Home Medications Medication Instructions Recorded Confirmed Type Atorvastatin [Lipitor] 40 mg PO DAILY 10/15/23 02/23/24 History Vortioxetine Hydrobromide 20 mg PO DAILY 10/15/23 02/23/24 History [Trintellix] atenoloL [Tenormin] 25 mg PO DAILY 10/15/23 02/23/24 History lisinopriL [Zestril] 2.5 mg PO DAILY 10/15/23 02/23/24 History metFORMIN HCL [Glucophage] 1,000 mg PO BID 10/15/23 02/23/24 History traZODone HCL [Desyrel] 100 mg PO HS 10/15/23 02/23/24 History Multivit-Min/Iron/Folic/Lutein 1 tab PO DAILY 01/24/24 02/23/24 History [Centrum Silver Women Tablet] Ondansetron [Zofran] 4 - 8 mg PO Q4H PRN 01/24/24 02/23/24 History glyBURIDE [Diabeta] 5 mg PO AC-BID 01/24/24 02/23/24 History Acetaminophen Tab [Tylenol] 1,000 mg PO Q8HR PRN tab 02/02/24 02/23/24 Rx Colchicine [Colcrys] 0.6 mg PO BID each 02/02/24 02/23/24 Rx Cyanocobalamin [Vitamin B-12] 1,000 mcg PO DAILY tab 02/02/24 02/23/24 Rx Pyridoxine [Vitamin B-6] 50 mg PO DAILY tab 02/02/24 02/23/24 Rx Ibuprofen [Motrin Ib] 600 mg PO Q8H PRN 02/23/24 02/23/24 History Meclizine [Antivert] 12.5 mg PO TID 02/23/24 02/23/24 History Allergies Allergy/AdvReac Type Severity Reaction Status Date / Time codeine AdvReac Nausea & Verified 02/23/24 14:42 Vomiting Physical Examination - Vital Signs Vital Signs: Vital Signs Temp Pulse Pulse Resp BP BP Pulse Ox 02/24/24 03:14 97.5 F L 69 16 131/63 98 02/23/24 23:20 97.8 F 74 16 143/72 97 02/23/24 19:31 97.5 F L 83 16 140/68 100 02/23/24 17:40 98.2 F 77 16 186/97 99 02/23/24 17:11 186/88 02/23/24 16:54 195/80 02/23/24 16:27 77 20 100 02/23/24 12:20 97.6 F 85 18 104/59 98 Intake and Output 02/23/24 02/24/24 02/24/24 22:59 06:59 14:59 Output Total 0 Balance 0 Output: Urine 0 Other: Voiding Method Toilet Toilet # Voids 1 # Bowel Movements 1 Weight 76.2 kg Patient is an elderly female, in no acute distress. Patient is alert awake oriented to time place and person. Speech and language functions are normal. Patient can name and repeat very well. No aphasia or dysarthria. Attention, concentration and fund of knowledge is adequate. Detail cognitive function testing deferred. On cranial nerve examination, pupils are equal, round and reacting to light, vis ual [place] are full on confrontation, with no neglect on double simultaneous stimulation. Extraocular muscles are intact with no nystagmus. Face is symmetric, tongue protrudes to the midline. Palatal elevation and sensation normal, hearing and shoulder shrug normal, facial sensation normal. On muscle strength testing, there is no pronator drift and the strength is (right/left) deltoid 3/5-, biceps 4+/5, triceps 2/5, executive vice president and chief operating officer 2/5-, hip flexion 5/3+, ankle dorsiflexion 5/5, toe extension 4-/4- Deep tendon reflexes patient is areflexic. Sensory to touch is equal with no neglect on double simultaneous stimulation. Cerebellar function showed ataxia for [id number] testing bilaterally, right worse. No ataxia for [id number] testing on either side. Tone and bulk of muscles normal. Gait deferred.. On general examination, there is no carotid bruit or murmur, S1-S2 audible. Chest is clear on consultation. Abdomen is soft nontender. No organomegaly, bowel sounds present. Peripheral pulses are present. No peripheral edema. Results - Laboratory Findings CBC and BMP: 02/24/24 08:17 02/24/24 08:17 Abnormal Lab Findings: Abnormal Labs 02/23/24 02/23/24 02/23/24 14:06 14:06 17:43 WBC 3.7 L RDW 17.2 H Sodium 136 L Potassium Chloride 97 L Carbon Dioxide 32 H Glucose 139 H POC Glucose (mg/dL) 120 H Magnesium 1.1 L AST 50 H ALT 54 H Alkaline Phosphatase 135 H 02/23/24 02/24/24 02/24/24 20:12 06:15 08:17 WBC 3.1 L RDW 17.3 H Sodium Potassium Chloride Carbon Dioxide Glucose POC Glucose (mg/dL) 146 H 121 H Magnesium AST ALT Alkaline Phosphatase 02/24/24 02/24/24 08:17 12:03 WBC RDW Sodium Potassium 3.3 L Chloride Carbon Dioxide 31 H Glucose 127 H POC Glucose (mg/dL) 165 H Magnesium AST 44 H ALT 44 H Alkaline Phosphatase Assessment and Plan Assessment: * Dizziness on standing up, likely due to orthostasis. Patient also has history of diabetic peripheral neuropathy, which was worsened with chemotherapy, may exacerbate dizziness on standing. 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 Pulse remained 82 in all positions. Patient became significantly symptomatic when she was standing and started sitting down while the blood pressure was being taken in a standing position. * Recommend hydration. * Compression stockings * Consider midodrine, if the orthostatic hypotension persist. * Continue B12, B6 replacement. * Other medical management as per IM and oncology. * Neurology will follow clinically. Thank you for the consult.
[2024-02-25 09:58] LABS: Anisocytosis Slight; HCT 38.1 % (34.0-46.0); HGB 12.3 gm/dL (11.4-16.0); MCH 30.3 pg (25.0-35.0); MCHC 32.3 g/dL (31.0-37.0); MCV 93.8 fL (80.0-100.0); Platelet Count 190 k/uL (150-450); RBC 4.06 m/uL (3.80-5.40); RDW 16.9 % (11.5-15.5); WBC 2.3 k/uL (3.8-10.6)
[2024-02-25 10:20] LABS: African American GFR (CKD) >90 (>60 ml/min/1.73 sqM); Anion Gap 5 mmol/L; Blood Urea Nitrogen 8 mg/dL (7-17); Calcium 8.7 mg/dL (8.4-10.2); Carbon Dioxide 28 mmol/L (22-30); Chloride 106 mmol/L (98-107); Glucose 177 mg/dL (74-99); Magnesium 1.2 mg/dL (1.6-2.3); Non-African American GFR(CKD) >90 (>60 ml/min/1.73 sqM); Potassium 3.6 mmol/L (3.5-5.1); Sodium 139 mmol/L (137-145)
[2024-02-25 11:32] LABS: Glucose,Whole Blood 157 mg/dL (70-110)
[2024-02-25] MEDS: ACETAMINOPHEN TAB 325 MG TAB PO PRN (14:46)
--- NOTE | 2024-02-25 15:44 | P.PN ---
Subjective Progress Note Date: 02/25/24 Principal diagnosis: metastatic endometrial carcinoma In f/u today pt feels better, she reports having a little more hope today. She is working with physical therapy. Denies any fevers, nausea or vomiting, cough, shortness of breath, acute changes in bowel or bladder habits. She is tolerating oral intake. Objective - Vital Signs Vital signs: Vital Signs Temp 98.1 F 02/25/24 14:00 Pulse 72 02/25/24 14:00 Resp 16 02/25/24 14:00 BP 178/94 02/25/24 14:00 Pulse Ox 99 02/25/24 14:00 FiO2 Intake & Output 02/24/24 02/25/24 02/25/24 18:59 06:59 18:59 Intake Total 960 222 Balance 960 222 Intake: Oral 960 222 Other: Voiding Method Toilet Toilet # Voids 2 - Constitutional General appearance: Present: average body habitus, cooperative, no acute distress - EENT Eyes: Present: anicteric sclerae, EOMI ENT: Present: hearing grossly normal - Respiratory Details: Respirations even and unlabored at rest - Cardiovascular Details: Radial pulse regular, 2+ - Peripheral edema leg Peripheral Edema: bilateral: Trace - Gastrointestinal General gastrointestinal: Present: soft - Integumentary Integumentary: Present: pale - Neurologic Neurologic: Present: CNII-XII intact - Musculoskeletal Musculoskeletal: Present: right sided weakness (Upper extremity) - Psychiatric Psychiatric: Present: A&O x's 3, appropriate affect, intact judgment & insight - Labs CBC & Chem 7: 02/25/24 09:30 02/25/24 09:30 Labs: Abnormal Lab Results - Last 24 Hours (Table) 02/24/24 02/24/24 02/25/24 Range/Units 16:14 20:05 06:19 WBC (3.8-10.6) k/uL RDW (11.5-15.5) % Glucose (74-99) mg/dL POC Glucose (mg/dL) 182 H 152 H 140 H (70-110) mg/dL Magnesium (1.6-2.3) mg/dL 02/25/24 02/25/24 02/25/24 Range/Units 09:30 09:30 11:30 WBC 2.3 L (3.8-10.6) k/uL RDW 16.9 H (11.5-15.5) % Glucose 177 H (74-99) mg/dL POC Glucose (mg/dL) 157 H (70-110) mg/dL Magnesium 1.2 L (1.6-2.3) mg/dL Microbiology - Last 24 Hours (Table) 02/23/24 14:30 Blood Culture - Preliminary Blood 02/23/24 14:15 Blood Culture - Preliminary Blood Assessment and Plan (1) Lack of social support Current Visit: Yes Status: Acute Priority: High Code(s): Z65.8 - OTH PROBLEMS RELATED TO PSYCHOSOCIAL CIRCUMSTANCES SNOMED Code(s): 0959507995 (2) Hypomagnesemia Current Visit: Yes Status: Acute Priority: High Code(s): E83.42 - HYPOMAGNESEMIA SNOMED Code(s): 373715331 (3) Near syncope Current Visit: Yes Status: Acute Priority: High Code(s): R55 - SYNCOPE AND COLLAPSE SNOMED Code(s): 571311567 (4) Endometrial carcinoma Current Visit: No Status: Chronic Priority: Medium Code(s): C54.1 - MALIGNANT NEOPLASM OF ENDOMETRIUM SNOMED Code(s): 263441593 Plan: Hypomagnesia -Suspect related to recent poor oral intake -Supplement protocol ordered -Normal magnesium level today Near syncope -Likely related to poor oral intake, dehydration -CT head did not show any acute findings -Orthostatic BPs done-positive. Neurology has seen the patient Endometrial carcinoma -She had 4 cycles of chemo and 2 doses of immunotherapy with dostarlimab-gxly -No treatment since 01/12. She has not yet been seen in office as she was discharged from rehab late last week -Will get new f/u appt scheduled for her Lack of Social Support -Pt expressed significant distress about being a burden to her family, inability to care for self because of poor functionality of the RUE and scared of living alone -Case was discussed with Physical Therapist, IM WARNING ANALYST, Case Management and Nursing -Support in the outpt setting is being investigated and pt will be referred/signed up for what ever services she qualifies for -PT is going eval and treat pt to see how much functionality she can get out of the RUE. Assistive device recommendations Will see how pt does and if she is able to manage independently with support services that are available to her
--- NOTE | 2024-02-25 15:58 | P.PN ---
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 Batista but reports she stopped chemo secondary to her inability to tolerate side effects and states her last session being 01/13/24. She presented to the emergency department on 02/23/2024 with a chief complaint of dizziness and near syncopal episode accompanied by blurred vision with black floaters in bilateral eyes. Patient recently underwent hospitalization from 01/23/2024 through 02/02/2024 secondary to generalized weakness and fall at home. Patient was discharged to longterm facility [facility] for rehab and reports she was discharged from nursing facility 02/22/2024 and was following up with her psych specialist, Dr. Maldonado secondary to concerns of right rotator cuff injury and worsened weakness of right hand/arm. Patient reports at follow-up appointment she became very dizzy/lightheaded patient reports and felt as though she was going to pass out so family brought her to the emergency department for evaluation. Upon arrival to our facility, patient underwent evaluation in the emergency department. Vital signs upon arrival show blood pressure 104/59, heart rate 85, respiratory rate 18, temp 97.6 F, and SpO2 of 98% on room air. EKG completed showing normal sinus rhythm at 82 bpm with no significant T wave or ST abnormalities showing no signs of acute ischemia upon personal review and interpretation. Chest x-ray completed negative for acute cardiopulmonary process. Labs completed and reviewed. CBC showing leukopenia with WBC count of 3.7. Coagulation profile normal findings. BMP showing metabolic alkalosis with chloride of 97, bicarb of 32, and anion gap of 7. Blood glucose was 139. Magnesium low at 1.1. Liver profile showing transaminitis with AST of 50, ALT of 54, and alkaline phosphatase of 135. Physical exam: Patient seen and fully evaluated at bedside this morning. Patient's overall mood/spirit seems to be slightly improved today. She worked with physical therapy recommending placement in rehab and patient's outlook slightly more positive with plan in place. She currently denies having any pain or complaints at this time. She continues to have dizziness/lightheadedness upon standing or walking. Orthostatic vitals were positive for orthostatic hypotension. Vital signs reviewed and stable. General: Nontoxic, no distress and appears stated age. Derm: Skin warm and dry, normal coloration for ethnicity. Head: Atraumatic, normocephalic and symmetric. Eyes: EOMs intact, no lid lag, and anicteric sclera Mouth: no lip lesions, mucus membranes moist Cardiovascular: regular rate and rhythm with normal S1S2, systolic murmur, positive posterior tibial pulses bilaterally, and cap refill < 2 seconds. Lungs: Respirations even, regular, and unlabored on room air. Lungs CTA bilaterally, no rhonchi, no rales, no wheezing, and no accessory muscle usage. Abdominal: soft, nontender to palpation, no guarding, no appreciable organomegaly Ext: ROM intact. No gross muscle atrophy, no edema, no contractures Neuro: Speech clear, face symmetrical and CN II-XII grossly intact with no noted focal neuro deficits Psych: Alert and oriented to person, place, time, and situation. Appropriate and pleasant affect. Assessment and Plan of Care: Near syncope reports of dizziness and visual changes Orthostatic hypotension Hypomagnesemia, likely secondary to poor oral intake Hypokalemia, resolved. Metabolic alkalosis Neutropenia Metastatic uterine cancer undergoing chemotherapy -Continuous telemetry monitoring. -Orthostatic vitals positive for orthostatic hypotension. -Fall precautions and consult to PT/OT for evaluation. -Continue gentle IV fluid hydration with 0.9% normal saline. -Order placed for ROBERTO hose to assist with orthostatic hypotension. -CT brain was completed negative for acute intracranial hemorrhage or midline shift showing mild diffuse age-related cerebral atrophy and mild to moderate probable chronic small vessel ischemic changes redemonstrated with no significant changes reported from most recent CT completed 01/23/2024. -Continue neurochecks every 4 hours -Orthostatic vitals -Consult to neurology, reviewed documentation in chart -Consult to hematology/oncology. 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 Type 2 insulin-dependent diabetes mellitus with hyperglycemia -Hold glyburide and metformin and place patient on glycemic protocol with NovoLog sliding scale. Anxiety with depression -Continue daily medication regimen with Trintellix 20 mg daily and trazodone 100 mg nightly. Hypertension -Continue daily medication regimen with atenolol 25 mg daily and lisinopril 2.5 mg daily. Hyperlipidemia -Continue daily medication regimen with atorvastatin 40 mg daily. History of CVAs with right upper extremity and left lower extremity deficits -Safe and supportive care. Fall precautions, PT/OT following, and patient to be provided with assistance as needed. Data and imaging reviewed: -Vital signs reviewed. Blood pressure 93/61, heart rate 109, respiratory rate 16, temp 98.2 F, and SpO2 of 99% on room air. -Labs completed and reviewed. CBC showing continued leukopenia with WBC count of 2.3 otherwise normal findings. BMP showing resolution of hypokalemia with potassium of 3.6 and blood glucose of 177. Magnesium 1.2 orders placed for magnesium sulfate 4 g IVPB. CODE STATUS: Full code DVT prophylaxis: Lovenox Anticipated discharge date: Pending insurance authorization Anticipated discharge place: half-way facility Patient was seen independently by Nurse Practitioner. This document was prepared using [employer] dictation software. Please allow for errors in dental hygienist mobile coordinator while rare they do occur. I reviewed the documentation as provided by the JUAN FRANCISCO above, who is the original author of this note. I agree with the documented assessment and plan, with the following changes: none Objective - Vital Signs Vital signs: Vital Signs Temp 97.7 F 02/25/24 04:00 Pulse 72 02/25/24 04:00 Resp 16 02/25/24 04:00 BP 135/75 02/25/24 04:00 Pulse Ox 98 02/25/24 04:00 FiO2 Intake & Output 02/24/24 02/25/24 02/25/24 18:59 06:59 18:59 Intake Total 960 Balance 960 Intake: Oral 960 Other: Voiding Method Toilet Toilet # Voids 2 - Labs CBC & Chem 7: 02/26/24 10:15 02/26/24 10:15 Labs: Abnormal Lab Results - Last 24 Hours (Table) 02/24/24 02/24/24 02/24/24 Range/Units 08:17 08:17 12:03 WBC 3.1 L (3.8-10.6) k/uL RDW 17.3 H (11.5-15.5) % Potassium 3.3 L (3.5-5.1) mmol/L Carbon Dioxide 31 H (22-30) mmol/L Glucose 127 H (74-99) mg/dL POC Glucose (mg/dL) 165 H (70-110) mg/dL AST 44 H (14-36) U/L ALT 44 H (4-34) U/L 02/24/24 02/24/24 02/25/24 Range/Units 16:14 20:05 06:19 WBC (3.8-10.6) k/uL RDW (11.5-15.5) % Potassium (3.5-5.1) mmol/L Carbon Dioxide (22-30) mmol/L Glucose (74-99) mg/dL POC Glucose (mg/dL) 182 H 152 H 140 H (70-110) mg/dL AST (14-36) U/L ALT (4-34) U/L Microbiology - Last 24 Hours (Table) 02/23/24 14:30 Blood Culture - Preliminary Blood 02/23/24 14:15 Blood Culture - Preliminary Blood
[2024-02-25] MEDS: MAGNESIUM OXIDE 400 MG TAB PO STA (16:13)
[2024-02-25] MEDS: MAGNESIUM SULFATE-D5W PMX 1 GM in DEXTROSE/WATER 1 100ML.BAG IVPB SCH (16:13)
[2024-02-25 16:39] LABS: Glucose,Whole Blood 130 mg/dL (70-110)
[2024-02-25 19:51] LABS: Glucose,Whole Blood 176 mg/dL (70-110)
[2024-02-26 06:03] LABS: Glucose,Whole Blood 139 mg/dL (70-110)
[2024-02-26 10:06] VITALS: RESP 17
[2024-02-26 10:40] LABS: Anisocytosis Slight; HCT 37.5 % (34.0-46.0); HGB 11.7 gm/dL (11.4-16.0); MCH 29.5 pg (25.0-35.0); MCHC 31.3 g/dL (31.0-37.0); MCV 94.3 fL (80.0-100.0); Mean Platelet Volume 8.8; Platelet Count 219 k/uL (150-450); RBC 3.98 m/uL (3.80-5.40); RDW 16.7 % (11.5-15.5); WBC 2.4 k/uL (3.8-10.6)
[2024-02-26 10:51] LABS: ALT 28 U/L (4-34); AST 31 U/L (14-36); African American GFR (CKD) >90 (>60 ml/min/1.73 sqM); Albumin 3.4 g/dL (3.5-5.0); Alkaline Phosphatase 130 U/L (38-126); Anion Gap 4 mmol/L; Blood Urea Nitrogen 9 mg/dL (7-17); Calcium 8.6 mg/dL (8.4-10.2); Carbon Dioxide 29 mmol/L (22-30); Chloride 105 mmol/L (98-107); Glucose 174 mg/dL (74-99); Magnesium 1.4 mg/dL (1.6-2.3); Non-African American GFR(CKD) >90 (>60 ml/min/1.73 sqM); Potassium 3.5 mmol/L (3.5-5.1); Sodium 138 mmol/L (137-145); Total Bilirubin 0.5 mg/dL (0.2-1.3); Total Protein 5.8 g/dL (6.3-8.2)
--- NOTE | 2024-02-26 11:51 | P.PN ---
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 Batista but reports she stopped chemo secondary to her inability to tolerate side effects and states her last session being 01/13/24. She presented to the emergency department on 02/23/2024 with a chief complaint of dizziness and near syncopal episode accompanied by blurred vision with black floaters in bilateral eyes. Patient recently underwent hospitalization from 01/23/2024 through 02/02/2024 secondary to generalized weakness and fall at home. Patient was discharged to custodial facility [facility] for rehab and reports she was discharged from nursing facility 02/22/2024 and was following up with her work station support specialist, Dr. Maldonado secondary to concerns of right rotator cuff injury and worsened weakness of right hand/arm. Patient reports at follow-up appointment she became very dizzy/lightheaded patient reports and felt as though she was going to pass out so family brought her to the emergency department for evaluation. Upon arrival to our facility, patient underwent evaluation in the emergency department. Vital signs upon arrival show blood pressure 104/59, heart rate 85, respiratory rate 18, temp 97.6 F, and SpO2 of 98% on room air. EKG completed showing normal sinus rhythm at 82 bpm with no significant T wave or ST abnormalities showing no signs of acute ischemia upon personal review and interpretation. Chest x-ray completed negative for acute cardiopulmonary process. Labs completed and reviewed. CBC showing leukopenia with WBC count of 3.7. Coagulation profile normal findings. BMP showing metabolic alkalosis with chloride of 97, bicarb of 32, and anion gap of 7. Blood glucose was 139. Magnesium low at 1.1. Liver profile showing transaminitis with AST of 50, ALT of 54, and alkaline phosphatase of 135. CT brain was completed negative for acute intracranial hemorrhage or midline shift showing mild diffuse age-related cerebral atrophy and mild to moderate probable chronic small vessel ischemic changes redemonstrated with no significant changes reported from most recent CT completed 01/23/2024. Physical exam: Patient seen and fully evaluated at bedside this morning. Patient appears to be doing well this morning. Patient transferring and moving from bed to chair with supervision and appears to be doing well but continues to have difficulties with balance secondary to orthostatic hypotension resulting in dizziness. Vital signs reviewed and stable. General: Nontoxic, no distress and appears stated age. Chronically ill- appearing. Derm: Skin warm and dry, normal coloration for ethnicity. Head: Atraumatic, normocephalic and symmetric. Eyes: EOMs intact, no lid lag, and anicteric sclera Mouth: no lip lesions, mucus membranes moist Cardiovascular: regular rate and rhythm with normal S1S2, systolic murmur, positive posterior tibial pulses bilaterally, and cap refill < 2 seconds. Lungs: Respirations even, regular, and unlabored on room air. Lungs CTA bilaterally, no rhonchi, no rales, no wheezing, and no accessory muscle usage. Abdominal: soft, nontender to palpation, no guarding, no appreciable organomegaly Ext: ROM intact. No gross muscle atrophy, no edema, no contractures Neuro: Speech clear, face symmetrical and CN II-XII grossly intact with no noted focal neuro deficits Psych: Alert and oriented to person, place, time, and situation. Appropriate and pleasant affect. Assessment and Plan of Care: Near syncope with reports of dizziness and visual changes Orthostatic hypotension Neutropenia Metastatic uterine cancer -Telemetry monitoring. -Orthostatic vitals positive for orthostatic hypotension. -Fall precautions -PT/OT evaluated, patient had episode of loss of balance while ambulating requiring 2 person assist for recovery to prevent fall. Patient will require custodial facility for rehab to learn how to adjust to the changes in her blood pressure secondary to orthostatic hypotension. -Patient received IV fluid hydration and ROBERTO hose to assist with orthostatic hypotension. -Continue neurochecks every 4 hours -Consult to neurology, reviewed documentation in chart -Consult to hematology/oncology. 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 Hypomagnesemia, likely secondary to poor oral intake Hypokalemia, resolved with replacement. Metabolic alkalosis, resolved with IV fluid hydration -Magnesium remains low at 1.4 despite replacement. Order placed for magnesium sulfate 3 g IVPB and patient started on Mag-Ox 400 mg twice daily. -Consult placed to dietitian secondary to poor oral intake patient placed on protein supplements 3 times daily between meals. Type 2 insulin-dependent diabetes mellitus with hyperglycemia -Hold glyburide and metformin and place patient on glycemic protocol with NovoLog sliding scale. Anxiety with depression -Continue daily medication regimen with Trintellix 20 mg daily and trazodone 100 mg nightly. Hypertension -Continue daily medication regimen with atenolol 25 mg daily and lisinopril 2.5 mg daily. Hyperlipidemia -Continue daily medication regimen with atorvastatin 40 mg daily. History of CVAs with right upper extremity and left lower extremity deficits -Safe and supportive care. Fall precautions, PT/OT following, and patient to be provided with assistance as needed. Data and imaging reviewed: -Vital signs reviewed. Blood pressure was elevated this morning at 182/89, heart rate 79, respiratory rate 17, temp 98.6 F, and SpO2 of 98% on room air. -Labs completed and reviewed. CBC showing leukopenia with WBC count of 2.4 otherwise normal findings. BMP unremarkable. Blood glucose slightly elevated this morning at 174. Magnesium remains low at 1.4 despite replacement. Order placed for magnesium sulfate 3 g IVPB and patient started on Mag-Ox 400 mg twice daily. CODE STATUS: Full code DVT prophylaxis: Lovenox Anticipated discharge date: Pending insurance authorization Anticipated discharge place: custodial facility Patient was seen independently by Nurse Practitioner. This document was prepared using [employer] dictation software. Please allow for errors in paper machine back tender while rare they do occur. I reviewed the documentation as provided by the JUAN FRANCISCO above, who is the original author of this note. I agree with the documented assessment and plan, with the following changes: none Objective - Vital Signs Vital signs: Vital Signs Temp 98.1 F 02/25/24 20:00 Pulse 63 02/25/24 23:46 Resp 14 02/25/24 23:46 BP 119/68 02/25/24 23:46 Pulse Ox 97 02/25/24 23:46 FiO2 Intake & Output 02/25/24 02/26/24 02/26/24 18:59 06:59 18:59 Intake Total 342 480 Balance 342 480 Intake: Oral 342 480 Other: Voiding Method Toilet # Voids 3 - Labs CBC & Chem 7: 02/26/24 10:15 02/26/24 10:15 Labs: Abnormal Lab Results - Last 24 Hours (Table) 02/25/24 02/25/24 02/25/24 Range/Units 09:30 09:30 11:30 WBC 2.3 L (3.8-10.6) k/uL RDW 16.9 H (11.5-15.5) % Glucose 177 H (74-99) mg/dL POC Glucose (mg/dL) 157 H (70-110) mg/dL Magnesium 1.2 L (1.6-2.3) mg/dL 02/25/24 02/25/24 02/26/24 Range/Units 16:38 19:50 06:01 WBC (3.8-10.6) k/uL RDW (11.5-15.5) % Glucose (74-99) mg/dL POC Glucose (mg/dL) 130 H 176 H 139 H (70-110) mg/dL Magnesium (1.6-2.3) mg/dL Microbiology - Last 24 Hours (Table) 02/23/24 14:30 Blood Culture - Preliminary Blood 02/23/24 14:15 Blood Culture - Preliminary Blood
--- NOTE | 2024-02-26 12:02 | P.PN ---
Subjective Progress Note Date: 02/25/24 Patient was seen for a follow-up. Patient states feeling better. No more syncopal spells. No new concerns. Objective - Vital Signs Vital signs: Vital Signs Temp 98.1 F 02/25/24 14:00 Pulse 72 02/25/24 14:00 Resp 16 02/25/24 14:00 BP 178/94 02/25/24 14:00 Pulse Ox 99 02/25/24 14:00 FiO2 Intake & Output 02/24/24 02/25/24 02/25/24 18:59 06:59 18:59 Intake Total 960 342 Balance 960 342 Intake: Oral 960 342 Other: Voiding Method Toilet Toilet # Voids 2 3 - Exam Unchanged. Mentation normal. - Labs CBC & Chem 7: 02/26/24 10:15 02/26/24 10:15 Labs: Abnormal Lab Results - Last 24 Hours (Table) 02/24/24 02/25/24 02/25/24 Range/Units 20:05 06:19 09:30 WBC 2.3 L (3.8-10.6) k/uL RDW 16.9 H (11.5-15.5) % Glucose (74-99) mg/dL POC Glucose (mg/dL) 152 H 140 H (70-110) mg/dL Magnesium (1.6-2.3) mg/dL 02/25/24 02/25/24 02/25/24 Range/Units 09:30 11:30 16:38 WBC (3.8-10.6) k/uL RDW (11.5-15.5) % Glucose 177 H (74-99) mg/dL POC Glucose (mg/dL) 157 H 130 H (70-110) mg/dL Magnesium 1.2 L (1.6-2.3) mg/dL Microbiology - Last 24 Hours (Table) 02/23/24 14:30 Blood Culture - Preliminary Blood 02/23/24 14:15 Blood Culture - Preliminary Blood Assessment and Plan Assessment: * Dizziness on standing up, likely due to orthostasis. Patient also has history of diabetic peripheral neuropathy, which was worsened with chemotherapy, may exacerbate dizziness on standing. 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 Patient continues to have positive orthostatics. Heart rate remains at 82. * Recommend hydration. * Compression stockings * Consider midodrine, if the orthostatic hypotension persist. * Continue B12, B6 replacement. * Other medical management as per IM and oncology.
[2024-02-26 12:08] LABS: Glucose,Whole Blood 162 mg/dL (70-110)
--- NOTE | 2024-02-26 12:41 | P.DS ---
Providers Date of admission: 02/23/24 15:48 Expected date of discharge: 02/26/24 Attending physician: Gilberto Gerardo MD Consults: 02/23/24 16:03 Consult Physician Routine Consulting Provider: Destiney Chamberlain Consult Reason/Comments: metast uterine cancer w/ dec appetite & dizziness w/ near syncope Do you want consulting provider notified?: Yes 02/23/24 16:41 Consult Physician Routine Consulting Provider: Amy Gallardo Consult Reason/Comments: near syncope w/ visual changes Do you want consulting provider notified?: Yes Primary care physician: [facility] Course: Discharge Diagnosis: Near syncope with reports of dizziness and visual changes. Secondary to orthostatic hypotension. Patient received IV fluid hydration and ROBERTO hose to assist with orthostatic hypotension.PT/OT evaluated, patient had episode of loss of balance while ambulating requiring 2 person assist for recovery to prevent fall. Patient will require retirement facility for rehab to learn how to adjust to the changes in her blood pressure secondary to orthostatic hypotension. Orthostatic hypotension. Secondary to orthostatic hypotension, patient was educated on the importance of changing positions slowly from lying to sitting and waiting 2 minutes prior to standing and upon standing waiting a minute before walking. If at anytime pt becomes dizzy/lightheaded, she was instructed to return to her previous seated or lying position and wait a couple minutes prior to reattempting to stand and/or ambulate. Patient also encouraged to keep hydrated and wear ROBERTO hose at all times when out of bed. Neutropenia. WBC count stable at discharge of 2.4. Metastatic uterine cancer . Patient not currently undergoing chemotherapy at this time secondary to reports that she was unable to tolerate side effects. Patient to follow-up outpatient with oncologist on 03/10/2024 as scheduled for further discussion and treatment plan. Hypomagnesemia, likely secondary to poor oral intake. Patient discharged on oral magnesium supplements 400 mg twice daily with prescription for repeat magnesium levels in 3 days, these results to be sent to PCP and oncology for follow-up and management. Hypokalemia, resolved with replacement. 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 Continue glyburide 5 mg twice daily and metformin 1000 mg twice daily. Anxiety with depression. Continue daily medication regimen with Trintellix 20 mg daily and trazodone 100 mg nightly. Hypertension. Continue daily medication regimen with atenolol 25 mg daily and lisinopril 2.5 mg daily. Hyperlipidemia. Continue daily medication regimen with atorvastatin 40 mg daily. 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 Safe and supportive care. Fall precautions. Hospital Course: Patient is a pleasant 73-year-old female with a past medical history of hypertension, hyperlipidemia, hypothyroidism, previous CVAs with residual weakness of proximal right upper extremity and left lower extremity, anemia of chronic disease, type II [id number] diabetes mellitus, breast cancer status post bilateral mastectomy, uterine cancer with metastasis to lungs previously undergoing chemotherapy with Dr. Batista but reports she stopped chemo secondary to her inability to tolerate side effects and states her last session being 01/13/24. She presented to the emergency department on 02/23/2024 with a chief complaint of dizziness and near syncopal episode accompanied by blurred vision with black floaters in bilateral eyes. Patient recently underwent hospitalization from 01/23/2024 through 02/02/2024 secondary to generalized weakness and fall at home. Patient was discharged to retirement facility [facility] for rehab and reports she was discharged from nursing facility 02/22/2024 and was following up with her meat specialist, Dr. Maldonado secondary to concerns of right rotator cuff injury and worsened weakness of right hand/arm. Patient reports at follow-up appointment she became very dizzy/lightheaded patient reports and felt as though she was going to pass out so family brought her to the emergency department for evaluation. Upon arrival to our facility, patient underwent evaluation in the emergency department. Vital signs upon arrival show blood pressure 104/59, heart rate 85, respiratory rate 18, temp 97.6 F, and SpO2 of 98% on room air. EKG completed showing normal sinus rhythm at 82 bpm with no significant T wave or ST abnormalities showing no signs of acute ischemia upon personal review and interpretation. Chest x-ray completed negative for acute cardiopulmonary process. Labs completed and reviewed. CBC showing leukopenia with WBC count of 3.7. Coagulation profile normal findings. BMP showing metabolic alkalosis with chloride of 97, bicarb of 32, and anion gap of 7. Blood glucose was 139. Magnesium low at 1.1. Liver profile showing transaminitis with AST of 50, ALT of 54, and alkaline phosphatase of 135. CT brain was completed negative for acute intracranial hemorrhage or midline shift showing mild diffuse age-related cerebral atrophy and mild to moderate probable chronic small vessel ischemic changes redemonstrated with no significant changes reported from most recent CT completed 01/23/2024. Physical exam: Vital signs reviewed and stable. General: Nontoxic, no distress and appears stated age. Chronically ill- appearing. Derm: Skin warm and dry, normal coloration for ethnicity. Head: Atraumatic, normocephalic and symmetric. Eyes: EOMs intact, no lid lag, and anicteric sclera Mouth: no lip lesions, mucus membranes moist Cardiovascular: regular rate and rhythm with normal S1S2, systolic murmur, positive posterior tibial pulses bilaterally, and cap refill < 2 seconds. Lungs: Respirations even, regular, and unlabored on room air. Lungs CTA bilaterally, no rhonchi, no rales, no wheezing, and no accessory muscle usage. Abdominal: soft, nontender to palpation, no guarding, no appreciable organomegaly Ext: ROM intact. No gross muscle atrophy, no edema, no contractures Neuro: Speech clear, face symmetrical and CN II-XII grossly intact with no noted focal neuro deficits Psych: Alert and oriented to person, place, time, and situation. Appropriate and pleasant affect. A total of 34 minutes of time were spent preparing this complex discharge summary. Pt was discharged on 02/26/2024 at 12:32 PM. Patient was seen independently by Nurse Practitioner. This document was prepared using [employer] dictation software. Please allow for errors in hairspring vibrator while rare they do occur. I reviewed the documentation as provided by the JUAN FRANCISCO above, who is the original author of this note. I agree with the documented assessment and plan, with the following changes: none Patient Condition at Discharge: Stable Plan - Discharge Summary Discharge Rx Participant: Yes New Discharge Prescriptions: New Magnesium Oxide [Mag-Ox] 400 mg PO BID tab Continue Vortioxetine Hydrobromide [Trintellix] 20 mg PO DAILY metFORMIN HCL [Glucophage] 1,000 mg PO BID Cyanocobalamin [Vitamin B-12] 1,000 mcg PO DAILY tab Pyridoxine [Vitamin B-6] 50 mg PO DAILY tab lisinopriL [Zestril] 2.5 mg PO DAILY traZODone HCL [Desyrel] 100 mg PO HS Atorvastatin [Lipitor] 40 mg PO DAILY atenoloL [Tenormin] 25 mg PO DAILY glyBURIDE [Diabeta] 5 mg PO AC-BID Ondansetron [Zofran] 4 - 8 mg PO Q4H PRN PRN Reason: Nausea And Vomiting Multivit-Min/Iron/Folic/Lutein [Centrum Silver Women Tablet] 1 tab PO DAILY Colchicine [Colcrys] 0.6 mg PO BID each Acetaminophen Tab [Tylenol] 1,000 mg PO Q8HR PRN tab PRN Reason: Fever And/ Or Pain Ibuprofen [Motrin Ib] 600 mg PO Q8H PRN PRN Reason: Pain Meclizine [Antivert] 12.5 mg PO TID Discharge Medication List Atorvastatin [Lipitor] 40 mg PO DAILY 10/15/23 [History] Vortioxetine Hydrobromide [Trintellix] 20 mg PO DAILY 10/15/23 [History] atenoloL [Tenormin] 25 mg PO DAILY 10/15/23 [History] lisinopriL [Zestril] 2.5 mg PO DAILY 10/15/23 [History] metFORMIN HCL [Glucophage] 1,000 mg PO BID 10/15/23 [History] traZODone HCL [Desyrel] 100 mg PO HS 10/15/23 [History] Multivit-Min/Iron/Folic/Lutein [Centrum Silver Women Tablet] 1 tab PO DAILY 01/24/24 [History] Ondansetron [Zofran] 4 - 8 mg PO Q4H PRN 01/24/24 [History] glyBURIDE [Diabeta] 5 mg PO AC-BID 01/24/24 [History] Acetaminophen Tab [Tylenol] 1,000 mg PO Q8HR PRN tab 02/02/24 [Rx] Colchicine [Colcrys] 0.6 mg PO BID each 02/02/24 [Rx] Cyanocobalamin [Vitamin B-12] 1,000 mcg PO DAILY tab 02/02/24 [Rx] Pyridoxine [Vitamin B-6] 50 mg PO DAILY tab 02/02/24 [Rx] Ibuprofen [Motrin Ib] 600 mg PO Q8H PRN 02/23/24 [History] Meclizine [Antivert] 12.5 mg PO TID 02/23/24 [History] Magnesium Oxide [Mag-Ox] 400 mg PO BID tab 02/26/24 [Rx] Follow up Appointment(s)/Referral(s): Bg Batista [STAFF PHYSICIAN] - 03/10/24 3:00 pm Domingo Anna MD [Primary Care Provider] - 1-2 days Ambulatory/Diagnostic Orders: Basic Metabolic Panel [LAB.AMB] Location: None Selected Magnesium [LAB.AMB] Time Frame: 3 Days, Facility: [facility], Location: [facility] Patient Instructions/Handouts: Near Syncope (DC) Activity/Diet/Wound Care/Special Instructions: . Activity: As tolerated. Fall precautions in place. Remember secondary to your orthostatic hypotension it is important to change positions slowly from lying to sitting and waiting 2 minutes prior to standing and upon standing waiting a minute before walking. If at anytime you become dizzy/lightheaded return to your previous seated or lying position and wait a couple minutes prior to reattempting to stand and/or ambulate. Diet: Heart healthy and carb consistent diet. Avoid salts, or foods with hidden salts such as canned or boxed foods and frozen dinners. Extra salt makes your heart work harder and traps the fluid in your body for longer. Recommend continuation of protein supplements 3 times daily between meals. Special Instructions: Take all of your medications as directed and remember to keep all of your doctor's appointments and follow-up as needed. Wear ROBERTO hose at all times when out of bed, this will help with orthostatic hypotension. Thank you for allowing us to participate in your care, it was truly a pleasure having you for our patient!!! . Discharge/Stand Alone Forms: Adult Foster Skilled Nursing List, Assisted Living Facilities, Help In The Home Discharge Disposition: TRANSFER TO SNF/ECF
[2024-02-26] MEDS: MAGNESIUM OXIDE 400 MG TAB PO SCH (13:10)
[2024-02-26] MEDS: MAGNESIUM SULFATE-D5W PMX 1 GM in DEXTROSE/WATER 1 100ML.BAG IVPB SCH (13:11)
[2024-02-26 15:19] VITALS: BMI 27.9
[2024-02-26 15:42] VITALS: BP 179/77; PULSE 70; TEMP 98.1
== END 2024-02-26 16:43 | DRG 641 ==
LOC: EC 12:15 → OBSVTOIN 15:48 → INTOOBSV 15:48 → 3SCARD 15:48 → 4SSUR 02-26 08:02
PROVIDERS: ADMIT Internal Medicine; ATTEND Internal Medicine
DX: E83.42 Hypomagnesemia (principal); E87.3 Alkalosis; I42.2 Other hypertrophic cardiomyopathy; C78.00 Secondary malignant neoplasm of unspecified lung; I95.1 Orthostatic hypotension; E78.5 Hyperlipidemia, unspecified; E11.42 Type 2 diabetes mellitus with diabetic polyneuropathy; E11.649 Type 2 diabetes mellitus with hypoglycemia without coma; T38.6X5A Adverse effect of antigonadotrophins, antiestrogens, antiandrogens, not elsewhere classified, initial encounter; D70.9 Neutropenia, unspecified; C54.1 Malignant neoplasm of endometrium; G54.0 Brachial plexus disorders; D63.8 Anemia in other chronic diseases classified elsewhere; I10 Essential (primary) hypertension; I25.10 Atherosclerotic heart disease of native coronary artery without angina pectoris; Z88.5 Allergy status to narcotic agent; E03.9 Hypothyroidism, unspecified; E87.6 Hypokalemia; F41.8 Other specified anxiety disorders; E86.0 Dehydration; R93.89 Abnormal findings on diagnostic imaging of other specified body structures; Z79.4 Long term (current) use of insulin; Z79.84 Long term (current) use of oral hypoglycemic drugs; Z79.899 Other long term (current) drug therapy; Z85.3 Personal history of malignant neoplasm of breast; Z90.13 Acquired absence of bilateral breasts and nipples; Z90.710 Acquired absence of both cervix and uterus; Z92.3 Personal history of irradiation; X58.XXXA Exposure to other specified factors, initial encounter; Z79.890 Hormone replacement therapy
CPT/HCPCS: 70450; 71046; 80048; 80053; 83605; 83735; 85025; 85027; 85610; 85730; 87040; 93005; 96361; 96365; 99285

== ENCOUNTER 2024-03-01 11:15 | Day surgery (SDC) | payer MEDICARE ==
[~2024-03-01 11:15] MED LIST changes: +LACTATED RINGERS 1,000 ML IV SCH; -LIDOCAINE 1% (10MG/ML) FOR IV START INTRADERMA PRN; -fentaNYL (PF) 50 MCG/ML 2 ML AMP IV PRN
[2024-03-01 12:12] VITALS: TEMP 97
[2024-03-01 12:22] LABS: Glucose,Whole Blood 70 mg/dL (70-110)
--- NOTE | 2024-03-01 13:23 | P.PCN ---
Date of Procedure: 03/01/24 Procedure(s) Performed: Preoperative diagnosis: 1-dizziness. 2-uterine cancer with mets to the lung Post operative diagnoses: same as preop diagnosis Procedure= lumbar puncture Anesthesia= moderate sedation with Versed 1 mg , and fentanyl 50 g, local infiltration with lidocaine 1% 3 mL. Sedation start time :13:02 Sedation end time :13:17 Condition: stable Complication: none. Description of the procedure procedure risk and benefits discussed with the patient and family, consent signed. Patient and the procedure area placed in lateral position ( right side down ), back prepped with chlorhexidine 3 times been local infiltration of the skin and subcutaneous tissue with lidocaine 1% 2 mL for skin and subcu interstitial frustrations at L4 5 levels then 22-gauge Quincke-type needle advanced slowly at L4- 5 interlaminar space there was positive cerebrospinal fluid which was clear, no heme, no paresthesia ,total of 8 ML of clear cerebrospinal fluid collected in 4 different tubes 2-2-1/2 mL in each, then the needle removed and a Band-Aid applied and patient tolerated the procedure well without any complications. opening pressure= 22 cm of water. CLosing pressure= 9 cm of water
[2024-03-01] MEDS: LACTATED RINGERS 1,000 ML IV ONE (13:30)
[2024-03-01 13:43] LABS: Total Protein,CSF 59 mg/dL (12-60)
[2024-03-01 13:43] LABS: Glucose,Whole Blood 31 mg/dL (70-110)
[2024-03-01 13:43] LABS: Glucose,Whole Blood 32 mg/dL (70-110)
[2024-03-01 14:13] LABS: Glucose,Whole Blood 64 mg/dL (70-110)
[2024-03-01] MEDS: DEXTROSE 50% SYRINGE 50 ML IVP STA (14:18)
[2024-03-01 14:25] VITALS: BP 140/63; PULSE 70; RESP 15
[2024-03-01 14:30] LABS: Glucose,CSF 32 mg/dL (40-70)
[2024-03-01 14:41] LABS: Glucose,Whole Blood 110 mg/dL (70-110)
[2024-03-01 14:58] LABS: Appearance,CSF Clear; CSF Tube Number 4; Red Blood Cell,CSF 1 u/L (0-10)
[2024-03-01 14:59] LABS: Nucleated Cells, CSF 2 u/L (0-5)
== END 2024-03-01 14:57 | disposition home or self-care (01) ==
LOC: ORPAIN 11:15
PROVIDERS: ATTEND Specialist
DX: R42 Dizziness and giddiness (principal); C78.00 Secondary malignant neoplasm of unspecified lung; C55 Malignant neoplasm of uterus, part unspecified
CPT/HCPCS: 62270; 82945; 84157; 87070; 87205; 88108; 89050; 99152

== ENCOUNTER → 2024-03-03 | Outpatient (CLI) | payer MEDICARE ==
[2024-03-03 10:57] LABS: African American GFR (CKD) >90 (>60 ml/min/1.73 sqM); Blood Urea Nitrogen 11 mg/dL (7-17); Non-African American GFR(CKD) 88 (>60 ml/min/1.73 sqM)
--- NOTE | 2024-03-05 19:04 | CT ---
EXAMINATION TYPE: CT ChestAbdPelvis w con DATE OF EXAM: 03/03/2024 INDICATION: uterine ca COMPARISON: 01/26/2024 CT DLP: 1085.6 mGycm CONTRAST: Performed with Oral Contrast and with IV Contrast, patient injected with 100 mL of Isovue 300. TECHNIQUE: Axial images at 5 mm thick sections. Reconstructed images in the coronal plane. Delayed images through the kidneys. FINDINGS: CT CHEST: There is are small hypodensities within the left thyroid lobe. This could be further evaluated with u ltrasound. No suspicious lung nodules or focal infiltrates are present. No enlarged mediastinal or hilar adenopathy is evident. The ascending aorta diameter at the level of the main pulmonary artery is 3.7 cm. The main pulmonary artery diameter at the bifurcation is 2.5 cm. There appears to be some coronary artery calcification present. CT ABDOMEN: Liver: Normal Spleen: Normal Pancreas: Normal Adrenal glands: The adrenal glands are normal. Gallbladder: Large gallstone is present. Kidneys: No masses are evident. No hydronephrosis is present. There is a cyst in the lateral upper pole right kidney measuring 2.2 cm. Nonobstructing renal stones are not excluded. Delayed images were obtained through the kidneys, which remain unremarkable. Aorta: Vascular calcification is within the aorta. Inferior vena cava: Normal. CT PELVIS: Loops of bowel within the abdomen and pelvis are normal. Oral contrast extends to the transverse colo n. There are loops of bowel which are incompletely distended or lack oral contrast limiting their evaluation. Appendix: Not identified. No dilated tubular structure or inflammatory change is evident. Urinary bladder: Normal. Genitourinary structures: Uterus and ovaries are not identified. Osseous structures: No suspicious lytic or sclerotic lesions. IMPRESSION: 1. No suspicious changes to suggest metastatic disease. 2. Cholelithiasis. 3. Heterogenous left thyroid. This could be evaluated with ultrasound. 4. Nonobstructing renal stones
== END | disposition home or self-care (01) ==
LOC: RADCTMAIN 10:08
PROVIDERS: ATTEND Internal Medicine Hematology & Oncology
DX: C54.8 Malignant neoplasm of overlapping sites of corpus uteri (principal); E11.9 Type 2 diabetes mellitus without complications; E78.5 Hyperlipidemia, unspecified; K80.20 Calculus of gallbladder without cholecystitis without obstruction; N20.0 Calculus of kidney; Z85.3 Personal history of malignant neoplasm of breast
CPT/HCPCS: 82565; 84520; 71260; 74177; 36415; Q9967

== ENCOUNTER 2024-03-29 10:19 | Inpatient (IN) | payer MEDICARE ==
--- NOTE | 2024-03-29 10:44 | ED ---
Weakness HPI - General Stated complaint: Abn Labs Time Seen by Provider: 03/29/24 10:41 Source: patient, family, RN notes reviewed - History of Present Illness Initial comments: This is a 73-year-old female with a past medical history of metastatic uterine cancer who presents emergency department chief complaint of weakness. Patient states that she had an appointment this morning with her oncologist, Dr. Hernandes, who is reported that she was hypotensive. Additionally, she has been extremely weak and has had a weight loss of roughly 14 pounds over the last 2 weeks. She endorses exertional dyspnea. Denies current chemo or radiation and states that she is an remission. Denies chest pain, chest pressure, palpitations, diz ziness, lightheadedness. States that she was experiencing pain at the right upper quadrant with radiation into the back. She denies nausea, vomiting, fevers, chills. - Related Data Home Medications Medication Instructions Recorded Confirmed Atorvastatin [Lipitor] 40 mg PO HS@199910/15/23 03/30/24 Vortioxetine Hydrobromide 20 mg PO DAILY@0810/15/23 03/30/24 [Trintellix] atenoloL [Tenormin] 25 mg PO DAILY@1300 10/15/23 03/30/24 lisinopriL [Zestril] 2.5 mg PO DAILY@129910/15/23 03/30/24 traZODone HCL [Desyrel] 100 mg PO HS@199910/15/23 03/30/24 Multivit-Min/Iron/Folic/Lutein 1 tab PO DAILY@0801/24/24 03/30/24 [Centrum Silver Women Tablet] Ibuprofen [Motrin Ib] 600 mg PO Q8H PRN 02/23/24 03/30/24 Meclizine [Antivert] 25 mg PO BID@0800,199902/23/24 03/30/24 Colchicine [Colcrys] 0.6 mg PO BID@0800,199903/30/24 03/30/24 Loperamide HCl [Imodium A-D] 2 mg PO Q8H PRN 03/30/24 03/30/24 Magnesium Oxide [Mag-Ox] 400 mg PO BID@0800,199903/30/24 03/30/24 Pyridoxine [Vitamin B-6] 50 mg PO DAILY@0800 03/30/24 03/30/24 metFORMIN HCL [Glucophage] 850 mg PO BID@0800,199903/30/24 03/30/24 Previous Rx's Medication Instructions Recorded Acetaminophen Tab [Tylenol] 1,000 mg PO Q8HR PRN tab 02/02/24 HYDROcodone/APAP 5-325MG [[place] 1 tab PO Q6HR PRN 3 Days #12 tab 04/01/24 5-325] Allergies Allergy/AdvReac Type Severity Reaction Status Date / Time codeine AdvReac Nausea & Verified 03/30/24 13:03 Vomiting Review of Systems ROS Statement: Those systems with pertinent positive or pertinent negative responses have been documented in the HPI. ROS Other: All systems not noted in ROS Statement are negative. Past Medical History Past Medical History: Cancer, Hyperlipidemia, Hypertension, Thyroid Disorder Additional Past Medical History / Comment(s): uterine CA, Breast cancer right mets to lungs History of Any Multi-Drug Resistant Organisms: None Reported Past Surgical History: Breast Surgery, Hysterectomy Additional Past Surgical History / Comment(s): complete hyst 09/03/2023. Bilat mastectomy. Nose surgery Past Anesthesia/Blood Transfusion Reactions: No Reported Reaction Additional Psychological History / Comment(s): Trintellix - Past Family History Mother Family Medical History: No Reported History General Exam - General Exam Comments Initial Comments: Visual Physical Exam Vital signs reviewed General: Well-appearing, nontoxic, no acute distress. Head: Normocephalic, atraumatic Eyes: PERRLA, EOMI ENT: Airway patent Chest: Nonlabored breathing Skin: No visual rash, normal skin tone Neuro: Alert and oriented 3 Musculoskeletal: No gross abnormalities General appearance: alert, in no apparent distress, cachectic Head exam: Present: atraumatic, normocephalic, normal inspection Eye exam: Present: normal appearance, PERRL, EOMI. Absent: scleral icterus, co njunctival injection, periorbital swelling ENT exam: Present: normal exam, mucous membranes moist Neck exam: Present: normal inspection. Absent: tenderness, meningismus, lymphadenopathy Respiratory exam: Present: normal lung sounds bilaterally. Absent: respiratory distress, wheezes, rales, rhonchi, stridor Cardiovascular Exam: Present: regular rate, normal rhythm, normal heart sounds. Absent: systolic murmur, diastolic murmur, rubs, gallop, clicks GI/Abdominal exam: Present: soft, tenderness (RUQ), normal bowel sounds. Absent: distended, guarding, rebound, rigid Extremities exam: Present: normal inspection, full ROM, normal capillary refill. Absent: tenderness, pedal edema, joint swelling, calf tenderness Back exam: Present: normal inspection Neurological exam: Present: alert, oriented X3, CN II-XII intact, other (right sided weakness, ongoing, no new deficits) Skin exam: Present: warm, dry, intact, normal color. Absent: rash Course Vital Signs 03/29/24 03/29/24 03/29/24 10:48 12:52 14:01 Temperature 97.8 F Pulse Rate 79 64 72 Respiratory 16 18 18 Rate Blood Pressure 88/64 137/76 132/79 O2 Sat by Pulse 96 98 Oximetry 03/29/24 03/29/24 03/29/24 21:05 21:15 21:35 Temperature 97.5 F L Pulse Rate 90 85 94 Respiratory 16 Rate Blood Pressure 90/78 O2 Sat by Pulse 99 Oximetry 03/29/24 03/30/24 03/30/24 22:06 00:01 02:03 Temperature Pulse Rate 75 70 79 Respiratory 15 15 17 Rate Blood Pressure 138/63 130/67 133/89 O2 Sat by Pulse 98 95 Oximetry 03/30/24 03/30/24 03/30/24 04:42 07:35 07:46 Temperature 97.2 F L Pulse Rate 69 69 66 Respiratory 16 Rate Blood Pressure 183/87 O2 Sat by Pulse 99 Oximetry 03/30/24 03/30/24 03/30/24 08:00 08:04 12:05 Temperature 97.5 F L Pulse Rate 70 65 64 Respiratory 18 16 17 Rate Blood Pressure 169/79 169/79 154/94 O2 Sat by Pulse 96 100 Oximetry 03/30/24 03/30/24 03/30/24 13:48 15:14 15:25 Temperature Pulse Rate 64 61 76 Respiratory 14 Rate Blood Pressure 151/81 O2 Sat by Pulse 99 Oximetry 03/30/24 17:20 Temperature 97.9 F Pulse Rate 70 Respiratory 17 Rate Blood Pressure 125/69 O2 Sat by Pulse 99 Oximetry Medical Decision Making - Medical Decision Making Was pt. sent in by a medical professional or institution (Dr., PA, [employer], urgent care, hospital, or long-term...) When possible be specific @ -Was advised by her oncologist to report to emergency department for further evaluation for weakness, loss of weight, hypertension. Did you speak to anyone other than the patient for history (EMS, parent, family, police, friend...)? What history was obtained from this source @ -spoke to the patient's family at bedside who is additional medical history of the patient's current cancer diagnosis and situation. Did you review nursing and triage notes (agree or disagree)? Why? @ -I reviewed and agree with nursing and triage notes Were old charts reviewed (outside hosp., previous admission, EMS record, old EKG, old radiological studies, urgent care reports/EKG's, long-term records)? Report findings @ -reviewed patient's previous emergency department visit where she presented for syncopal event and was admitted with hypomagnesemia and near syncope. Differential Diagnosis (chest pain, altered mental status, abdominal pain women, abdominal pain men, vaginal bleeding, weakness, fever, dyspnea, syncope, headache, dizziness, GI bleed, back pain, seizure, CVA, palpatations, mental health, musculoskeletal)? @ -Differential Weakness: Hypoglycemia, shock, sepsis, hyponatremia, anemia, infection, SD, ETOH, adverse medicine reaction, overdose, stroke, this is not meant to be an all-inclusive list. EKG interpreted by me (3pts min.). @ -completed at 11:26, sinus rhythm, ventricular rate 76, IA interval 154, QTc 407. No acute signs of ischemia. X-rays interpreted by me (1pt min.). @ -None done CT interpreted by me (1pt min.). @ -None done U/S interpreted by me (1pt. min.). @ - ultrasound of the gallbladder reveals a 2.5 cm gallstone with no findings for acute cholecystitis. What testing was considered but not performed or refused? (CT, X-rays, U/S, labs)? Why? @ -None What meds were considered but not given or refused? Why? @ -None Did you discuss the management of the patient with other professionals (professionals i.e. AVERY Bermeo, [employer], lab, RT, psych nurse, social services manager, soap press feeder, teacher, sports development officer, mattress spring encaser)? Give summary @ -Spoke to the admittig Physician, Dr. De Oliveira, in regard to admission for the patient for KARINA, weakness and fluid redhyration. Patient is accepted Was smoking cessation discussed for >3mins.? @ -No Was critical care preformed (if so, how long)? @ -No Were there social determinants of health that impacted care today? How? (Homelessness, low income, unemployed, alcoholism, drug addiction, transportation, low edu. Level, literacy, decrease access to med. care, alf, rehab)? @ -No Was there de-escalation of care discussed even if they declined (Discuss DNR or withdrawal of care, Hospice)? DNR status @ -No What co-morbidities impacted this encounter? (DM, HTN, Smoking, COPD, CAD, Cancer, CVA, ARF, Chemo, Hep., AIDS, mental health diagnosis, sleep apnea, morbid obesity)? @ -None Was patient admitted / discharged? Hospital course, mention meds given and route, prescriptions, significant lab abnormalities, going to OR and other pertinent info. @ -amittedd. 73-year-old female with weakness. On initial triage, patient was hypotensive with a blood pressure of 88/64. My evaluation the patient her blood pressure has been in the 120s over 80s. Physical examination remarkable for slightly right-sided neurological deficits. Family at bedside states that patient has been experiencing ongoing right-sided weakness and is working with orthopedics and neurology for this. Patient has tenderness to the right upper abdomen, bowel sounds equal no signs of rebound tenderness or rigidity. She will be provided with a 2 L fluid bolus and Tylenol for pain relief pending labs, x-ray and ultrasound. Patient agreement with this plan. CBC, coagulation profile unremarkable, CMP reveals acute kidney injury with a BUN of 34 and creatinine of 1.25. Troponin nonelevated, BNP 140. Urinalysis consistent with dehydration. Patient will be admitted to medicine for acute kidney injury continued rehydration via IV fluids. Case discussed with Dr. Daniel. Undiagnosed new problem with uncertain prognosis? @ -No Drug Therapy requiring intensive monitoring for toxicity (Heparin, Nitro, Insulin, Cardizem)? @ -No Were any procedures done? @ -No Diagnosis/symptom? @ -Acute kidney injury, weakness, weight upper quadrant abdominal pain Acute, or Chronic, or Acute on Chronic? @ -Acute Uncomplicated (without systemic symptoms) or Complicated (systemic symptoms)? @ -H Side effects of treatment? @ -No Exacerbation, Progression, or Severe Exacerbation? @ -No Poses a threat to life or bodily function? How? (Chest pain, USA, SD, pneumonia, PE, COPD, DKA, ARF, appy, cholecystitis, CVA, Diverticulitis, Homicidal, Suicidal, threat to staff... and all critical care pts) @ -No - Lab Data Result diagrams: 03/31/24 05:34 03/31/24 05:34 Lab Results 03/29/24 03/29/24 03/29/24 Range/Units 10:43 10:43 10:43 WBC 4.4 (3.8-10.6) k/uL RBC 4.71 (3.80-5.40) m/uL Hgb 13.8 (11.4-16.0) gm/dL Hct 44.1 (34.0-46.0) % MCV 93.8 (80.0-100.0) fL MCH 29.3 (25.0-35.0) pg MCHC 31.3 (31.0-37.0) g/dL RDW 15.1 (11.5-15.5) % Plt Count 275 (150-450) k/uL MPV 8.7 Neutrophils % 70 % Lymphocytes % 20 % Monocytes % 6 % Eosinophils % 2 % Basophils % 1 % Neutrophils # 3.1 (1.3-7.7) k/uL Lymphocytes # 0.9 L (1.0-4.8) k/uL Monocytes # 0.3 (0-1.0) k/uL Eosinophils # 0.1 (0-0.7) k/uL Basophils # 0.0 (0-0.2) k/uL PT 11.7 (10.0-12.5) sec INR 1.1 (<1.2) APTT 21.7 L (22.0-30.0) sec Sodium (137-145) mmol/L Potassium (3.5-5.1) mmol/L Chloride (98-107) mmol/L Carbon Dioxide (22-30) mmol/L Anion Gap mmol/L BUN (7-17) mg/dL Creatinine (0.52-1.04) mg/dL Est GFR (CKD-EPI)AfAm (>60 ml/min/1.73 sqM) Est GFR (CKD-EPI)NonAf (>60 ml/min/1.73 sqM) Glucose (74-99) mg/dL POC Glucose (mg/dL) (70-110) mg/dL POC Glu Academic Interventionist ID Plasma Lactic Acid Ganesh (0.7-2.0) mmol/L Calcium (8.4-10.2) mg/dL Magnesium (1.6-2.3) mg/dL Total Bilirubin (0.2-1.3) mg/dL AST (14-36) U/L ALT (4-34) U/L Alkaline Phosphatase (38-126) U/L Troponin I (0.000-0.034) ng/mL NT-Pro-B Natriuret Pep pg/mL Total Protein (6.3-8.2) g/dL Albumin (3.5-5.0) g/dL Lipase (23-300) U/L Urine Color Yellow Urine Appearance Cloudy H (Clear) Urine pH 5.5 (5.0-8.0) Ur Specific [place] 1.018 (1.001-1.035) Urine Protein 1+ H (Negative) Urine Glucose (UA) Negative (Negative) Urine Ketones 1+ H (Negative) Urine Blood Negative (Negative) Urine Nitrite Negative (Negative) Urine Bilirubin 1+ H (Negative) Urine Urobilinogen <2.0 (<2.0) mg/dL Ur Leukocyte Esterase Trace H (Negative) Urine RBC 3 (0-5) /hpf Urine WBC 5 (0-5) /hpf Ur Squamous Epith Cells 1 (0-4) /hpf Hyaline Casts 45 H (0-2) /lpf Urine Mucus Rare H (None) /hpf 03/29/24 03/29/24 03/29/24 Range/Units 10:43 10:43 10:43 WBC (3.8-10.6) k/uL RBC (3.80-5.40) m/uL Hgb (11.4-16.0) gm/dL Hct (34.0-46.0) % MCV (80.0-100.0) fL MCH (25.0-35.0) pg MCHC (31.0-37.0) g/dL RDW (11.5-15.5) % Plt Count (150-450) k/uL MPV Neutrophils % % Lymphocytes % % Monocytes % % Eosinophils % % Basophils % % Neutrophils # (1.3-7.7) k/uL Lymphocytes # (1.0-4.8) k/uL Monocytes # (0-1.0) k/uL Eosinophils # (0-0.7) k/uL Basophils # (0-0.2) k/uL PT (10.0-12.5) sec INR (<1.2) APTT (22.0-30.0) sec Sodium 136 L (137-145) mmol/L Potassium 4.0 (3.5-5.1) mmol/L Chloride 101 (98-107) mmol/L Carbon Dioxide 24 (22-30) mmol/L Anion Gap 11 mmol/L BUN 34 H (7-17) mg/dL Creatinine 1.25 H (0.52-1.04) mg/dL Est GFR (CKD-EPI)AfAm 49 (>60 ml/min/1.73 sqM) Est GFR (CKD-EPI)NonAf 43 (>60 ml/min/1.73 sqM) Glucose 95 (74-99) mg/dL POC Glucose (mg/dL) (70-110) mg/dL POC Glu Academic Interventionist ID Plasma Lactic Acid Ganesh 1.2 (0.7-2.0) mmol/L Calcium 9.8 (8.4-10.2) mg/dL Magnesium 1.4 L (1.6-2.3) mg/dL Total Bilirubin 0.7 (0.2-1.3) mg/dL AST 88 H (14-36) U/L ALT 62 H (4-34) U/L Alkaline Phosphatase 156 H (38-126) U/L Troponin I <0.012 (0.000-0.034) ng/mL NT-Pro-B Natriuret Pep 140 pg/mL Total Protein 6.5 (6.3-8.2) g/dL Albumin 4.0 (3.5-5.0) g/dL Lipase 324 H (23-300) U/L Urine Color Urine Appearance (Clear) Urine pH (5.0-8.0) Ur Specific [place] (1.001-1.035) Urine Protein (Negative) Urine Glucose (UA) (Negative) Urine Ketones (Negative) Urine Blood (Negative) Urine Nitrite (Negative) Urine Bilirubin (Negative) Urine Urobilinogen (<2.0) mg/dL Ur Leukocyte Esterase (Negative) Urine RBC (0-5) /hpf Urine WBC (0-5) /hpf Ur Squamous Epith Cells (0-4) /hpf Hyaline Casts (0-2) /lpf Urine Mucus (None) /hpf 03/29/24 Range/Units 14:03 WBC (3.8-10.6) k/uL RBC (3.80-5.40) m/uL Hgb (11.4-16.0) gm/dL Hct (34.0-46.0) % MCV (80.0-100.0) fL MCH (25.0-35.0) pg MCHC (31.0-37.0) g/dL RDW (11.5-15.5) % Plt Count (150-450) k/uL MPV Neutrophils % % Lymphocytes % % Monocytes % % Eosinophils % % Basophils % % Neutrophils # (1.3-7.7) k/uL Lymphocytes # (1.0-4.8) k/uL Monocytes # (0-1.0) k/uL Eosinophils # (0-0.7) k/uL Basophils # (0-0.2) k/uL PT (10.0-12.5) sec INR (<1.2) APTT (22.0-30.0) sec Sodium (137-145) mmol/L Potassium (3.5-5.1) mmol/L Chloride (98-107) mmol/L Carbon Dioxide (22-30) mmol/L Anion Gap mmol/L BUN (7-17) mg/dL Creatinine (0.52-1.04) mg/dL Est GFR (CKD-EPI)AfAm (>60 ml/min/1.73 sqM) Est GFR (CKD-EPI)NonAf (>60 ml/min/1.73 sqM) Glucose (74-99) mg/dL POC Glucose (mg/dL) 108 (70-110) mg/dL POC Glu Academic Interventionist ID Gamble, [place] Plasma Lactic Acid Ganesh (0.7-2.0) mmol/L Calcium (8.4-10.2) mg/dL Magnesium (1.6-2.3) mg/dL Total Bilirubin (0.2-1.3) mg/dL AST (14-36) U/L ALT (4-34) U/L Alkaline Phosphatase (38-126) U/L Troponin I (0.000-0.034) ng/mL NT-Pro-B Natriuret Pep pg/mL Total Protein (6.3-8.2) g/dL Albumin (3.5-5.0) g/dL Lipase (23-300) U/L Urine Color Urine Appearance (Clear) Urine pH (5.0-8.0) Ur Specific [place] (1.001-1.035) Urine Protein (Negative) Urine Glucose (UA) (Negative) Urine Ketones (Negative) Urine Blood (Negative) Urine Nitrite (Negative) Urine Bilirubin (Negative) Urine Urobilinogen (<2.0) mg/dL Ur Leukocyte Esterase (Negative) Urine RBC (0-5) /hpf Urine WBC (0-5) /hpf Ur Squamous Epith Cells (0-4) /hpf Hyaline Casts (0-2) /lpf Urine Mucus (None) /hpf Disposition Clinical Impression: Acute kidney injury, Right upper quadrant abdominal pain, Weakness Disposition: ADMITTED IP TO THIS [facility] Decision to Admit Reason: Admit from EC
[2024-03-29] MEDS: SODIUM CHLORIDE 0.9% 1,000 ML IV STA ×3 (11:22→18:13)
[2024-03-29] MEDS: ACETAMINOPHEN TAB 500 MG TAB PO STA (11:24)
[2024-03-29 13:17] LABS: Basophils % (A) 1 %; Eosinophils # (A) 0.1 k/uL (0-0.7); Eosinophils % (A) 2 %; HCT 44.1 % (34.0-46.0); HGB 13.8 gm/dL (11.4-16.0); Lymphocytes # (A) 0.9 k/uL (1.0-4.8); Lymphocytes % (A) 20 %; MCH 29.3 pg (25.0-35.0); MCHC 31.3 g/dL (31.0-37.0); MCV 93.8 fL (80.0-100.0); Mean Platelet Volume 8.7; Monocytes # (A) 0.3 k/uL (0-1.0); Monocytes % (A) 6 %; Neutrophils # (A) 3.1 k/uL (1.3-7.7); Neutrophils % (A) 70 %; Platelet Count 275 k/uL (150-450); RBC 4.71 m/uL (3.80-5.40); RDW 15.1 % (11.5-15.5); WBC 4.4 k/uL (3.8-10.6)
[2024-03-29 13:33] LABS: INR 1.1 (<1.2); Prothrombin Time 11.7 sec (10.0-12.5)
[2024-03-29 13:36] LABS: ALT 62 U/L (4-34); AST 88 U/L (14-36); African American GFR (CKD) 49 (>60 ml/min/1.73 sqM); Alkaline Phosphatase 156 U/L (38-126); Anion Gap 11 mmol/L; Blood Urea Nitrogen 34 mg/dL (7-17); Calcium 9.8 mg/dL (8.4-10.2); Carbon Dioxide 24 mmol/L (22-30); Chloride 101 mmol/L (98-107); Glucose 95 mg/dL (74-99); Lipase 324 U/L (23-300); Magnesium 1.4 mg/dL (1.6-2.3); Non-African American GFR(CKD) 43 (>60 ml/min/1.73 sqM); Partial Thromboplastin Time 21.7 sec (22.0-30.0); Sodium 136 mmol/L (137-145); Total Bilirubin 0.7 mg/dL (0.2-1.3); Total Protein 6.5 g/dL (6.3-8.2)
[2024-03-29 13:43] LABS: NT-Pro-B-Type Natriuretic Pept 140 pg/mL
[2024-03-29 14:04] LABS: Glucose,Whole Blood 108 mg/dL (70-110)
--- NOTE | 2024-03-29 14:13 | US ---
EXAMINATION TYPE: US gallbladder DATE OF EXAM: 03/29/2024 COMPARISON: CT 03/03/2024 CLINICAL INDICATION: Female, 73 years old with history of RUQ ab pain; RUQ pain. Hx gallstone, renal cyst. Patient has a hx of uterine cancer. TECHNIQUE: Multiple sonographic images of the right upper quadrant are obtained. 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 Pancreas: Not well seen. Liver: Limited intercostal views. Punctate 4 mm echogenic focus in the right liver lobe, probably a prominent vascular reflector. No corresponding calcification seen on the patient's recent CT. Gallbladder: Large gallstone measuring 2.5 x 2.4 x 2.1 cm. No hydropic gallbladder changes surroundi ng fluid. Evidence for sonographic Lebron's sign: No CBD: Obscured and not assessed. Right Kidney: Upper pole cyst measurin.4 x 2.6 x 3.0 cm. No hydronephrosis. -Hyperechoic focus seen upper pole: 0.8 x 0.6 x 0.6 cm. IMPRESSION: 1. A 2.5 cm gallstone. No ancillary findings of acute cholecystitis. 2. Unable to adequately visualize the bile duct or pancreas due to exam limitations. 3. A 3.0 cm upper pole right renal cyst. Possible punctate nonobstructive right renal calculus.
[2024-03-29 15:08] LABS: Appearance,Urine Cloudy (Clear); Bilirubin,Urine 1+ (Negative); Blood,Urine Negative (Negative); Color,Urine Yellow; Glucose,Urine (UA) Negative (Negative); Hyaline Casts,Urine 45 /lpf (0-2); Ketones,Urine 1+ (Negative); Leukocyte Esterase,Urine Trace (Negative); Mucus,Urine Rare /hpf; Nitrite,Urine Negative (Negative); PH, Urine 5.5 (5.0-8.0); Protein,Urine 1+ (Negative); RBC,Urine 3 /hpf (0-5); Specific Gravity,Urine 1.018 (1.001-1.035); Squamous Epithelial Cell,Urine 1 /hpf (0-4); Urobilinogen,Urine <2.0 mg/dL (<2.0); WBC,Urine 5 /hpf (0-5)
--- NOTE | 2024-03-29 15:28 | XR ---
EXAMINATION TYPE: XR chest 2V DATE OF EXAM: 03/29/2024 COMPARISON: 02/23/2024 HISTORY: 73-year-old female with weakness TECHNIQUE: AP and lateral views FINDINGS: Heart normal size. Aorta and pulmonary vasculature within normal limits. No consolidation or pleural effusion. [facility] mid and lower thoracic spine. Chronic full-thickness bilateral rotator cuff tears. IMPRESSION: No acute cardiopulmonary process.
[2024-03-29] MEDS ORDERED: NALOXONE 0.4 MG/ML 1 ML VIAL IV PRN (15:42)
[2024-03-29] MEDS: MAGNESIUM SULFATE-D5W PMX 1 GM in DEXTROSE/WATER 1 100ML.BAG IVPB ONE (18:14)
[2024-03-29] MEDS: SODIUM CHLORIDE 0.9% 1,000 ML IV SCH (18:14)
[2024-03-29] MEDS: IPRATROPIUM-ALBUTEROL 3 ML NEB INHALATION SCH (21:04)
[2024-03-29] MEDS: MAGNESIUM OXIDE 400 MG TAB PO SCH (21:37)
[2024-03-30] MEDS: atenoloL 25 MG TAB PO SCH (09:11)
[2024-03-30] MEDS: ATORVASTATIN 40 MG TAB PO SCH (09:11)
[2024-03-30 10:48] LABS: Basophils # (A) 0.02 X 10*3/uL (0.00-0.10); Basophils % (A) 0.4 %; HCT 37.4 % (37.2-46.3); HGB 12.3 g/dL (12.0-15.0); Lymphocytes # (A) 0.94 X 10*3/uL (0.90-5.00); MCH 30.1 pg (27.0-32.0); MCHC 32.9 g/dL (32.0-37.0); MCV 91.7 FL (80.0-97.0); Mean Platelet Volume 12.4 FL (9.5-12.2); Monocytes # (A) 0.52 X 10*3/uL (0.20-1.00); Monocytes % (A) 10.5 %; NRBC Per 100 WBC 0 X 10*3/uL (0.00-0.01); Neutrophils # (A) 3.33 X 10*3/uL (1.80-7.70); Neutrophils % (A) 67.5 %; Platelet Count 249 X 10*3/uL (140-440); RBC 4.08 X 10*6/uL (4.10-5.20); RDW 14.6 % (11.5-14.5); WBC 4.94 X 10*3/uL (4.50-10.00)
[2024-03-30 11:02] LABS: ALT 59 U/L (8-44); AST 74 U/L (13-35); Albumin 3.7 g/dL (3.8-4.9); Albumin/Globulin Ratio 1.76 Ratio (1.60-3.17); Alkaline Phosphatase 152 U/L (41-126); Blood Urea Nitrogen 32.5 mg/dL (9.0-27.0); Carbon Dioxide 19.1 mmol/L (21.6-31.8); Chloride 102 mmol/L (96-109); Globulin 2.1 g/dL (1.6-3.3); Glucose 83 mg/dL (70-110); Potassium 3.4 mmol/L (3.5-5.5); Sodium 139 mmol/L (135-145); Total Bilirubin 0.4 mg/dL (0.3-1.2); Total Protein 5.8 g/dL (6.2-8.2)
[2024-03-30] MEDS: HYDROcodone/APAP 5-325MG 1 EACH TAB PO PRN (14:56)
--- NOTE | 2024-03-30 15:27 | P.GSCN ---
History of Present Illness Consult date: 03/30/24 History of present illness: CHIEF COMPLAINT: weakness HISTORY OF PRESENT ILLNESS: This is a 73-year-old female who presented to the hospital with chief complaint of weakness. She has a known history of metastatic uterine cancer and breast cancer. She denies any current chemo or radiation treatment. Past surgical history does include a hysterectomy. Patient admitted to the hospital with weakness and acute kidney injury. She had been having right upper quadrant abdominal pain with nausea and vomiting for the last couple of weeks. She reports decreased appetite. She was seen by her oncologist who reported that she was hypotensive and directed her to come to the ER. Apparently patient has lost roughly 12 pounds over the last 2 weeks per ER report. Patient had gallbladder ultrasound that had shown evidence of gallstones. She has had tenderness in the right upper quadrant. Surgical service consulted for possible gallstone pancreatitis. Patient did have mildly elevated liver enzymes and mildly elevated lipase. Patient is reporting that her pain is better currently. Patient seen and examined with Dr. Iyer PAST MEDICAL HISTORY: Cancer, Hyperlipidemia, Hypertension, Thyroid Disorder, uterine CA, Breast cancer right mets to lungs PAST SURGICAL HISTORY: complete hyst 09/03/2023. Bilat mastectomy. Nose surgery MEDICATIONS: See below ALLERGIES: See below SOCIAL HISTORY: No illicit drug use. REVIEW OF SYSTEMS: CONSTITUTIONAL: Denies fever or chills. HEENT: Denies blurred vision, vision changes, or eye pain. Denies hemoptysis CARDIOVASCULAR: Denies chest pain or pressure. RESPIRATORY: No shortness of breath. GASTROINTESTINAL: See HPI for pertinent findings HEMATOLOGIC: Denies bleeding disorders. GENITOURINARY: Denies any blood in urine or increased urinary frequency. SKIN: Denies pruitis. Denies rash. PHYSICAL EXAM: VITAL SIGNS: Reviewed GENERAL: Well-developed in no acute distress. HEENT: No sclera icterus. Extraocular movements grossly intact. Moist buccal mucosa. Head is atraumatic, normocephalic. No nasal drainage. ABDOMEN: Soft. Nondistended. Nontender NEUROLOGIC: Alert and oriented. Cranial nerves II through XII grossly intact. LABORATORY DATA: WBC 4.94 Hgb 12.3 platelets 249 Sodium 139 potassium 3.4 creatinine 1.3 D-dimer 3.23 Magnesium 1.7 total bilirubin 0.4 AST 88 down to 74 ALT 62 down to 59 alk phos about the same at 152 Lipase 324 IMAGING: Gallbladder ultrasound reports a 2.5 cm gallstone. No findings of acute cholecystitis. Unable to adequately visualize the bile duct or pancreas due to exam limitations. 3 cm upper pole right renal cyst. ASSESSMENT: 1. Chronic cholecystitis with cholelithiasis and hydropic gallbladder 2. Possible gallstone pancreatitis 3. Elevated D-dimer PLAN: -Patient scheduled for laparoscopic cholecystectomy tomorrow with Dr. Iyer if medically stable -Low-fat diet today -N.p.o. after midnight -Medicine service is completing workup for elevated D-dimer. Awaiting results for CTA of the chest and venous Doppler to rule out PE and DVT due to elevated D-dimer Thank you for this consultation Physician Cyber Security Manager note has been reviewed by physician. Signing provider agrees with the documented findings, assessment, and plan of care. Past Medical History Past Medical History: Cancer, Hyperlipidemia, Hypertension, Thyroid Disorder Additional Past Medical History / Comment(s): uterine CA, Breast cancer right mets to lungs History of Any Multi-Drug Resistant Organisms: None Reported Past Surgical History: Breast Surgery, Hysterectomy Additional Past Surgical History / Comment(s): complete hyst 09/03/2023. Bilat mastectomy. Nose surgery Past Anesthesia/Blood Transfusion Reactions: No Reported Reaction Additional Psychological History / Comment(s): Trintellix - Past Family History Mother Family Medical History: No Reported History Medications and Allergies Home Medications Medication Instructions Recorded Confirmed Type Atorvastatin [Lipitor] 40 mg PO HS@199910/15/23 03/30/24 History Vortioxetine Hydrobromide 20 mg PO DAILY@0810/15/23 03/30/24 History [Trintellix] atenoloL [Tenormin] 25 mg PO DAILY@129910/15/23 03/30/24 History lisinopriL [Zestril] 2.5 mg PO DAILY@129910/15/23 03/30/24 History traZODone HCL [Desyrel] 100 mg PO HS@199910/15/23 03/30/24 History Multivit-Min/Iron/Folic/Lutein 1 tab PO DAILY@0800 01/24/24 03/30/24 History [Centrum Silver Women Tablet] Acetaminophen Tab [Tylenol] 1,000 mg PO Q8HR PRN tab 02/02/24 03/30/24 Rx Ibuprofen [Motrin Ib] 600 mg PO Q8H PRN 02/23/24 03/30/24 History Meclizine [Antivert] 25 mg PO BID@0800,199902/23/24 03/30/24 History Colchicine [Colcrys] 0.6 mg PO BID@0800,199903/30/24 03/30/24 History Loperamide HCl [Imodium A-D] 2 mg PO Q8H PRN 03/30/24 03/30/24 History Magnesium Oxide [Mag-Ox] 400 mg PO BID@0800,199903/30/24 03/30/24 History Pyridoxine [Vitamin B-6] 50 mg PO DAILY@79903/30/24 03/30/24 History metFORMIN HCL [Glucophage] 850 mg PO BID@00,199903/30/24 03/30/24 History Allergies Allergy/AdvReac Type Severity Reaction Status Date / Time codeine AdvReac Nausea & Verified 03/30/24 13:03 Vomiting Surgical - Exam Vital Signs Temp Pulse Resp BP Pulse Ox 97.8 F 79 16 88/64 96 03/29/24 10:48 03/29/24 10:48 03/29/24 10:48 03/29/24 10:48 03/29/24 10:48 Results - Labs 03/30/24 06:03 03/30/24 06:03 Abnormal Lab Results - Last 24 Hours (Table) 03/29/24 03/30/24 03/30/24 Range/Units 18:52 06:03 06:03 RBC 4.08 L (4.10-5.20) X 10*6/uL RDW 14.6 H (11.5-14.5) % MPV 12.4 H (9.5-12.2) FL D-Dimer 3.23 H (<0.60) mg/L FEU Potassium 3.4 L (3.5-5.5) mmol/L Carbon Dioxide 19.1 L (21.6-31.8) mmol/L Anion Gap 17.90 H (4.00-12.00) mmol/L BUN 32.5 H (9.0-27.0) mg/dL Est GFR (CKD-EPI) 43 L (>=60) BUN/Creatinine Ratio 25.00 H (12.00-20.00) Ratio AST 74 H (13-35) U/L ALT 59 H (8-44) U/L Alkaline Phosphatase 152 H (41-126) U/L Total Protein 5.8 L (6.2-8.2) g/dL Albumin 3.7 L (3.8-4.9) g/dL Diabetes panel 03/30/24 Range/Units 06:03 Sodium 139 (135-145) mmol/L Potassium 3.4 L (3.5-5.5) mmol/L Chloride 102 (96-109) mmol/L Carbon Dioxide 19.1 L (21.6-31.8) mmol/L BUN 32.5 H (9.0-27.0) mg/dL Creatinine 1.3 (0.6-1.5) mg/dL Glucose 83 (70-110) mg/dL Calcium 9.0 (8.7-10.3) mg/dL AST 74 H (13-35) U/L ALT 59 H (8-44) U/L Alkaline Phosphatase 152 H (41-126) U/L Total Protein 5.8 L (6.2-8.2) g/dL Albumin 3.7 L (3.8-4.9) g/dL Calcium panel 03/30/24 Range/Units 06:03 Calcium 9.0 (8.7-10.3) mg/dL Albumin 3.7 L (3.8-4.9) g/dL Pituitary panel 03/30/24 Range/Units 06:03 Sodium 139 (135-145) mmol/L Potassium 3.4 L (3.5-5.5) mmol/L Chloride 102 (96-109) mmol/L Carbon Dioxide 19.1 L (21.6-31.8) mmol/L BUN 32.5 H (9.0-27.0) mg/dL Creatinine 1.3 (0.6-1.5) mg/dL Glucose 83 (70-110) mg/dL Calcium 9.0 (8.7-10.3) mg/dL Adrenal panel 03/30/24 Range/Units 06:03 Sodium 139 (135-145) mmol/L Potassium 3.4 L (3.5-5.5) mmol/L Chloride 102 (96-109) mmol/L Carbon Dioxide 19.1 L (21.6-31.8) mmol/L BUN 32.5 H (9.0-27.0) mg/dL Creatinine 1.3 (0.6-1.5) mg/dL Glucose 83 (70-110) mg/dL Calcium 9.0 (8.7-10.3) mg/dL Total Bilirubin 0.4 (0.3-1.2) mg/dL AST 74 H (13-35) U/L ALT 59 H (8-44) U/L Alkaline Phosphatase 152 H (41-126) U/L Total Protein 5.8 L (6.2-8.2) g/dL Albumin 3.7 L (3.8-4.9) g/dL
--- NOTE | 2024-03-30 16:14 | US ---
EXAMINATION TYPE: US venous doppler duplex LE DATE OF EXAM: 03/30/2024 3:11 PM COMPARISON: NONE CLINICAL INDICATION: Female, 73 years old with history of high d-dimer/dvt; Elevated D-dimer SIDE PERFORMED: Bilateral TECHNIQUE: The lower extremity deep venous system is examined utilizing real time linear array sonog bala with graded compression, doppler sonography and color-flow sonography. VESSELS IMAGED: Common Femoral Vein Deep Femoral Vein Greater Saphenous Vein * Femoral Vein Popliteal Vein Small Saphenous Vein * Proximal Calf Veins (* superficial vessels) Right Leg: Negative for DVT Left Leg: Negative for DVT IMPRESSION: Grayscale, color doppler, spectral doppler imaging performed of the deep veins of the lo wer extremities. There is normal flow, compressibility, vascular waveforms.
[2024-03-30] MEDS: POTASSIUM CHLORIDE ER 20 MEQ TAB.ER PO STA (16:41)
--- NOTE | 2024-03-30 17:51 | CT ---
EXAMINATION TYPE: CT angio chest CT DLP: 319.3 mGycm, Automated exposure control for dose reduction was used. DATE OF EXAM: 03/30/2024 5:14 PM COMPARISON: Chest radiograph from same day. CTs dating back to 10/14/2023. CLINICAL INDICATION:Female, 73 years old with history of high d-dimer; High D-dimer. TECHNIQUE/CONTRAST: CTA scan of the thorax is performed with IV Contrast, patient injected with 80 mL of Isovue 370, MIP images are created and reviewed these are created on a separate workstation.. FINDINGS: Pulmonary Artery: There is no evidence for a filling defect within the pulmonary vasculature to sugge st acute pulmonary embolism. The pulmonary artery is of normal size. Lungs/Pleura: 4 mm right upper lobe pulmonary nodule series 411 image 26. Other pulmonary nodules see n on 10/14/2023 which were greater than 50 no longer visualized. No evidence of focal consolidation, p leural effusion or pneumothorax. Airway: Large airways are patent. Heart: Heart is within normal limits for size. Moderate to severe atherosclerosis of the arterial vas culature. Aortic valvular calcifications. Vasculature: No evidence of aortic aneurysm. Mediastinum: No gross evidence of adenopathy. Musculoskeletal: Moderate degenerative disc disease changes are present throughout the thoracolumbar spine. Soft Tissues/lymph nodes: Unremarkable. Lower neck: No significant findings. Upper Abdomen: Gallstones in the gallbladder lumen. Nonobstructing left renal calculus measuring up t o 9 mm. Right nonobstructing calculi measuring up to 3 mm. IMPRESSION: 1. No evidence of pulmonary embolism. 2. Decrease in pulmonary nodules compared to 10/14/2023. Loosely greater than 50 pulmonary nodules now at least one right upper lobe 4 mm pulmonary nodule remains.
[2024-03-30 20:47] LABS: Glucose,Whole Blood 79 mg/dL (70-110)
--- NOTE | 2024-03-30 22:39 | HP ---
HISTORY AND PHYSICAL HISTORY OF PRESENT ILLNESS: This -gxdy-ted white female came to the hospital. History of metastatic uterine cancer. She came in with weakness and recurrent hypotension and emesis. She has lost 14 pounds over 2 weeks. Denies chest pain, weakness, or dizziness. Pain in the right upper quadrant radiating into her back. She states she has been vomiting for about 2 weeks. HOME MEDICINES: 1. Lipitor 40 daily. 2. 20 daily. 3. Tenormin 25 daily. 4. Zestril 2.5 daily. 5. Metformin 1000 b.i.d. 6. Desyrel 100 at night. 7. Multivitamin daily. 8. Zofran p.r.n. 9. DiaBeta 5 mg b.i.d. 10.Motrin 600 q.6h. 11.Antivert 12.5 t.i.d. p.r.n. ALLERGIES: To codeine. REVIEW OF SYSTEMS: A 14-point review of systems otherwise negative. PAST MEDICAL HISTORY: Cancer, dyslipidemia, hypertension, hypothyroidism. PAST SURGICAL HISTORY: Breast surgery, hysterectomy, bilateral mastectomy. FAMILY HISTORY: Reviewed. PHYSICAL EXAMINATION: VITAL SIGNS: Temperature 97.8, pulse 79, respiratory rate 16 to 18, and blood pressure 88/64. CARDIOVASCULAR: S1, S2. LUNGS: Transmitted upper sounds. GI: Soft, nontender. HEMATOLOGY: Negative for Homans. ABDOMEN: Soft. BACK: Normal on inspection. PSYCH: Fair mood and affect. NEUROLOGIC: Cranial nerves intact. Likely she has some dehydration, generalized weakness. EKG shows sinus rhythm, no ischemia. We will rehydrate her. Possibly get Oncology to see also. Acute kidney injury, weakness secondary to dehydration. Rehydrate her. Possibly get Oncology to see. Replace electrolytes. Elevated D-dimer, so have to have CT of the chest to rule out PE, especially with a history of cancer. She had elevated D-dimer. Her GFR is 43. Chronic kidney disease stage III, metastatic uterus cancer, liver enzyme elevation, which is improved overnight. Albumin is 3.7. Surgical consult for gallbladder, possible pancreatitis with elevated lipase levels. Continue to rehydrate, do CTA to rule out blood clot. Prognosis guarded. MMODL / IJN: [id number] /
[2024-03-31 05:48] LABS: Glucose,Whole Blood 95 mg/dL (70-110)
[2024-03-31 06:02] LABS: Basophils % (A) 1 %; Eosinophils # (A) 0.1 k/uL (0-0.7); Eosinophils % (A) 3 %; HCT 35.1 % (34.0-46.0); HGB 11.8 gm/dL (11.4-16.0); Lymphocytes # (A) 0.7 k/uL (1.0-4.8); Lymphocytes % (A) 16 %; MCH 30.9 pg (25.0-35.0); MCHC 33.6 g/dL (31.0-37.0); MCV 91.8 fL (80.0-100.0); Mean Platelet Volume 8.9; Monocytes # (A) 0.3 k/uL (0-1.0); Monocytes % (A) 7 %; Neutrophils # (A) 3.1 k/uL (1.3-7.7); Neutrophils % (A) 72 %; Platelet Count 202 k/uL (150-450); RBC 3.82 m/uL (3.80-5.40); RDW 15.4 % (11.5-15.5); WBC 4.3 k/uL (3.8-10.6)
[2024-03-31 06:24] LABS: ALT 57 U/L (4-34); AST 70 U/L (14-36); African American GFR (CKD) >90 (>60 ml/min/1.73 sqM); Albumin 3.1 g/dL (3.5-5.0); Albumin/Globulin Ratio 1.3; Alkaline Phosphatase 117 U/L (38-126); Anion Gap 9 mmol/L; Blood Urea Nitrogen 18 mg/dL (7-17); Calcium 8.6 mg/dL (8.4-10.2); Carbon Dioxide 24 mmol/L (22-30); Chloride 105 mmol/L (98-107); Globulin 2.4 g/dL; Glucose 91 mg/dL (74-99); Non-African American GFR(CKD) 87 (>60 ml/min/1.73 sqM); Potassium 3.7 mmol/L (3.5-5.1); Sodium 138 mmol/L (137-145); Total Bilirubin 0.6 mg/dL (0.2-1.3); Total Protein 5.5 g/dL (6.3-8.2)
[2024-03-31] MEDS: IV FLUID CONTINUATION 1,000 ML IV ONE (09:27)
[2024-03-31] MEDS: LACTATED RINGERS 1,000 ML BAG IV STA (09:42)
[2024-03-31] MEDS: DEXAMETHASONE SOD PHOSPHATE 4 MG/ML 1 ML VIAL IVP STA (09:43)
[2024-03-31] MEDS: ONDANSETRON 4 MG/2 ML VIAL IVP STA (09:44)
[2024-03-31] MEDS ORDERED: PROPOFOL 10 MG/ML 20 ML VIAL IV ONE (09:59)
[2024-03-31] MEDS ORDERED: LIDOCAINE 1% INJ 10MG/ML (20 ML MDV) ONE (09:59)
[2024-03-31] MEDS ORDERED: ESMOLOL 100 MG/10 ML VIAL ONE (09:59)
[2024-03-31] MEDS ORDERED: NEOSTIGMINE 1 MG/ML 10 ML VIAL ONE (09:59)
[2024-03-31] MEDS ORDERED: ceFAZolin 1 GM/50 ML BAG (PMX) ONE (09:59)
[2024-03-31] MEDS ORDERED: fentaNYL (PF) 50 MCG/ML 2 ML AMP ONE (09:59)
[2024-03-31] MEDS ORDERED: SUCCINYLCHOLINE CHLORIDE 200 MG/10 ML VIAL IV ONE (09:59)
[2024-03-31] MEDS ORDERED: GLYCOPYRROLATE 0.2 MG/ML 2 ML VIAL ONE (09:59)
[2024-03-31] MEDS ORDERED: ROCURONIUM 10 MG/ML (5 ML VIAL) IV ONE (09:59)
[2024-03-31] MEDS ORDERED: PHENYLEPHRINE-0.9% NACL SYG 1,000 MCG/10 ML SYRINGE ONE (09:59)
[2024-03-31] MEDS: SODIUM CHLORIDE 0.9% 50 ML with ceFAZolin 2,000 MG IV ONE (10:04)
[2024-03-31] MEDS: LIDOCAINE 1%-EPI 1:100,000 20 ML VIAL SQ ONE (10:20)
--- NOTE | 2024-03-31 10:53 | P.OP ---
Date of Procedure: 03/31/24 Preoperative Diagnosis: Cholecystitis Postoperative Diagnosis: Cholecystitis Procedure(s) Performed: Laparoscopic cholecystectomy Anesthesia: GENEVA Surgeon: Calin Iyer Estimated Blood Loss (ml): 20 Pathology: other (Gallbladder) Condition: stable Disposition: PACU Description of Procedure: The patient was placed on the operating table. The patient received a general endotracheal tube anesthesia. The patients abdomen was prepped and draped in the usual sterile fashion. Through an infraumbilical stab incision, the fascia of the anterior abdominal wall was grasped with a pair of Kochers and then the Veress needle was placed in the peritoneal cavity. Position of the Veress needle was confirmed with positive drop test. The abdomen was then insufflated. After adequate insufflation, the 10 mm trocar was placed in the peritoneal cavity. Following this the laparoscope was placed in the peritoneal cavity. The patient was placed in the head-up, right side up position and then a 5 mm trocar was placed in the right lateral and right subcostal position under direct visualization. A 8 mm trocar was placed in the epigastric position. The gallbladder was grasped in the fundus and infundibulum. Traction on the gallbladder was placed in the lateral and the cephalad positions. The triangle of Calot was visualized.. The cystic duct was bluntly dissected until the union of the cystic duct and common bile duct was seen. A critical view of safety was achieved. The cystic duct was then divided and sealed with the Harmonic scissors. A PDS Endoloop was then placed throughout the cystic duct stump. The cystic artery divided and sealed with the Harmonic scissors. The gallbladder was then removed from the liver bed using Harmonic scissors. The gallbladder was then extracted through the epigastric port site. Operative field was checked for any bleeding spots and Harmonic scissors was used to coagulate the liver bed. The abdomen was irrigated. The trocars were removed. The skin was closed using interrupted 3-0 Vicryl suture. Dermabond dressing were applied. The patient tolerated the procedure well.
[2024-03-31] MEDS: LABETALOL SYRINGE 5 MG/ML (4 ML SYR) IVP STA (11:28)
[2024-03-31] MEDS: HYDROmorphone 0.5 MG/0.5 ML SYRINGE IVP PRN (11:38)
[2024-03-31 13:17] VITALS: BMI 23.1
[2024-03-31] MEDS: HYDROmorphone 1 MG/ML 1 ML SYRINGE IVP PRN (14:08)
[2024-03-31] MEDS ORDERED: hydrALAZINE HCL 20 MG/ML 1 ML VIAL IVP PRN (14:47)
--- NOTE | 2024-03-31 15:27 | P.PN ---
Progress Note - Text Progress Note Date: 03/31/24 Attempted to see patient on consult this morning, but was off the floor in surgery. Oncology history as follows: Ms. Hylton is a patient of Dr. Batista, with history of metastatic endometrial adenocarcinoma. She presented to PCP with complaints of intermittent vaginal bleeding x 1 year. Symptoms became more persistent. She was ultimately referred to [facility] oncologist Dr. Hernandes. Pap smear and D&C 07/23/2023. Pathology reporting serous carcinoma from the endometrium as well as endocervix. Pelvic ultrasound 08/05 had shown abnormally thickened endometrium measuring 2.1 cm with a focus of vascularity concerning for endometrial carcinoma. CT AP 07/13/2023 again showed abnormal thickened endometrium measuring 6.8 x 4.1 cm. Chest x-ray was negative. Patient had MI/BSO with sentinel lymph node dissection 09/03/2023. 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 Stage T3a, N1a M0. She was referred for adjuvant therapy. She was supposed to start adjuvant Carbo/Taxol. She ended being seen in the ER before treatment could commence. CXR done showed multiple small lung nodules. CT chest 10/14/2023 confirmed bilateral lung nodules concerning for metastasis. A mass was noted in the right breast area as well. Chemotherapy was held to further workup these findings. Wedge biopsy of the lung mass was done, unfortunately confirmed poorly differentiated non-small cell carcinoma, IHC not definitive for specific primary but, the report said it could be compatible with a serious endometrial cancer. Ultrasound-guided biopsy of the breast lesion was negative for malignancy, felt to represent scar tissue. Patient was started on chemotherapy, now palliative intent versus adjuvant, 11/11/2023. Jemperli was added with cycle 3. She completed cycle 4 on 01/13/24. She was admitted shortly after cycle 4 for weakness and neutropenia. She had neurological symptoms including dizziness, fall prior to admit, confusion and jumbled speech. CT of the brain was negative for any acute findings. Neurology assessed the patient with no unusual findings. Patient's symptoms ultimately dissipated. Her only residual symptom was right upper extremity weakness. She did have a CTA of the chest during that admit for c/o shortness of breath, palpitations and a cough. No PE, immunotherapy induced pneumonitis or acute pulmonary process was reported. It was noted that metastatic disease seen on CT of the chest 01/03/2024 was significantly improved. She was inpatient 01/22 through 02/01. She was sent to rehab on discharge. She was discharged from rehab in early February, but was readmitted for dizziness/RUE weakness the following week. MRI of the brain ( 02/04), and subsequent LP ( 03/07), were negative for any evidence of malignancy. Patient last followed up with Dr. Batista on 03/10/24. She appeared to have improvement in terms of her dizziness symptoms, and somewhat in terms of activity. However, her performance status remains quite diminished. According to her family she has right-sided impingement of the ulnar nerve, due to which she was not able to use the right-hand to steady or catch herself, if she loses her balance. Due to combination of these factors, she continues to require ECF stay. It was discussed that the brain MRI, did not show any evidence of malignancy. And CT chest abdomen and pelvis did not note any measurable metastatic disease. Therefore at this time, plan was to continue surveillance, without active treatment, as typically active treatment would not be covered during rehab, in addition her performance status is still too poor for her to restart treatment. She was therefore advised to continue rehabilitation efforts and to reassess in 6 weeks. If treatment is able to be resumed, based on her performance and placement status, as well as her wishes, plan would be to start with chemotherapy alone initially as a single agent.
[2024-03-31] MEDS: HYDROcodone/APAP 7.5-325MG 1 EACH TAB PO PRN (20:12)
[2024-03-31] MEDS: ACETAMINOPHEN TAB 325 MG TAB PO PRN (23:13)
[2024-04-01] MEDS: ENOXAPARIN 40 MG/0.4 ML SYRINGE SQ SCH (08:45)
[2024-04-01] MEDS: lisinopriL 5 MG TAB PO SCH (10:39)
--- NOTE | 2024-04-01 12:15 | P.CRDCN ---
History of Present Illness History of present illness: HISTORY OF PRESENT ILLNESS: This is a 73-year-old female with a past medical history significant for hypertension, hyperlipidemia, and diabetes. Patient follows in the office with Dr. Benson. We have been asked to see the patient in consultation for hypertension. Patient examined at the bedside. patient is status post laparoscopic cholecystectomy yesterday with Dr. Iyer. Patient examined this morning at the bedside. Patient currently denies any chest pain or pressure. She denies any shortness of breath. Patient did have some elevated blood pressures previously although this morning they are well controlled. * EKG reveals sinus mechanism with no signs of acute ischemia * Chest xray negative for acute process * Laboratory data: W BC 4.3. Hemoglobin 11.8. Platelet count 202. Sodium 138. Potassium 3.7. BUN 18. Current 0.66. * Current home cardiac medications include lisinopril 2.5 mg daily, atenolol 25 mg daily, Lipitor 40 mg at night * Most recent echocardiogram obtained in January 2024 revealed ejection fraction 55- 60% REVIEW OF SYSTEMS: At the time of my exam: CONSTITUTIONAL: Denies fever or chills. HEENT: Denies blurred vision, vision changes, or eye pain. Denies hemoptysis CARDIOVASCULAR: Denies chest pain. Denies orthopnea. Denies PND. Denies palpitations RESPIRATORY: Denies shortness of breath. GASTROINTESTINAL: Denies abdominal pain. Denies nausea or vomiting. HEMATOLOGIC: Denies bleeding disorders. GENITOURINARY: Denies any blood in urine. SKIN: Denies pruitis. Denies rash. PHYSICAL EXAM: VITAL SIGNS: Reviewed. GENERAL: Well-developed in no acute distress. HEENT: Head is normocephalic. Pupils are equal, round. Sclerae anicteric. Mucous membranes of the mouth are moist. Neck supple. No JVD or thyromegaly LUNGS: Respirations even and unlabored. Lungs essentially clear to auscultation bilaterally. HEART: Regular rate and rhythm. S1 and S2 heard. ABDOMEN: Soft. Nondistended. Nontender. EXTREMITIES: Normal range of motion. No clubbing or cyanosis. Peripheral puls es intact. No lower extremity edema NEUROLOGIC: Awake and alert. Oriented x 3. ASSESSMENT: Chronic cholecystitis with cholelithiasis, status post laparoscopic cholecystectomy Hypertension Hyperlipidemia Diabetes PLAN: no need to repeat echocardiogram as this was performed in January 2024 Patient has been resumed on her atenolol and atorvastatin Resume patient's lisinopril. Increase dose to 5 mg daily Continue to monitor blood pressure No further inpatient recommendations from a cardiac standpoint Patient may be discharged from a cardiac perspective We will sign off. Please reconsult if needed. Nurse practitioner note has been reviewed by physician. Signing provider agrees with the documented findings, assessment, and plan of care. Past Medical History Past Medical History: Cancer, Hyperlipidemia, Hypertension, Thyroid Disorder Additional Past Medical History / Comment(s): uterine CA, Breast cancer right mets to lungs History of Any Multi-Drug Resistant Organisms: None Reported Past Surgical History: Breast Surgery, Hysterectomy Additional Past Surgical History / Comment(s): complete hyst 09/03/2023. Bilat mastectomy. Nose surgery Past Anesthesia/Blood Transfusion Reactions: No Reported Reaction Past Psychological History: Depression Additional Psychological History / Comment(s): Trintellix Smoking Status: Never smoker Past Alcohol Use History: None Reported Past Drug Use History: None Reported - Past Family History Mother Family Medical History: No Reported History Medications and Allergies Home Medications Medication Instructions Recorded Confirmed Type Atorvastatin [Lipitor] 40 mg PO HS@199910/15/23 03/30/24 History Vortioxetine Hydrobromide 20 mg PO DAILY@0810/15/23 03/30/24 History [Trintellix] atenoloL [Tenormin] 25 mg PO DAILY@1300 10/15/23 03/30/24 History lisinopriL [Zestril] 2.5 mg PO DAILY@1300 10/15/23 03/30/24 History traZODone HCL [Desyrel] 100 mg PO HS@199910/15/23 03/30/24 History Multivit-Min/Iron/Folic/Lutein 1 tab PO DAILY@0800 01/24/24 03/30/24 History [Centrum Silver Women Tablet] Acetaminophen Tab [Tylenol] 1,000 mg PO Q8HR PRN tab 02/02/24 03/30/24 Rx Ibuprofen [Motrin Ib] 600 mg PO Q8H PRN 02/23/24 03/30/24 History Meclizine [Antivert] 25 mg PO BID@08,199902/23/24 03/30/24 History Colchicine [Colcrys] 0.6 mg PO BID@08,199903/30/24 03/30/24 History Loperamide HCl [Imodium A-D] 2 mg PO Q8H PRN 03/30/24 03/30/24 History Magnesium Oxide [Mag-Ox] 400 mg PO BID@0800,199903/30/24 03/30/24 History Pyridoxine [Vitamin B-6] 50 mg PO DAILY@0800 03/30/24 03/30/24 History metFORMIN HCL [Glucophage] 850 mg PO BID@08,199903/30/24 03/30/24 History Allergies Allergy/AdvReac Type Severity Reaction Status Date / Time codeine AdvReac Nausea & Verified 03/30/24 13:03 Vomiting Physical Exam Vitals: Vital Signs Temp Pulse Pulse Resp BP Pulse Ox 04/01/24 07:00 98.0 F 72 20 125/69 98 04/01/24 00:30 98.0 F 80 16 155/88 98 03/31/24 21:07 77 03/31/24 20:59 74 03/31/24 19:04 97.1 F L 74 16 143/81 99 03/31/24 16:03 78 17 135/79 99 03/31/24 15:48 80 17 127/79 98 03/31/24 15:33 80 17 144/82 97 03/31/24 15:18 80 16 128/80 98 03/31/24 15:03 78 16 125/79 98 03/31/24 14:48 79 16 126/78 98 03/31/24 14:33 79 17 147/80 98 03/31/24 14:18 75 17 159/84 99 03/31/24 14:03 79 16 187/95 100 03/31/24 13:43 74 20 183/80 100 Intake and Output 03/31/24 04/01/24 04/01/24 22:59 06:59 14:59 Output Total 3300 319 Balance -3300 -319 Output: Urine 2200 200 Straight 1100 Post Void Residual 1100 119 Other: Voiding Method Diaper # Voids 1 Results 03/31/24 05:34 03/31/24 05:34 Current Medications Generic Name Dose Route Start Last Admin Trade Name Freq PRN Reason Stop Dose Admin Acetaminophen 650 mg 03/29/24 15:42 03/31/24 23:13 Acetaminophen Tab 325 Mg Tab PO 650 mg Q6HR PRN Administration Mild Pain or Fever > 100.5 Hydrocodone Bitart/Acetaminophen 1 each 03/30/24 14:48 03/30/24 21:06 Hydrocodone/Apap 5-325mg 1 Each Tab PO 1 each Q6HR PRN Administration Pain Hydrocodone Bitart/Acetaminophen 1 each 03/31/24 10:54 03/31/24 20:12 Hydrocodone/Apap 7.5-325mg 1 Each Tab PO 1 each Q6H PRN Administration Pain Albuterol/Ipratropium 3 ml 03/29/24 20:00 04/01/24 09:15 Ipratropium-Albuterol 3 Ml Neb INHALATION Not Given RT-TID MARÍA Atenolol 25 mg 03/30/24 09:00 04/01/24 08:44 Atenolol 25 Mg Tab PO 25 mg DAILY MARÍA Administration Atorvastatin Calcium 40 mg 03/30/24 09:00 04/01/24 08:44 Atorvastatin 40 Mg Tab PO 40 mg DAILY MARÍA Administration Enoxaparin Sodium 40 mg 04/01/24 09:00 04/01/24 08:45 Enoxaparin 40 Mg/0.4 Ml Syringe SQ 40 mg DAILY MARÍA Administration Hydromorphone HCl 1 mg 03/31/24 10:54 03/31/24 14:08 Hydromorphone 1 Mg/Ml 1 Ml Syringe IVP 1 mg Q3HR PRN Administration Pain Hydromorphone HCl 0.5 mg 03/31/24 11:37 03/31/24 11:38 Hydromorphone 0.5 Mg/0.5 Ml Syringe IVP 0.5 mg ONCE PRN Administration Pain Sodium Chloride 1,000 mls @ 75 mls/hr 03/29/24 15:45 04/01/24 10:39 Saline 0.9% IV 75 mls/hr .[id number] MARÍA Administration Lisinopril 5 mg 04/01/24 10:00 04/01/24 10:39 Lisinopril 5 Mg Tab PO 5 mg DAILY MARÍA Administration Magnesium Oxide 400 mg 03/29/24 21:00 04/01/24 08:44 Magnesium Oxide 400 Mg Tab PO 400 mg BID MARÍA Administration Naloxone HCl 0.2 mg 03/29/24 15:42 Naloxone 0.4 Mg/Ml 1 Ml Vial IV Q2M PRN Opioid Reversal Intake and Output 03/31/24 04/01/24 04/01/24 22:59 06:59 14:59 Output Total 3300 319 Balance -3300 -319 Output: Urine 2200 200 Straight 1100 Post Void Residual 1100 119 Other: Voiding Method Diaper # Voids 1 03/31/24 05:34 03/31/24 05:34
--- NOTE | 2024-04-01 12:33 | P.PN ---
Subjective Progress Note Date: 04/01/24 CHIEF COMPLAINT: right upper quadrant abdominal pain HISTORY OF PRESENT ILLNESS: patient postop day #1 status post left cholecystectomy. Pain is controlled. Denies any nausea vomiting. Tolerating diet. She is sitting in bedside chair. Denies any difficulty urinating. Afebrile. PHYSICAL EXAM: VITAL SIGNS: Reviewed. GENERAL: no acute distress. ABDOMEN: Soft. Nondistended. incision site is clean dry and intact NEUROLOGIC: Alert and oriented. Cranial nerves II through XII grossly intact. ASSESSMENT: 1. Cholecystitis status post laparoscopic cholecystectomy PLAN: -Patient is stable from surgical standpoint for discharge -recommended outpatient follow up in 1 week Physician [employer] note has been reviewed by physician. Signing provider agrees with the documented findings, assessment, and plan of care. Objective - Vital Signs Vital signs: Vital Signs Temp 98.0 F 04/01/24 07:00 Pulse 72 04/01/24 07:00 Resp 20 04/01/24 07:00 BP 125/69 04/01/24 07:00 Pulse Ox 98 04/01/24 07:00 FiO2 Intake & Output 03/31/24 04/01/24 04/01/24 18:59 06:59 18:59 Intake Total 900 Output Total 3325 319 Balance -2425 -319 Weight 63.049 kg Intake: IV 900 Output: Urine 2200 200 Straight 1100 Post Void Residual 1100 119 Estimated Blood Loss 25 Other: Voiding Method Diaper # Voids 1 - Labs CBC & Chem 7: 03/31/24 05:34 03/31/24 05:34
--- NOTE | 2024-04-01 14:56 | P.PN ---
Subjective Progress Note Date: 04/01/24 Principal diagnosis: Chronic cholecystitis with cholelithiasis, status post laparoscopic cholecystectomy Hypertension Hyperlipidemia Diabetes 2 uncontrolled with hyperglycemia metastatic endometrial adenocarcinoma patient is awake and alert on room air breathing comfortably, getting IV fluids 75 mL an hour, patient is status post laparoscopy cholecystectomy by Dr. Deleon and on March 31 tolerated well still have severe weakness. Review of data revealed that patient is a 73-year-old female with metastatic adenocarcinoma from endometrial region diagnosis in July 2023. She is is supposed to have therapy with Taxol/carbo,she presented in emergency department with multiple nodules in September 2023 also found to have a mass in the right breast, breast biopsy was negative, oncology following, patient presented with 12 pound weight loss in last 2 weeks with right upper quadrant pain and tenderness noted to have gallstone pancreatitis and elevated liver enzymes Objective - Vital Signs Vital signs: Vital Signs Temp 98.0 F 04/01/24 14:13 Pulse 67 04/01/24 14:13 Resp 18 04/01/24 14:13 BP 146/79 04/01/24 14:13 Pulse Ox 100 04/01/24 14:13 FiO2 Intake & Output 03/31/24 04/01/24 04/01/24 18:59 06:59 18:59 Intake Total 900 Output Total 3325 319 Balance -2425 -319 Weight 63.049 kg Intake: IV 900 Output: Urine 2200 200 Straight 1100 Post Void Residual 1100 119 Estimated Blood Loss 25 Other: Voiding Method Diaper # Voids 1 - Exam GENERAL: Well-developed in no acute distress. HEENT: No sclera icterus. Extraocular movements grossly intact. Moist buccal mucosa. Head is atraumatic, normocephalic. No nasal drainage. lungs: Clear to auscultation Heart: Regular rate rhythm S1 and S2 audible no gallop rub or murmur ABDOMEN: Soft. Nondistended. Nontender extremities: +1 pedal pulses trace edema no calf tenderness NEUROLOGIC: Alert and oriented. Cranial nerves II through XII grossly intact. - Labs CBC & Chem 7: 03/31/24 05:34 03/31/24 05:34 Assessment and Plan Assessment: sepsis associated with acute on chronic cholecystitis and cholelithiasis status post cholecystectomy Gallstone pancreatitis Elevated d-dimer likely due to inflammatory processes hypertension Dyslipidemia Type 2 diabetes mellitus with hyperglycemia Plan: continue pain control with [place] as needed Continue bronchodilator with DuoNeb 4 times a day Her pressure being controlled with atenololand lisinopril Accu-Cheks every before meals and at bedtime DVT prophylaxis with subcu Lovenox Continue Lipitor for dyslipidemia Continue gentle rehydration with normal saline 75 mL an hour
[2024-04-02] MEDS: hydrALAZINE HCL 20 MG/ML 1 ML VIAL IVP PRN (06:59)
--- NOTE | 2024-04-02 08:46 | P.CONS ---
History of Present Illness - Reason for Consult Consult date: 04/01/24 hx endometrial cancer, weakness Requesting physician: Domingo De Oliveira - Chief Complaint weakness - History of Present Illness Ms. Hylton is a patient of Dr. Batista, with history of metastatic endometrial adenocarcinoma. She presented to PCP with complaints of intermittent vaginal bleeding x 1 year. Symptoms became more persistent. She was ultimately referred to [facility] oncologist Dr. Hernandes. Pap smear and D&C 07/23/2023. Pathology reporting serous carcinoma from the endometrium as well as endocervix. Pelvic ultrasound 08/05 had shown abnormally thickened endometrium measuring 2.1 cm with a focus of vascularity concerning for endometrial carcinoma. CT AP 07/13/2023 again showed abnormal thickened endometrium measuring 6.8 x 4.1 cm. Chest x-ray was negative. Patient had MI/BSO with sentinel lymph node dissection 09/03/2023. 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 Stage T3a, N1a M0. She was referred for adjuvant therapy. She was supposed to start adjuvant Carbo/Taxol. She ended being seen in the ER before treatment could commence. CXR done showed multiple small lung nodules. CT chest 10/14/2023 confirmed bilateral lung nodules concerning for metastasis. A mass wa s noted in the right breast area as well. Chemotherapy was held to further workup these findings. Wedge biopsy of the lung mass was done, unfortunately confirmed poorly differentiated non-small cell carcinoma, IHC not definitive for specific primary but, the report said it could be compatible with a serious endometrial cancer. Ultrasound-guided biopsy of the breast lesion was negative for malignancy, felt to represent scar tissue. Patient was started on chemotherapy, now palliative intent versus adjuvant, 11/11/2023. Jemperli was added with cycle 3. She completed cycle 4 on 01/13/24. She was admitted shortly after cycle 4 for weakness and neutropenia. She had neurological symptoms including dizziness, fall prior to admit, confusion and jumbled speech. CT of the brain was negative for any acute findings. Neurology assessed the patient with no unusual findings. Patient's symptoms ultimately dissipated. Her only residual symptom was right upper extremity weakness. She did have a CTA of the chest during that admit for c/o shortness of breath, palpitations and a cough. No PE, immunotherapy induced pneumonitis or acute pulmonary process was reported. It was noted that metastatic disease seen on CT of the chest 01/03/2024 was significantly improved. She was inpatient 01/22 through 02/01. She was sent to rehab on discharge. She was discharged from rehab in early February, but was readmitted for dizziness/RUE weakness the following week. MRI of the brain ( 02/04), and subsequent LP ( 03/07), were negative for any evidence of malignancy. Patient last followed up with Dr. Batista on 03/10/24. She appeared to have improvement in terms of her dizziness symptoms, and somewhat in terms of activity. However, her performance status remains quite diminished. According to her family she has right-sided impingement of the ulnar nerve, due to which she was not able to use the right-hand to steady or catch herself, if she loses her balance. Due to combination of these factors, she continues to require ECF stay. It was discussed that the brain MRI, did not show any evidence of malignancy. And CT chest abdomen and pelvis did not note any measurable metastatic disease. Therefore at this time, plan was to continue surveillance, without active treatment, as typically active treatment would not be covered during rehab, in addition her performance status is still too poor for her to restart treatment. She was therefore advised to continue rehabilitation efforts and to reassess in 6 weeks. If treatment is able to be resumed, based on her performance and placement status, as well as her wishes, plan would be to start with chemotherapy alone initially as a single agent. Patient presented to the emergency room for weakness. She also reports right upper quadrant abdominal pain over the last couple weeks with associated nausea, vomiting, and decreased appetite. On admission transaminitis noted. Bilirubin 0.4, D-dimer elevated at 3.2. Blood count stable, WBC 4.3, hemoglobin 11.8, platelets 202,000. Chest x-ray was negative for acute cardiopulmonary processes. CT chest was negative for pulmonary embolism. Scan showed significant decrease in pulmonary nodules compared to 10/14/2023. Previously noted greater than 50 pulmonary nodules no longer visualized, now at least 1 right upper lobe 4 mm nodule remains. Gallbladder ultrasound noted exam was limited due to gas. Showing 2.5 cm gallstone with no ancillary findings of acute cholecystitis. General surgery was consulted and patient underwent cholecystectomy yesterday. At today's visit patient is reporting overall she is feeling well. She is having mild soreness in the right upper quadrant. Denies nausea or vomiting. Tolerated breakfast without nausea or vomiting. Review of Systems 10 point ROS is negative except as stated in the HPI Past Medical History Past Medical History: Cancer, Hyperlipidemia, Hypertension, Thyroid Disorder Additional Past Medical History / Comment(s): uterine CA, Breast cancer right mets to lungs History of Any Multi-Drug Resistant Organisms: None Reported Past Surgical History: Breast Surgery, Hysterectomy Additional Past Surgical History / Comment(s): complete hyst 09/03/2023. Bilat mastectomy. Nose surgery Past Anesthesia/Blood Transfusion Reactions: No Reported Reaction Past Psychological History: Depression Additional Psychological History / Comment(s): Trintellix Smoking Status: Never smoker Past Alcohol Use History: None Reported Past Drug Use History: None Reported - Past Family History Mother Family Medical History: No Reported History Medications and Allergies Home Medications Medication Instructions Recorded Confirmed Type Atorvastatin [Lipitor] 40 mg PO HS@199910/15/23 03/30/24 History Vortioxetine Hydrobromide 20 mg PO DAILY@0810/15/23 03/30/24 History [Trintellix] atenoloL [Tenormin] 25 mg PO DAILY@1300 10/15/23 03/30/24 History lisinopriL [Zestril] 2.5 mg PO DAILY@1300 10/15/23 03/30/24 History traZODone HCL [Desyrel] 100 mg PO HS@199910/15/23 03/30/24 History Multivit-Min/Iron/Folic/Lutein 1 tab PO DAILY@0801/24/24 03/30/24 History [Centrum Silver Women Tablet] Acetaminophen Tab [Tylenol] 1,000 mg PO Q8HR PRN tab 02/02/24 03/30/24 Rx Ibuprofen [Motrin Ib] 600 mg PO Q8H PRN 02/23/24 03/30/24 History Meclizine [Antivert] 25 mg PO BID@08,199902/23/24 03/30/24 History Colchicine [Colcrys] 0.6 mg PO BID@08,199903/30/24 03/30/24 History Loperamide HCl [Imodium A-D] 2 mg PO Q8H PRN 03/30/24 03/30/24 History Magnesium Oxide [Mag-Ox] 400 mg PO BID@08,199903/30/24 03/30/24 History Pyridoxine [Vitamin B-6] 50 mg PO DAILY@0800 03/30/24 03/30/24 History metFORMIN HCL [Glucophage] 850 mg PO BID@0800,199903/30/24 03/30/24 History HYDROcodone/APAP 5-325MG [[place] 1 tab PO Q6HR PRN 3 Days #12 tab 04/01/24 Rx 5-325] Allergies Allergy/AdvReac Type Severity Reaction Status Date / Time codeine AdvReac Nausea & Verified 03/30/24 13:03 Vomiting Physical Exam Vitals: Vital Signs Temp Pulse Pulse Resp BP Pulse Ox 04/01/24 07:00 98.0 F 72 20 125/69 98 04/01/24 00:30 98.0 F 80 16 155/88 98 03/31/24 21:07 77 03/31/24 20:59 74 03/31/24 19:04 97.1 F L 74 16 143/81 99 03/31/24 16:03 78 17 135/79 99 03/31/24 15:48 80 17 127/79 98 03/31/24 15:33 80 17 144/82 97 03/31/24 15:18 80 16 128/80 98 03/31/24 15:03 78 16 125/79 98 03/31/24 14:48 79 16 126/78 98 03/31/24 14:33 79 17 147/80 98 03/31/24 14:18 75 17 159/84 99 03/31/24 14:03 79 16 187/95 100 03/31/24 13:43 74 20 183/80 100 03/31/24 12:05 71 16 150/75 99 03/31/24 11:50 63 14 166/71 100 Intake and Output 03/31/24 04/01/24 04/01/24 22:59 06:59 14:59 Output Total 3300 319 Balance -3300 -319 Output: Urine 2200 200 Straight 1100 Post Void Residual 1100 119 Other: Voiding Method Diaper # Voids 1 - Constitutional General appearance: average body habitus, no acute distress - EENT Eyes: anicteric sclerae, EOMI ENT: hearing grossly normal - Respiratory Respiratory: bilateral: CTA - Cardiovascular Rhythm: regular - Gastrointestinal General gastrointestinal: no distended, soft - Neurologic RUE weakness, no acute changes - Musculoskeletal Musculoskeletal: generalized weakness - Psychiatric Psychiatric: A&O x's 3 Results CBC & Chem 7: 03/31/24 05:34 03/31/24 05:34 Chest x-ray: report reviewed CT scan - chest: report reviewed US - abdomen: report reviewed Assessment and Plan (1) Gallstone Current Visit: Yes Status: Acute Priority: High Code(s): K80.20 - CALCULUS OF GALLBLADDER W/O CHOLECYSTITIS W/O OBSTRUCTION SNOMED Code(s): 182442936 (2) Right upper quadrant abdominal pain Current Visit: Yes Status: Acute Priority: High Code(s): R10.11 - RIGHT UPPER QUADRANT PAIN SNOMED Code(s): 462111126 (3) Weakness Current Visit: Yes Status: Acute Priority: Medium Code(s): R53.1 - WEAKNESS SNOMED Code(s): 28341908 (4) Endometrial carcinoma Current Visit: No Status: Chronic Priority: Medium Code(s): C54.1 - MALIGNANT NEOPLASM OF ENDOMETRIUM SNOMED Code(s): 207556969 Plan: Acute cholecystitis: Presented with weakness, RUQ pain and N/V -On admission transaminitis noted. Bilirubin 0.4. Blood count stable, WBC 4.3, hemoglobin 11.8, platelets 202,000. -Gallbladder ultrasound noted exam was limited due to gas. Showing 2.5 cm gallstone with no ancillary findings of acute cholecystitis. -General surgery was consulted and patient underwent cholecystectomy yesterday. -Gallbladder sent for pathology -Defer management to surgery team Endometrial carcinoma -Full history in HPI -She had 4 cycles of chemo and 2 doses of immunotherapy with dostarlimab-gxly -No treatment since 01/12. -CTA chest was negative for pulmonary embolism. Scan showed significant decrease in pulmonary nodules compared to 10/14/2023. Previously noted greater t alvarez 50 pulmonary nodules no longer visualized, now at least 1 right upper lobe 4 mm nodule remains. -At last f/u on 03/10/24, plan was to continue surveillance, and to continue rehabilitation efforts and to reassess in 6 weeks. If treatment is able to be resumed, based on her performance and placement status, as well as her wishes, plan would be to start with chemotherapy alone initially as a single agent -At todays visit, patient states since her last visit, she and her family have decided that she no longer wants to undergo systemic treatment. Different treatment options was discussed today with Dr. Batista, but at this time, pt again stating that she wants to stop any further treatment. -She has f/u appt scheduled with Dr. Batista on 04/27/24, at which time this can be further discussed with patient and family Doctor attests: I performed a history and physical examination of this patient, developed impression and plan of care. Discussed with dictator. I agree with dictators note, documented as a scribe.
[2024-04-02 09:38] LABS: Basophils # (A) 0.02 X 10*3/uL (0.00-0.10); Basophils % (A) 0.5 %; Eosinophils # (A) 0.13 X 10*3/uL (0.04-0.35); Eosinophils % (A) 3.5 %; HCT 33.3 % (37.2-46.3); HGB 11.1 g/dL (12.0-15.0); Lymphocytes # (A) 0.59 X 10*3/uL (0.90-5.00); Lymphocytes % (A) 15.8 %; MCH 30.2 pg (27.0-32.0); MCHC 33.3 g/dL (32.0-37.0); MCV 90.7 FL (80.0-97.0); Mean Platelet Volume 11.2 FL (9.5-12.2); Monocytes # (A) 0.36 X 10*3/uL (0.20-1.00); Monocytes % (A) 9.6 %; NRBC Per 100 WBC 0 X 10*3/uL (0.00-0.01); Neutrophils # (A) 2.63 X 10*3/uL (1.80-7.70); Neutrophils % (A) 70.3 %; Platelet Count 165 X 10*3/uL (140-440); RBC 3.67 X 10*6/uL (4.10-5.20); WBC 3.74 X 10*3/uL (4.50-10.00)
[2024-04-02 09:57] LABS: ALT 140 U/L (8-44); AST 160 U/L (13-35); Albumin 3.1 g/dL (3.8-4.9); Albumin/Globulin Ratio 1.72 Ratio (1.60-3.17); Alkaline Phosphatase 358 U/L (41-126); BUN/Creat Ratio 10.33 Ratio (12.00-20.00); Blood Urea Nitrogen 6.2 mg/dL (9.0-27.0); Calcium 7.4 mg/dL (8.7-10.3); Carbon Dioxide 23.4 mmol/L (21.6-31.8); Chloride 106 mmol/L (96-109); Globulin 1.8 g/dL (1.6-3.3); Glucose 106 mg/dL (70-110); Potassium 2.9 mmol/L (3.5-5.5); Sodium 141 mmol/L (135-145); Total Bilirubin 0.6 mg/dL (0.3-1.2); Total Protein 4.9 g/dL (6.2-8.2)
--- NOTE | 2024-04-02 15:22 | P.PN ---
Subjective Progress Note Date: 04/02/24 Principal diagnosis: Chronic cholecystitis with cholelithiasis, status post laparoscopic cholecystectomy Hypertension Hyperlipidemia Diabetes 2 uncontrolled with hyperglycemia metastatic endometrial adenocarcinoma 04/02/2024, patient seen eval examined the rounds labs reviewed medications reviewed, slightly anxious offered antianxiety medicines but patient declined, able to get up and move around now has a short trip to the [facility] more short of breath however no significant disease noted, labs reviewed CBC fairly within normal limit and not much change, potassium is 2.9 LFTs noted EST/UL. Continue to go up is 160/140, we'll continue to follow and trend patient is awake and alert on room air breathing comfortably, getting IV fluids 75 mL an hour, patient is status post laparoscopy cholecystectomy by Dr. Deleon and on March 31 tolerated well still have severe weakness. Review of data revealed that patient is a 73-year-old female with metastatic adenocarcinoma from endometrial region diagnosis in July 2023. She is is supposed to have therapy with Taxol/carbo,she presented in emergency department with multiple nodules in September 2023 also found to have a mass in the right breast, breast biopsy was negative, oncology following, patient presented with 12 pound weight loss in last 2 weeks with right upper quadrant pain and te nderness noted to have gallstone pancreatitis and elevated liver enzymes Objective - Vital Signs Vital signs: Vital Signs Temp 97.9 F 04/02/24 06:50 Pulse 76 04/02/24 11:07 Resp 17 04/02/24 06:50 BP 191/66 04/02/24 06:50 Pulse Ox 98 04/02/24 06:50 FiO2 Intake & Output 04/01/24 04/02/24 04/02/24 18:59 06:59 18:59 Output Total 700 Balance -700 Output: Urine 700 Emesis 0 Other: Voiding Method Diaper Toilet # Voids 1 4 - Exam GENERAL: Well-developed in no acute distress. HEENT: No sclera icterus. Extraocular movements grossly intact. Moist buccal mucosa. Head is atraumatic, normocephalic. No nasal drainage. lungs: Clear to auscultation Heart: Regular rate rhythm S1 and S2 audible no gallop rub or murmur ABDOMEN: Soft. Nondistended. Nontender extremities: +1 pedal pulses trace edema no calf tenderness NEUROLOGIC: Alert and oriented. Cranial nerves II through XII grossly intact. - Labs CBC & Chem 7: 04/02/24 05:54 04/02/24 05:54 Labs: Abnormal Lab Results - Last 24 Hours (Table) 04/02/24 04/02/24 Range/Units 05:54 05:54 WBC 3.74 L (4.50-10.00) X 10*3/uL RBC 3.67 L (4.10-5.20) X 10*6/uL Hgb 11.1 L (12.0-15.0) g/dL Hct 33.3 L (37.2-46.3) % RDW 15.0 H (11.5-14.5) % Lymphocytes # 0.59 L (0.90-5.00) X 10*3/uL Potassium 2.9 L (3.5-5.5) mmol/L BUN 6.2 L (9.0-27.0) mg/dL BUN/Creatinine Ratio 10.33 L (12.00-20.00) Ratio Calcium 7.4 L (8.7-10.3) mg/dL AST 160 H (13-35) U/L ALT 140 H (8-44) U/L Alkaline Phosphatase 358 H (41-126) U/L Total Protein 4.9 L (6.2-8.2) g/dL Albumin 3.1 L (3.8-4.9) g/dL Assessment and Plan Assessment: severe hypokalemia Rising liver enzymes sepsis associated with acute on chronic cholecystitis and cholelithiasis status post cholecystectomy Gallstone pancreatitis Elevated d-dimer likely due to inflammatory processes hypertension Dyslipidemia Type 2 diabetes mellitus with hyperglycemia Plan: replace potassium Continue to trend LFTs continue pain control with [place] as needed Continue bronchodilator with DuoNeb 4 times a day Her pressure being controlled with atenololand lisinopril Accu-Cheks every before meals and at bedtime DVT prophylaxis with subcu Lovenox Continue Lipitor for dyslipidemia Continue gentle rehydration with normal saline 75 mL an hour Time with Patient: Greater than 30
[2024-04-02] MEDS: POTASSIUM CHLORIDE 20 MEQ in WATER FOR INJECTION 1 100ML.BAG IVPB STA (15:43)
[2024-04-02] MEDS: POTASSIUM CHLORIDE ER 20 MEQ TAB.ER PO STA (15:43)
--- NOTE | 2024-04-02 16:26 | P.PN ---
Progress Note - Text Progress Note Date: 04/02/24 CHIEF COMPLAINT: right upper quadrant abdominal pain HISTORY OF PRESENT ILLNESS: patient postop day #2 status post left cholecystectomy. Pain is controlled. Denies any nausea vomiting. Tolerating diet. She is sitting in bedside chair. Denies any difficulty urinating. Afebrile. PHYSICAL EXAM: VITAL SIGNS: Reviewed. GENERAL: no acute distress. ABDOMEN: Soft. Nondistended. incision site is clean dry and intact NEUROLOGIC: Alert and oriented. Cranial nerves II through XII grossly intact. ASSESSMENT: 1. Cholecystitis status post laparoscopic cholecystectomy PLAN: -Patient is stable from surgical standpoint for discharge however she states she does not have a ride home until tomorrow -recommended outpatient follow up in 1 week
[2024-04-03 09:24] LABS: Basophils # (A) 0.03 X 10*3/uL (0.00-0.10); Basophils % (A) 0.7 %; Eosinophils # (A) 0.15 X 10*3/uL (0.04-0.35); Eosinophils % (A) 3.7 %; HCT 33.2 % (37.2-46.3); HGB 11.2 g/dL (12.0-15.0); Lymphocytes # (A) 0.76 X 10*3/uL (0.90-5.00); Lymphocytes % (A) 18.9 %; MCH 30.4 pg (27.0-32.0); MCHC 33.7 g/dL (32.0-37.0); MCV 90.2 FL (80.0-97.0); Mean Platelet Volume 11.9 FL (9.5-12.2); Monocytes # (A) 0.36 X 10*3/uL (0.20-1.00); NRBC Per 100 WBC 0 X 10*3/uL (0.00-0.01); Neutrophils # (A) 2.71 X 10*3/uL (1.80-7.70); Neutrophils % (A) 67.5 %; Platelet Count 189 X 10*3/uL (140-440); RBC 3.68 X 10*6/uL (4.10-5.20); RDW 15.2 % (11.5-14.5); WBC 4.02 X 10*3/uL (4.50-10.00)
--- NOTE | 2024-04-03 10:20 | P.PN ---
Subjective Progress Note Date: 04/03/24 Patient feels better. On exam vital signs are stable. Abdomen is soft. Status post laparoscopic colostomy. Patient will be discharged home per medical service. Objective - Vital Signs Vital signs: Vital Signs Temp 98.0 F 04/03/24 06:41 Pulse 80 04/03/24 08:00 Resp 16 04/03/24 06:41 BP 144/82 04/03/24 06:41 Pulse Ox 98 04/03/24 06:41 FiO2 Intake & Output 04/02/24 04/03/24 04/03/24 18:59 06:59 18:59 Intake Total 900 Balance 900 Intake: Intake, IV Titration 900 Amount Sodium Chloride 0.9% 1, 900 000 ml @ 75 mls/hr IV . [id number] [facility] Rx#:[id number] Other: # Voids 6 2 - Labs CBC & Chem 7: 04/03/24 04:29 04/02/24 05:54 Labs: Abnormal Lab Results - Last 24 Hours (Table) 04/03/24 Range/Units 04:29 WBC 4.02 L (4.50-10.00) X 10*3/uL RBC 3.68 L (4.10-5.20) X 10*6/uL Hgb 11.2 L (12.0-15.0) g/dL Hct 33.2 L (37.2-46.3) % RDW 15.2 H (11.5-14.5) % Lymphocytes # 0.76 L (0.90-5.00) X 10*3/uL
[2024-04-03 10:56] LABS: ALT 102 U/L (8-44); AST 80 U/L (13-35); Albumin 3.2 g/dL (3.8-4.9); Albumin/Globulin Ratio 1.78 Ratio (1.60-3.17); Alkaline Phosphatase 310 U/L (41-126); Blood Urea Nitrogen 4.7 mg/dL (9.0-27.0); Calcium 7.2 mg/dL (8.7-10.3); Carbon Dioxide 26.2 mmol/L (21.6-31.8); Chloride 107 mmol/L (96-109); Globulin 1.8 g/dL (1.6-3.3); Glucose 129 mg/dL (70-110); Potassium 3.6 mmol/L (3.5-5.5); Sodium 143 mmol/L (135-145); Total Bilirubin 0.5 mg/dL (0.3-1.2)
--- NOTE | 2024-04-03 11:38 | P.PN ---
Subjective Progress Note Date: 04/03/24 Principal diagnosis: Chronic cholecystitis with cholelithiasis, status post laparoscopic cholecystectomy Hypertension Hyperlipidemia Diabetes 2 uncontrolled with hyperglycemia metastatic endometrial adenocarcinoma 04/03/2024, patient seen and evaluated examined, care plan discussed, weakness and dizziness significantly improved patient is more composed no hemodynamic status stablegeneral surgery has been following, CBC fairly within normal limit and not much significantly change, BUN/creatinine is 4.7/0.5, glucose 129, total bilirubin is 0.5, AST/ALT 80/102 significantly improved from yesterday 04/02/2024, patient seen eval examined the rounds labs reviewed medications reviewed, slightly anxious offered antianxiety medicines but patient declined, able to get up and move around now has a short trip to the [facility] more short of breath however no significant disease noted, labs reviewed CBC fairly within normal limit and not much change, potassium is 2.9 LFTs noted EST/UL. Continue to go up is 160/140, we'll continue to follow and trend patient is awake and alert on room air breathing comfortably, getting IV fluids 75 mL an hour, patient is status post laparoscopy cholecystectomy by Dr. Deleon and on March 31 tolerated well still have severe weakness. Review of data revealed that patient is a 73-year-old female with metastatic adenocarcinoma from endometrial region diagnosis in July 2023. She is is supposed to have therapy with Taxol/carbo,she presented in emergency department with multiple nodules in September 2023 also found to have a mass in the right breast, breast biopsy was negative, oncology following, patient presented with 12 pound weight loss in last 2 weeks with right upper quadrant pain and tenderness noted to have gallstone pancreatitis and elevated liver enzymes Objective - Vital Signs Vital signs: Vital Signs Temp 98.0 F 04/03/24 06:41 Pulse 80 04/03/24 08:00 Resp 16 04/03/24 06:41 BP 144/82 04/03/24 06:41 Pulse Ox 98 04/03/24 06:41 FiO2 Intake & Output 04/02/24 04/03/24 04/03/24 18:59 06:59 18:59 Intake Total 900 Balance 900 Intake: Intake, IV Titration 900 Amount Sodium Chloride 0.9% 1, 900 000 ml @ 75 mls/hr IV . [id number] [facility] Rx#:[id number] Other: # Voids 6 2 - Exam GENERAL: Well-developed in no acute distress. HEENT: No sclera icterus. Extraocular movements grossly intact. Moist buccal mucosa. Head is atraumatic, normocephalic. No nasal drainage. lungs: Clear to auscultation Heart: Regular rate rhythm S1 and S2 audible no gallop rub or murmur ABDOMEN: Soft. Nondistended. Nontender extremities: +1 pedal pulses trace edema no calf tenderness NEUROLOGIC: Alert and oriented. Cranial nerves II through XII grossly intact. - Labs CBC & Chem 7: 04/03/24 04:29 04/03/24 04:29 Labs: Abnormal Lab Results - Last 24 Hours (Table) 04/03/24 04/03/24 Range/Units 04:29 04:29 WBC 4.02 L (4.50-10.00) X 10*3/uL RBC 3.68 L (4.10-5.20) X 10*6/uL Hgb 11.2 L (12.0-15.0) g/dL Hct 33.2 L (37.2-46.3) % RDW 15.2 H (11.5-14.5) % Lymphocytes # 0.76 L (0.90-5.00) X 10*3/uL BUN 4.7 L (9.0-27.0) mg/dL Creatinine 0.5 L (0.6-1.5) mg/dL BUN/Creatinine Ratio 9.40 L (12.00-20.00) Ratio Glucose 129 H (70-110) mg/dL Calcium 7.2 L (8.7-10.3) mg/dL AST 80 H (13-35) U/L ALT 102 H (8-44) U/L Alkaline Phosphatase 310 H (41-126) U/L Total Protein 5.0 L (6.2-8.2) g/dL Albumin 3.2 L (3.8-4.9) g/dL Assessment and Plan Assessment: severe hypokalemia Rising liver enzymes sepsis associated with acute on chronic cholecystitis and cholelithiasis status post cholecystectomy Gallstone pancreatitis Elevated d-dimer likely due to inflammatory processes hypertension Dyslipidemia Type 2 diabetes mellitus with hyperglycemia Plan: replace potassium, rotation improved to 3.6 Continue to trend LFTs continue pain control with [place] as needed Continue bronchodilator with DuoNeb 4 times a day Her pressure being controlled with atenololand lisinopril Accu-Cheks every before meals and at bedtime DVT prophylaxis with subcu Lovenox Continue Lipitor for dyslipidemia Continue gentle rehydration with normal saline 75 mL an hour Time with Patient: Greater than 30
--- NOTE | 2024-04-04 12:24 | P.PN ---
Subjective Progress Note Date: 04/04/24 Principal diagnosis: Chronic cholecystitis with cholelithiasis, status post laparoscopic cholecystectomy Hypertension Hyperlipidemia Diabetes 2 uncontrolled with hyperglycemia metastatic endometrial adenocarcinoma 04/04/2024, patient seen eval examined, slightly anxious restless but however breathing has been stable, patient is on 2 L nasal cannula and atria have been discontinued as oxygen saturation fairly stable, , she remains on bronchodilators tolerating well also on DVT prophylaxis and continuation of her home medicines, labs not done today, we'll resume trazodone 100 mg daily 04/03/2024, patient seen and evaluated examined, care plan discussed, weakness and dizziness significantly improved patient is more composed no hemodynamic status stablegeneral surgery has been following, CBC fairly within normal limit and not much significantly change, BUN/creatinine is 4.7/0.5, glucose 129, total bilirubin is 0.5, AST/ALT 80/102 significantly improved from yesterday 04/02/2024, patient seen eval examined the rounds labs reviewed medications reviewed, slightly anxious offered antianxiety medicines but patient declined, able to get up and move around now has a short trip to the [facility] more short of breath however no significant disease noted, labs reviewed CBC fairly within normal limit and not much change, potassium is 2.9 LFTs noted EST/UL. Continue to go up is 160/140, we'll continue to follow and trend patient is awake and alert on room air breathing comfortably, getting IV fluids 75 mL an hour, patient is status post laparoscopy cholecystectomy by Dr. Deleon and on March 31 tolerated well still have severe weakness. Review of data revealed that patient is a 73-year-old female with metastatic adenocarcinoma from endometrial region diagnosis in July 2023. She is is supposed to have therapy with Taxol/carbo,she presented in emergency department with multiple nodules in September 2023 also found to have a mass in the right breast, breast biopsy was negative, oncology following, patient presented with 12 pound weight loss in last 2 weeks with right upper quadrant pain and tenderness noted to have gallstone pancreatitis and elevated liver enzymes Objective - Vital Signs Vital signs: Vital Signs Temp 98.4 F 04/04/24 07:15 Pulse 78 04/04/24 09:56 Resp 14 04/04/24 07:15 BP 150/90 04/04/24 07:15 Pulse Ox 99 04/04/24 07:15 FiO2 Intake & Output 04/03/24 04/04/24 04/04/24 18:59 06:59 18:59 Intake Total 900 Balance 900 Weight 63.049 kg Intake: Intake, IV Titration 900 Amount Sodium Chloride 0.9% 1, 900 000 ml @ 75 mls/hr IV . [id number] [facility] Rx#:[id number] Other: # Voids 1 2 - Exam GENERAL: Well-developed in no acute distress. HEENT: No sclera icterus. Extraocular movements grossly intact. Moist buccal mucosa. Head is atraumatic, normocephalic. No nasal drainage. lungs: Clear to auscultation Heart: Regular rate rhythm S1 and S2 audible no gallop rub or murmur ABDOMEN: Soft. Nondistended. Nontender extremities: +1 pedal pulses trace edema no calf tenderness NEUROLOGIC: Alert and oriented. Cranial nerves II through XII grossly intact. - Labs CBC & Chem 7: 04/03/24 04:29 04/03/24 04:29 Assessment and Plan Assessment: severe hypokalemia Severe anxiety and restlessness and insomnia, we'll resume trazodone at bedtime Rising liver enzymes sepsis associated with acute on chronic cholecystitis and cholelithiasis status post cholecystectomy Gallstone pancreatitis Elevated d-dimer likely due to inflammatory processes hypertension Dyslipidemia Type 2 diabetes mellitus with hyperglycemia Plan: replace potassium, rotation improved, continue to monitor closely Resume trazodone Continue to trend LFTs, repeat set of labs for tomorrow continue pain control with [place] as needed Continue bronchodilator with DuoNeb 4 times a day Her pressure being controlled with atenololand lisinopril Accu-Cheks every before meals and at bedtime DVT prophylaxis with subcu Lovenox Continue Lipitor for dyslipidemia Continue gentle rehydration with normal saline 75 mL an hour Time with Patient: Greater than 30
[2024-04-04 13:01] LABS: ALT 68 U/L (4-34); AST 53 U/L (14-36); African American GFR (CKD) >90 (>60 ml/min/1.73 sqM); Albumin 2.6 g/dL (3.5-5.0); Albumin/Globulin Ratio 1.1; Alkaline Phosphatase 230 U/L (38-126); Anion Gap 2 mmol/L; Blood Urea Nitrogen 4 mg/dL (7-17); Calcium 7.3 mg/dL (8.4-10.2); Carbon Dioxide 28 mmol/L (22-30); Chloride 108 mmol/L (98-107); Globulin 2.3 g/dL; Glucose 151 mg/dL (74-99); Non-African American GFR(CKD) >90 (>60 ml/min/1.73 sqM); Potassium 3.4 mmol/L (3.5-5.1); Sodium 138 mmol/L (137-145); Total Bilirubin 0.7 mg/dL (0.2-1.3); Total Protein 4.9 g/dL (6.3-8.2)
--- NOTE | 2024-04-04 14:07 | P.PN ---
Subjective Progress Note Date: 04/04/24 CHIEF COMPLAINT: right upper quadrant abdominal pain HISTORY OF PRESENT ILLNESS: patient postop day #4 status post laparoscopic cholecystectomy. Patient complaining of pain right upper quadrant. Patient reports that the pain is similar to the pain that brought her in. She reports no nausea or vomiting. She is having bowel movements. Afebrile. Total bilirubin 0.7 LFTs trending downwards PHYSICAL EXAM: VITAL SIGNS: Reviewed. GENERAL: no acute distress. ABDOMEN: Soft. Nondistended. right sided abdominal pain. incision site is clean dry and intact NEUROLOGIC: Alert and oriented. Cranial nerves II through XII grossly intact. ASSESSMENT: 1. Cholecystitis status post laparoscopic cholecystectomy PLAN: -HIDA scan ordered to rule out cystic duct obstruction -Continue to monitor LFTs -Continue regular diet Physician Warehouse Guard note has been reviewed by physician. Signing provider agrees with the documented findings, assessment, and plan of care. Objective - Vital Signs Vital signs: Vital Signs Temp 98.4 F 04/04/24 07:15 Pulse 78 04/04/24 09:56 Resp 14 04/04/24 07:15 BP 150/90 04/04/24 07:15 Pulse Ox 99 04/04/24 07:15 FiO2 Intake & Output 04/03/24 04/04/24 04/04/24 18:59 06:59 18:59 Intake Total 900 Balance 900 Weight 63.049 kg Intake: Intake, IV Titration 900 Amount Sodium Chloride 0.9% 1, 900 000 ml @ 75 mls/hr IV . [id number] [facility] Rx#:[id number] Other: # Voids 1 2 - Labs CBC & Chem 7: 04/03/24 04:29 04/04/24 12:33
[2024-04-04] MEDS: POTASSIUM CHLORIDE ER 20 MEQ TAB.ER PO STA (15:41)
[2024-04-04] MEDS: traZODone HCL 100 MG TAB PO SCH (20:13)
[2024-04-05] MEDS ORDERED: ZINC OXIDE PASTE (Z-GUARD) 1 APPLIC TOPICAL PRN (06:29)
[2024-04-05 08:32] LABS: Basophils # (A) 0.02 X 10*3/uL (0.00-0.10); Basophils % (A) 0.7 %; Eosinophils # (A) 0.19 X 10*3/uL (0.04-0.35); Eosinophils % (A) 6.9 %; HCT 30.7 % (37.2-46.3); Immature Grans, Automated 0 %; Lymphocytes # (A) 0.72 X 10*3/uL (0.90-5.00); Lymphocytes % (A) 26.2 %; MCH 29.6 pg (27.0-32.0); MCHC 32.6 g/dL (32.0-37.0); MCV 90.8 FL (80.0-97.0); Mean Platelet Volume 11.5 FL (9.5-12.2); Monocytes # (A) 0.35 X 10*3/uL (0.20-1.00); Monocytes % (A) 12.7 %; NRBC Per 100 WBC 0 X 10*3/uL (0.00-0.01); Neutrophils # (A) 1.47 X 10*3/uL (1.80-7.70); Neutrophils % (A) 53.5 %; Platelet Count 180 X 10*3/uL (140-440); RBC 3.38 X 10*6/uL (4.10-5.20); RDW 15.7 % (11.5-14.5); WBC 2.75 X 10*3/uL (4.50-10.00)
[2024-04-05 08:54] LABS: ALT 59 U/L (8-44); AST 42 U/L (13-35); Albumin 2.8 g/dL (3.8-4.9); Albumin/Globulin Ratio 1.56 Ratio (1.60-3.17); Alkaline Phosphatase 239 U/L (41-126); Blood Urea Nitrogen 4.4 mg/dL (9.0-27.0); Calcium 7.2 mg/dL (8.7-10.3); Carbon Dioxide 24.9 mmol/L (21.6-31.8); Chloride 109 mmol/L (96-109); Globulin 1.8 g/dL (1.6-3.3); Glucose 109 mg/dL (70-110); Potassium 2.8 mmol/L (3.5-5.5); Sodium 144 mmol/L (135-145); Total Bilirubin 0.4 mg/dL (0.3-1.2); Total Protein 4.6 g/dL (6.2-8.2)
[2024-04-05] MEDS ORDERED: Potassium Replacement Protocol 1 EACH MISC MISCELLANE PRN (09:44)
[2024-04-05] MEDS: POTASSIUM CHLORIDE ER 20 MEQ TAB.ER PO SCH (10:06)
[2024-04-05] MEDS: DOCUSATE 100 MG CAP PO SCH (10:07)
--- NOTE | 2024-04-05 10:35 | P.PN ---
Subjective Progress Note Date: 04/05/24 CHIEF COMPLAINT: right upper quadrant abdominal pain HISTORY OF PRESENT ILLNESS: patient postop day #5 status post laparoscopic cholecystectomy. Patient sitting up at bedside chair. She reports that she is feeling better. Pain is controlled. She denies any nausea or vomiting. She reports she has not had a bowel movement yet. Afebrile. WBC 2.75 Hgb 10 platelets 180 potassium 2.8 total bilirubin 0.4 AST and ALT trending down alk phos 239 PHYSICAL EXAM: VITAL SIGNS: Reviewed. GENERAL: no acute distress. ABDOMEN: Soft. Nondistended. incision site is clean dry and intact NEUROLOGIC: Alert and oriented. Cranial nerves II through XII grossly intact. ASSESSMENT: 1. Cholecystitis status post laparoscopic cholecystectomy PLAN: -Continue regular diet -Encourage patient to increase activity level -Continue pain management -Colace added for constipation Physician Railway Patrol Officer note has been reviewed by physician. Signing provider agrees with the documented findings, assessment, and plan of care. Objective - Vital Signs Vital signs: Vital Signs Temp 98.1 F 04/05/24 07:19 Pulse 88 04/05/24 09:38 Resp 18 04/05/24 07:19 BP 151/85 04/05/24 07:19 Pulse Ox 98 04/05/24 07:19 FiO2 Intake & Output 04/04/24 04/05/24 04/05/24 18:59 06:59 18:59 Weight 63.049 kg Other: Voiding Method Toilet # Voids 1 1 - Labs CBC & Chem 7: 04/05/24 05:03 04/05/24 05:03 Labs: Abnormal Lab Results - Last 24 Hours (Table) 04/04/24 04/05/24 04/05/24 Range/Units 12:33 05:03 05:03 WBC 2.75 L (4.50-10.00) X 10*3/uL RBC 3.38 L (4.10-5.20) X 10*6/uL Hgb 10.0 L (12.0-15.0) g/dL Hct 30.7 L (37.2-46.3) % RDW 15.7 H (11.5-14.5) % Neutrophils # 1.47 L (1.80-7.70) X 10*3/uL Lymphocytes # 0.72 L (0.90-5.00) X 10*3/uL Potassium 3.4 L 2.8 L (3.5-5.1) mmol/L Chloride 108 H (98-107) mmol/L BUN 4 L 4.4 L (7-17) mg/dL Creatinine 0.39 L 0.4 L (0.52-1.04) mg/dL BUN/Creatinine Ratio 11.00 L (12.00-20.00) Ratio Glucose 151 H (74-99) mg/dL Calcium 7.3 L 7.2 L (8.4-10.2) mg/dL AST 53 H 42 H (14-36) U/L ALT 68 H 59 H (4-34) U/L Alkaline Phosphatase 230 H 239 H (38-126) U/L Total Protein 4.9 L 4.6 L (6.3-8.2) g/dL Albumin 2.6 L 2.8 L (3.5-5.0) g/dL Albumin/Globulin Ratio 1.56 L (1.60-3.17) Ratio
[2024-04-05 12:57] VITALS: BP 130/76; PULSE 94; RESP 16; TEMP 98.4
--- NOTE | 2024-04-12 07:55 | CDI ---
Documentation Clarification Form Date: 04/12/2024 From: Sally Garcia Phone: [phone] Admit Date: 03/29/2024 02:52:00 PM Patient Name: Pushpa Hylton Visit Number: [id number] Discharge Date: 04/05/2024 02:55:00 PM ATTENTION: The Clinical Documentation Specialists (CDI) and [facility] Coding Staff appreciate your assistance in clarifying documentation. Please respond to the clarification below the line at the bottom and electronically sign. The CDI & [facility] Coding staff will review the response and follow-up if needed. Please note: Queries are made part of the Legal Health Record. If you have any questions, please contact the author of this message via ITS. Doctor/Provider: Talha Mccabe MD: Sepsis is documented in the IM progress note 04/01 and in subsequent IM progress notes which may lack sufficient clinical evidence/support in the medical record. Additional clarification is requested. History/Risk Factors: 73-year-old female with a history of HTN, DM2, metastatic endometrial adenocarcinoma who presents with weakness, hypotension and emesis Clinical Indicators: 03/29 Triage VS: 88/64, 97.8, 79, 16, 96% room air (BP 137/76 approx. 2hours later) 03/29-04/05 Temperature max: 98.9 (04/02) 04/01 IM PN, Assessment: "sepsis associated with acute on chronic cholecystitis and cholelithiasis status post cholecystectomy" 03/31 Laparoscopic cholecystectomy: Postoperative diagnosis: "Cholecystitis" 03/29-04/05 WBC: 4.4, 4.94, 4.3, 3.74, 4.02, 2.75 03/29 Lactic acid: 1.2 03/29 US Gallbladder, Impression: "1. A 2.5 cm gallstone. No ancillary findings of acute cholecystitis." Treatment: Normal Saline 1000cc bolus twice 03/29 then 75cc/hour start 03/29 Kefzol 1gram IV in OR 03/31 Please clarify if Sepsis is a valid diagnosis? [ ] No, Sepsis is ruled out [ ] Yes, Sepsis is present as evidence by (additional clinical support): [ ] Other (please specify diagnosis) [ ] Unable to determine In responding to this query, please exercise your independent professional judgment. The [facility] Coding Staff and Clinical Documentation Specialists appreciate your assistance in clarifying documentation, maintaining compliance with coding guidelines, accurately documenting patients condition and capturing severity of illness. The fact that a question is asked does not imply that any particular answer is desired or expected. Communication forms are a method of clarifying documentation and are made part of the Legal Health Record. Thank you in advance for your clarification. Last Revision: November 2020 SIRS Criteria: 2 or more of the following may indicate SIRS Temperature < 96.8F (36C) or > 101.0F (38.3C) Heart Rate > 90 bpm Respiratory Rate > 20 breaths/min or PaCO2 < 32 mmHg White Blood Cell Count > 12,000 or < 4,000 cells/mm3 or > 10% bands MTDD
== END 2024-04-05 14:55 | disposition home or self-care (01) | DRG 418 ==
LOC: EC 10:19 → 4SSUR 14:52
PROVIDERS: ADMIT Family Medicine; ATTEND Family Medicine
PROC: 0FT44ZZ Resection of Gallbladder, Percutaneous Endoscopic Approach (ICD-10-PCS; principal; 2024-03-31 09:45)
DX: K80.10 Calculus of gallbladder with chronic cholecystitis without obstruction (principal); K82.1 Hydrops of gallbladder; N17.9 Acute kidney failure, unspecified; Z85.3 Personal history of malignant neoplasm of breast; Z85.42 Personal history of malignant neoplasm of other parts of uterus; E03.9 Hypothyroidism, unspecified; E11.65 Type 2 diabetes mellitus with hyperglycemia; E78.5 Hyperlipidemia, unspecified; E87.6 Hypokalemia; F41.9 Anxiety disorder, unspecified; D70.9 Neutropenia, unspecified; G47.00 Insomnia, unspecified; I10 Essential (primary) hypertension; R93.89 Abnormal findings on diagnostic imaging of other specified body structures; R74.01 Elevation of levels of liver transaminase levels; Z79.84 Long term (current) use of oral hypoglycemic drugs; Z79.899 Other long term (current) drug therapy; Z90.13 Acquired absence of bilateral breasts and nipples; Z90.710 Acquired absence of both cervix and uterus; Z93.3 Colostomy status; Z88.5 Allergy status to narcotic agent; C54.1 Malignant neoplasm of endometrium
CPT/HCPCS: 36415; 71046; 71275; 76705; 80053; 81001; 83605; 83690; 83735; 83880; 84484; 85025; 85379; 85610; 85730; 88304; 93005; 93970; 94640; 96361; 96365; 96366; 99285